=== PATIENT | female | born 1945 | race Caucasian/White ===

== ENCOUNTER → 2016-06-10 | Outpatient (CLI) | payer MEDICARE, BC ==
[2016-06-10 10:21] LABS: Blood Urea Nitrogen 13 mg/dL (7-17); Non-African American GFR(MDRD) >60 (>60 ml/min/1.73 sqM)
--- NOTE | 2016-06-10 12:02 | CT ---
EXAMINATION TYPE: CT abdomen pelvis w con DATE OF EXAM: 06/10/2016 11:55 AM COMPARISON: June 22, 2014 HISTORY: Patient complains of nausea, vomiting, and diarrhea x4 days. Patient has a history of coliti s and diverticulitis. CT DLP: 1216 mGycm CONTRAST: CT scan of the abdomen and pelvis is performed with Oral Contrast and with IV Contrast, patient injec yonathan with 100 mL of Omnipaque 300. FINDINGS: LUNG BASES-: No visible nodule. No infiltrate. LIVER/GB: No calcified gallstones. Cholecystectomy changes. Stable hepatic cysts measuring up to 1. 8 cm. Mild fatty liver. Biliary tree is of normal caliber. PANCREAS: No inflammation. No distinct mass. SPLEEN: No splenic enlargement. No lesion seen. ADRENALS: No nodule. No thickening. KIDNEYS/BLADDER: No hydronephrosis. No nephrolithiasis. Stable right renal cyst measuring 2.2 cm. Urinary bladder grossly unremarkable. BOWEL: Normal bowel caliber. Sigmoid diverticulosis without diverticulitis. No inflammation. Small s liding-type hiatal hernia. GENITAL ORGANS: No gross abnormality. LYMPH NODES: No greater than 1cm abdominal or pelvic lymph nodes are appreciated. AORTA: No significant abnormality. OSSEOUS STRUCTURES: Degenerative changes again noted lumbar spine. OTHER: No significant additional abnormality is seen. IMPRESSION: 1. Sigmoid diverticulosis without diverticulitis. 2. Mild fatty liver with 2 stable hepatic cysts.
== END | disposition home or self-care (01) ==
LOC: RADCTMAIN 09:36
PROVIDERS: ATTEND Surgery
DX: K57.30 Diverticulosis of large intestine without perforation or abscess without bleeding (principal); K76.0 Fatty (change of) liver, not elsewhere classified; K76.89 Other specified diseases of liver
CPT/HCPCS: 82565; 84520; 74177; 36415; Q9967

== ENCOUNTER → 2017-02-03 | Outpatient (CLI) | payer MEDICARE, BC ==
--- NOTE | 2017-02-05 09:29 | MM ---
Reason for exam: screening (asymptomatic). Last mammogram was performed 1 year and 7 months ago. History: Patient history of other cancer. Benign stereotactic core biopsy of the right breast, August 20, 1999. Benign excisional biopsy of the right breast, May 03, 1998. 2 cyst aspirations of the left breast. Cyst aspiration of the right breast. Core biopsy of the right breast. Took hormonal contraceptives for 10 years. Took estrogen for 5 years. Physical Findings: A clinical breast exam by your physician is recommended on an annual basis and results should be correlated with mammographic findings. MG 3D Screening Mammo W/Cad Bilateral CC and MLO view(s) were taken. Prior study comparison: July 03, 2015, bilateral MG 3d screening mammo w/cad. May 09, 2014, bilateral MG diagnostic mammo w CAD NIK. There are scattered fibroglandular densities. No suspicious abnormality. Post biopsy change on the right breast. No significant changes when compared with prior studies. ASSESSMENT: Benign, BI-RAD 2 RECOMMENDATION: Routine screening mammogram of both breasts in 1 year.
== END | disposition home or self-care (01) ==
LOC: RADMAMWWP 16:13
PROVIDERS: ATTEND Family Medicine
DX: Z12.31 Encounter for screening mammogram for malignant neoplasm of breast (principal)
CPT/HCPCS: 77063; G0202

== ENCOUNTER 2017-12-26 14:12 | Emergency (ER) | payer MEDICARE, BC ==
[2017-12-26 14:45] VITALS: PULSE 56; RESP 18; TEMP 97.8
--- NOTE | 2017-12-26 15:20 | ED ---
Fall HPI - General Chief Complaint: Fall Stated Complaint: fall/nose bleed Time Seen by Provider: 12/26/17 15:03 Source: patient, RN notes reviewed Mode of arrival: wheelchair Limitations: no limitations - History of Present Illness Initial Comments: 72-year-old female presents emergency Department chief complaint trip and fall. 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 Patient does not lose consciousness she has no headache denies any neck or upper extremity pain. Patient states she only has nasal discomfort and pressure. She did have some bleeding from her left nostril which has resolved. Denies any loose dentition. Patient offers no other complaints she states she is up-to-date on her tetanus. - Related Data Home Medications Medication Instructions Recorded Confirmed Atenolol [Tenormin] 25 mg PO HS 07/15/13 07/13/14 Fluticasone Propionate [Flonase] 1 spray EA NOSTRIL BID 07/15/13 07/13/14 Hydroxychloroquine Sulfate 200 mg PO DAILY 07/15/13 07/13/14 [Plaquenil] Multivitamin [Children's 1 tab PO DAILY 07/15/13 07/13/14 Multivitamins] Omeprazole [PriLOSEC] 20 mg PO DAILY 07/15/13 07/13/14 Simvastatin [Zocor] 20 mg PO HS 07/15/13 07/13/14 Hydroxychloroquine Sulfate 100 mg PO HS 06/22/14 07/13/14 [Plaquenil] L.acid/L.casei/B.bif/B.alice/Fos 1 tab PO QID 06/22/14 07/13/14 [Probiotic Blend Capsule] Cholecalciferol [Vitamin D3] 1,000 units PO DAILY 07/06/14 07/13/14 Nystatin 100,000 Unit/ml Susp 2.5 ml PO QID 07/06/14 07/13/14 [Mycostatin Oral Susp] Previous Rx's Medication Instructions Recorded Aspirin 81 mg PO HS #0 07/11/14 Melatonin 3 mg PO HS tab 07/11/14 Vancomycin Oral Solution 250 mg PO Q6HR 14 Days ml 07/11/14 Albuterol Inhaler [Ventolin Hfa 1 - 2 puff INHALATION Q4-6H PRN #1 07/13/14 Inhaler] inhaler predniSONE 50 mg PO DAILY #5 tab 07/13/14 Allergies Allergy/AdvReac Type Severity Reaction Status Date / Time cephalexin monohydrate Allergy Rash/Hives Verified 12/26/17 14:47 [From Keflex] latex AdvReac Itching Verified 12/26/17 14:47 nabumetone [From Relafen] AdvReac Swelling Verified 12/26/17 14:47 Review of Systems ROS Statement: Those systems with pertinent positive or pertinent negative responses have been documented in the HPI. ROS Other: All systems not noted in ROS Statement are negative. 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 OA generalized. R shoulder dislocation 15 yrs ago, chronic anemia, pt denies any previous hx of CHF History of Any Multi-Drug Resistant Organisms: C-DIFF Date of last positivie culture/infection: 07/06/2014 MDRO Source:: stool Past Surgical History: Cholecystectomy, Tonsillectomy Additional Past Surgical History / Comment(s): Recent basal cell skin cancer removed from R shoulder, colonoscopy, oopherectomy-one ovary removed and one ovary 3/4 removed Past Anesthesia/Blood Transfusion Reactions: No Reported Reaction Past Psychological History: No Psychological Hx Reported Smoking Status: Never smoker Past Alcohol Use History: None Reported Past Drug Use History: None Reported - Past Family History Father Family Medical History: CVA/TIA Additional Family Medical History / Comment(s): Father at age 84 from CVA/ TIA's Mother Family Medical History: Coronary Artery Disease (CAD), Diabetes Mellitus Additional Family Medical History / Comment(s): Mother at age 57yrs from complications of her DM. General Exam Limitations: no limitations General appearance: alert, in no apparent distress Head exam: Present: atraumatic, normocephalic, normal inspection Eye exam: Present: normal appearance, PERRL, EOMI. Absent: scleral icterus, conjunctival injection, periorbital swelling ENT exam: Present: normal oropharynx, mucous membranes moist, TM's normal bilaterally, normal external ear exam, other (Dry blood in left nostril, there is mild swelling and ecchymosis over the nasal bridge with mild tenderness no maxillary tenderness). Absent: normal exam Neck exam: Present: normal inspection, full ROM. Absent: tenderness, meningismus, lymphadenopathy Respiratory exam: Present: normal lung sounds bilaterally. Absent: respiratory distress, wheezes, rales, rhonchi, stridor Cardiovascular Exam: Present: regular rate, normal rhythm, normal heart sounds. Absent: systolic murmur, diastolic murmur, rubs, gallop, clicks Course Vital Signs 12/26/17 14:41 Temperature 97.8 F Pulse Rate 56 L Respiratory 18 Rate Blood Pressure 141/67 O2 Sat by Pulse 97 Oximetry Medical Decision Making - Medical Decision Making 72-year-old female presented from it for chief complaint of fall. Patient had epistaxis. CT of the facial bones brain and C-spine were obtained no acute fracture there is old fracture noted. Patient does admit to this. Patient will be discharged return parameters were discussed. Disposition Clinical Impression: Fall, Epistaxis Disposition: HOME SELF-CARE Condition: Stable Instructions: Nosebleed (ED) Additional Instructions: Please return to the Emergency Department if symptoms worsen or any other concerns. Is patient prescribed a controlled substance at d/c from ED?: No Referrals: Soledad Antunez MD [Primary Care Provider] - 1-2 days Time of Disposition: 16:10
--- NOTE | 2017-12-26 15:52 | CT ---
EXAMINATION TYPE: CT brain cspine wo con, CT facial bones wo con DATE OF EXAM: 12/26/2017 COMPARISON: CT brain June 04, 2010. CT facial bones April 29, 2011 HISTORY: fall today hitting nose with headache and neck pain. CT DLP: 1339.2 (accession [id number]), 564.4 (accession [id number]) mGycm. Automated Exposure Control for Dose Reduction was Utilized. TECHNIQUE: CT scan of the head and cervical spine are performed without contrast. FINDINGS: There is no acute intracranial hemorrhage, mass effect, or midline shift identified. The ventricles and sulci are within normal limits in size. The calvarium is intact. There is old fracture deformity of left-sided nasal bones redemonstrated. No acute displaced fracture s are felt evident as there is no significant new soft tissue swelling or change from prior CT 2011. Orbital floors and rodriguez are intact. The globes are intact bilaterally. Intraconal fat is preserved. The zygomatic arches are intact. Pterygoid plates are intact. The mandible is intact. There is modera te degenerative change in both temporomandibular joints with flattening of femoral heads, joint space loss, and subchondral cystic change. There is mild mucosal thickening in the smaller caliber left ma xillary sinus. Remainder paranasal sinuses are clear. Cervical spine is visualized in its entirety from C1 through upper thoracic levels and demonstrates s light grade 1 anterolisthesis C3 on C4 and grade 1 retrolisthesis C6 on C7 without evidence of acute fracture or dislocation. Prevertebral soft tissue appears within normal limits. The C1-C2 articulat ion is within normal limits on the coronal images. Vertebral body heights are maintained. Moderate to advanced spurring and disc space narrowing C4-C5 t hrough C6-C7 levels is present. Posterior spur disc complexes are effacing anterior thecal sac at the se levels on sagittal and axial images. Lung apices show mild biapical pleural/parenchymal scarring. Thyroid gland is within normal limits. IMPRESSION: 1. There is no acute fracture or dislocation evident in the cervical spine. 2. No acute intracranial hemorrhage or midline shift is seen. 3. Age indeterminate but favored old left-sided nasal bone fractures. No acute displaced facial bone fracture is clearly seen.
[2017-12-26 16:19] VITALS: BP 143/73
== END 2017-12-26 16:14 | disposition home or self-care (01) ==
LOC: EC 14:12
DX: R04.0 Epistaxis (principal); K21.9 Gastro-esophageal reflux disease without esophagitis; E78.5 Hyperlipidemia, unspecified; I10 Essential (primary) hypertension; Z85.828 Personal history of other malignant neoplasm of skin; Z79.51 Long term (current) use of inhaled steroids; Z79.899 Other long term (current) drug therapy; Z88.1 Allergy status to other antibiotic agents; Z91.040 Latex allergy status; Z88.8 Allergy status to other drugs, medicaments and biological substances; W01.10XA Fall on same level from slipping, tripping and stumbling with subsequent striking against unspecified object, initial encounter; Y93.G3 Activity, cooking and baking; Y92.22 Religious institution as the place of occurrence of the external cause
CPT/HCPCS: 70450; 70486; 72125; 99283

== ENCOUNTER → 2018-03-20 | Outpatient (CLI) | payer MEDICARE, BC ==
--- NOTE | 2018-03-23 07:51 | BD ---
EXAMINATION TYPE: Axial Bone Density DATE OF EXAM: 03/20/2018 COMPARISON: 09/27/2004 report. CLINICAL HISTORY: Other bone disorders per order. Postmenopausal female. Height: 58.5 IN Weight: 152 LBS FRAX RISK QUESTIONS: History of Fracture in Adulthood: YES LT FOOT AGE 65; RT WRIST AGE 63 RISK FACTORS HISTORY OF: History of Wrist Fracture: YES RT WRIST When: AGE 63 Active: YES Postmenopausal woman: AGE 43 Take estrogen and/or progesterone medications: NOT NOW How long: CONTROL FROM AGE [age] MEDICATIONS: Additional Medications: CALCIUM, VIT D, DESONIDE, ALDACTONE, PRILOSEC, VIT C, PROBIOTIC, FLONASE, ZOC OR, TENORMIN, PLAQUENIL, COZAAR, HCTZ, ASPIRIN 81 MG EXAM MEASUREMENTS: Bone mineral densitometry was performed using the [employer]. Bone mineral density as measured about the Lumbar spine is: ----- L1-L4(G/cm2): 1.162 T Score Values are as follows: ----- L2: -0.8 ----- L3: -0.3 ----- L4: 1.0 ----- L1-L4: -0.2 Bone mineral density has: Increased 17.2% since study of: 09/27/2004 Bone mineral density about the R hip (g/cm2): 0.832 Bone mineral density about the L hip (g/cm2): 0.852 T Score values are as follows: -----R Neck: -1.5 -----L Neck: -1.3 -----R Total: -0.9 -----L Total: -0.4 Bone mineral density BASELINE IMPRESSION: Osteopenia (T Score between -2.5 and -1) femoral neck level in both hips. There is slightly increased risk of fracture and the patient may be considered for treatment. Re-Screen 2-5 years. NOTE: T-SCORE=SD OF THE YOUNG ADULT MEAN.
--- NOTE | 2018-03-29 10:53 | MM ---
Reason for exam: screening (asymptomatic). Last mammogram was performed 1 year and 1 month ago. History: Patient history of other cancer. Benign stereotactic core biopsy of the right breast, August 20, 1999. Benign excisional biopsy of the right breast, May 03, 1998. 2 cyst aspirations of the left breast. Cyst aspiration of the right breast. Core biopsy of the right breast. Took hormonal contraceptives for 10 years. Took estrogen for 5 years. MG 3D Screening Mammo W/Cad Bilateral CC and MLO view(s) were taken. Prior study comparison: February 03, 2017, bilateral MG 3d screening mammo w/cad. July 03, 2015, bilateral MG 3d screening mammo w/cad. The breast tissue is heterogeneously dense. This may lower the sensitivity of mammography. There are benign-appearing round vascular calcification in bilateral breast. Previous mammotome in the right breast x 2. No discrete abnormality. ASSESSMENT: Benign, BI-RAD 2 RECOMMENDATION: Routine screening mammogram of both breasts in 1 year.
== END | disposition home or self-care (01) ==
LOC: RADMAMWWP 07:55
PROVIDERS: ATTEND Family Medicine
DX: Z12.31 Encounter for screening mammogram for malignant neoplasm of breast (principal); M85.851 Other specified disorders of bone density and structure, right thigh; M85.852 Other specified disorders of bone density and structure, left thigh
CPT/HCPCS: 77063; 77067; 77080

== ENCOUNTER → 2018-08-11 | Outpatient (CLI) | payer MEDICARE, BC ==
--- NOTE | 2018-08-11 15:09 | US ---
EXAMINATION TYPE: US axilla RT DATE OF EXAM: 08/11/2018 COMPARISON: NONE CLINICAL HISTORY: R22.9 Localized swelling, mass and lump, unspecifi. Patient states she has had a lump in her right axilla since March. No masses seen, normal appearing axilla ultrasound. Morphologically normal-appearing axillary lymp h node measures 0.8 x 0.9 cm with cortical thickness up to 2.6 mm. IMPRESSION: Morphologically normal and nonenlarged right axillary lymph node. No suspicious solid or cystic mass.
== END | disposition home or self-care (01) ==
LOC: RADUSWWP 14:39
PROVIDERS: ATTEND Family Medicine
DX: R22.9 Localized swelling, mass and lump, unspecified (principal)

== ENCOUNTER → 2019-05-11 | Outpatient (CLI) | payer MEDICARE, BC ==
--- NOTE | 2019-05-11 11:10 | US ---
EXAMINATION TYPE: US axilla RT DATE OF EXAM: 05/11/2019 COMPARISON: US 08/11/2018 CLINICAL HISTORY: R22.9 Lump,mass. Palpable lump right axilla TECHNIQUE/FINDINGS: Grayscale imaging was performed of the patient's right axilla for the palpable ab normality. No suspicious abnormality visualized, multiple normal appearing lymph nodes visualized, largest measu ring 0.6 cm. These are nonenlarged morphologically normal with no cortical thickening. Fatty hilum is maintained. IMPRESSION: Again morphologically normal-appearing right axillary lymph nodes are seen. No enlarged lymph nodes. No suspicious lymph nodes. No additional solid or cystic mass.
--- NOTE | 2019-05-12 07:47 | MM ---
Reason for exam: screening (asymptomatic). Last mammogram was performed 1 year and 2 months ago. History: Patient history of other cancer. Benign stereotactic core biopsy of the right breast, August 20, 1999. Benign excisional biopsy of the right breast, May 03, 1998. 2 cyst aspirations of the left breast. Cyst aspiration of the right breast. Core biopsy of the right breast. Took hormonal contraceptives for 10 years beginning at age 22. Taking estrogen for 5 years. Physical Findings: A clinical breast exam by your physician is recommended on an annual basis and results should be correlated with mammographic findings. MG 3D Screening Mammo W/Cad Bilateral CC and MLO view(s) were taken. Prior study comparison: March 20, 2018, bilateral MG 3d screening mammo w/cad. February 03, 2017, bilateral MG 3d screening mammo w/cad. The breast tissue is heterogeneously dense. This may lower the sensitivity of mammography. Nodularity central left breast middle third position. ASSESSMENT: Incomplete: need additional imaging evaluation, BI-RAD 0 RECOMMENDATION: Special view mammogram of the left breast. If lesion persists on supplemental views, image directed ultrasound is recommended. [facility] will attempt to contact patient to return for supplemental views and ultrasound if indicated.
== END ==
LOC: RADMAMWWP 09:50
PROVIDERS: ATTEND Family Medicine
DX: Z12.31 Encounter for screening mammogram for malignant neoplasm of breast (principal); R22.2 Localized swelling, mass and lump, trunk
CPT/HCPCS: 77063; 77067

== ENCOUNTER → 2019-05-17 | Outpatient (CLI) | payer MEDICARE, BC ==
--- NOTE | 2019-05-18 07:29 | MM ---
Reason for exam: additional evaluation requested from abnormal screening. Last mammogram was performed less than 1 month ago. History: Patient history of other cancer. Benign stereotactic core biopsy of the right breast, August 20, 1999. Benign excisional biopsy of the right breast, May 03, 1998. 2 cyst aspirations of the left breast. Cyst aspiration of the right breast. Core biopsy of the right breast. Took hormonal contraceptives for 10 years beginning at age 22. Took estrogen for 3 years beginning at age 55. Physical Findings: Nurse did not find any significant physical abnormalities on exam. MG 3D Work Up W/Cad LT Spot compression CC, spot compression MLO, and ML view(s) were taken of the left breast. Prior study comparison: May 11, 2019, bilateral MG 3d screening mammo w/cad. March 20, 2018, bilateral MG 3d screening mammo w/cad. February 03, 2017, bilateral MG 3d screening mammo w/cad. July 03, 2015, bilateral MG 3d screening mammo w/cad. The breast tissue is heterogeneously dense. This may lower the sensitivity of mammography. There is a stable left lower inner quadrant middle depth round circumscribed mass back to 2016, benign. Benign appearing calcifications in the left breast. No suspicious abnormality. No significant new findings when compared with previous films. These results were verbally communicated with the patient and result sheet given to the patient on 05/17/19. ASSESSMENT: Benign, BI-RAD 2 RECOMMENDATION: Return to routine screening mammogram schedule for both breasts.
== END | disposition home or self-care (01) ==
LOC: RADMAMWWP 14:24
PROVIDERS: ATTEND Family Medicine
DX: R92.8 Other abnormal and inconclusive findings on diagnostic imaging of breast (principal)
CPT/HCPCS: 77065; G0279; 77061

== ENCOUNTER 2019-08-08 13:40 | Inpatient (IN) | payer MEDICARE, BC ==
[2019-08-08] MEDS ORDERED: MORPHINE SULFATE 4 MG/ML SYRINGE IV STA (14:17)
[2019-08-08] MEDS ORDERED: SODIUM CHLORIDE 0.9% 500 ML 500 ML IV STA (14:17)
[2019-08-08] MEDS ORDERED: LORazepam 2 MG/ML INJ IV STA (14:22)
--- NOTE | 2019-08-08 14:27 | ED ---
General Adult HPI - General Chief complaint: Shortness of Breath Stated complaint: chest pain/SOB/arm numbness Time Seen by Provider: 08/08/19 14:09 Source: patient, RN notes reviewed, old records reviewed Mode of arrival: wheelchair Limitations: no limitations - History of Present Illness Initial comments: 74-year-old female patient presented to ED for chief complaint of left lower quadrant/left flank pain. This has been ongoing for the last 4 days. Patient also reports that today she has now become short of breath. Denies any cough. Denies any chest pain. Patient reports that she is very anxious. Has been having some mild paresthesias in the left lower extremity. Denies any anterior chest pain. Denies any other complaints. Systemic: Pt denies fatigue, fever/chills, rash. Pt denies weakness, night sweats, weight loss. Neuro: Pt denies headache, visual disturbances, syncope or pre-syncope. HEENT: Pt denies ocular discharge or irritation, otalgia, rhinorrhea, pharyngitis or notable lymphadenopathy. Cardiopulmonary: Pt denies chest pain, heart palpitations, dyspnea on exertion. Abdominal/GI: Pt denies n/v/d. : Pt denies dysuria, burning w/ urination, frequency/urgency. Denies new onset urinary or bowel incontinence. MSK: Pt denies myalgia, loss of strength or function in extremities. Neuro: Pt denies new onset weakness, paresthesias. - Related Data Home Medications Medication Instructions Recorded Confirmed Fluticasone Propionate [Flonase] 1 spray EA NOSTRIL BID 07/15/13 12/26/17 Hydroxychloroquine Sulfate 200 mg PO DAILY 07/15/13 12/26/17 [Plaquenil] Multivitamin [Children's 1 tab PO DAILY 07/15/13 12/26/17 Multivitamins] Simvastatin [Zocor] 20 mg PO HS 07/15/13 12/26/17 Hydroxychloroquine Sulfate 100 mg PO HS 06/22/14 12/26/17 [Plaquenil] L.acid/L.casei/B.bif/B.alice/Fos 1 tab PO QID 06/22/14 12/26/17 [Probiotic Blend Capsule] Cholecalciferol [Vitamin D3 (25 1,000 units PO DAILY 07/06/14 12/26/17 Mcg = 1000 Iu)] Atenolol [Tenormin] 50 mg PO DAILY 12/26/17 12/26/17 Losartan/Hydrochlorothiazide 1 tab PO DAILY 12/26/17 12/26/17 [Hyzaar 100-25 Tablet] Allergies Allergy/AdvReac Type Severity Reaction Status Date / Time cephalexin monohydrate Allergy Rash/Hives Verified 08/08/19 13:47 [From Keflex] crisaborole [From Eucrisa] Allergy Anaphylaxis Verified 08/08/19 13:47 Penicillins Allergy Unknown Verified 08/08/19 14:56 latex AdvReac Itching Verified 08/08/19 13:47 methocarbamol AdvReac Swelling Verified 08/08/19 13:47 nabumetone [From Relafen] AdvReac Swelling Verified 08/08/19 13:47 Review of Systems ROS Statement: Those systems with pertinent positive or pertinent negative responses have been documented in the HPI. ROS Other: All systems not noted in ROS Statement are negative. 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 OA generalized. R shoulder dislocation 15 yrs ago, chronic anemia, pt denies any previous hx of CHF History of Any Multi-Drug Resistant Organisms: C-DIFF Date of last positivie culture/infection: 07/06/2014 MDRO Source:: stool Past Surgical History: Cholecystectomy, Tonsillectomy Additional Past Surgical History / Comment(s): Recent basal cell skin cancer removed from R shoulder, colonoscopy, oopherectomy-one ovary removed and one ovary 3/4 removed Past Anesthesia/Blood Transfusion Reactions: No Reported Reaction Past Psychological History: No Psychological Hx Reported Smoking Status: Never smoker Past Alcohol Use History: None Reported Past Drug Use History: None Reported - Past Family History Father Family Medical History: CVA/TIA Additional Family Medical History / Comment(s): Father at age 84 from CVA/TIA's Mother Family Medical History: Coronary Artery Disease (CAD), Diabetes Mellitus Additional Family Medical History / Comment(s): Mother at age 57yrs from complications of her DM. General Exam - General Exam Comments Initial Comments: Constitutional: NAD, AOX3, Pt has pleasant affect. HEENT: NC/AT, trachea midline, neck supple, no lymphadenopathy. Posterior ph arynx non erythematous, without exudates. External ears appear normal, without discharge. Mucous membranes moist. Eyes PERRLA, EOM intact. There is no scleral icterus. No pallor noted. Cardiopulmonary: RRR, no murmurs, rubs or gallops, no JVD noted. Lungs CTAB in anterior and posterior cramer. No peripheral edema. Abdominal exam: Abdomen soft and non-distended. Abdomen mildly tender to palpation in left lower quadrant, left lower flank region.. Bowel sounds active in LLQ. No hepatosplenomegaly. No ecchymosis Neuro: CN II-XII intact. No nuchal rigidity. No raccon eyes, no ferreira sign, no hemotympanum. No cervical spinal tenderness. MSK: No posterior calf tenderness bilaterally, homans sign negative bilaterally. Sensation intact in upper and lower extremities. Full active ROM in upper and lower extremities, 5/5 stregnth. Limitations: no limitations Course Vital Signs 08/08/19 08/08/19 08/08/19 13:44 13:47 14:47 Temperature 98.2 F Pulse Rate 59 L 54 L Respiratory 24 20 20 Rate Blood Pressure 147/83 131/76 O2 Sat by Pulse 91 L 97 98 Oximetry 08/08/19 08/08/19 08/08/19 15:00 16:00 17:00 Temperature Pulse Rate 54 L 54 L 51 L Respiratory 20 20 20 Rate Blood Pressure 85/54 119/62 O2 Sat by Pulse 98 98 98 Oximetry Medical Decision Making - Medical Decision Making 74-year-old female patient presented to ED for chief complaint of left lower quadrant/left flank pain. This has been ongoing for the last 4 days. Patient also reports that today she has now become short of breath. Denies any cough. Denies any chest pain. Patient reports that she is very anxious. Has been having some mild paresthesias in the left lower extremity. Denies any anterior chest pain. Denies any other complaints. Physical exam showed left lower quadrant tenderness. Lungs are clear to auscultation bilaterally. Laboratory investigations are obtained and are overall unremarkable. D-dimer negative. Troponin negative. Repeat evaluation patient is stating that her abdominal pain has resolved however she is now complaining of left shoulder pain. Patient denies any shortness breath at this time. EKG is nonischemic. Patient's blood pressure also transiently dropped down in the 80s. Currently in the 100 systolic. Patient will be observed in hospital for serial troponins, ACS rule out. Case discussed with Dr. Bang. - Lab Data Result diagrams: 08/08/19 14:40 08/08/19 14:40 Lab Results 08/08/19 08/08/19 08/08/19 Range/Units 14:40 14:40 14:40 WBC 9.4 (3.8-10.6) k/uL RBC 4.71 (3.80-5.40) m/uL Hgb 14.9 (11.4-16.0) gm/dL Hct 44.6 (34.0-46.0) % MCV 94.7 (80.0-100.0) fL MCH 31.6 (25.0-35.0) pg MCHC 33.3 (31.0-37.0) g/dL RDW 11.7 (11.5-15.5) % Plt Count 244 (150-450) k/uL Neutrophils % 75 % Lymphocytes % 14 % Monocytes % 5 % Eosinophils % 2 % Basophils % 1 % Neutrophils # 7.1 (1.3-7.7) k/uL Lymphocytes # 1.3 (1.0-4.8) k/uL Monocytes # 0.5 (0-1.0) k/uL Eosinophils # 0.2 (0-0.7) k/uL Basophils # 0.1 (0-0.2) k/uL PT 10.6 (9.0-12.0) sec INR 1.0 (<1.2) APTT 22.2 (22.0-30.0) sec D-Dimer 0.31 (<0.60) mg/L FEU Sodium 133 L (137-145) mmol/L Potassium 4.5 (3.5-5.1) mmol/L Chloride 97 L (98-107) mmol/L Carbon Dioxide 21 L (22-30) mmol/L Anion Gap 15 mmol/L BUN 18 H (7-17) mg/dL Creatinine 0.66 (0.52-1.04) mg/dL Est GFR (CKD-EPI)AfAm >90 (>60 ml/min/1.73 sqM) Est GFR (CKD-EPI)NonAf 86 (>60 ml/min/1.73 sqM) Glucose 94 (74-99) mg/dL Calcium 10.3 H (8.4-10.2) mg/dL Magnesium 1.7 (1.6-2.3) mg/dL Total Bilirubin 1.0 (0.2-1.3) mg/dL AST 37 H (14-36) U/L ALT 22 (4-34) U/L Alkaline Phosphatase 61 (38-126) U/L Troponin I (0.000-0.034) ng/mL NT-Pro-B Natriuret Pep pg/mL Total Protein 7.9 (6.3-8.2) g/dL Albumin 5.0 (3.5-5.0) g/dL Lipase 113 (23-300) U/L Urine Color Urine Appearance (Clear) Urine pH (5.0-8.0) Ur Specific Williams (1.001-1.035) Urine Protein (Negative) Urine Glucose (UA) (Negative) Urine Ketones (Negative) Urine Blood (Negative) Urine Nitrite (Negative) Urine Bilirubin (Negative) Urine Urobilinogen (<2.0) mg/dL Ur Leukocyte Esterase (Negative) Urine RBC (0-5) /hpf Urine WBC (0-5) /hpf 08/08/19 08/08/19 08/08/19 Range/Units 14:40 14:40 15:30 WBC (3.8-10.6) k/uL RBC (3.80-5.40) m/uL Hgb (11.4-16.0) gm/dL Hct (34.0-46.0) % MCV (80.0-100.0) fL MCH (25.0-35.0) pg MCHC (31.0-37.0) g/dL RDW (11.5-15.5) % Plt Count (150-450) k/uL Neutrophils % % Lymphocytes % % Monocytes % % Eosinophils % % Basophils % % Neutrophils # (1.3-7.7) k/uL Lymphocytes # (1.0-4.8) k/uL Monocytes # (0-1.0) k/uL Eosinophils # (0-0.7) k/uL Basophils # (0-0.2) k/uL PT (9.0-12.0) sec INR (<1.2) APTT (22.0-30.0) sec D-Dimer (<0.60) mg/L FEU Sodium (137-145) mmol/L Potassium (3.5-5.1) mmol/L Chloride (98-107) mmol/L Carbon Dioxide (22-30) mmol/L Anion Gap mmol/L BUN (7-17) mg/dL Creatinine (0.52-1.04) mg/dL Est GFR (CKD-EPI)AfAm (>60 ml/min/1.73 sqM) Est GFR (CKD-EPI)NonAf (>60 ml/min/1.73 sqM) Glucose (74-99) mg/dL Calcium (8.4-10.2) mg/dL Magnesium (1.6-2.3) mg/dL Total Bilirubin (0.2-1.3) mg/dL AST (14-36) U/L ALT (4-34) U/L Alkaline Phosphatase (38-126) U/L Troponin I <0.012 (0.000-0.034) ng/mL NT-Pro-B Natriuret Pep 292 pg/mL Total Protein (6.3-8.2) g/dL Albumin (3.5-5.0) g/dL Lipase (23-300) U/L Urine Color Yellow Urine Appearance Clear (Clear) Urine pH 8.0 (5.0-8.0) Ur Specific Williams 1.019 (1.001-1.035) Urine Protein Negative (Negative) Urine Glucose (UA) Negative (Negative) Urine Ketones 1+ H (Negative) Urine Blood Negative (Negative) Urine Nitrite Negative (Negative) Urine Bilirubin Negative (Negative) Urine Urobilinogen <2.0 (<2.0) mg/dL Ur Leukocyte Esterase Moderate H (Negative) Urine RBC 1 (0-5) /hpf Urine WBC 2 (0-5) /hpf - EKG Data -: EKG Interpreted by Me (and Dr. Bang ) EKG Comments: 1) ventricular rate 58,. NH interval 124, QRS 72, QT/QTc 442/433. Sinus bradycardia, inferior infarct age undetermined. Normal EKG. No concern for acute ischemia at this time. 2) ventricular rate 55, NH interval 110, QRS 100, QT/QTC 48/476. Sinus bradycardia with short NH. Otherwise normal EKG. No concern for acute ischemia at this time. Disposition Clinical Impression: Shoulder pain, Bradycardia Disposition: ADMITTED IP TO THIS HOSP Condition: Fair Is patient prescribed a controlled substance at d/c from ED?: No Referrals: Soledad Antunez MD [Primary Care Provider] - 1-2 days
[2019-08-08 14:54] LABS: Basophils # (A) 0.1 k/uL (0-0.2); Basophils % (A) 1 %; Eosinophils # (A) 0.2 k/uL (0-0.7); Eosinophils % (A) 2 %; HCT 44.6 % (34.0-46.0); HGB 14.9 gm/dL (11.4-16.0); Lymphocytes # (A) 1.3 k/uL (1.0-4.8); Lymphocytes % (A) 14 %; MCH 31.6 pg (25.0-35.0); MCHC 33.3 g/dL (31.0-37.0); MCV 94.7 fL (80.0-100.0); Mean Platelet Volume 8.6; Monocytes # (A) 0.5 k/uL (0-1.0); Monocytes % (A) 5 %; Neutrophils # (A) 7.1 k/uL (1.3-7.7); Neutrophils % (A) 75 %; Platelet Count 244 k/uL (150-450); RBC 4.71 m/uL (3.80-5.40); RDW 11.7 % (11.5-15.5); WBC 9.4 k/uL (3.8-10.6)
--- NOTE | 2019-08-08 15:00 | XR ---
EXAMINATION TYPE: XR chest 2V DATE OF EXAM: 08/08/2019 COMPARISON: Prior chest x-ray 07/13/2014 HISTORY: Shortness of breath TECHNIQUE: Frontal and lateral views of the chest are obtained. FINDINGS: There is no focal air space opacity, pleural effusion, or pneumothorax seen. The cardiac silhouette size is stable. The osseous structures are intact. Surgical clips are present in the upp er abdomen. There are overlying cardiac leads. Prominent lung volumes may be indicative of underlying COPD. IMPRESSION: No acute cardiopulmonary process. Improved aeration and volume status as compared to vahe or exam.
[2019-08-08 15:05] LABS: ALT 22 U/L (4-34); AST 37 U/L (14-36); African American GFR (CKD) >90 (>60 ml/min/1.73 sqM); Alkaline Phosphatase 61 U/L (38-126); Anion Gap 15 mmol/L; Blood Urea Nitrogen 18 mg/dL (7-17); Calcium 10.3 mg/dL (8.4-10.2); Carbon Dioxide 21 mmol/L (22-30); Chloride 97 mmol/L (98-107); Glucose 94 mg/dL (74-99); Magnesium 1.7 mg/dL (1.6-2.3); Non-African American GFR(CKD) 86 (>60 ml/min/1.73 sqM); Sodium 133 mmol/L (137-145); Total Protein 7.9 g/dL (6.3-8.2)
[2019-08-08 15:07] LABS: Potassium 4.5 mmol/L (3.5-5.1)
[2019-08-08 15:08] LABS: D-Dimer 0.31 mg/L FEU (<0.60); Partial Thromboplastin Time 22.2 sec (22.0-30.0); Prothrombin Time 10.6 sec (9.0-12.0)
[2019-08-08 16:17] LABS: Appearance,Urine Clear (Clear); Bilirubin,Urine Negative (Negative); Blood,Urine Negative (Negative); Color,Urine Yellow; Glucose,Urine (UA) Negative (Negative); Ketones,Urine 1+ (Negative); Leukocyte Esterase,Urine Moderate (Negative); Nitrite,Urine Negative (Negative); Protein,Urine Negative (Negative); RBC,Urine 1 /hpf (0-5); Specific Gravity,Urine 1.019 (1.001-1.035); Urobilinogen,Urine <2.0 mg/dL (<2.0); WBC,Urine 2 /hpf (0-5)
--- NOTE | 2019-08-08 16:38 | CT ---
EXAMINATION TYPE: CT abdomen pelvis w con DATE OF EXAM: 08/08/2019 COMPARISON: HISTORY: LLQ pain CT DLP: 809.7 mGycm Automated exposure control for dose reduction was used. TECHNIQUE: Helical acquisition of images from the lung bases through the pelvis have been completed. CONTRAST: Performed without Oral Contrast and with IV Contrast, patient injected with 100 mL of Isovue 300. FINDINGS: LUNG BASES: No significant abnormality is appreciated. AORTA: No significant abnormality is appreciated. LIVER/GB: No significant change is appreciated. Patient is post cholecystectomy. PANCREAS: No significant abnormality is seen. SPLEEN: No significant abnormality is seen. ADRENALS: No significant abnormality is seen. KIDNEYS: No significant interval change is seen. REPRODUCTIVE ORGANS: No significant abnormality is seen BOWEL: No significant interval change is seen. Sigmoid diverticulosis is noted. Diverticular change also present in much of the colon. Colonic wall thickening also seen along the descending colon. FREE AIR: No Free Air visible. ASCITES: None visible. PELVIC ADENOPATHY: None visualized. RETROPERITONEAL ADENOPATHY: No Retroperitoneal Adenopathy visible. URINARY BLADDER: No significant abnormality is seen. OSSEOUS STRUCTURES: No significant change is seen. There is degenerative disc change present. Bradly listhesis grade 1 L4-5. IMPRESSION: DIVERTICULOSIS, CORRELATE FOR POSSIBLE COLITIS.
[2019-08-08] MEDS ORDERED: SODIUM CHLORIDE 0.9% 500 ML 500 ML IV ONE ×2 (16:47→16:48)
[2019-08-08] MEDS ORDERED: NALOXONE 0.4 MG/ML 1 ML VIAL IV PRN (17:15)
[2019-08-08] MEDS ORDERED: ASPIRIN 81 MG PO STA (17:15)
[2019-08-08] MEDS ORDERED: MORPHINE SULFATE 4 MG/ML SYRINGE IV PRN (17:15)
[2019-08-08] MEDS ORDERED: LORazepam 0.5 MG TAB PO PRN (17:22)
[2019-08-08] MEDS: ATORVASTATIN 10 MG TAB PO SCH (19:50)
[2019-08-08] MEDS ORDERED: HYDROXYCHLOROQUINE SULFATE 200 MG TAB PO SCH (21:00)
[2019-08-08] MEDS: FLUTICASONE 50MCG/SPRAY NASAL 16GM EA NOSTRIL SCH (21:00)
[2019-08-09 03:26] LABS: Basophils % (A) 0 %; Eosinophils # (A) 0.2 k/uL (0-0.7); Eosinophils % (A) 3 %; HCT 36.5 % (34.0-46.0); HGB 12.5 gm/dL (11.4-16.0); Lymphocytes # (A) 1.1 k/uL (1.0-4.8); Lymphocytes % (A) 19 %; MCHC 34.2 g/dL (31.0-37.0); MCV 96.4 fL (80.0-100.0); Monocytes # (A) 0.4 k/uL (0-1.0); Monocytes % (A) 7 %; Neutrophils # (A) 3.9 k/uL (1.3-7.7); Neutrophils % (A) 68 %; Platelet Count 210 k/uL (150-450); RBC 3.78 m/uL (3.80-5.40); RDW 11.8 % (11.5-15.5); WBC 5.7 k/uL (3.8-10.6)
[2019-08-09 03:34] LABS: African American GFR (CKD) >90 (>60 ml/min/1.73 sqM); Anion Gap 7 mmol/L; Blood Urea Nitrogen 16 mg/dL (7-17); Calcium 9.1 mg/dL (8.4-10.2); Carbon Dioxide 26 mmol/L (22-30); Chloride 98 mmol/L (98-107); Glucose 78 mg/dL (74-99); Non-African American GFR(CKD) 86 (>60 ml/min/1.73 sqM); Potassium 3.8 mmol/L (3.5-5.1); Sodium 131 mmol/L (137-145)
[2019-08-09] MEDS ORDERED: ASPIRIN 325 MG TAB PO SCH (09:00)
[2019-08-09] MEDS ORDERED: LOSARTAN-HCTZ 50-12.5 MG 1 EACH TAB PO SCH (09:00)
[2019-08-09] MEDS ORDERED: ATENOLOL 50 MG TAB PO SCH (09:00)
--- NOTE | 2019-08-09 11:25 | P.CRDCN ---
History of Present Illness History of present illness: Lashon tidwell This is Dr. Hernandez dictating a consult on this patient The patient was interviewed and examined by me IMPRESSION / ASSESSMENT: Left-sided flank pain, very severe Sinus bradycardia in the 50s on atenolol Absolute QT interval between 480-490 ms Low magnesium and low potassium PLAN: Stop hydrochlorothiazide Continue losartan 50 twice a day Oral magnesium Spironolactone [25 mg by mouth daily and maximize to 50 m by mouth daily to keep normal magnesium and potassium while on Plaquenil Monitor QT interval tomorrow HPI Patient admitted with abdominal pain. Was complaining of shoulder pain Heart rates in the 50s. Currently on atenolol 50 mg daily Magnesium 1.7 normal troponins Twelve-lead ECG shows sinus rhythm in the 50s absolute QT interval of about 490 ms Patient on plaquenil ROS: No fever chills or rigors, no cough, phlegm or expectoration, no nausea, vomiting or diarrhea, no hematuria, dysuria, no musculoskeletal complaints, no strokes or seizures, no skin lesions. EXAMINATION: Afebrile 98.1F blood pressure 144/69, 149/63 and 130/61 Normal heart sounds, normal S1 normal S2 Tenderness in the left upper quadrant and left flank Normal breath sounds No lower extremity edema REVIEW OF LABS, ECG & MEDICAL DATA Medications reviewed. Patient is on Zocor atenolol losartan Teresa L spironolactone hydrochlorothiazide and Flonase Hemoglobin 14.9 Sodium 133 BUN 18 creatinine 0.66 Magnesium 1.7, potassium 3.8 3 troponins are normal ProBNP to 92 D-dimer 0.3 Twelve-lead ECG shows sinus rhythm normal ND CT of the abdomen shows possible colitis and diverticulosis Chest x-ray normal Past Medical History Past Medical History: Cancer, GERD/Reflux, Hyperlipidemia, Hypertension, Osteoarthritis (OA), Pneumonia Additional Past Medical History / Comment(s): rectal bleed possible diverticular bleed, CDiff, R humerus fx, recent R upper arm basal cell ckin cancer removal, 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 OA generalized. R shoulder dislocation 15 yrs ago, chronic anemia, pt denies any previous hx of CHF History of Any Multi-Drug Resistant Organisms: C-DIFF Date of last positivie culture/infection: 07/06/2014 MDRO Source:: stool Past Surgical History: Cholecystectomy, Tonsillectomy Additional Past Surgical History / Comment(s): Recent basal cell skin cancer removed from R shoulder, colonoscopy, oopherectomy-one ovary removed and one ovary 3/4 removed Past Anesthesia/Blood Transfusion Reactions: No Reported Reaction Past Psychological History: No Psychological Hx Reported Additional Psychological History / Comment(s): Pt states she is alittle stressed from her shogrens disease and recent health problems. She lives alone since her 4 1/2 yrs ago. She is normally independent. She just recently fx her R humerous so things are alittle more difficult but her two sones live nearby and check on her. She is getting progressively weaker with CDiff antibiotic tx and problems associated with that. Smoking Status: Former smoker Past Alcohol Use History: None Reported Past Drug Use History: None Reported - Past Family History Father Family Medical History: CVA/TIA Additional Family Medical History / Comment(s): Father at age 84 from CVA/TIA's Mother Family Medical History: Coronary Artery Disease (CAD), Diabetes Mellitus Additional Family Medical History / Comment(s): Mother at age 57yrs from complications of her DM. Medications and Allergies Home Medications Medication Instructions Recorded Confirmed Type Fluticasone Propionate [Flonase] 1 spray EA NOSTRIL BID 07/15/13 08/08/19 History Hydroxychloroquine Sulfate 200 mg PO DAILY 07/15/13 08/08/19 History [Plaquenil] Simvastatin [Zocor] 20 mg PO HS 07/15/13 08/08/19 History Atenolol [Tenormin] 50 mg PO HS 12/26/17 08/08/19 History Hydrochlorothiazide 25 mg PO DAILY 08/08/19 08/08/19 History Losartan Potassium [Cozaar] 100 mg PO DAILY 08/08/19 08/08/19 History Omeprazole 20 mg PO BID 08/08/19 08/08/19 History Spironolactone [Aldactone] 12.5 mg PO DAILY 08/08/19 08/08/19 History Allergies Allergy/AdvReac Type Severity Reaction Status Date / Time cephalexin monohydrate Allergy Rash/Hives Verified 08/08/19 19:14 [From Keflex] crisaborole [From Eucrisa] Allergy Anaphylaxis Verified 08/08/19 19:14 Penicillins Allergy Unknown Verified 08/08/19 19:14 latex AdvReac Itching Verified 08/08/19 19:14 methocarbamol AdvReac Swelling Verified 08/08/19 19:14 nabumetone [From Relafen] AdvReac Swelling Verified 08/08/19 19:14 Physical Exam Vitals: Vital Signs Temp Pulse Pulse Resp BP BP Pulse Ox 08/09/19 08:00 98.1 F 55 L 18 100/53 97 08/09/19 04:58 97.5 F L 76 18 144/69 98 08/08/19 23:28 98 F 53 L 16 149/63 97 08/08/19 19:58 98.1 F 53 L 18 130/61 98 08/08/19 18:07 51 L 20 105/56 98 08/08/19 18:00 51 L 20 105/56 98 08/08/19 17:00 51 L 20 119/62 98 08/08/19 16:00 54 L 20 85/54 98 08/08/19 15:00 54 L 20 98 08/08/19 14:47 54 L 20 131/76 98 08/08/19 13:47 20 97 08/08/19 13:44 98.2 F 59 L 24 147/83 91 L Intake and Output 08/08/19 08/09/19 08/09/19 22:59 06:59 14:59 Output Total 600 Balance -600 Output: Urine 600 Other: Voiding Method Toilet Toilet Toilet Weight 68.039 kg 66.7 kg Results 08/09/19 02:46 08/09/19 02:46 Cardiac Enzymes 08/08/19 08/08/19 08/08/19 Range/Units 14:40 14:40 20:05 AST 37 H (14-36) U/L Troponin I <0.012 <0.012 (0.000-0.034) ng/mL 08/09/19 Range/Units 02:46 AST (14-36) U/L Troponin I <0.012 (0.000-0.034) ng/mL Coagulation 08/08/19 Range/Units 14:40 PT 10.6 (9.0-12.0) sec APTT 22.2 (22.0-30.0) sec CBC 08/08/19 08/09/19 Range/Units 14:40 02:46 WBC 9.4 5.7 (3.8-10.6) k/uL RBC 4.71 3.78 L (3.80-5.40) m/uL Hgb 14.9 12.5 (11.4-16.0) gm/dL Hct 44.6 36.5 (34.0-46.0) % Plt Count 244 210 (150-450) k/uL Comprehensive Metabolic Panel 08/08/19 08/09/19 Range/Units 14:40 02:46 Sodium 133 L 131 L (137-145) mmol/L Potassium 4.5 3.8 (3.5-5.1) mmol/L Chloride 97 L 98 (98-107) mmol/L Carbon Dioxide 21 L 26 (22-30) mmol/L BUN 18 H 16 (7-17) mg/dL Creatinine 0.66 0.66 (0.52-1.04) mg/dL Glucose 94 78 (74-99) mg/dL Calcium 10.3 H 9.1 (8.4-10.2) mg/dL AST 37 H (14-36) U/L ALT 22 (4-34) U/L Alkaline Phosphatase 61 (38-126) U/L Total Protein 7.9 (6.3-8.2) g/dL Albumin 5.0 (3.5-5.0) g/dL Current Medications Generic Name Dose Route Start Last Admin Trade Name Freq PRN Reason Stop Dose Admin Aspirin 81 mg 08/10/19 09:00 Aspirin PO DAILY [facility] Atenolol 25 mg 08/10/19 09:00 Tenormin PO DAILY [facility] Atorvastatin Calcium 10 mg 08/08/19 21:00 08/08/19 19:50 Lipitor PO 10 mg HS [facility] Administration Cholecalciferol 1,000 unit 08/09/19 09:00 Vitamin D3 (25 Mcg = 1000 Iu) PO DAILY [facility] Fluticasone Propionate 1 spray 08/08/19 21:00 08/08/19 21:00 Flonase Nasal [place] EA NOSTRIL Not Given BID [facility] Hydroxychloroquine Sulfate 200 mg 08/09/19 09:00 Plaquenil PO DAILY [facility] Lorazepam 0.5 mg 08/08/19 17:22 Ativan PO Q6HR PRN Anxiety Losartan Potassium 50 mg 08/09/19 21:00 Cozaar PO BID [facility] Magnesium Oxide 400 mg 08/10/19 09:00 Mag-Ox PO DAILY [facility] Morphine Sulfate 4 mg 08/08/19 17:15 08/08/19 17:33 Morphine Sulfate (Inj) IV 4 mg Q6HR PRN Administration Severe Pain Multivitamins 1 each 08/09/19 09:00 Poly-Vi-Gisele Chew PO DAILY [facility] Naloxone HCl 0.2 mg 08/08/19 17:15 Narcan IV Q2M PRN Opioid Reversal Spironolactone 25 mg 08/10/19 09:00 Aldactone PO DAILY [facility] Intake and Output 08/08/19 08/09/19 08/09/19 22:59 06:59 14:59 Output Total 600 Balance -600 Output: Urine 600 Other: Voiding Method Toilet Toilet Toilet Weight 68.039 kg 66.7 kg 08/09/19 02:46 08/09/19 02:46
[2019-08-09] MEDS: LOSARTAN 50 MG TAB PO SCH (13:35)
[2019-08-09] MEDS: FLUTICASONE 50MCG/SPRAY NASAL 16GM EA NOSTRIL SCH ×2 (13:36→21:00)
[2019-08-09] MEDS: MULTIVITAMINS, PEDIATRIC 1 EACH CHEWABLE PO SCH (13:36)
[2019-08-09] MEDS: HYDROXYCHLOROQUINE SULFATE 200 MG TAB PO SCH (13:36)
[2019-08-09] MEDS: CHOLECALCIFEROL 1,000 UNIT TAB PO SCH (13:38)
--- NOTE | 2019-08-09 14:17 | P.HPIM ---
History of Present Illness H&P Date: 08/09/19 Chief Complaint: Left flank pain, shortness of breath Lashon Sharma is a 74-year-old female patient of Dr. Antunez, who presented to [facility] emergency room with a chief complaint of left flank pain patient was evaluated in the emergency room, patient was afebrile with normal blood pressure , blood test results were normal, computed tomography scan of abdomen and pelvis revealed evidence of descending colon inflammation and wall thickening suggestive of colitis, while in the emergency room patient had some chest discomfort radiating to her shoulder and some shortness of breath, EKG did not reveal any evidence of ischemic changes, troponin level was normal and she was admitted to telemetry floor for further evaluation, cardiology consultation was requested. Patient stated that she had a history of Clostridium difficile colitis about 5 years ago, she denies any diarrhea or any blood in the stools at this time, she also has known history of Sjogren syndrome maintained on Plaquenil. 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 OA generalized. R shoulder dislocation 15 yrs ago, chronic anemia, pt denies any previous hx of CHF History of Any Multi-Drug Resistant Organisms: C-DIFF Date of last positivie culture/infection: 07/06/2014 MDRO Source:: stool Past Surgical History: Cholecystectomy, Tonsillectomy Additional Past Surgical History / Comment(s): Recent basal cell skin cancer removed from R shoulder, colonoscopy, oopherectomy-one ovary removed and one ovary 3/4 removed Past Anesthesia/Blood Transfusion Reactions: No Reported Reaction Past Psychological History: No Psychological Hx Reported Additional Psychological History / Comment(s): Pt states she is alittle stressed from her shogrens disease and recent health problems. She lives alone since her 4 1/2 yrs ago. She is normally independent. She just recently fx her R humerous so things are alittle more difficult but her two sones live nearby and check on her. She is getting progressively weaker with CDiff antibiotic tx and problems associated with that. Smoking Status: Former smoker Past Alcohol Use History: None Reported Past Drug Use History: None Reported - Past Family History Father Family Medical History: CVA/TIA Additional Family Medical History / Comment(s): Father at age 84 from CVA/TIA's Mother Family Medical History: Coronary Artery Disease (CAD), Diabetes Mellitus Additional Family Medical History / Comment(s): Mother at age 57yrs from complications of her DM. Medications and Allergies Home Medications Medication Instructions Recorded Confirmed Type Fluticasone Propionate [Flonase] 1 spray EA NOSTRIL BID 07/15/13 08/08/19 History Hydroxychloroquine Sulfate 200 mg PO DAILY 07/15/13 08/08/19 History [Plaquenil] Simvastatin [Zocor] 20 mg PO HS 07/15/13 08/08/19 History Atenolol [Tenormin] 50 mg PO HS 12/26/17 08/08/19 History Hydrochlorothiazide 25 mg PO DAILY 08/08/19 08/08/19 History Losartan Potassium [Cozaar] 100 mg PO DAILY 08/08/19 08/08/19 History Omeprazole 20 mg PO BID 08/08/19 08/08/19 History Spironolactone [Aldactone] 12.5 mg PO DAILY 08/08/19 08/08/19 History Allergies Allergy/AdvReac Type Severity Reaction Status Date / Time cephalexin monohydrate Allergy Rash/Hives Verified 08/08/19 19:14 [From Keflex] crisaborole [From Eucrisa] Allergy Anaphylaxis Verified 08/08/19 19:14 Penicillins Allergy Unknown Verified 08/08/19 19:14 latex AdvReac Itching Verified 08/08/19 19:14 methocarbamol AdvReac Swelling Verified 08/08/19 19:14 nabumetone [From Relafen] AdvReac Swelling Verified 08/08/19 19:14 Physical Exam Vitals: Vital Signs Temp Pulse Pulse Resp BP BP Pulse Ox 08/09/19 11:56 98.2 F 53 L 16 131/62 99 08/09/19 08:00 98.1 F 55 L 18 100/53 97 08/09/19 04:58 97.5 F L 76 18 144/69 98 08/08/19 23:28 98 F 53 L 16 149/63 97 08/08/19 19:58 98.1 F 53 L 18 130/61 98 08/08/19 18:07 51 L 20 105/56 98 08/08/19 18:00 51 L 20 105/56 98 08/08/19 17:00 51 L 20 119/62 98 08/08/19 16:00 54 L 20 85/54 98 08/08/19 15:00 54 L 20 98 08/08/19 14:47 54 L 20 131/76 98 08/08/19 13:47 20 97 Intake and Output 08/08/19 08/09/19 08/09/19 22:59 06:59 14:59 Intake Total 280 Output Total 600 Balance -600 280 Intake: Oral 280 Output: Urine 600 Other: Voiding Method Toilet Toilet Toilet # Voids 2 Weight 68.039 kg 66.7 kg In general patient is alert and oriented 3 in no apparent distress HEENT head normocephalic and atraumatic Neck is supple no JVD no goiter no lymphadenopathy Chest exam reveals a few scattered rhonchi no wheezing Cardiac exam reveals regular heart sounds S1 and S2 no gallops no murmurs Abdomen is soft, with mild tenderness in the left lower quadrant no organomegaly no rigidity or rebound no palpable masses with normal bowel sounds Extremity exam reveals no edema no cyanosis or clubbing Neurological examination reveals no gross focal deficit Results CBC & Chem 7: 08/09/19 02:46 08/09/19 02:46 Labs: Abnormal Lab Results - Last 24 Hours (Table) 08/08/19 08/08/19 08/09/19 Range/Units 14:40 15:30 02:46 RBC 3.78 L (3.80-5.40) m/uL Sodium 133 L (137-145) mmol/L Chloride 97 L (98-107) mmol/L Carbon Dioxide 21 L (22-30) mmol/L BUN 18 H (7-17) mg/dL Calcium 10.3 H (8.4-10.2) mg/dL AST 37 H (14-36) U/L Urine Ketones 1+ H (Negative) Ur Leukocyte Esterase Moderate H (Negative) 08/09/19 Range/Units 02:46 RBC (3.80-5.40) m/uL Sodium 131 L (137-145) mmol/L Chloride (98-107) mmol/L Carbon Dioxide (22-30) mmol/L BUN (7-17) mg/dL Calcium (8.4-10.2) mg/dL AST (14-36) U/L Urine Ketones (Negative) Ur Leukocyte Esterase (Negative) Assessment and Plan Plan: 1. Left flank pain and left lower quadrant abdominal pain, with evidence of colitis on computed tomography scan, case discussed with Dr. Miguelina Reddy over before, will start IV Flagyl, no colonoscopy at this point patient may have colonoscopy in the next few weeks. 2. Episode of chest discomfort radiating to the right shoulder with shortness of breath resolved, EKG and troponin levels are negative patient was evaluated by cardiology, cardiac medications been adjusted will monitor to tomorrow 3. History of Sjogren syndrome maintained on plaquenil 4. History of 1 episode of Clostridium difficile colitis 5 years ago, no diarrhea or blood in the stools at this time. 5. Underlying history of hypertension At this time will start IV Flagyl, will monitor till tomorrow If stable patient can be discharged home and follow-up with Dr. Miguelina Reddy as outpatient for possible colonoscopy
[2019-08-09] MEDS ORDERED: SPIRONOLACTONE 25 MG TAB PO SCH (14:45)
[2019-08-09] MEDS ORDERED: NON FORMULARY DRUG (Losartan Potassium [Cozaar] 100 MG) PO SCH (14:45)
[2019-08-09] MEDS: metroNIDAZOLE 500 MG TAB PO SCH ×2 (16:18→21:02)
[2019-08-09] MEDS: ATORVASTATIN 10 MG TAB PO SCH (21:02)
[2019-08-10] MEDS: PANTOPRAZOLE 40 MG TABLET PO SCH (06:30)
[2019-08-10] MEDS: ASPIRIN 81 MG PO SCH (08:28)
[2019-08-10] MEDS: LOSARTAN 50 MG TAB PO SCH ×2 (08:28→20:18)
[2019-08-10] MEDS: ATENOLOL 25 MG TAB PO SCH (08:28)
[2019-08-10] MEDS: HYDROXYCHLOROQUINE SULFATE 200 MG TAB PO SCH (08:28)
[2019-08-10] MEDS: MULTIVITAMINS, PEDIATRIC 1 EACH CHEWABLE PO SCH (08:28)
[2019-08-10] MEDS: CHOLECALCIFEROL 1,000 UNIT TAB PO SCH (08:28)
[2019-08-10] MEDS: MAGNESIUM OXIDE 400 MG TAB PO SCH (08:28)
[2019-08-10] MEDS: FLUTICASONE 50MCG/SPRAY NASAL 16GM EA NOSTRIL SCH ×2 (08:29→20:18)
[2019-08-10] MEDS: metroNIDAZOLE 500 MG TAB PO SCH ×3 (12:20→22:41)
[2019-08-10] MEDS: SPIRONOLACTONE 25 MG TAB PO SCH (12:21)
--- NOTE | 2019-08-10 16:57 | P.PN ---
Subjective Progress Note Date: 08/10/19 Lashon Sharma is a 74-year-old female patient of Dr. Antunez, who presented to [facility] emergency room with a chief complaint of left flank pain patient was evaluated in the emergency room, patient was afebrile with normal blood pressure , blood test results were normal, computed tomography scan of abdomen and pelvis revealed evidence of descending colon inflammation and wall thickening suggestive of colitis, while in the emergency room patient had some chest discomfort radiating to her shoulder and some shortness of breath, EKG did not reveal any evidence of ischemic changes, troponin level was normal and she was admitted to telemetry floor for further evaluation, cardiology cons ultation was requested. Patient stated that she had a history of Clostridium difficile colitis about 5 years ago, she denies any diarrhea or any blood in the stools at this time, she also has known history of Sjogren syndrome maintained on Plaquenil. On 08/10/2019 patient was seen and examined on the medical floor she is alert and oriented 3 she is still complaining of abdominal discomfort and started having diarrhea, otherwise she denies any complaints there is no fever or chills no headache or dizziness no chest pain no shortness of breath no cough no nausea or vomiting no burning was urination no frequency or urgency and no hematuria Objective - Vital Signs Vital signs: Vital Signs Temp 97.2 F L 08/10/19 15:59 Pulse 55 L 08/10/19 15:59 Resp 18 08/10/19 15:59 BP 104/54 08/10/19 15:59 Pulse Ox 96 08/10/19 15:59 Intake & Output 08/09/19 08/10/19 08/10/19 18:59 06:59 18:59 Intake Total 280 360 Balance 280 360 Weight 66.3 kg Intake: Oral 280 360 Other: Voiding Method Toilet Toilet Toilet # Voids 3 2 # Bowel Movements 1 - Exam In general patient is alert and oriented 3 in no apparent distress HEENT head normocephalic and atraumatic Neck is supple no JVD no goiter no lymphadenopathy Chest exam reveals a few scattered rhonchi no wheezing Cardiac exam reveals regular heart sounds S1 and S2 no gallops no murmurs Abdomen is soft, with mild tenderness in the left lower quadrant no organomegaly no rigidity or rebound no palpable masses with normal bowel sounds Extremity exam reveals no edema no cyanosis or clubbing Neurological examination reveals no gross focal deficit - Labs CBC & Chem 7: 08/09/19 02:46 08/09/19 02:46 Assessment and Plan Plan: 1. Left flank pain and left lower quadrant abdominal pain, with evidence of colitis on computed tomography scan, case discussed with Dr. Miguelina Reddy over before, will start IV Flagyl, no colonoscopy at this point patient may have colonoscopy in the next few weeks. At this time we are awaiting stool sample for analysis 2. Episode of chest discomfort radiating to the right shoulder with shortness of breath resolved, EKG and troponin levels are negative patient was evaluated by cardiology, cardiac medications been adjusted will monitor to tomorrow 3. History of Sjogren syndrome maintained on plaquenil 4. History of 1 episode of Clostridium difficile colitis 5 years ago, no diarrhea or blood in the stools at this time. 5. Underlying history of hypertension At this time will start IV Flagyl, will monitor till tomorrow If stable patient can be discharged home and follow-up with Dr. Miguelina Reddy as outpatient for possible colonoscopy
--- NOTE | 2019-08-10 17:25 | P.PN ---
Subjective Progress Note Date: 08/10/19 Principal diagnosis: Sinus bradycardia This is a 74-year-old female patient with a past medical history significant for hypertension and dyslipidemia who was admitted to the hospital with abdominal discomfort and we consulted to see the patient for bradycardia. She was found to be hypomagnesemic and hypokalemic. She was on hydrochlorothiazide which was stopped and magnesium orally was ordered. Also Aldactone was added to her medication. The patient was seen today, 08/10/2019. She continues to be in sinus bradycardia with heart rate in the 50s. She seems to be asymptomatic from the cardiovascular standpoint of view at this point. The potassium today is 3.8. The corrected QT is 455 ms. Objective - Vital Signs Vital signs: Vital Signs Temp 97.2 F L 08/10/19 15:59 Pulse 55 L 08/10/19 15:59 Resp 18 08/10/19 15:59 BP 104/54 08/10/19 15:59 Pulse Ox 96 08/10/19 15:59 Intake & Output 08/09/19 08/10/19 08/10/19 18:59 06:59 18:59 Intake Total 280 360 Balance 280 360 Weight 66.3 kg Intake: Oral 280 360 Other: Voiding Method Toilet Toilet Toilet # Voids 3 2 # Bowel Movements 1 - Constitutional General appearance: Present: no acute distress - Respiratory Respiratory: bilateral: CTA - Cardiovascular Rhythm: regular Heart sounds: normal: S1, S2 - Labs CBC & Chem 7: 08/09/19 02:46 08/09/19 02:46 Assessment and Plan Assessment: Assessment #1 abdominal discomfort #2 sinus bradycardia #3 prolonged QT #4 electrolytes imbalance Plan #1 continue the current medical regimen #2 continue monitor the electrolytes #3 continue monitoring the QT interval #4 possible discharge in the next 24 hours
--- NOTE | 2019-08-10 18:57 | CONS ---
CONSULTATION DATE OF DICTATION: 08/10/2019 REASON FOR CONSULTATION: Severe left flank pain. HISTORY OF PRESENT ILLNESS: The patient is a 74-year-old pleasant white female who came to the emergency room yesterday complaining of severe left flank pain that started yesterday morning. The pain was so intense that she doubled over. She became somewhat nauseated, but no emesis. No rectal bleeding or melena. The pain continued to progressively get worse for 3 hours; she hence came into the emergency room and subsequently had a CT of the abdomen and pelvis done that showed thickening of the colon involving the descending colon consistent with acute colitis. The patient was subsequently admitted to the hospital and was started on IV antibiotics for possible infectious versus ischemic colitis. This morning she is feeling better. Her abdominal pain has resolved. She had normal bowel movements today. No bleeding noted. No fever, chills, night sweats. She states that she had a similar episode approximately 5 years ago and had a colonoscopy done at that time but does not recall the details. She complains of some nausea this morning. PAST MEDICAL HISTORY: Her past medical history is significant for gastroesophageal reflux disease, hypertension, hyperlipidemia, degenerative joint disease, Sjogren's syndrome, history of diverticulosis. PAST SURGICAL HISTORY: Cholecystectomy, tonsillectomy, colonoscopy approximately 5 years ago. MEDICATIONS: Medications at home include Fioricet, Plaquenil, Zocor, Tenormin, Cozaar, Aldactone, omeprazole and hydrochlorothiazide. ALLERGIES: EUCRISA, PENICILLIN, METHOCARBAMOL, RELAFEN AND KEFLEX. SOCIAL HISTORY: No smoking. No alcohol use. FAMILY HISTORY: Father had CVA. Mother had coronary artery disease. REVIEW OF SYSTEMS: CARDIOPULMONARY: No chest pain or shortness of breath. GENITOURINARY: No dysuria or hematuria. MUSCULOSKELETAL: Unremarkable. SKIN: Unremarkable. ENDOCRINE: Unremarkable. PSYCHIATRIC: Unremarkable. NEUROLOGY: Some headache. ENT/VISION: Unremarkable. CONSTITUTIONAL: No recent weight loss. No fever, chills, night sweats. PHYSICAL EXAMINATION: She appears comfortable; no apparent distress. Vital signs are stable. Blood pressure is 132/63, pulse rate 55, temperature 97.4. HEENT examination unremarkable. Conjunctivae pink. Sclerae anicteric. Oral cavity no lesions. NECK: No JVD or lymph node enlargement. CHEST: Clear to auscultation. HEART: Regular rate and rhythm. ABDOMEN: Soft. Mild tenderness in the left lower quadrant area. Rest of the abdomen was benign. Bowel sounds are positive. No organomegaly. EXTREMITIES: No pedal edema. SKIN: No rashes. NEUROLOGIC: Alert and oriented x3. No focal deficits. LABS/IMAGING: Labs done today show WBC 9.4, hemoglobin 14.9, platelets normal. Repeat labs from today: WBC 5.7, hemoglobin 12.5, platelets normal. Basic metabolic panel is within normal limits. Coronavirus PCR is negative. CT of the abdomen and pelvis done yesterday in the emergency room showed thickening of the descending colon and diverticulosis. IMPRESSION: This is a patient who presented to the hospital with acute onset of severe left flank pain radiating to the left lower quadrant area that started yesterday morning. CT scan showed thickening of the descending colon consistent with acute colitis. Her clinical picture is more consistent with an ischemic colitis rather than an infectious etiology. However, she does not have any diarrhea or rectal bleeding. She was started on empiric antibiotics and patient is doing much better today. The abdominal pain has completely resolved. She had normal bowel movement today. No leukocytosis noted. Hemoglobin stable at 12.3 g/dL. Past colonoscopy was approximately 5 years ago. RECOMMENDATIONS: 1. Advance to a low-fiber soft diet. 2. Continue antibiotics for today. 3. She can be discharged home later today on antibiotics for 5 days, and we will see her in the office in 2 weeks and consider an outpatient colonoscopy in 2-3 weeks. The plan was discussed with the patient. She is agreeable to it. Thank you for this consultation. MMODL / IJN: [id number] /
[2019-08-10 20:27] VITALS: RESP 16
[2019-08-11] MEDS: PANTOPRAZOLE 40 MG TABLET PO SCH (06:49)
[2019-08-11 08:50] VITALS: TEMP 97.8
[2019-08-11] MEDS: LOSARTAN 50 MG TAB PO SCH (10:20)
[2019-08-11] MEDS: metroNIDAZOLE 500 MG TAB PO SCH (10:21)
[2019-08-11] MEDS: SPIRONOLACTONE 25 MG TAB PO SCH (10:21)
[2019-08-11] MEDS: MULTIVITAMINS, PEDIATRIC 1 EACH CHEWABLE PO SCH (10:21)
[2019-08-11] MEDS: CHOLECALCIFEROL 1,000 UNIT TAB PO SCH (10:21)
[2019-08-11] MEDS: ATENOLOL 25 MG TAB PO SCH (10:21)
[2019-08-11] MEDS: MAGNESIUM OXIDE 400 MG TAB PO SCH (10:21)
[2019-08-11] MEDS: ASPIRIN 81 MG PO SCH (10:21)
[2019-08-11] MEDS: HYDROXYCHLOROQUINE SULFATE 200 MG TAB PO SCH (10:21)
[2019-08-11] MEDS: FLUTICASONE 50MCG/SPRAY NASAL 16GM EA NOSTRIL SCH (11:21)
[2019-08-11 12:51] VITALS: BP 120/73; PULSE 57
--- NOTE | 2019-08-11 16:36 | P.PN ---
Subjective Progress Note Date: 08/11/19 This is a 74-year-old female admitted to the hospital with abdominal pain and shoulder discomfort. Cardiology consultation was initially requested because of bradycardia. The heart rate today has remained in the high 50s to low 60s. QT interval remains stable. Objective - Vital Signs Vital signs: Vital Signs Temp 97.8 F 08/11/19 08:15 Pulse 57 L 08/11/19 12:00 Resp 16 08/11/19 12:00 BP 120/73 08/11/19 12:00 Pulse Ox 96 08/11/19 12:00 Intake & Output 08/10/19 08/11/19 08/11/19 18:59 06:59 18:59 Intake Total 990 236 Balance 990 236 Weight 66.2 kg Intake: Oral 990 236 Other: Voiding Method Toilet Toilet # Voids 1 # Bowel Movements 1 1 - Exam Normal heart sounds, normal S1 normal S2 Tenderness in the left upper quadrant and left flank Normal breath sounds No lower extremity edema - Labs CBC & Chem 7: 08/09/19 02:46 08/09/19 02:46 Assessment and Plan Plan: Assessment and plan #1 Left-sided flank pain #2 Sinus bradycardia #3 Absolute QT interval between 480-490 ms, stable #4 Low magnesium and low potassium Plan From cardiology's perspective, patient may be discharged home today, we'll make a follow-up appointment in the office post discharge. DNP note has been reviewed, I agree with a documented findings and plan of care. Patient was seen and examined.
--- NOTE | 2019-08-12 02:54 | PN ---
PROGRESS NOTE DATE OF DICTATION: 08/11/2019 Patient is a 74-year-old pleasant white female admitted to hospital with acute colitis. She presents with severe left flank pain and had a little diarrhea. CT scan showed thickening of the left colon. She is doing better today. Abdominal pain has resolved. PHYSICAL EXAMINATION: On physical examination, appears comfortable, no apparent distress. Vital signs are stable. Blood pressure 120/73, pulse rate 57, temperature 97.8. HEENT EXAMINATION: Unremarkable. Conjunctivae pink. Sclerae anicteric. Oral cavity, no lesions. NECK: No JVD or lymph node enlargement. CHEST: Clear to auscultation. HEART: Regular rate and rhythm. ABDOMEN: Soft. Bowel sounds are positive. No organomegaly. EXTREMITIES: No pedal edema. SKIN: No rashes. NEURO: She is alert and oriented x3. No focal deficits. LABS: Labs done today: WBC 5.7, hemoglobin 12.5, platelets normal. Basic metabolic panel is within normal limits. IMPRESSION: Acute onset of severe left flank pain and left lower quadrant abdominal pain. CAT scan showing thickening of the left colon, possibly ischemic colitis versus infectious colitis. On broad-spectrum antibiotics, doing much better. Abdominal pain has resolved. No bleeding. RECOMMENDATIONS: 1. Advance to low-fiber diet. 2. Continue antibiotics for 5 more days. 3. The patient can be discharged home today. 4. Will plan on colonoscopy in 2 weeks. 5. She was advised to follow up in the office in 2 weeks. Thank you for this consultation. MMGLEN / ANABELN: [id number] /
== END 2019-08-11 19:16 | disposition home or self-care (01) | DRG 392 ==
LOC: EC 13:40 → 3SCARD 17:10 → OBSVTOIN 08-10 11:38
PROVIDERS: ADMIT Internal Medicine; ATTEND Internal Medicine
DX: K52.9 Noninfective gastroenteritis and colitis, unspecified (principal); E78.5 Hyperlipidemia, unspecified; E83.42 Hypomagnesemia; E87.6 Hypokalemia; I10 Essential (primary) hypertension; M35.00 Sjogren syndrome, unspecified; Z11.59 Encounter for screening for other viral diseases; M19.90 Unspecified osteoarthritis, unspecified site; K57.90 Diverticulosis of intestine, part unspecified, without perforation or abscess without bleeding; R00.1 Bradycardia, unspecified; M25.519 Pain in unspecified shoulder; Z88.0 Allergy status to penicillin; Z88.8 Allergy status to other drugs, medicaments and biological substances; Z87.01 Personal history of pneumonia (recurrent); Z88.1 Allergy status to other antibiotic agents; Z91.040 Latex allergy status; Z79.899 Other long term (current) drug therapy; Z82.3 Family history of stroke; Z82.49 Family history of ischemic heart disease and other diseases of the circulatory system; Z83.3 Family history of diabetes mellitus; Z85.828 Personal history of other malignant neoplasm of skin; Z86.19 Personal history of other infectious and parasitic diseases; Z87.891 Personal history of nicotine dependence; Z90.49 Acquired absence of other specified parts of digestive tract
CPT/HCPCS: 36415; 71046; 74177; 80048; 80053; 81001; 83690; 83735; 83880; 84484; 85025; 85379; 85610; 85730; 87635; 93005; 96361; 96374; 96375; 96376; 99285

== ENCOUNTER → 2019-10-06 | Day surgery (SDC) | payer MEDICARE, BC ==
[2019-10-04 15:44] VITALS: BMI 28.3
[~2019-10-06] MED LIST: LACTATED RINGERS 1,000 ML IV SCH; LIDOCAINE 1% (10MG/ML) FOR IV START INTRADERMA ONE; LIDOCAINE 1% INJ 10MG/ML (20 ML MDV) ONE; PROPOFOL 10 MG/ML 20 ML VIAL IV ONE
[2019-10-06 11:36] VITALS: TEMP 98.4
--- NOTE | 2019-10-06 12:53 | P.PCN ---
Date of Procedure: 10/06/19 Procedure(s) Performed: BRIEF HISTORY: Patient is a 74-year-old pleasant white female scheduled for an elective colonoscopy as a part of evaluation of left-sided abdominal pain for the last 1 month duration. She was recently admitted to the hospital and CAT scan showed left-sided colitis and watreated with. She still has persistent left-sided abdominal pain. PROCEDURE PERFORMED: Colonoscopy. PREOPERATIVE DIAGNOSIS: left-sided abdominal pain. IV sedation per Anesthesia. PROCEDURE: After informed consent was obtained, the patient, was brought into the endoscopy unit. IV sedation was administered by Anesthesia under continuous monitoring. Digital rectal examination was normal. Initially the Olympus CF-160 flexible video colonoscope was then inserted in the rectum, gradually advanced into the cecum without any difficulty. Careful examination was performed as the scope was gradually being withdrawn. Ileocecal valve and the appendiceal orifice were visualized and appeared normal. Prep was excellent. Mucosa of the cecum, ascending colon, transverse colon, descending colon, sigmoid colon, and rectum appeared normal. Retroflexion was performed in the rectum and no lesions were seen. The patient tolerated the procedure well. IMPRESSION: Normal-appearing colon from rectum to cecum with no evidence of colorectal neoplasia . scattered diffuse diverticulosis. RECOMMENDATIONS: Findings of this examination were discussed with the patient as well as a family. She was advised to be a high-fiber fiber diet and take fiber supplements on a regular basis.
[2019-10-06 13:20] VITALS: BP 111/72; PULSE 60; RESP 20
== END ==
LOC: ORWHC2ENDO 11:14
PROVIDERS: ATTEND Internal Medicine Gastroenterology
DX: R10.32 Left lower quadrant pain (principal); K57.30 Diverticulosis of large intestine without perforation or abscess without bleeding; I10 Essential (primary) hypertension; E78.5 Hyperlipidemia, unspecified; K21.9 Gastro-esophageal reflux disease without esophagitis; M35.00 Sjogren syndrome, unspecified; Z87.19 Personal history of other diseases of the digestive system; Z88.0 Allergy status to penicillin; Z88.1 Allergy status to other antibiotic agents; Z91.040 Latex allergy status; Z88.6 Allergy status to analgesic agent; Z88.8 Allergy status to other drugs, medicaments and biological substances; Z79.899 Other long term (current) drug therapy; Z79.82 Long term (current) use of aspirin; Z90.49 Acquired absence of other specified parts of digestive tract; Z90.89 Acquired absence of other organs
CPT/HCPCS: 45378; J2001; J2704

== ENCOUNTER → 2020-09-06 | Outpatient (CLI) | payer MEDICARE, BC ==
--- NOTE | 2020-09-07 09:18 | BD ---
EXAMINATION TYPE: Axial Bone Density DATE OF EXAM: 09/06/2020 COMPARISON: NONE CLINICAL HISTORY: Height: 59 Weight: 147.8 FRAX RISK QUESTIONS: Alcohol (3 or more units per day): no Family History (Parent hip fracture): no Glucocorticoids (More than 3mos): no (Ex: prednisone, prednisolone, methylprednisolone, dexamethasone, and hydrocortisone). History of Fracture in Adulthood: yes Secondary Osteoporosis: 1. Type 1 Diabetes: no 2. Hyperthyroidism: no 3. Menopause before 45: no 4. Malnutrition: no 5. Chronic liver disease: no Rheumatoid Arthritis: no Current Tobacco Use: no RISK FACTORS HISTORY OF: History of Wrist Fracture: right wrist When: 10 years Surgery to Spine/Hip(right/left)/Wrist (right/left): no Family History of Osteoporosis: yes Active: yes Diet low in dairy products/other sources of calcium: no Postmenopausal woman: age 48 Lost more than 2 inches in height since high school: yes MEDICATIONS: atenolol, flonase, hydrochlorothiazide, losartan, omeprazole, simvastatin Additional History: EXAM MEASUREMENTS: Bone mineral densitometry was performed using the [employer] System. Bone mineral density as measured about the Lumbar spine is: ----- L1-L4(G/cm2): 1.141 T Score Values are as follows: ----- L2: -0.9 ----- L3: -0.3 ----- L4: 0.1 ----- L1-L4: -0.3 Bone mineral density has: decreased -3.3 % since study of: 03.20.2018 Bone mineral density about the R hip (g/cm2): 0.760 Bone mineral density about the L hip (g/cm2): 0.788 T Score values are as follows: -----R Neck: -2.0 -----L Neck: -1.8 -----R Total: -1.8 -----L Total: -1.3 Bone mineral density has: decreased -12.1 % since study of: 03.20.2018 IMPRESSION: Osteopenia. NOTE: T-SCORE=SD OF THE YOUNG ADULT MEAN.
--- NOTE | 2020-09-07 10:24 | MM ---
Reason for exam: screening (asymptomatic). Last mammogram was performed 1 year and 4 months ago. History: Patient history of other cancer. Benign stereotactic core biopsy of the right breast, August 20, 1999. Benign excisional biopsy of the right breast, May 03, 1998. 2 cyst aspirations of the left breast. Cyst aspiration of the right breast. Core biopsy of the right breast. Took hormonal contraceptives for 10 years beginning at age 22. Took estrogen for 3 years beginning at age 55. Physical Findings: A clinical breast exam by your physician is recommended on an annual basis and results should be correlated with mammographic findings. MG 3D Screening Mammo W/Cad Bilateral CC and MLO view(s) were taken. Prior study comparison: May 17, 2019, left breast MG 3d work up w/cad LT. May 11, 2019, bilateral MG 3d screening mammo w/cad. There are scattered fibroglandular densities. Right biopsy clips. ASSESSMENT: Benign, BI-RAD 2 RECOMMENDATION: Routine screening mammogram of both breasts in 1 year.
== END | disposition home or self-care (01) ==
LOC: RADBDWWP 11:05
PROVIDERS: ATTEND Family Medicine
DX: Z12.31 Encounter for screening mammogram for malignant neoplasm of breast (principal); Z13.820 Encounter for screening for osteoporosis; M85.89 Other specified disorders of bone density and structure, multiple sites; Z78.0 Asymptomatic menopausal state
CPT/HCPCS: 77063; 77067; 77080

== ENCOUNTER 2021-03-30 12:52 | Emergency (ER) | payer MEDICARE, BC ==
[2021-03-30 13:02] VITALS: RESP 18; TEMP 97.9
[2021-03-30] MEDS ORDERED: DEXAMETHASONE SOD PHOSPHATE 10 MG/ML 1 ML VIAL IVP STA (13:11)
[2021-03-30] MEDS ORDERED: ONDANSETRON 4 MG/2 ML VIAL IVP STA (13:32)
--- NOTE | 2021-03-30 13:34 | ED ---
URI HPI - General Chief Complaint: Upper Respiratory Infection Stated Complaint: Covid+/BAM Time Seen by Provider: 03/30/21 13:03 Source: patient, RN notes reviewed Mode of arrival: ambulatory Limitations: no limitations - History of Present Illness Initial Comments: Patient is a 75-year-old female that presents to the emergency department complaining of Covid-positive and several symptoms that have been persistent for the last all days. She notes she been having symptoms past 4 days. She notes he tested positive on Friday. Patient was otherwise a well-appearing [age] female in no apparent distress. She denied any chest pain shortness breath headache nausea vomiting diarrhea constipation fever fatigue chills. - Related Data Home Medications Medication Instructions Recorded Confirmed Fluticasone Propionate [Flonase] 1 spray EA NOSTRIL BID 07/15/13 10/04/19 Hydroxychloroquine Sulfate 200 mg PO DAILY 07/15/13 10/04/19 [Plaquenil] Simvastatin [Zocor] 20 mg PO HS 07/15/13 10/04/19 atenoloL [Tenormin] 25 mg PO HS 12/26/17 10/04/19 Losartan Potassium [Cozaar] 100 mg PO DAILY 08/08/19 10/04/19 Omeprazole 20 mg PO DAILY 08/08/19 10/04/19 Spironolactone [Aldactone] 12.5 mg PO DAILY 08/08/19 10/04/19 Magnesium Oxide [Mag-Ox] 800 mg PO HS 10/04/19 10/04/19 Multivitamins, Thera [Multivitamin 1 tab PO DAILY 10/04/19 10/04/19 (formulary)] Previous Rx's Medication Instructions Recorded Aspirin 81 mg PO DAILY chew 08/11/19 Allergies Allergy/AdvReac Type Severity Reaction Status Date / Time cephalexin monohydrate Allergy Rash/Hives Verified 03/30/21 13:02 [From Keflex] crisaborole [From Eucrisa] Allergy Anaphylaxis Verified 03/30/21 13:02 Penicillins Allergy Unknown Verified 03/30/21 13:02 Childhood latex AdvReac Itching Verified 03/30/21 13:02 methocarbamol AdvReac Swelling Verified 03/30/21 13:02 nabumetone [From Relafen] AdvReac Swelling Verified 03/30/21 13:02 Review of Systems ROS Statement: Those systems with pertinent positive or pertinent negative responses have been documented in the HPI. ROS Other: All systems not noted in ROS Statement are negative. 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 OA generalized. R shoulder dislocation 15 yrs ago, chronic anemia, pt denies any previous hx of CHF History of Any Multi-Drug Resistant Organisms: C-DIFF Date of last positivie culture/infection: 07/06/2014 MDRO Source:: stool Past Surgical History: Cholecystectomy, Tonsillectomy Additional Past Surgical History / Comment(s): Recent basal cell skin cancer removed from R shoulder, colonoscopy, oopherectomy-one ovary removed and one ovary 3/4 removed Past Anesthesia/Blood Transfusion Reactions: No Reported Reaction Past Psychological History: No Psychological Hx Reported Smoking Status: Never smoker Past Alcohol Use History: None Reported Past Drug Use History: None Reported - Past Family History Father Family Medical History: CVA/TIA Additional Family Medical History / Comment(s): Father at age 84 from CVA/TIA's Mother Family Medical History: Coronary Artery Disease (CAD), Diabetes Mellitus Additional Family Medical History / Comment(s): Mother at age 57yrs from complications of her DM. General Exam Limitations: no limitations General appearance: alert, in no apparent distress Head exam: Present: atraumatic, normocephalic, normal inspection Eye exam: Present: normal appearance, PERRL, EOMI. Absent: scleral icterus, conjunctival injection, periorbital swelling ENT exam: Present: normal exam, mucous membranes moist Neck exam: Present: normal inspection Respiratory exam: Present: normal lung sounds bilaterally. Absent: respiratory distress, wheezes, rales, rhonchi, stridor Cardiovascular Exam: Present: regular rate, normal rhythm, normal heart sounds. Absent: systolic murmur, diastolic murmur, rubs, gallop, clicks Extremities exam: Present: normal inspection, full ROM, normal capillary refill. Absent: tenderness, pedal edema, joint swelling, calf tenderness Neurological exam: Present: alert, oriented X3 Psychiatric exam: Present: normal affect, normal mood Skin exam: Present: warm, dry, intact, normal color. Absent: rash Course Vital Signs 03/30/21 12:58 Temperature 97.9 F Pulse Rate 101 H Respiratory 18 Rate Blood Pressure 143/77 O2 Sat by Pulse 97 Oximetry Medical Decision Making - Medical Decision Making 75-year-old female Covid-positive with several symptoms for last 4 days. Patient does meet criteria for monoclonal antibodies and wishes to undergo infusion. 10 mg of Decadron, 4 mg of Zofran ordered. Patient is discharge home after infusion. Case discussed with Dr. Ho Disposition Clinical Impression: COVID Disposition: HOME SELF-CARE Condition: Stable Instructions (If sedation given, give patient instructions): Coronavirus Disease 2019 (COVID-19) Additional Instructions: Please return to the Emergency Department if symptoms worsen or any other concerns. Is patient prescribed a controlled substance at d/c from ED?: No Referrals: Soledad Antunez MD [Primary Care Provider] - 1-2 days Time of Disposition: 13:34
[2021-03-30] MEDS ORDERED: SODIUM CHLORIDE 0.9% 1,000 ML IV STA (13:54)
[2021-03-30] MEDS ORDERED: SOTROVIMAB (EUA) 500 MG in SODIUM CHLORIDE 0.9% 100 ML IVPB ONE (14:00)
[2021-03-30] MEDS ORDERED: SODIUM CHLORIDE 0.9% 50 ML IVPB ONE (14:30)
[2021-03-30 15:10] VITALS: BP 122/71; PULSE 82
== END 2021-03-30 16:30 | disposition home or self-care (01) ==
LOC: EC 12:52
DX: U07.1 COVID-19 (principal); I10 Essential (primary) hypertension; E78.5 Hyperlipidemia, unspecified; K21.9 Gastro-esophageal reflux disease without esophagitis; Z79.899 Other long term (current) drug therapy; Z88.1 Allergy status to other antibiotic agents; Z88.8 Allergy status to other drugs, medicaments and biological substances; Z88.0 Allergy status to penicillin; Z91.040 Latex allergy status
CPT/HCPCS: 99283; 96374; 96375; 96361; J1100; J2405; Q0247

== ENCOUNTER 2021-04-02 20:39 | Inpatient (IN) | payer MEDICARE, BC ==
[2021-04-02] MEDS ORDERED: PROCHLORPERAZINE INJ 10 MG/2 ML VIAL IVP STA (21:44)
[2021-04-02] MEDS ORDERED: PANTOPRAZOLE 40 MG/10 ML VIAL IVP STA (21:44)
[2021-04-02] MEDS ORDERED: KETOROLAC 15 MG/ML 1 ML VIAL IVP STA (21:44)
[2021-04-02] MEDS ORDERED: ACETAMINOPHEN TAB 500 MG TAB PO STA (21:44)
[2021-04-02] MEDS ORDERED: DEXAMETHASONE SOD PHOSPHATE 10 MG/ML 1 ML VIAL IVP STA (21:44)
--- NOTE | 2021-04-02 22:09 | ED ---
Recheck HPI - General Chief Complaint: Nausea/Vomiting/Diarrhea Stated Complaint: covid Time Seen by Provider: 04/02/21 21:32 Source: patient, RN notes reviewed, old records reviewed Mode of arrival: wheelchair Limitations: no limitations - History of Present Illness Initial Comments: This is a 75-year-old female with a recent diagnosis of coronavirus. Is persistent nausea vomiting diarrhea since diagnosis of coronavirus. Patient has weakness she has had occasional fevers. She did receive the anti- a treatment during initial diagnosis has no shortness of breath just generalized body aches and pains MD Complaint: wound re-check (positive COVID), abnormal lab (Persistent nausea and vomiting) -: days(s) Returns Today for: persistent/worsening pain related to initial visit Symptoms Since Prior Visit: worsening pain, fever Associated Symptoms: fever, chills, malaise, nausea, abdominal pain Treatments Prior to Arrival: other medications - Related Data Home Medications Medication Instructions Recorded Confirmed Fluticasone Propionate [Flonase] 1 spray EA NOSTRIL BID 07/15/13 10/04/19 Hydroxychloroquine Sulfate 200 mg PO DAILY 07/15/13 10/04/19 [Plaquenil] Simvastatin [Zocor] 20 mg PO HS 07/15/13 10/04/19 atenoloL [Tenormin] 25 mg PO HS 12/26/17 10/04/19 Losartan Potassium [Cozaar] 100 mg PO DAILY 08/08/19 10/04/19 Omeprazole 20 mg PO DAILY 08/08/19 10/04/19 Spironolactone [Aldactone] 12.5 mg PO DAILY 08/08/19 10/04/19 Magnesium Oxide [Mag-Ox] 800 mg PO HS 10/04/19 10/04/19 Multivitamins, Thera [Multivitamin 1 tab PO DAILY 10/04/19 10/04/19 (formulary)] Previous Rx's Medication Instructions Recorded Aspirin 81 mg PO DAILY chew 08/11/19 Allergies Allergy/AdvReac Type Severity Reaction Status Date / Time cephalexin monohydrate Allergy Rash/Hives Verified 04/02/21 20:56 [From Keflex] crisaborole [From Eucrisa] Allergy Anaphylaxis Verified 04/02/21 20:56 Penicillins Allergy Unknown Verified 04/02/21 20:56 Childhood latex AdvReac Itching Verified 04/02/21 20:56 methocarbamol AdvReac Swelling Verified 04/02/21 20:56 nabumetone [From Relafen] AdvReac Swelling Verified 04/02/21 20:56 Review of Systems ROS Statement: Those systems with pertinent positive or pertinent negative responses have been documented in the HPI. ROS Other: All systems not noted in ROS Statement are negative. 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 OA generalized. R shoulder dislocation 15 yrs ago, chronic anemia, pt denies any previous hx of CHF History of Any Multi-Drug Resistant Organisms: C-DIFF Date of last positivie culture/infection: 07/06/2014 MDRO Source:: stool Past Surgical History: Cholecystectomy, Tonsillectomy Additional Past Surgical History / Comment(s): Recent basal cell skin cancer removed from R shoulder, colonoscopy, oopherectomy-one ovary removed and one ovary 3/4 removed Past Anesthesia/Blood Transfusion Reactions: No Reported Reaction Past Psychological History: No Psychological Hx Reported Smoking Status: Never smoker Past Alcohol Use History: None Reported Past Drug Use History: None Reported - Past Family History Father Family Medical History: CVA/TIA Additional Family Medical History / Comment(s): Father at age 84 from CVA/TIA's Mother Family Medical History: Coronary Artery Disease (CAD), Diabetes Mellitus Additional Family Medical History / Comment(s): Mother at age 57yrs from complications of her DM. General Exam Limitations: no limitations General appearance: alert, in no apparent distress, anxious, lethargic, cachectic Head exam: Present: atraumatic, normocephalic, normal inspection Eye exam: Present: normal appearance, PERRL, EOMI. Absent: scleral icterus, conjunctival injection, periorbital swelling ENT exam: Present: normal exam, mucous membranes dry Neck exam: Present: normal inspection. Absent: tenderness, meningismus, lymphadenopathy Respiratory exam: Present: normal lung sounds bilaterally. Absent: respiratory distress, wheezes, rales, rhonchi, stridor Cardiovascular Exam: Present: regular rate, normal rhythm, normal heart sounds. Absent: systolic murmur, diastolic murmur, rubs, gallop, clicks GI/Abdominal exam: Present: soft, normal bowel sounds. Absent: distended, tenderness, guarding, rebound, rigid Extremities exam: Present: normal inspection, full ROM, normal capillary refill. Absent: tenderness, pedal edema, joint swelling, calf tenderness Back exam: Present: normal inspection Neurological exam: Present: alert, oriented X3, CN II-XII intact Psychiatric exam: Present: normal affect, normal mood Skin exam: Present: warm, dry, intact, normal color. Absent: rash Course Vital Signs 04/02/21 04/02/21 20:56 22:00 Temperature 98.5 F Pulse Rate 99 78 Respiratory 20 18 Rate Blood Pressure 136/82 105/80 O2 Sat by Pulse 99 97 Oximetry - Reevaluation(s) Reevaluation #1: 04/02/21 22:58 Medical record is reviewed Reevaluation #2: 04/02/21 22:58 Patient has no significant active vomiting here in the ER no significant seizures, Reevaluation #3: 04/02/21 22:58 Patient informed results and questions answered - Consultations Consultation #1: spoke w Both ICU as well as Dr. Aggarwal who will admit this patient Medical Decision Making - Medical Decision Making 75 female to the emergency department today day. Patient presents today for evaluation regards to covert with hyponatremia. Patient will be admitted for close monitoring and rehydration - Lab Data Result diagrams: 04/02/21 20:29 04/02/21 20:29 Lab Results 04/02/21 04/02/21 04/02/21 Range/Units 20:29 20:29 20:29 WBC 6.6 (3.8-10.6) k/uL RBC 4.22 (3.80-5.40) m/uL Hgb 13.7 (11.4-16.0) gm/dL Hct 39.0 (34.0-46.0) % MCV 92.3 (80.0-100.0) fL MCH 32.5 (25.0-35.0) pg MCHC 35.2 (31.0-37.0) g/dL RDW 12.8 (11.5-15.5) % Plt Count 235 (150-450) k/uL MPV 7.5 Neutrophils % 89 % Lymphocytes % 7 % Monocytes % 3 % Eosinophils % 0 % Basophils % 0 % Neutrophils # 5.8 (1.3-7.7) k/uL Lymphocytes # 0.5 L (1.0-4.8) k/uL Monocytes # 0.2 (0-1.0) k/uL Eosinophils # 0.0 (0-0.7) k/uL Basophils # 0.0 (0-0.2) k/uL PT 10.6 (9.0-12.0) sec INR 1.0 (<1.2) APTT 24.7 (22.0-30.0) sec Sodium (137-145) mmol/L Potassium (3.5-5.1) mmol/L Chloride (98-107) mmol/L Carbon Dioxide (22-30) mmol/L Anion Gap mmol/L BUN (7-17) mg/dL Creatinine (0.52-1.04) mg/dL Est GFR (CKD-EPI)AfAm (>60 ml/min/1.73 sqM) Est GFR (CKD-EPI)NonAf (>60 ml/min/1.73 sqM) Glucose (74-99) mg/dL Plasma Lactic Acid Aurelio (0.7-2.0) mmol/L Calcium (8.4-10.2) mg/dL Magnesium (1.6-2.3) mg/dL Total Bilirubin (0.2-1.3) mg/dL AST (14-36) U/L ALT (4-34) U/L Alkaline Phosphatase (38-126) U/L Lactate Dehydrogenase (313-618) U/L C-Reactive Protein (<1.0) mg/dL NT-Pro-B Natriuret Pep 669 pg/mL Total Protein (6.3-8.2) g/dL Albumin (3.5-5.0) g/dL 04/02/21 04/02/21 Range/Units 20:29 20:29 WBC (3.8-10.6) k/uL RBC (3.80-5.40) m/uL Hgb (11.4-16.0) gm/dL Hct (34.0-46.0) % MCV (80.0-100.0) fL MCH (25.0-35.0) pg MCHC (31.0-37.0) g/dL RDW (11.5-15.5) % Plt Count (150-450) k/uL MPV Neutrophils % % Lymphocytes % % Monocytes % % Eosinophils % % Basophils % % Neutrophils # (1.3-7.7) k/uL Lymphocytes # (1.0-4.8) k/uL Monocytes # (0-1.0) k/uL Eosinophils # (0-0.7) k/uL Basophils # (0-0.2) k/uL PT (9.0-12.0) sec INR (<1.2) APTT (22.0-30.0) sec Sodium 112 L* (137-145) mmol/L Potassium 3.7 (3.5-5.1) mmol/L Chloride 83 L (98-107) mmol/L Carbon Dioxide 19 L (22-30) mmol/L Anion Gap 10 mmol/L BUN 12 (7-17) mg/dL Creatinine 0.57 (0.52-1.04) mg/dL Est GFR (CKD-EPI)AfAm >90 (>60 ml/min/1.73 sqM) Est GFR (CKD-EPI)NonAf 90 (>60 ml/min/1.73 sqM) Glucose 121 H (74-99) mg/dL Plasma Lactic Acid Aurelio 0.9 (0.7-2.0) mmol/L Calcium 9.0 (8.4-10.2) mg/dL Magnesium 1.3 L (1.6-2.3) mg/dL Total Bilirubin 1.2 (0.2-1.3) mg/dL AST 37 H (14-36) U/L ALT 25 (4-34) U/L Alkaline Phosphatase 56 (38-126) U/L Lactate Dehydrogenase 508 (313-618) U/L C-Reactive Protein <0.5 (<1.0) mg/dL NT-Pro-B Natriuret Pep pg/mL Total Protein 6.5 (6.3-8.2) g/dL Albumin 3.9 (3.5-5.0) g/dL - EKG Data -: EKG Interpreted by Me (EKG shows A. fib 86, QRS 92 QTC 476) - Radiology Data Radiology results: report reviewed (Chest x-rays negative for acute disease), image reviewed Critical Care Time Critical Care Time: Yes Total Critical Care Time: 31 Disposition Clinical Impression: COVID, Dehydration, Gastroenteritis, Coronavirus infection, Hyponatremia Disposition: ADMITTED IP TO THIS [facility] Condition: Serious Is patient prescribed a controlled substance at d/c from ED?: No Referrals: Soledad Antunez MD [Primary Care Provider] - 1-2 days
[2021-04-02 22:13] LABS: Basophils % (A) 0 %; Eosinophils % (A) 0 %; HGB 13.7 gm/dL (11.4-16.0); Lymphocytes # (A) 0.5 k/uL (1.0-4.8); Lymphocytes % (A) 7 %; MCH 32.5 pg (25.0-35.0); MCHC 35.2 g/dL (31.0-37.0); MCV 92.3 fL (80.0-100.0); Mean Platelet Volume 7.5; Monocytes # (A) 0.2 k/uL (0-1.0); Monocytes % (A) 3 %; Neutrophils # (A) 5.8 k/uL (1.3-7.7); Neutrophils % (A) 89 %; Platelet Count 235 k/uL (150-450); RBC 4.22 m/uL (3.80-5.40); RDW 12.8 % (11.5-15.5); WBC 6.6 k/uL (3.8-10.6)
[2021-04-02 22:24] LABS: ALT 25 U/L (4-34); AST 37 U/L (14-36); African American GFR (CKD) >90 (>60 ml/min/1.73 sqM); Albumin 3.9 g/dL (3.5-5.0); Alkaline Phosphatase 56 U/L (38-126); Anion Gap 10 mmol/L; Blood Urea Nitrogen 12 mg/dL (7-17); C Reactive Protein <0.5 mg/dL (<1.0); Carbon Dioxide 19 mmol/L (22-30); Chloride 83 mmol/L (98-107); Glucose 121 mg/dL (74-99); LDH 508 U/L (313-618); Magnesium 1.3 mg/dL (1.6-2.3); Non-African American GFR(CKD) 90 (>60 ml/min/1.73 sqM); Potassium 3.7 mmol/L (3.5-5.1); Total Bilirubin 1.2 mg/dL (0.2-1.3); Total Protein 6.5 g/dL (6.3-8.2)
[2021-04-02 22:30] LABS: Partial Thromboplastin Time 24.7 sec (22.0-30.0); Prothrombin Time 10.6 sec (9.0-12.0)
--- NOTE | 2021-04-02 22:38 | XR ---
EXAMINATION TYPE: XR chest 1V portable DATE OF EXAM: 04/02/2021 COMPARISON: 08/08/2019 HISTORY: Chest pain TECHNIQUE: FINDINGS: There is no heart failure nor confluent pneumonic infiltrate. Costophrenic angles are clear . There are no hilar masses. Bony thorax is intact. IMPRESSION: No active cardiopulmonary disease. Normal heart. No change.
[2021-04-02 22:39] LABS: Sodium 112 mmol/L (137-145)
[2021-04-02] MEDS ORDERED: NALOXONE 0.4 MG/ML 1 ML VIAL IV PRN (22:54)
[2021-04-02] MEDS ORDERED: MORPHINE SULFATE 4 MG/ML SYRINGE IV PRN (22:54)
[2021-04-02] MEDS ORDERED: IBUPROFEN 400 MG TAB PO PRN (22:54)
[2021-04-02] MEDS ORDERED: SODIUM CHLORIDE 0.9% 500 ML 500 ML IV STA (22:54)
[2021-04-02] MEDS ORDERED: LORazepam 2 MG/ML INJ IV PRN (22:54)
[2021-04-02] MEDS ORDERED: SODIUM CHLORIDE 0.9% 1,000 ML IV STA (22:54)
[2021-04-02] MEDS ORDERED: ACETAMINOPHEN TAB 325 MG TAB PO PRN (22:54)
[2021-04-02] MEDS ORDERED: ONDANSETRON 4 MG/2 ML VIAL IVP PRN (22:54)
[2021-04-02] MEDS: MAGNESIUM SULFATE-D5W PMX 1 GM in DEXTROSE/WATER 1 100ML.BAG IVPB SCH (22:59)
[2021-04-02] MEDS ORDERED: SODIUM CHLORIDE 0.9% 1,000 ML IV SCH (23:00)
[2021-04-02] MEDS ORDERED: SODIUM CHLORIDE 3%(HYPERTONIC) 500 ML IV SCH (23:30)
[2021-04-03] MEDS: MAGNESIUM SULFATE-D5W PMX 1 GM in DEXTROSE/WATER 1 100ML.BAG IVPB SCH (00:51)
[2021-04-03 07:13] LABS: Basophils % (A) 0 %; Eosinophils % (A) 0 %; HCT 37.4 % (34.0-46.0); HGB 12.9 gm/dL (11.4-16.0); Lymphocytes # (A) 0.3 k/uL (1.0-4.8); Lymphocytes % (A) 16 %; MCH 32.3 pg (25.0-35.0); MCHC 34.4 g/dL (31.0-37.0); MCV 93.9 fL (80.0-100.0); Mean Platelet Volume 7.9; Monocytes # (A) 0.1 k/uL (0-1.0); Monocytes % (A) 3 %; Neutrophils # (A) 1.6 k/uL (1.3-7.7); Neutrophils % (A) 80 %; Platelet Count 203 k/uL (150-450); RBC 3.99 m/uL (3.80-5.40); RDW 12.2 % (11.5-15.5)
[2021-04-03 07:29] LABS: ALT 21 U/L (4-34); AST 29 U/L (14-36); African American GFR (CKD) >90 (>60 ml/min/1.73 sqM); Albumin 3.3 g/dL (3.5-5.0); Alkaline Phosphatase 47 U/L (38-126); Anion Gap 7 mmol/L; Blood Urea Nitrogen 8 mg/dL (7-17); Calcium 8.6 mg/dL (8.4-10.2); Carbon Dioxide 18 mmol/L (22-30); Chloride 94 mmol/L (98-107); Glucose 123 mg/dL (74-99); Non-African American GFR(CKD) 90 (>60 ml/min/1.73 sqM); Phosphorus 2.9 mg/dL (2.5-4.5); Potassium 3.5 mmol/L (3.5-5.1); Total Bilirubin 0.9 mg/dL (0.2-1.3); Total Protein 5.8 g/dL (6.3-8.2)
[2021-04-03 07:36] LABS: Sodium 119 mmol/L (137-145)
[2021-04-03] MEDS ORDERED: PANTOPRAZOLE 40 MG/10 ML VIAL IV SCH (09:00)
[2021-04-03] MEDS: ENOXAPARIN 40 MG/0.4 ML SYRINGE SQ SCH (09:18)
[2021-04-03] MEDS: DEXTROSE 5%-0.45% NACL 1,000 ML IV SCH (09:23)
--- NOTE | 2021-04-03 11:06 | P.CNPUL ---
History of Present Illness Consult date: 04/03/21 Requesting physician: Aurea Aggarwal Reason for consult: other (Critical care management) Chief complaint: Generalized weakness, body aches History of present illness: This is a very pleasant 75-year-old female patient who follows with Dr. kumar as her primary care provider. She has a history of hypertension, hyperlipidemia, atrial fibrillation not on anticoagulants, Sjogren's, arthritis, colitis with previous GI bleed maintained on Plaquenil. 10 days ago she presented to the urgent care with nausea vomiting weakness and was found to have COVID-19 infection. On 03/30/2021 she presented here to the emergency room and received monoclonal antibodies. She came back to the emergency room yesterday 04/02/2021 with ongoing issues with nausea, body aches and generalized weakness. EKG reveals atrial fibrillation, chest x-ray revealed no acute cardiopulmonary process. Normal heart. White count 2.0. Hemoglobin 12.9. Lymphocytes 0.3. Initial sodium 112. Currently 119. Bicarb 18. Creatinine 0.57. Glucose 123. AST 29. ALT 21. C-reactive protein less than 5. LDH 508. ProBNP 669. She is seen today in consultation in the emergency department. She is currently sitting up in a chair at the bedside. Awake and alert in no acute distress. Feeling a bit better today compared to yesterday. She has 3% hypertonic saline running at 30 ML's per hour. Review of Systems REVIEW OF SYSTEMS: CONSTITUTIONAL: Generalized weakness. Denies any recent significant weight loss or weight gain. EYES: Denies change in vision. EARS, NOSE, MOUTH, THROAT: Denies headaches, denies sore throat. CARDIOVASCULAR: Denies chest pain, palpitations or syncopal episodes. RESPIRATORY: Denies shortness of breath, cough, congestion or hemoptysis. GASTROINTESTINAL: Positive for nausea GENITOURINARY: Denies hematuria, denies infections. MUSKULOSKELETAL: Positive for generalized aches and pains INTEGUMENTARY: Denies rash, denies eczema. NEUROLOGICAL: Denies recent memory loss, no recent seizure activity. PSYCHIATRIC: Denies anxiety, denies depression. HEMATOLOGIC/LYMPHATIC: Denies anemia, denies enlarged lymph nodes. Past Medical History Past Medical History: Cancer, GERD/Reflux, Hyperlipidemia, Hypertension, Osteoarthritis (OA), Pneumonia Additional Past Medical History / Comment(s): Shogren's s yndrome/immunocompromised d/t medications/numerous pneumonias/occasional edema bilateral lower legs and R side of face, rectal bleed possibly r/t diverticulitis/colitis, chronic anemia, arthritis in multiple joints, past R wrist fracture/R shoulder dislocation, basal cell skin cancer with removal History of Any Multi-Drug Resistant Organisms: C-DIFF Date of last positivie culture/infection: 07/06/2014 MDRO Source:: stool Past Surgical History: Breast Surgery, Cholecystectomy, Tonsillectomy Additional Past Surgical History / Comment(s): Basal cell skin cancer removed fr om R shoulder, colonoscopy, oopherectomy-one ovary removed and one ovary 3/4 removed, R breast cysts aspirations. Past Anesthesia/Blood Transfusion Reactions: No Reported Reaction Smoking Status: Never smoker - Past Family History Father Family Medical History: CVA/TIA Additional Family Medical History / Comment(s): Father at age 84 from CVA/TIA's Mother Family Medical History: Coronary Artery Disease (CAD), Diabetes Mellitus Additional Family Medical History / Comment(s): Mother at age 57yrs from complications of her DM. Medications and Allergies Home Medications Medication Instructions Recorded Confirmed Type Fluticasone Propionate [Flonase] 2 spray EA NOSTRIL DAILY 07/15/13 04/02/21 History Hydroxychloroquine Sulfate 300 mg PO DAILY 07/15/13 04/02/21 History [Plaquenil] Simvastatin [Zocor] 20 mg PO HS 07/15/13 04/02/21 History Omeprazole 40 mg PO BID 08/08/19 04/02/21 History Spironolactone [Aldactone] 12.5 mg PO DAILY 08/08/19 04/02/21 History Aspirin 81 mg PO DAILY chew 08/11/19 04/02/21 Rx Magnesium Oxide [Mag-Ox] 800 mg PO HS 10/04/19 04/02/21 History Albuterol Nebulized [Ventolin 2.5 mg INHALATION RT-Q4H PRN 04/02/21 04/02/21 History Nebulized] Ascorbic Acid [Vitamin C] 1,000 mg PO DAILY 04/02/21 04/02/21 History Celecoxib [CeleBREX] 400 mg PO DAILY 04/02/21 04/02/21 History Cholecalciferol [Vitamin D3 (125 125 mcg PO DAILY 04/02/21 04/02/21 History Mcg = 5000 Iu)] L.acidoph,Paracasei, B.lactis 1 cap PO DAILY 04/02/21 04/02/21 History [Probiotic] Losartan/Hydrochlorothiazide 1 tab PO DAILY 04/02/21 04/02/21 History [Hyzaar 100-25 Tablet] atenoloL [Tenormin] 25 mg PO DAILY 04/02/21 04/02/21 History Allergies Allergy/AdvReac Type Severity Reaction Status Date / Time cephalexin monohydrate Allergy Rash/Hives Verified 04/02/21 23:13 [From Keflex] crisaborole [From Eucrisa] Allergy Anaphylaxis Verified 04/02/21 23:13 Penicillins Allergy Unknown Verified 04/02/21 23:13 Childhood latex AdvReac Itching Verified 04/02/21 23:13 methocarbamol AdvReac Swelling Verified 04/02/21 23:13 nabumetone [From Relafen] AdvReac Swelling Verified 04/02/21 23:13 Physical Exam Vitals: Vital Signs Temp Pulse Pulse Resp BP BP Pulse Ox 04/03/21 08:20 86 16 117/70 97 04/03/21 06:39 98.1 F 83 15 113/75 98 04/03/21 05:29 97.4 F L 74 15 120/74 95 04/03/21 00:39 97.7 F 85 19 97 04/02/21 22:00 78 18 105/80 97 04/02/21 20:56 98.5 F 99 20 136/82 99 Intake and Output 04/02/21 04/03/21 04/03/21 22:59 06:59 14:59 Intake Total 700 Output Total 600 Balance 100 Intake: Intake, IV Titration 220 Amount Magnesium Sulfate-D5w Pmx 100 1 gm In Dextrose/Water 1 100ml.bag @ 100 mls/hr IVPB Q1H [facility] Rx#: [id number] Sodium Chloride 3%( 120 Hypertonic) 500 ml @ 30 mls/hr IV .[id number] [facility] Rx #:[id number] Oral 480 Output: Urine 600 Other: # Voids 3 Weight 68.946 kg 68.946 kg GENERAL EXAM: Alert, pleasant 75-year-old female patient, up in a chair at the bedside, on room air, comfortable in no apparent distress. HEAD: Normocephalic. EYES: Normal reaction of pupils, equal size. NOSE: Clear with pink turbinates. THROAT: No erythema or exudates. NECK: No masses, no JVD. CHEST: No chest wall deformity. LUNGS: Equal air entry with no crackles, wheeze, rhonchi or dullness. CVS: S1 and S2 normal with no audible murmur, regular rhythm. ABDOMEN: No hepatosplenomegaly, normal bowel sounds, no guarding or rigidity. SPINE: No scoliosis or deformity SKIN: No rashes CENTRAL NERVOUS SYSTEM: No focal deficits, tone is normal in all 4 extremities. EXTREMITIES: There is no peripheral edema. No clubbing, no cyanosis. Peripheral pulses are intact. Results - Laboratory Findings CBC and BMP: 04/03/21 06:57 04/03/21 06:57 PT/INR, D-dimer PT 10.6 sec (9.0-12.0) 04/02/21 20:29 INR 1.0 (<1.2) 04/02/21 20:29 Abnormal lab findings: Abnormal Labs 04/02/21 04/02/21 04/02/21 20:29 20:29 23:19 WBC Lymphocytes # 0.5 L Sodium 112 L* 113 L* Chloride 83 L Carbon Dioxide 19 L Glucose 121 H Magnesium 1.3 L AST 37 H Total Protein Albumin 04/03/21 04/03/21 04/03/21 02:31 06:57 06:57 WBC 2.0 L Lymphocytes # 0.3 L Sodium 115 L* 119 L* Chloride 94 L Carbon Dioxide 18 L Glucose 123 H Magnesium AST Total Protein 5.8 L Albumin 3.3 L - Diagnostic Findings Chest x-ray: image reviewed Assessment and Plan Assessment: 1 Hyponatremia in a patient with recent nausea vomiting, generalized weakness secondary to COVID-19 infection and received 3% hypertonic solution. Current sodium 119 up from 112. 2 COVID-19 infection with initial symptoms 10 days ago, received monoclonal antibodies on 03/30/2021 here in the ER. No pulmonary issues, on room air. 3 History of hypertension 4 Hyperlipidemia 5 Sjogren's disease 6 Arthritis, maintained on Plaquenil in the outpatient setting 7 History of colitis with previous GI bleed 8 History of atrial fibrillation not on anticoagulants Plan: The patient was seen and evaluated Stable from the critical care standpoint Chest x-ray and labs reviewed Discontinue hypertonic saline Initiate D5.45 normal saline at 75 ML's per hour Admit to the 3S stepdown, not ICU Consult cardiology regarding anticoagulation We will continue to follow and make further recommendations based on her clini wilmer status I, the cosigning physician, performed a history & physical examination of the patient. Lungs sounds are clear. Maintaining good O2 saturations in the 90s on room air. I discussed the assessment and plan of care with my nurse practitioner, Kiya Del Rosario. I attest to the above consultation as dictated by her. Time with Patient: Greater than 30
[2021-04-03] MEDS ORDERED: ALBUTEROL NEBULIZED 2.5 MG/3 ML INHALATION PRN (14:14)
[2021-04-03] MEDS: HYDROXYCHLOROQUINE SULFATE 200 MG TAB PO SCH (14:55)
[2021-04-03] MEDS: atenoloL 25 MG TAB PO SCH (14:55)
[2021-04-03] MEDS: ASPIRIN 81 MG PO SCH (14:55)
[2021-04-03] MEDS: CHOLECALCIFEROL 125 MCG (5000 IU) TABLET PO SCH (14:56)
[2021-04-03] MEDS: ASCORBIC ACID 500 MG TAB PO SCH (14:56)
[2021-04-03] MEDS: NON FORMULARY DRUG (Celecoxib [Celebrex] 400 MG Capsule) PO SCH (15:02)
--- NOTE | 2021-04-03 17:29 | P.HPIM ---
History of Present Illness H&P Date: 04/03/21 Lashon carmichael is a 75-year-old female who presented to [facility] emergency room with a chief complaint of generalized weakness, nausea and vomiting. Patient was diagnosed with COVID-19 infection at an urgent care clinic 10 days ago she came to emergency room and received monoclonal antibody infusion on 03/30/2021 and was discharged home. She returned to emergency room on 04/02/2021 with nausea vomiting and weakness, she was evaluated in the emergency room and was found to have severe hyponatremia, she was admitted to ICU, critical care consultation was requested. Vital examination on presentation to emergency room revealed a temperature of 98.5 pulse 99 respiration 20 blood pressure 136/82 pulse ox 99% on room air. Laboratory data revealed a white blood count of 6.6 hemoglobin 13.7 platelet count 235 sodium 113 potassium 3.7 chloride 83 CO2 19 BUN 12 creatinine 0.57 Chest x-ray done in the emergency room revealed no active cardiopulmonary disease EKG done in the emergency room revealed atrial fibrillation and poor R-wave progression in anterior leads no ST or T-wave abnormalities Her past medical history significant for hypertension, hyperlipidemia, atrial fibrillation, osteoarthritis, Sjogren syndrome, and recent diagnosis of COVID-19 infection Past Medical History Past Medical History: Cancer, GERD/Reflux, Hyperlipidemia, Hypertension, Osteoarthritis (OA), Pneumonia Additional Past Medical History / Comment(s): Shogren's syndrome/immunocompromised d/t medications/numerous pneumonias/occasional edema bilateral lower legs and R side of face, rectal bleed possibly r/t diverticulitis/colitis, chronic anemia, arthritis in multiple joints, past R wrist fracture/R shoulder dislocation, basal cell skin cancer with removal History of Any Multi-Drug Resistant Organisms: C-DIFF Date of last positivie culture/infection: 07/06/2014 MDRO Source:: stool Past Surgical History: Breast Surgery, Cholecystectomy, Tonsillectomy Additional Past Surgical History / Comment(s): Basal cell skin cancer removed from R shoulder, colonoscopy, oopherectomy-one ovary removed and one ovary 3/4 removed, R breast cysts aspirations. Past Anesthesia/Blood Transfusion Reactions: No Reported Reaction Smoking Status: Never smoker - Past Family History Father Family Medical History: CVA/TIA Additional Family Medical History / Comment(s): Father at age 84 from CVA/TIA's Mother Family Medical History: Coronary Artery Disease (CAD), Diabetes Mellitus Additional Family Medical History / Comment(s): Mother at age 57yrs from complications of her DM. Medications and Allergies Home Medications Medication Instructions Recorded Confirmed Type Fluticasone Propionate [Flonase] 2 spray EA NOSTRIL DAILY 07/15/13 04/02/21 History Hydroxychloroquine Sulfate 300 mg PO DAILY 07/15/13 04/02/21 History [Plaquenil] Simvastatin [Zocor] 20 mg PO HS 07/15/13 04/02/21 History Omeprazole 40 mg PO BID 08/08/19 04/02/21 History Spironolactone [Aldactone] 12.5 mg PO DAILY 08/08/19 04/02/21 History Aspirin 81 mg PO DAILY chew 08/11/19 04/02/21 Rx Magnesium Oxide [Mag-Ox] 800 mg PO HS 10/04/19 04/02/21 History Albuterol Nebulized [Ventolin 2.5 mg INHALATION RT-Q4H PRN 04/02/21 04/02/21 History Nebulized] Ascorbic Acid [Vitamin C] 1,000 mg PO DAILY 04/02/21 04/02/21 History Celecoxib [CeleBREX] 400 mg PO DAILY 04/02/21 04/02/21 History Cholecalciferol [Vitamin D3 (125 125 mcg PO DAILY 04/02/21 04/02/21 History Mcg = 5000 Iu)] L.acidoph,Paracasei, B.lactis 1 cap PO DAILY 04/02/21 04/02/21 History [Probiotic] Losartan/Hydrochlorothiazide 1 tab PO DAILY 04/02/21 04/02/21 History [Hyzaar 100-25 Tablet] atenoloL [Tenormin] 25 mg PO DAILY 04/02/21 04/02/21 History Allergies Allergy/AdvReac Type Severity Reaction Status Date / Time cephalexin monohydrate Allergy Rash/Hives Verified 04/02/21 23:13 [From Keflex] crisaborole [From Eucrisa] Allergy Anaphylaxis Verified 04/02/21 23:13 Penicillins Allergy Unknown Verified 04/02/21 23:13 Childhood latex AdvReac Itching Verified 04/02/21 23:13 methocarbamol AdvReac Swelling Verified 04/02/21 23:13 nabumetone [From Relafen] AdvReac Swelling Verified 04/02/21 23:13 Physical Exam Vitals: Vital Signs Temp Pulse Pulse Resp BP BP Pulse Ox 04/03/21 08:20 86 16 117/70 97 04/03/21 06:39 98.1 F 83 15 113/75 98 04/03/21 05:29 97.4 F L 74 15 120/74 95 04/03/21 00:39 97.7 F 85 19 97 04/02/21 22:00 78 18 105/80 97 04/02/21 20:56 98.5 F 99 20 136/82 99 Intake and Output 04/02/21 04/03/21 04/03/21 22:59 06:59 14:59 Intake Total 700 Output Total 600 Balance 100 Intake: Intake, IV Titration 220 Amount Magnesium Sulfate-D5w Pmx 100 1 gm In Dextrose/Water 1 100ml.bag @ 100 mls/hr IVPB Q1H [facility] Rx#: [id number] Sodium Chloride 3%( 120 Hypertonic) 500 ml @ 30 mls/hr IV .[id number] [facility] Rx #:[id number] Oral 480 Output: Urine 600 Other: # Voids 3 Weight 68.946 kg 68.946 kg In general patient is alert and oriented x 3 in no distress HEENT head normocephalic and atraumatic Neck is supple no JVD no goiter no lymphadenopathy no carotid bruit Chest examination is clear to auscultation no crackles no wheezing Cardiac exam reveals regular heart sounds S1 and S2 no gallops no murmurs Abdomen is soft nontender no organomegaly with normal bowel sounds Extremity exam reveals no edema no cyanosis or clubbing Neurological examination reveals no gross focal deficits Results CBC & Chem 7: 04/03/21 06:57 04/03/21 15:34 Labs: Abnormal Lab Results - Last 24 Hours (Table) 04/02/21 04/02/21 04/02/21 Range/Units 20:29 20:29 23:19 WBC (3.8-10.6) k/uL Lymphocytes # 0.5 L (1.0-4.8) k/uL Sodium 112 L* 113 L* (137-145) mmol/L Chloride 83 L (98-107) mmol/L Carbon Dioxide 19 L (22-30) mmol/L Glucose 121 H (74-99) mg/dL Magnesium 1.3 L (1.6-2.3) mg/dL AST 37 H (14-36) U/L Total Protein (6.3-8.2) g/dL Albumin (3.5-5.0) g/dL 04/03/21 04/03/21 04/03/21 Range/Units 02:31 06:57 06:57 WBC 2.0 L (3.8-10.6) k/uL Lymphocytes # 0.3 L (1.0-4.8) k/uL Sodium 115 L* 119 L* (137-145) mmol/L Chloride 94 L (98-107) mmol/L Carbon Dioxide 18 L (22-30) mmol/L Glucose 123 H (74-99) mg/dL Magnesium (1.6-2.3) mg/dL AST (14-36) U/L Total Protein 5.8 L (6.3-8.2) g/dL Albumin 3.3 L (3.5-5.0) g/dL 04/03/21 Range/Units 11:15 WBC (3.8-10.6) k/uL Lymphocytes # (1.0-4.8) k/uL Sodium 121 L (137-145) mmol/L Chloride (98-107) mmol/L Carbon Dioxide (22-30) mmol/L Glucose (74-99) mg/dL Magnesium (1.6-2.3) mg/dL AST (14-36) U/L Total Protein (6.3-8.2) g/dL Albumin (3.5-5.0) g/dL Thrombosis Risk Factor Assmnt - Choose All That Apply Any of the Below Risk Factors Present?: Yes Each Factor Represents 1 point: Obesity (BMI >25), Swollen legs (current) Other Risk Factors: Yes Each Risk Factor Represents 2 Points: Malignancy Each Risk Factor Represents 3 Points: Age 75 years or older Other congenital or acquired thrombophilia - If yes, enter type in comment: No Thrombosis Risk Factor Assessment Total Risk Factor Score: 7 Thrombosis Risk Factor Assessment Level: High Risk Assessment and Plan Plan: Severe hyponatremia related to nausea and vomiting, also patient was receiving hydrochlorothiazide and spironolactone, patient was started on 3% hypertonic solution, diuretics are on hold at this time COVID-19 infection, diagnosed 10 days ago, and received IV infusion of mon oclonal antibodies 3 days ago, no evidence of pneumonia patient is not requiring oxygen at this time Underlying history of atrial fibrillation not maintained on anticoagulation due to history of gastrointestinal bleeding Underlying history of hypertension Underlying history of Sjogren syndrome Underlying history of hyperlipidemia Underlying history of colitis with history of gastrointestinal bleeding At this time patient is admitted to intensive care unit, she remains in the ER as overflow She received hypertonic saline 3% Critical care consultation is requested Symptomatic treatment for nausea and vomiting Will add Lovenox 40 mg subcu once daily Will follow closely
[2021-04-03] MEDS ORDERED: ALBUTEROL HFA INHALER INHALATION PRN (23:01)
[2021-04-04] MEDS: MAGNESIUM OXIDE 400 MG TAB PO SCH ×2 (00:06→20:43)
[2021-04-04] MEDS: PANTOPRAZOLE 40 MG TABLET PO SCH ×3 (00:07→20:43)
[2021-04-04] MEDS: ATORVASTATIN 10 MG TAB PO SCH ×2 (00:07→20:43)
[2021-04-04] MEDS: LACTOBACILLUS ACIDOPH & BULGAR 1 EACH PACKET PO SCH ×2 (00:10→08:59)
[2021-04-04] MEDS: FLUTICASONE 50MCG/SPRAY NASAL 16GM EA NOSTRIL SCH ×2 (00:11→08:59)
[2021-04-04] MEDS: DEXTROSE 5%-0.45% NACL 1,000 ML IV SCH (02:09)
[2021-04-04] MEDS: CHOLECALCIFEROL 125 MCG (5000 IU) TABLET PO SCH (08:57)
[2021-04-04] MEDS: ASCORBIC ACID 500 MG TAB PO SCH (08:57)
[2021-04-04] MEDS: ENOXAPARIN 40 MG/0.4 ML SYRINGE SQ SCH (08:58)
[2021-04-04] MEDS: atenoloL 25 MG TAB PO SCH (08:58)
[2021-04-04] MEDS: NON FORMULARY DRUG (Celecoxib [Celebrex] 400 MG Capsule) PO SCH (08:58)
[2021-04-04] MEDS: HYDROXYCHLOROQUINE SULFATE 200 MG TAB PO SCH (08:58)
[2021-04-04] MEDS: ASPIRIN 81 MG PO SCH (08:59)
[2021-04-04] MEDS ORDERED: DESMOPRESSIN ACETATE 4 MCG/ML VIAL (MDV) IV ONE (10:30)
[2021-04-04] MEDS ORDERED: DEXTROSE 5% IN WATER 1,000 ML IV SCH (10:30)
--- NOTE | 2021-04-04 10:33 | P.NPCON ---
History of Present Illness - Reason for Consult hyponatremia - History of Present Illness Reason for consultation: Hyponatremia History of present illness: Patient is a 75-year-old female seen in consultation for hyponatremia. Patient presented to the hospital on 04/02/2021 due to nausea and vomiting. Patient states she was diagnosed with COVID-19 infection last week. She developed intractable nausea and vomiting Friday afternoon and subsequently came to the hospital in the evening. She currently admits to a productive cough with clear phlegm. She denies chest pain or shortness of breath. Vomiting has resolved. She was taking hydrochlorothiazide as well as spironolactone at home. She also takes Celebrex regularly for pain. Patient's sodium level was 112 on admission on 04/02/2021 at 8:29 PM. Patient received a liter bolus of normal saline and was then started on 3% saline which she received throughout Friday night. 04/03/2021, her sodium was up to 119 and she was subsequently changed from 3% to half-normal saline which is currently running at 75 mL an hour. Sodium level gradually increased and was up to 155 at midnight today and 146 this morning at 3:37 AM. I was notified of the consult this morning around 10 AM. She denies history of malignancy. Oral intake has improved. Vital signs are stable. General: The patient appeared well nourished and normally developed. HEENT: Head exam is unremarkable. LUNGS: Breath sounds decreased. HEART: Rate and Rhythm are regular. ABDOMEN: Soft, no distention. EXTREMITITES: No edema. Past Medical History Past Medical History: Cancer, GERD/Reflux, Hyperlipidemia, Hypertension, Osteoarthritis (OA), Pneumonia Additional Past Medical History / Comment(s): Shogren's syndrome/immunocompromised d/t medications/numerous pneumonias/occasional edema bilateral lower legs and R side of face, rectal bleed possibly r/t diverticulitis/colitis, chronic anemia, arthritis in multiple joints, past R wrist fracture/R shoulder dislocation, basal cell skin cancer with removal History of Any Multi-Drug Resistant Organisms: C-DIFF Date of last positivie culture/infection: 07/06/2014 MDRO Source:: stool Past Surgical History: Breast Surgery, Cholecystectomy, Tonsillectomy Additional Past Surgical History / Comment(s): Basal cell skin cancer removed from R shoulder, colonoscopy, oopherectomy-one ovary removed and one ovary 3/4 removed, R breast cysts aspirations. Past Anesthesia/Blood Transfusion Reactions: No Reported Reaction Smoking Status: Never smoker - Past Family History Father Family Medical History: CVA/TIA Additional Family Medical History / Comment(s): Father at age 84 from CVA/T IA's Mother Family Medical History: Coronary Artery Disease (CAD), Diabetes Mellitus Additional Family Medical History / Comment(s): Mother at age 57yrs from complications of her DM. Medications and Allergies Home Medications Medication Instructions Recorded Confirmed Type Fluticasone Propionate [Flonase] 2 spray EA NOSTRIL DAILY 07/15/13 04/02/21 History Hydroxychloroquine Sulfate 300 mg PO DAILY 07/15/13 04/02/21 History [Plaquenil] Simvastatin [Zocor] 20 mg PO HS 07/15/13 04/02/21 History Omeprazole 40 mg PO BID 08/08/19 04/02/21 History Spironolactone [Aldactone] 12.5 mg PO DAILY 08/08/19 04/02/21 History Aspirin 81 mg PO DAILY chew 08/11/19 04/02/21 Rx Magnesium Oxide [Mag-Ox] 800 mg PO HS 10/04/19 04/02/21 History Albuterol Nebulized [Ventolin 2.5 mg INHALATION RT-Q4H PRN 04/02/21 04/02/21 History Nebulized] Ascorbic Acid [Vitamin C] 1,000 mg PO DAILY 04/02/21 04/02/21 History Celecoxib [CeleBREX] 400 mg PO DAILY 04/02/21 04/02/21 History Cholecalciferol [Vitamin D3 (125 125 mcg PO DAILY 04/02/21 04/02/21 History Mcg = 5000 Iu)] L.acidoph,Paracasei, B.lactis 1 cap PO DAILY 04/02/21 04/02/21 History [Probiotic] Losartan/Hydrochlorothiazide 1 tab PO DAILY 04/02/21 04/02/21 History [Hyzaar 100-25 Tablet] atenoloL [Tenormin] 25 mg PO DAILY 04/02/21 04/02/21 History Allergies Allergy/AdvReac Type Severity Reaction Status Date / Time cephalexin monohydrate Allergy Rash/Hives Verified 04/02/21 23:13 [From Keflex] crisaborole [From Eucrisa] Allergy Anaphylaxis Verified 04/02/21 23:13 Penicillins Allergy Unknown Verified 04/02/21 23:13 Childhood latex AdvReac Itching Verified 04/02/21 23:13 methocarbamol AdvReac Swelling Verified 04/02/21 23:13 nabumetone [From Relafen] AdvReac Swelling Verified 04/02/21 23:13 Physical Exam Vitals: Vital Signs Temp Pulse Pulse Pulse Resp BP BP 04/04/21 05:28 97.7 F 60 14 97/63 04/04/21 01:35 97.9 F 87 17 112/73 04/03/21 22:00 17 04/03/21 21:54 97.5 F L 92 14 148/83 04/03/21 21:41 97.8 F 82 20 130/77 04/03/21 19:43 89 18 127/78 04/03/21 15:08 97.8 F 84 18 129/72 04/03/21 12:30 97.8 F 80 18 128/80 Pulse Ox 04/04/21 05:28 97 04/04/21 01:35 98 04/03/21 22:00 04/03/21 21:54 97 04/03/21 21:41 98 04/03/21 19:43 96 04/03/21 15:08 96 04/03/21 12:30 98 Intake and Output 04/03/21 04/04/21 04/04/21 22:59 06:59 14:59 Other: # Voids 1 1 Results - Lab Results Most recent lab results Calcium 8.6 mg/dL (8.4-10.2) 04/03/21 06:57 Phosphorus 2.9 mg/dL (2.5-4.5) 04/03/21 06:57 Magnesium 2.0 mg/dL (1.6-2.3) 04/03/21 06:57 04/03/21 06:57 04/04/21 03:37 Assessment and Plan Plan: Assessment: 1. Hypovolemic hyponatremia rapidly corrected with IV hydration. Sodium level was 112 on admission on 04/02/2021. Patient received 3% saline overnight and sodium level was 119 on 04/03/2021 at 7 AM. She was then switched to half- normal saline and sodium level went up to 155 as of 12:24 AM on 04/04/2021 and is 146 as of 3:37 AM. No further labs since. 2. COVID-19 infection. 3. Benign hypertension. Blood pressure on the lower side this morning. 4. Hypomagnesemia from poor intake and diuretics. Replaced. Better. Plan: Due to rapid correction of hyponatremia, I will give her dose of IV DDAVP now. I will also change the fluids to D5W at 75 mL an hour. Check sodium level now and then every 2-3 hours. Check serum and urine osmolality and urine sodium level. Check TSH. Case discussed with the nurse and primary team. Thank you for the consultation. I will continue to follow the patient with you during her hospital stay.
[2021-04-04 11:13] LABS: African American GFR (CKD) >90 (>60 ml/min/1.73 sqM); Anion Gap 7 mmol/L; Blood Urea Nitrogen 13 mg/dL (7-17); Carbon Dioxide 21 mmol/L (22-30); Chloride 101 mmol/L (98-107); Glucose 78 mg/dL (74-99); Magnesium 1.8 mg/dL (1.6-2.3); Non-African American GFR(CKD) 84 (>60 ml/min/1.73 sqM); Potassium 4.1 mmol/L (3.5-5.1); Sodium 129 mmol/L (137-145)
[2021-04-04 13:42] VITALS: BMI 30.7
--- NOTE | 2021-04-04 18:12 | P.PN ---
Subjective Progress Note Date: 04/04/21 Lashon carmichael is a 75-year-old female who presented to [facility] emergency room with a chief complaint of generalized weakness, nausea and vomiting. Patient was diagnosed with COVID-19 infection at an urgent care clinic 10 days ago she came to emergency room and received monoclonal antibody infusion on 03/30/2021 and was discharged home. She returned to emergency room on 04/02/2021 with nausea vomiting and weakness, she was evaluated in the emergency room and was found to have severe hyponatremia, she was admitted to ICU, critical care consultation was requested. Vital examination on presentation to emergency room revealed a temperature of 98.5 pulse 99 respiration 20 blood pressure 136/82 pulse ox 99% on room air. Laboratory data revealed a white blood count of 6.6 hemoglobin 13.7 platelet count 235 sodium 113 potassium 3.7 chloride 83 CO2 19 BUN 12 creatinine 0.57 Chest x-ray done in the emergency room revealed no active cardiopulmonary disease EKG done in the emergency room revealed atrial fibrillation and poor R-wave progression in anterior leads no ST or T-wave abnormalities Her past medical history significant for hypertension, hyperlipidemia, atrial fibrillation, osteoarthritis, Sjogren syndrome, and recent diagnosis of COVID-19 infection On 04/04/2021 patient was seen and examined on the medical floor she is alert and oriented 3 in no apparent distress, there is no fever or chills no headache or dizziness no chest pain no shortness of breath no cough no nausea or vomiting no abdominal pain no diarrhea no blood in the stools no burning with urination no frequency or urgency and no hematuria Objective - Vital Signs Vital signs: Vital Signs Temp 97.7 F 04/04/21 05:28 Pulse 60 04/04/21 05:28 Resp 14 04/04/21 05:28 BP 97/63 04/04/21 05:28 Pulse Ox 97 04/04/21 05:28 Intake & Output 04/03/21 04/04/21 04/04/21 18:59 06:59 18:59 Weight 68.946 kg Other: # Voids 1 - Exam In general patient is alert and oriented x 3 in no distress HEENT head normocephalic and atraumatic Neck is supple no JVD no goiter no lymphadenopathy no carotid bruit Chest examination is clear to auscultation no crackles no wheezing Cardiac exam reveals regular heart sounds S1 and S2 no gallops no murmurs Abdomen is soft nontender no organomegaly with normal bowel sounds Extremity exam reveals no edema no cyanosis or clubbing Neurological examination reveals no gross focal deficits - Labs CBC & Chem 7: 04/03/21 06:57 04/04/21 16:29 Labs: Abnormal Lab Results - Last 24 Hours (Table) 04/03/21 04/03/21 04/04/21 Range/Units 15:34 19:22 00:24 Sodium 123 L 124 L 155 H (137-145) mmol/L Carbon Dioxide (22-30) mmol/L Osmolality (280-301) mosm/kg 04/04/21 04/04/21 04/04/21 Range/Units 03:37 07:40 10:37 Sodium 146 H 132 L 129 L (137-145) mmol/L Carbon Dioxide 21 L (22-30) mmol/L Osmolality 267 L (280-301) mosm/kg 04/04/21 Range/Units 12:56 Sodium 130 L (137-145) mmol/L Carbon Dioxide (22-30) mmol/L Osmolality (280-301) mosm/kg Assessment and Plan Plan: Severe hyponatremia related to nausea and vomiting, also patient was receiving hydrochlorothiazide and spironolactone, patient was started on 3% hypertonic solution, diuretics are on hold at this time COVID-19 infection, diagnosed 10 days ago, and received IV infusion of monoclonal antibodies 3 days ago, no evidence of pneumonia patient is not requiring oxygen at this time Underlying history of atrial fibrillation not maintained on anticoagulation due to history of gastrointestinal bleeding Underlying history of hypertension Underlying history of Sjogren syndrome Underlying history of hyperlipidemia Underlying history of colitis with history of gastrointestinal bleeding At this time patient is admitted to intensive care unit, she remains in the ER as overflow She received hypertonic saline 3% Critical care consultation is requested Symptomatic treatment for nausea and vomiting Will add Lovenox 40 mg subcu once daily Will follow closely
[2021-04-05 07:29] LABS: ALT 22 U/L (4-34); AST 30 U/L (14-36); African American GFR (CKD) 82 (>60 ml/min/1.73 sqM); Albumin 3.2 g/dL (3.5-5.0); Albumin/Globulin Ratio 1.3; Alkaline Phosphatase 42 U/L (38-126); Anion Gap 3 mmol/L; Blood Urea Nitrogen 11 mg/dL (7-17); Calcium 9.1 mg/dL (8.4-10.2); Carbon Dioxide 24 mmol/L (22-30); Chloride 103 mmol/L (98-107); Globulin 2.4 g/dL; Glucose 76 mg/dL (74-99); Non-African American GFR(CKD) 71 (>60 ml/min/1.73 sqM); Sodium 130 mmol/L (137-145); Total Bilirubin 0.8 mg/dL (0.2-1.3); Total Protein 5.6 g/dL (6.3-8.2)
[2021-04-05] MEDS: HYDROXYCHLOROQUINE SULFATE 200 MG TAB PO SCH (07:30)
[2021-04-05] MEDS: ENOXAPARIN 40 MG/0.4 ML SYRINGE SQ SCH (07:30)
[2021-04-05] MEDS: ASPIRIN 81 MG PO SCH (07:30)
[2021-04-05] MEDS: atenoloL 25 MG TAB PO SCH (07:31)
[2021-04-05] MEDS: CHOLECALCIFEROL 125 MCG (5000 IU) TABLET PO SCH (07:31)
[2021-04-05] MEDS: PANTOPRAZOLE 40 MG TABLET PO SCH ×2 (07:31→20:04)
[2021-04-05] MEDS: ASCORBIC ACID 500 MG TAB PO SCH (07:31)
[2021-04-05] MEDS: FLUTICASONE 50MCG/SPRAY NASAL 16GM EA NOSTRIL SCH (07:33)
[2021-04-05] MEDS: LACTOBACILLUS ACIDOPH & BULGAR 1 EACH PACKET PO SCH (09:02)
[2021-04-05] MEDS: APIXABAN 5 MG TAB PO SCH ×2 (09:48→20:04)
[2021-04-05] MEDS: METOPROLOL TARTRATE 25 MG TAB PO SCH ×2 (09:48→20:04)
[2021-04-05 10:34] LABS: Basophils # (A) 0.04 X 10*3/uL (0.00-0.10); Basophils % (A) 0.7 %; Eosinophils # (A) 0.23 X 10*3/uL (0.04-0.35); Eosinophils % (A) 4.2 %; HCT 35.7 % (37.2-46.3); Immature Grans, Automated 1.1 %; Lymphocytes # (A) 1.31 X 10*3/uL (0.90-5.00); Lymphocytes % (A) 23.9 %; MCH 31.7 pg (27.0-32.0); MCHC 33.6 g/dL (32.0-37.0); MCV 94.4 fL (80.0-97.0); Mean Platelet Volume 10.6 fL (9.5-12.2); Monocytes # (A) 0.46 X 10*3/uL (0.20-1.00); Monocytes % (A) 8.4 %; NRBC Per 100 WBC 0 /100 WBCS (0.0-0.0); Neutrophils # (A) 3.37 X 10*3/uL (1.80-7.70); Neutrophils % (A) 61.7 %; Platelet Count 212 X 10*3/uL (140-440); RBC 3.78 X 10*6/uL (4.10-5.20); RDW 13.2 % (11.5-14.5); WBC 5.47 X 10*3/uL (4.50-10.00)
--- NOTE | 2021-04-05 10:40 | P.PN ---
Subjective Patient is seen in follow-up for hyponatremia. Sodium level 130 today. Oral intake is good. No chest pain or shortness of breath. No vomiting or diarrhea. No active complaints. Vital signs are stable. General: The patient appeared well nourished and normally developed. HEENT: Head exam is unremarkable. Nec LUNGS: Breath sounds decreased. HEART: Rate and Rhythm are regular. ABDOMEN: Soft, no distention. EXTREMITITES: No edema. Objective - Vital Signs Vital signs: Vital Signs Temp 98.1 F 04/05/21 10:18 Pulse 69 04/05/21 10:18 Resp 18 04/05/21 10:18 BP 110/76 04/05/21 10:18 Pulse Ox 90 L 04/05/21 10:18 Intake & Output 04/04/21 04/05/21 04/05/21 18:59 06:59 18:59 Intake Total 240 Balance 240 Weight 68.946 kg Intake: Oral 240 Other: # Voids 2 3 1 # Bowel Movements 2 - Labs CBC & Chem 7: 04/05/21 07:01 04/05/21 07:01 Labs: Abnormal Lab Results - Last 24 Hours (Table) 04/04/21 04/04/21 04/04/21 Range/Units 07:40 10:37 12:56 RBC (4.10-5.20) X 10*6/uL Hct (37.2-46.3) % Immature Gran # (0.00-0.04) X 10*3/uL Sodium 132 L 129 L 130 L (135-145) mmol/L Carbon Dioxide 21 L (22-30) mmol/L Osmolality 267 L (280-301) mosm/kg Total Protein (6.3-8.2) g/dL Albumin (3.5-5.0) g/dL 04/04/21 04/05/21 04/05/21 Range/Units 16:29 07:01 07:01 RBC 3.78 L (4.10-5.20) X 10*6/uL Hct 35.7 L (37.2-46.3) % Immature Gran # 0.06 H (0.00-0.04) X 10*3/uL Sodium 127 L 130 L (135-145) mmol/L Carbon Dioxide (22-30) mmol/L Osmolality (280-301) mosm/kg Total Protein 5.6 L (6.3-8.2) g/dL Albumin 3.2 L (3.5-5.0) g/dL Assessment and Plan Plan: Assessment: 1. Hypovolemic hyponatremia from vomiting and hydrochlorothiazide. Improved with IV hydration. Sodium level 130 today. Urine osmolality 183. 2. COVID-19 infection. 3. Benign hypertension. Controlled. 4. Hypomagnesemia from poor intake and diuretics. Replaced. Better. Plan: Currently off IV fluids. Encourage oral intake. Hold off on diuretics at this time. Repeat labs in the morning.
[2021-04-05 11:05] LABS: Magnesium 1.7 mg/dL (1.5-2.4)
--- NOTE | 2021-04-05 11:05 | CONS ---
CONSULTATION HISTORY OF PRESENT ILLNESS: This is a 75-year-old lady with a known history of hypertension, hyperlipidemia, Sjogren's syndrome who I see in the office on a regular basis. Her blood pressure is under good control. Her recent echo within the year and stress test revealed good myocardial perfusion and function. She came into the emergency room mainly with complaints of having persistent nausea, vomiting, and also feeling a rapid heartbeat sensation. She was found to be COVID positive but no clear-cut pneumonia. Her symptoms of nausea, vomiting seems to have improved. Her fever is also down. She was found to be in atrial fibrillation with moderately rapid ventricular rate with activity but at rest the rate is in the 70s. She is resting comfortably without symptoms. I did not perform a physical exam for this patient, but I reviewed the chart and made recommendations. The patient has been seen by the primary care physician and also by the emergency room physician. She is asymptomatic, resting comfortably, is in atrial fibrillation. At the time of my evaluation, the rate is in the 80s. This is a new onset atrial fibrillation. PAST MEDICAL HISTORY: 1. Sjogren's syndrome. 2. Hypertension. 3. Hyperlipidemia. 4. Osteoarthritis. 5. Gastroesophageal reflux disease. MEDICATIONS: Medications at home include losartan 100 mg daily, atenolol 25 mg daily, omeprazole 20 mg daily, Aldactone 12.5 mg daily, and she also takes Flonase inhaler and Plaquenil 200 mg daily, simvastatin 20 mg daily. Please refer to the physical exam in the chart. EKG revealed atrial fibrillation with a controlled ventricular rate, nonspecific ST changes. IMPRESSION: 1. New-onset atrial fibrillation. 2. Rodney virus infection without clear-cut pneumonia. 3. Hypertension. 4. Hyperlipidemia. 5. History of Sjogren syndrome. 6. Osteoarthritis. RECOMMENDATIONS: I am recommending that we will discontinue the atenolol and give her metoprolol tartrate 25 mg b.i.d. We will also initiate her on apixaban 5 mg b.i.d., discontinue aspirin and also the subcu heparin/Lovenox. I will see the patient following discharge. If there are any issues, we will come back and re-evaluate her. Discussed my thoughts in detail with the patient, but I did not perform a physical exam. She has been seen by pulmonology and also by the emergency room physician and her admitting doctor. Thank you very much for the consult. BABAR / DONALD: [id number] /
--- NOTE | 2021-04-05 17:13 | P.PN ---
Subjective Progress Note Date: 04/05/21 Lashon carmichael is a 75-year-old female who presented to [facility] emergency room with a chief complaint of generalized weakness, nausea and vomiting. Patient was diagnosed with COVID-19 infection at an urgent care clinic 10 days ago she came to emergency room and received monoclonal antibody infusion on 03/30/2021 and was discharged home. She returned to emergency room on 04/02/2021 with nausea vomiting and weakness, she was evaluated in the emergency room and was found to have severe hyponatremia, she was admitted to ICU, critical care consultation was requested. Vital examination on presentation to emergency room revealed a temperature of 98.5 pulse 99 respiration 20 blood pressure 136/82 pulse ox 99% on room air. Laboratory data revealed a white blood count of 6.6 hemoglobin 13.7 platelet count 235 sodium 113 potassium 3.7 chloride 83 CO2 19 BUN 12 creatinine 0.57 Chest x-ray done in the emergency room revealed no active cardiopulmonary disease EKG done in the emergency room revealed atrial fibrillation and poor R-wave progression in anterior leads no ST or T-wave abnormalities Her past medical history significant for hypertension, hyperlipidemia, atrial fibrillation, osteoarthritis, Sjogren syndrome, and recent diagnosis of COVID-19 infection On 04/04/2021 patient was seen and examined on the medical floor she is alert and oriented 3 in no apparent distress, there is no fever or chills no headache or dizziness no chest pain no shortness of breath no cough no nausea or vomiting no abdominal pain no diarrhea no blood in the stools no burning with urination no frequency or urgency and no hematuria On 04/05/2021 patient was seen and examined on the medical floor she is feeling better there is no nausea or vomiting no diarrhea, sodium level is up to 130 patient oral intake has improved, will continue to monitor will recheck labs in a.m. possible discharge to home tomorrow Objective - Vital Signs Vital signs: Vital Signs Temp 98.3 F 04/05/21 14:00 Pulse 77 04/05/21 14:00 Resp 18 04/05/21 14:00 BP 137/86 04/05/21 14:00 Pulse Ox 99 04/05/21 14:00 Intake & Output 04/04/21 04/05/21 04/05/21 18:59 06:59 18:59 Intake Total 240 Balance 240 Weight 68.946 kg Intake: Oral 240 Other: # Voids 2 3 1 # Bowel Movements 2 - Exam In general patient is alert and oriented x 3 in no distress HEENT head normocephalic and atraumatic Neck is supple no JVD no goiter no lymphadenopathy no carotid bruit Chest examination is clear to auscultation no crackles no wheezing Cardiac exam reveals regular heart sounds S1 and S2 no gallops no murmurs Abdomen is soft nontender no organomegaly with normal bowel sounds Extremity exam reveals no edema no cyanosis or clubbing Neurological examination reveals no gross focal deficits - Labs CBC & Chem 7: 04/05/21 07:01 04/05/21 07:01 Labs: Abnormal Lab Results - Last 24 Hours (Table) 04/04/21 04/05/21 04/05/21 Range/Units 16:29 07:01 07:01 RBC 3.78 L (4.10-5.20) X 10*6/uL Hct 35.7 L (37.2-46.3) % Immature Gran # 0.06 H (0.00-0.04) X 10*3/uL Sodium 127 L 130 L (137-145) mmol/L Total Protein 5.6 L (6.3-8.2) g/dL Albumin 3.2 L (3.5-5.0) g/dL Assessment and Plan Plan: Severe hyponatremia related to nausea and vomiting, also patient was receiving hydrochlorothiazide and spironolactone, patient was started on 3% hypertonic solution, diuretics are on hold at this time COVID-19 infection, diagnosed 10 days ago, and received IV infusion of monoclonal antibodies 3 days ago, no evidence of pneumonia patient is not requiring oxygen at this time Underlying history of atrial fibrillation not maintained on anticoagulation due to history of gastrointestinal bleeding Underlying history of hypertension Underlying history of Sjogren syndrome Underlying history of hyperlipidemia Underlying history of colitis with history of gastrointestinal bleeding At this time patient is admitted to intensive care unit, she remains in the ER as overflow She received hypertonic saline 3% Critical care consultation is requested Symptomatic treatment for nausea and vomiting Will add Lovenox 40 mg subcu once daily Will follow closely
[2021-04-05] MEDS: ATORVASTATIN 10 MG TAB PO SCH (20:04)
[2021-04-05] MEDS: MAGNESIUM OXIDE 400 MG TAB PO SCH (20:04)
[2021-04-05] MEDS ORDERED: SODIUM CHLORIDE 0.9% 1,000 ML IV SCH (20:15)
[2021-04-06] MEDS: PANTOPRAZOLE 40 MG TABLET PO SCH ×2 (07:27→22:34)
[2021-04-06] MEDS: CHOLECALCIFEROL 125 MCG (5000 IU) TABLET PO SCH (07:27)
[2021-04-06] MEDS: ASCORBIC ACID 500 MG TAB PO SCH (07:28)
[2021-04-06] MEDS: FLUTICASONE 50MCG/SPRAY NASAL 16GM EA NOSTRIL SCH (07:28)
[2021-04-06] MEDS: APIXABAN 5 MG TAB PO SCH ×2 (07:28→22:33)
[2021-04-06] MEDS: METOPROLOL TARTRATE 25 MG TAB PO SCH ×2 (07:28→22:33)
[2021-04-06] MEDS: HYDROXYCHLOROQUINE SULFATE 200 MG TAB PO SCH ×2 (07:29→12:04)
[2021-04-06] MEDS: LACTOBACILLUS ACIDOPH & BULGAR 1 EACH PACKET PO SCH (07:29)
[2021-04-06 09:20] LABS: Basophils % (A) 1 %; Eosinophils # (A) 0.3 k/uL (0-0.7); Eosinophils % (A) 4 %; HCT 39.1 % (34.0-46.0); HGB 12.7 gm/dL (11.4-16.0); Lymphocytes # (A) 1.2 k/uL (1.0-4.8); Lymphocytes % (A) 19 %; MCH 32.1 pg (25.0-35.0); MCHC 32.5 g/dL (31.0-37.0); MCV 98.8 fL (80.0-100.0); Mean Platelet Volume 7.9; Monocytes # (A) 0.3 k/uL (0-1.0); Monocytes % (A) 5 %; Neutrophils # (A) 4.4 k/uL (1.3-7.7); Neutrophils % (A) 68 %; Platelet Count 209 k/uL (150-450); RBC 3.96 m/uL (3.80-5.40); RDW 13.2 % (11.5-15.5); WBC 6.4 k/uL (3.8-10.6)
[2021-04-06 09:54] LABS: ALT 23 U/L (4-34); AST 28 U/L (14-36); African American GFR (CKD) 86 (>60 ml/min/1.73 sqM); Albumin 3.2 g/dL (3.5-5.0); Albumin/Globulin Ratio 1.3; Alkaline Phosphatase 39 U/L (38-126); Anion Gap 8 mmol/L; Blood Urea Nitrogen 13 mg/dL (7-17); Carbon Dioxide 21 mmol/L (22-30); Chloride 103 mmol/L (98-107); Globulin 2.5 g/dL; Glucose 117 mg/dL (74-99); Magnesium 1.5 mg/dL (1.6-2.3); Non-African American GFR(CKD) 75 (>60 ml/min/1.73 sqM); Potassium 4.1 mmol/L (3.5-5.1); Sodium 132 mmol/L (137-145); Total Bilirubin 0.8 mg/dL (0.2-1.3); Total Protein 5.7 g/dL (6.3-8.2)
--- NOTE | 2021-04-06 09:56 | P.PN ---
Subjective Patient is seen in follow-up for hyponatremia. Sodium level 132 today. Oral intake is good. No chest pain or shortness of breath. No vomiting or diarrhea. On room air. Blood pressure stable. No active complaints. Vital signs are stable. General: The patient appeared well nourished and normally developed. HEENT: Head exam is unremarkable. Nec LUNGS: Breath sounds decreased. HEART: Rate and Rhythm are regular. ABDOMEN: Soft, no distention. EXTREMITITES: No edema. Objective - Vital Signs Vital signs: Vital Signs Temp 98.4 F 04/06/21 05:39 Pulse 83 04/06/21 05:39 Resp 14 04/06/21 05:39 BP 109/72 04/06/21 05:39 Pulse Ox 99 04/06/21 05:39 Intake & Output 04/05/21 04/06/21 04/06/21 18:59 06:59 18:59 Intake Total 550 360 Balance 550 360 Intake: IV 550 Sodium Chloride 0.9% 1, 550 000 ml @ 50 mls/hr IV . Q20H [facility] Rx#:[id number] Oral 360 Other: # Voids 1 3 # Bowel Movements 2 - Labs CBC & Chem 7: 04/06/21 08:46 04/06/21 08:46 Labs: Abnormal Lab Results - Last 24 Hours (Table) 04/04/21 04/05/21 04/06/21 Range/Units Unknown 07:01 08:46 RBC 3.78 L (4.10-5.20) X 10*6/uL Hct 35.7 L (37.2-46.3) % Immature Gran # 0.06 H (0.00-0.04) X 10*3/uL Sodium 132 L (137-145) mmol/L Carbon Dioxide 21 L (22-30) mmol/L Glucose 117 H (74-99) mg/dL Magnesium 1.5 L (1.6-2.3) mg/dL Total Protein 5.7 L (6.3-8.2) g/dL Albumin 3.2 L (3.5-5.0) g/dL Ur Random Sodium <20 L (40-220) mmol/L Assessment and Plan Plan: Assessment: 1. Hypovolemic hyponatremia from vomiting and hydrochlorothiazide. Improved with IV hydration. Sodium level 132 today. Urine osmolality 183. 2. COVID-19 infection. 3. Benign hypertension. Controlled. 4. Hypomagnesemia from poor intake. Plan: Encourage oral intake. Hold off on diuretics at this time. Replace magnesium. Repeat labs in the morning.
[2021-04-06] MEDS: MAGNESIUM SULFATE-D5W PMX 1 GM in DEXTROSE/WATER 1 100ML.BAG IVPB SCH ×2 (10:20→12:05)
--- NOTE | 2021-04-06 15:33 | P.PN ---
Subjective Progress Note Date: 04/06/21 Lashon carmichael is a 75-year-old female who presented to [facility] emergency room with a chief complaint of generalized weakness, nausea and vomiting. Patient was diagnosed with COVID-19 infection at an urgent care clinic 10 days ago she came to emergency room and received monoclonal antibody infusion on 03/30/2021 and was discharged home. She returned to emergency room on 04/02/2021 with nausea vomiting and weakness, she was evaluated in the emergency room and was found to have severe hyponatremia, she was admitted to ICU, critical care consultation was requested. Vital examination on presentation to emergency room revealed a temperature of 98.5 pulse 99 respiration 20 blood pressure 136/82 pulse ox 99% on room air. Laboratory data revealed a white blood count of 6.6 hemoglobin 13.7 platelet count 235 sodium 113 potassium 3.7 chloride 83 CO2 19 BUN 12 creatinine 0.57 Chest x-ray done in the emergency room revealed no active cardiopulmonary disease EKG done in the emergency room revealed atrial fibrillation and poor R-wave progression in anterior leads no ST or T-wave abnormalities Her past medical history significant for hypertension, hyperlipidemia, atrial fibrillation, osteoarthritis, Sjogren syndrome, and recent diagnosis of COVID-19 infection On 04/04/2021 patient was seen and examined on the medical floor she is alert and oriented 3 in no apparent distress, there is no fever or chills no headache or dizziness no chest pain no shortness of breath no cough no nausea or vomiting no abdominal pain no diarrhea no blood in the stools no burning with urination no frequency or urgency and no hematuria On 04/05/2021 patient was seen and examined on the medical floor she is feeling better there is no nausea or vomiting no diarrhea, sodium level is up to 130 patient oral intake has improved, will continue to monitor will recheck labs in a.m. possible discharge to home tomorrow On 04/06/2021 patient is feeling better there is no nausea or vomiting no d iarrhea, patient had multiple episodes of diarrhea yesterday , sodium level is up to 132 patient oral intake has improved, will continue to monitor will recheck labs in a.m. magnesium level low today and will be replaced. possible discharge to home tomorrow Objective - Vital Signs Vital signs: Vital Signs Temp 97.9 F 04/06/21 13:44 Pulse 78 04/06/21 13:44 Resp 18 04/06/21 13:44 BP 125/85 04/06/21 13:44 Pulse Ox 96 04/06/21 13:44 Intake & Output 04/05/21 04/06/21 04/06/21 18:59 06:59 18:59 Intake Total 550 360 Balance 550 360 Weight 68.946 kg Intake: IV 550 Sodium Chloride 0.9% 1, 550 000 ml @ 50 mls/hr IV . Q20H [facility] Rx#:[id number] Oral 360 Other: # Voids 1 3 # Bowel Movements 2 - Exam In general patient is alert and oriented x 3 in no distress HEENT head normocephalic and atraumatic Neck is supple no JVD no goiter no lymphadenopathy no carotid bruit Chest examination is clear to auscultation no crackles no wheezing Cardiac exam reveals regular heart sounds S1 and S2 no gallops no murmurs Abdomen is soft nontender no organomegaly with normal bowel sounds Extremity exam reveals no edema no cyanosis or clubbing Neurological examination reveals no gross focal deficits - Labs CBC & Chem 7: 04/06/21 08:46 04/06/21 08:46 Labs: Abnormal Lab Results - Last 24 Hours (Table) 04/04/21 04/06/21 Range/Units Unknown 08:46 Sodium 132 L (137-145) mmol/L Carbon Dioxide 21 L (22-30) mmol/L Glucose 117 H (74-99) mg/dL Magnesium 1.5 L (1.6-2.3) mg/dL Total Protein 5.7 L (6.3-8.2) g/dL Albumin 3.2 L (3.5-5.0) g/dL Ur Random Sodium <20 L (40-220) mmol/L Assessment and Plan Plan: Severe hyponatremia related to nausea and vomiting, also patient was receiving hydrochlorothiazide and spironolactone, patient was started on 3% hypertonic solution, diuretics are on hold at this time COVID-19 infection, diagnosed 10 days ago, and received IV infusion of monoclonal antibodies 3 days ago, no evidence of pneumonia patient is not re quiring oxygen at this time Underlying history of atrial fibrillation not maintained on anticoagulation due to history of gastrointestinal bleeding Underlying history of hypertension Underlying history of Sjogren syndrome Underlying history of hyperlipidemia Underlying history of colitis with history of gastrointestinal bleeding At this time patient is admitted to intensive care unit, she remains in the ER as overflow She received hypertonic saline 3% Critical care consultation is requested Symptomatic treatment for nausea and vomiting Will add Lovenox 40 mg subcu once daily Will follow closely
[2021-04-06] MEDS: MAGNESIUM OXIDE 400 MG TAB PO SCH (22:34)
[2021-04-06] MEDS: ATORVASTATIN 10 MG TAB PO SCH (22:34)
[2021-04-06] MEDS ORDERED: diphenhydrAMINE 25 MG CAP PO PRN (23:08)
[2021-04-07 06:45] VITALS: TEMP 98.1
[2021-04-07] MEDS: CHOLECALCIFEROL 125 MCG (5000 IU) TABLET PO SCH (09:45)
[2021-04-07] MEDS: ASCORBIC ACID 500 MG TAB PO SCH (09:45)
[2021-04-07] MEDS: HYDROXYCHLOROQUINE SULFATE 200 MG TAB PO SCH (09:45)
[2021-04-07] MEDS: PANTOPRAZOLE 40 MG TABLET PO SCH (09:45)
[2021-04-07] MEDS: METOPROLOL TARTRATE 25 MG TAB PO SCH (09:46)
[2021-04-07] MEDS: FLUTICASONE 50MCG/SPRAY NASAL 16GM EA NOSTRIL SCH (09:46)
[2021-04-07] MEDS: APIXABAN 5 MG TAB PO SCH (09:46)
[2021-04-07 10:19] VITALS: BP 109/72; PULSE 91; RESP 18
--- NOTE | 2021-04-07 10:34 | P.DS ---
Providers Date of admission: 04/02/21 22:54 Expected date of discharge: 04/07/21 Attending physician: Aurea Aggarwal Consults: 04/02/21 22:56 Consult Physician Routine Consulting Provider: Geraldo Wright Consult Reason/Comments: icu Do you want consulting provider notified?: Yes 04/04/21 08:07 Consult Physician Routine Consulting Provider: Anupam James Consult Reason/Comments: hyponatremia Do you want consulting provider notified?: Yes Primary care physician: Soledad Antunez Hospital Course: Discharge diagnosis Severe hyponatremia related to nausea and vomiting, also patient was receiving hydrochlorothiazide and spironolactone, patient was started on 3% hypertonic solution, diuretics are on hold at this time COVID-19 infection, diagnosed 10 days ago, and received IV infusion of monoclonal antibodies 3 days ago, no evidence of pneumonia patient is not requiring oxygen at this time Underlying history of atrial fibrillation not maintained on anticoagulation due to history of gastrointestinal bleeding Underlying history of hypertension Underlying history of Sjogren syndrome Underlying history of hyperlipidemia Underlying history of colitis with history of gastrointestinal bleeding Hospital Course Lashon carmichael is a 75-year-old female who presented to [facility] emergency room with a chief complaint of generalized weakness, nausea and vomiting. Patient was diagnosed with COVID-19 infection at an urgent care clinic 10 days ago she came to emergency room and received monoclonal antibody infusion on 03/30/2021 and was discharged home. She returned to emergency room on 04/02/2021 with nausea vomiting and weakness, she was evaluated in the emergency room and was found to have severe hyponatremia, she was admitted to ICU, critical care consultation was requested. Vital examination on presentation to emergency room revealed a temperature of 98.5 pulse 99 respiration 20 blood pressure 136/82 pulse ox 99% on room air. Laboratory data revealed a white blood count of 6.6 hemoglobin 13.7 platelet count 235 sodium 113 potassium 3.7 chloride 83 CO2 19 BUN 12 creatinine 0.57 Chest x-ray done in the emergency room revealed no active cardiopulmonary disease EKG done in the emergency room revealed atrial fibrillation and poor R-wave progression in anterior leads no ST or T-wave abnormalities Her past medical history significant for hypertension, hyperlipidemia, atrial fibrillation, osteoarthritis, Sjogren syndrome, and recent diagnosis of COVID-19 infection On 04/04/2021 patient was seen and examined on the medical floor she is alert and oriented 3 in no apparent distress, there is no fever or chills no headache or dizziness no chest pain no shortness of breath no cough no nausea or vomiting no abdominal pain no diarrhea no blood in the stools no burning with urination no frequency or urgency and no hematuria On 04/05/2021 patient was seen and examined on the medical floor she is feeling better there is no nausea or vomiting no diarrhea, sodium level is up to 130 patient oral intake has improved, will continue to monitor will recheck labs in a.m. possible discharge to home tomorrow On 04/06/2021 patient is feeling better there is no nausea or vomiting no diarrhea, patient had multiple episodes of diarrhea yesterday , sodium level is up to 132 patient oral intake has improved, will continue to monitor will recheck labs in a.m. magnesium level low today and will be replaced. possible discharge to home tomorrow On 04/08/2021 patient is alert and oriented 3. Patient denies chest pain or shortness breath. Patient denies nausea vomiting or diarrhea. Patient denies any urinary burning or frequency. She'll be discharged home today. Medications have been adjusted and discussed with patient. Patient follow-up with PCP and cardiology services for further management Patient Condition at Discharge: Stable Plan - Discharge Summary Discharge Rx Participant: No New Discharge Prescriptions: New Apixaban [Eliquis] 5 mg PO BID #60 tab Losartan [Cozaar] 50 mg PO BID 30 Days #60 tab Metoprolol Tartrate [Lopressor] 25 mg PO BID #60 tab Continue Simvastatin [Zocor] 20 mg PO HS Fluticasone Propionate [Flonase] 2 spray EA NOSTRIL DAILY Hydroxychloroquine Sulfate [Plaquenil] 300 mg PO DAILY Omeprazole 40 mg PO BID Magnesium Oxide [Mag-Ox] 800 mg PO HS Cholecalciferol [Vitamin D3 (125 Mcg = 5000 Iu)] 125 mcg PO DAILY Ascorbic Acid [Vitamin C] 1,000 mg PO DAILY Celecoxib [CeleBREX] 400 mg PO DAILY Albuterol Nebulized [Ventolin Nebulized] 2.5 mg INHALATION RT-Q4H PRN PRN Reason: Shortness Of Breath L.acidoph,Paracasei, B.lactis [Probiotic] 1 cap PO DAILY Discontinued Spironolactone [Aldactone] 12.5 mg PO DAILY Aspirin 81 mg PO DAILY chew atenoloL [Tenormin] 25 mg PO DAILY Losartan/Hydrochlorothiazide [Hyzaar 100-25 Tablet] 1 tab PO DAILY Discharge Medication List Fluticasone Propionate [Flonase] 2 spray EA NOSTRIL DAILY 07/15/13 [History] Hydroxychloroquine Sulfate [Plaquenil] 300 mg PO DAILY 07/15/13 [History] Simvastatin [Zocor] 20 mg PO HS 07/15/13 [History] Omeprazole 40 mg PO BID 08/08/19 [History] Magnesium Oxide [Mag-Ox] 800 mg PO HS 10/04/19 [History] Albuterol Nebulized [Ventolin Nebulized] 2.5 mg INHALATION RT-Q4H PRN 04/02/21 [History] Ascorbic Acid [Vitamin C] 1,000 mg PO DAILY 04/02/21 [History] Celecoxib [CeleBREX] 400 mg PO DAILY 04/02/21 [History] Cholecalciferol [Vitamin D3 (125 Mcg = 5000 Iu)] 125 mcg PO DAILY 04/02/21 [History] L.acidoph,Paracasei, B.lactis [Probiotic] 1 cap PO DAILY 04/02/21 [History] Apixaban [Eliquis] 5 mg PO BID #60 tab 04/05/21 [Rx] Metoprolol Tartrate [Lopressor] 25 mg PO BID #60 tab 04/05/21 [Rx] Losartan [Cozaar] 50 mg PO BID 30 Days #60 tab 04/07/21 [Rx] Follow up Appointment(s)/Referral(s): Lisa Wood MD [STAFF PHYSICIAN] - 1 Week Soledad Antunez MD [Primary Care Provider] - 1-2 days Patient Instructions/Handouts: A-fib (Atrial Fibrillation) (DC) Activity/Diet/Wound Care/Special Instructions: [facility]. Otherwise, current copay is $508 until deductible has been met. Please discuss with cardiology at follow up appt. Discharge Disposition: HOME SELF-CARE
[2021-04-07 11:39] LABS: Basophils # (A) 0.05 X 10*3/uL (0.00-0.10); Basophils % (A) 0.9 %; Eosinophils # (A) 0.31 X 10*3/uL (0.04-0.35); Eosinophils % (A) 5.3 %; HCT 38.9 % (37.2-46.3); HGB 12.7 g/dL (12.0-15.0); Immature Grans, Automated 1.7 %; Lymphocytes # (A) 1.34 X 10*3/uL (0.90-5.00); Lymphocytes % (A) 22.9 %; MCH 30.9 pg (27.0-32.0); MCHC 32.6 g/dL (32.0-37.0); MCV 94.6 fL (80.0-97.0); Mean Platelet Volume 10.7 fL (9.5-12.2); Monocytes # (A) 0.38 X 10*3/uL (0.20-1.00); Monocytes % (A) 6.5 %; NRBC Per 100 WBC 0 /100 WBCS (0.0-0.0); Neutrophils # (A) 3.66 X 10*3/uL (1.80-7.70); Neutrophils % (A) 62.7 %; Platelet Count 274 X 10*3/uL (140-440); RBC 4.11 X 10*6/uL (4.10-5.20); WBC 5.84 X 10*3/uL (4.50-10.00)
[2021-04-07 11:49] LABS: African American GFR (CKD) 82.4 (60.0-200.0); Albumin/Globulin Ratio 2.11 (1.60-3.17); Anion Gap 10.7 mmol/L (10.00-18.00); BUN/Creat Ratio 13.13 Ratio (12.00-20.00); Blood Urea Nitrogen 10.5 mg/dL (9.0-27.0); Calcium 9.3 mg/dL (8.7-10.3); Carbon Dioxide 21.3 mmol/L (20.0-27.5); Globulin 1.9 g/dL (1.6-3.3); Non-African American GFR(CKD) 71.1 (60.0-200.0); Potassium 4.1 mmol/L (3.5-5.5); Total Bilirubin 0.5 mg/dL (0.30-1.20); Total Protein 5.9 g/dL (6.2-8.2)
== END 2021-04-07 13:31 | disposition home or self-care (01) | DRG 640 ==
LOC: EC 20:39 → 2SICU 22:54 → 3SCARD 04-03 09:24 → 4SSUR 04-03 20:21
PROVIDERS: ADMIT Internal Medicine; ATTEND Internal Medicine
PROC: 3E0333Z Introduction of Anti-inflammatory into Peripheral Vein, Percutaneous Approach (ICD-10-PCS; principal; 2021-04-02)
DX: E87.1 Hypo-osmolality and hyponatremia (principal); U07.1 COVID-19; D84.9 Immunodeficiency, unspecified; E78.5 Hyperlipidemia, unspecified; E83.42 Hypomagnesemia; E86.0 Dehydration; E86.1 Hypovolemia; I10 Essential (primary) hypertension; I48.91 Unspecified atrial fibrillation; K52.9 Noninfective gastroenteritis and colitis, unspecified; M19.90 Unspecified osteoarthritis, unspecified site; M35.00 Sjogren syndrome, unspecified; Z79.82 Long term (current) use of aspirin; Z79.899 Other long term (current) drug therapy; Z82.3 Family history of stroke; Z82.49 Family history of ischemic heart disease and other diseases of the circulatory system; Z83.3 Family history of diabetes mellitus; Z85.828 Personal history of other malignant neoplasm of skin; Z88.0 Allergy status to penicillin; Z88.8 Allergy status to other drugs, medicaments and biological substances; Z91.040 Latex allergy status
CPT/HCPCS: 36415; 71045; 80048; 80053; 83605; 83615; 83735; 83880; 83930; 83935; 84100; 84295; 84300; 84443; 85025; 85610; 85730; 86140; 93005; 96374; 96375; 99291

== ENCOUNTER 2021-05-10 10:41 | Day surgery (SDC) | payer MEDICARE, BC ==
[2021-05-09 09:10] VITALS: BMI 30.9
[~2021-05-10 10:41] MED LIST changes: -LIDOCAINE 1% (10MG/ML) FOR IV START INTRADERMA ONE; -LIDOCAINE 1% INJ 10MG/ML (20 ML MDV) ONE; -PROPOFOL 10 MG/ML 20 ML VIAL IV ONE; +SODIUM CHLORIDE 0.9% 1,000 ML IV SCH
[2021-05-10] MEDS ORDERED: SODIUM CHLORIDE 0.9% 500 ML 500 ML IV ONE (11:02)
[2021-05-10 11:33] VITALS: TEMP 98.2
[2021-05-10] MEDS ORDERED: PROPOFOL 10 MG/ML 20 ML VIAL IV ONE (11:54)
[2021-05-10 12:10] VITALS: RESP 16
--- NOTE | 2021-05-10 13:24 | PCN ---
PROCEDURE NOTE DATE OF SERVICE: 05/10/2021. PROCEDURE: Electrical cardioversion. INDICATION: Persistent symptomatic atrial fibrillation unresponsive to pharmacological efforts. CLINICAL INFORMATION: This patient has hypertension, hyperlipidemia, and Sjogren syndrome. She developed COVID pneumonia and recovered from this and developed atrial fibrillation at that time. She was adequately anticoagulated and brought in for electrical cardioversion after due discussion regarding risks, benefits, and options. PROCEDURE NOTE: Under the influence of [id number] intravenous anesthetic agent with the attendance of the anesthesiologist, a single 200-joule shock was delivered with anterior and posterior patches. Patient converted to sinus rhythm, had sinus bradycardia at 49 beats per minute. Blood pressure of about 110/60. She was neurologically intact and waking up. This was a successful electrical cardioversion. The patient will be discharged later on today if she remains stable. MMODL / IJN: [id number] /
[2021-05-10 14:26] VITALS: PULSE 54
[2021-05-10 14:29] VITALS: BP 133/62
== END 2021-05-10 14:19 | disposition home or self-care (01) ==
LOC: CATHCVL 10:41
PROVIDERS: ATTEND Internal Medicine Interventional Cardiology
DX: I48.0 Paroxysmal atrial fibrillation (principal); I10 Essential (primary) hypertension; E78.5 Hyperlipidemia, unspecified; M35.00 Sjogren syndrome, unspecified; Q21.1 Atrial septal defect; Z20.822 Contact with and (suspected) exposure to COVID-19; Z86.16 Personal history of COVID-19; Z79.899 Other long term (current) drug therapy; Z79.01 Long term (current) use of anticoagulants; Z88.8 Allergy status to other drugs, medicaments and biological substances; Z91.040 Latex allergy status; Z88.1 Allergy status to other antibiotic agents
CPT/HCPCS: 92960; 87635; J2704

== ENCOUNTER 2021-05-11 15:40 | Emergency (ER) | payer MEDICARE, BC ==
[2021-05-11 15:49] VITALS: RESP 18; TEMP 97.7
--- NOTE | 2021-05-11 16:36 | ED ---
General Adult HPI - General Chief complaint: Shortness of Breath Stated complaint: post cardioversion SOB Time Seen by Provider: 05/11/21 16:16 Source: patient, family, RN notes reviewed, old records reviewed Mode of arrival: wheelchair Limitations: no limitations - History of Present Illness Initial comments: 75-year-old female presenting with chief complaint of dyspnea. Symptoms began yesterday evening. Patient states she had cardioversion performed yesterday. She denies chest pain. Denies palpitations. Denies lower extremity pain or swelling. She states she has coronavirus approximately one month ago. She is currently anticoagulated. No cough. - Related Data Home Medications Medication Instructions Recorded Confirmed Fluticasone Propionate [Flonase] 2 spray EA NOSTRIL DAILY 07/15/13 05/10/21 Hydroxychloroquine Sulfate 300 mg PO DAILY 07/15/13 05/10/21 [Plaquenil] Simvastatin [Zocor] 20 mg PO HS 07/15/13 05/10/21 Omeprazole 20 mg PO DAILY 08/08/19 05/10/21 Magnesium Oxide [Mag-Ox] 400 mg PO HS 10/04/19 05/10/21 Albuterol Nebulized [Ventolin 2.5 mg INHALATION RT-Q4H PRN 04/02/21 05/10/21 Nebulized] Ascorbic Acid [Vitamin C] 1,000 mg PO DAILY 04/02/21 05/10/21 Celecoxib [CeleBREX] 200 mg PO DAILY 04/02/21 05/10/21 Cholecalciferol [Vitamin D3 (125 125 mcg PO DAILY 04/02/21 05/10/21 Mcg = 5000 Iu)] L.acidoph,Paracasei, B.lactis 1 cap PO DAILY 04/02/21 05/10/21 [Probiotic] Amiodarone HCl [Pacerone] 200 mg PO BID 05/09/21 05/10/21 Metoprolol Tartrate [Lopressor] 50 mg PO BID 05/09/21 05/10/21 Multivitamins, Thera [Multivitamin 1 tab PO DAILY 05/09/21 05/09/21 (formulary)] Previous Rx's Medication Instructions Recorded Apixaban [Eliquis] 5 mg PO BID #60 tab 04/05/21 Losartan [Cozaar] 50 mg PO BID 30 Days #60 tab 04/07/21 Allergies Allergy/AdvReac Type Severity Reaction Status Date / Time cephalexin monohydrate Allergy Rash/Hives Verified 05/11/21 18:28 [From Keflex] crisaborole [From Eucrisa] Allergy Anaphylaxis Verified 05/11/21 18:28 Penicillins Allergy Unknown Verified 05/11/21 18:28 Childhood latex AdvReac Itching Verified 05/11/21 18:28 methocarbamol AdvReac Swelling Verified 05/11/21 18:28 nabumetone [From Relafen] AdvReac Swelling Verified 05/11/21 18:28 Review of Systems ROS Statement: Those systems with pertinent positive or pertinent negative responses have been documented in the HPI. ROS Other: All systems not noted in ROS Statement are negative. Past Medical History Past Medical History: Atrial Fibrillation, Cancer, GERD/Reflux, Hyperlipidemia, Hypertension, Osteoarthritis (OA), Pneumonia Additional Past Medical History / Comment(s): Shogren's syndrome/immunocompromised d/t medications/numerous pneumonias/occasional edema bilateral lower legs, rectal bleed possibly r/t diverticulitis/colitis, hx. chronic anemia, arthritis in multiple joints, past R wrist fracture/R shoulder dislocation, basal cell skin cancer with removal, had covid beginning of March, still slight residual cough & was in hospital for low sodium in March History of Any Multi-Drug Resistant Organisms: C-DIFF Date of last positivie culture/infection: 07/06/2014 MDRO Source:: stool Past Surgical History: Appendectomy, Breast Surgery, Cholecystectomy, Tonsillectomy Additional Past Surgical History / Comment(s): Basal cell skin cancer removed from R shoulder, colonoscopy, oopherectomy-one ovary removed and one ovary 3/4 removed, R breast cysts aspirations. Past Anesthesia/Blood Transfusion Reactions: No Reported Reaction Past Psychological History: No Psychological Hx Reported Smoking Status: Never smoker Past Alcohol Use History: None Reported Past Drug Use History: None Reported - Past Family History Father Family Medical History: CVA/TIA Additional Family Medical History / Comment(s): Father at age 84 from CVA/TIA's Mother Family Medical History: Coronary Artery Disease (CAD), Diabetes Mellitus Additional Family Medical History / Comment(s): Mother at age 57yrs from complications of her DM. General Exam Limitations: no limitations General appearance: alert, in no apparent distress Head exam: Present: atraumatic, normocephalic Eye exam: Present: normal appearance, PERRL ENT exam: Present: normal exam Neck exam: Present: normal inspection. Absent: tenderness, meningismus Respiratory exam: Present: normal lung sounds bilaterally. Absent: respiratory distress, wheezes, rales Cardiovascular Exam: Present: normal rhythm, bradycardia GI/Abdominal exam: Present: soft. Absent: distended, tenderness, guarding, rebound Extremities exam: Present: normal inspection, normal capillary refill. Absent: pedal edema, calf tenderness Neurological exam: Present: alert, oriented X3, CN II-XII intact. Absent: motor sensory deficit Psychiatric exam: Present: normal affect, normal mood Skin exam: Present: warm, dry, intact. Absent: cyanosis, diaphoretic Course Vital Signs 05/11/21 15:46 Temperature 97.7 F Pulse Rate 52 L Respiratory 18 Rate Blood Pressure 145/65 O2 Sat by Pulse 98 Oximetry EKG Findings - EKG Comments: EKG Findings:: EKG: Sinus bradycardia, low voltage, rate of 49, MA interval 153, QRS duration 96, QTC [address] segment elevation. Medical Decision Making - Medical Decision Making 75-year-old female with mild dyspnea, no respiratory distress. Vital signs are stable with the exception of bradycardia which is sinus bradycardia around 50. Her chest x-rays negative for pneumothorax, negative for focal pneumonia, some mild cephalization. She has a normal CBC, normal CMP, negative troponin, negative BNP. I did reevaluate the patient she states she does feel better. She states that she had some kidney issues and was taken off of her Lasix. This is likely cause of very mild CHF. 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 In the meantime she is eager for discharge. She states she will return with worsening or changing symptoms. I did discuss case with Dr. Teague given the recent cardiac procedure, cardioversion. He is agreeable with discharge at this time. - Lab Data Result diagrams: 05/11/21 16:43 05/11/21 16:43 Lab Results 05/11/21 05/11/21 05/11/21 Range/Units 16:43 16:43 16:43 WBC 7.3 (3.8-10.6) k/uL RBC 3.80 (3.80-5.40) m/uL Hgb 13.0 (11.4-16.0) gm/dL Hct 38.9 (34.0-46.0) % MCV 102.4 H (80.0-100.0) fL MCH 34.1 (25.0-35.0) pg MCHC 33.3 (31.0-37.0) g/dL RDW 13.5 (11.5-15.5) % Plt Count 202 (150-450) k/uL MPV 8.3 Neutrophils % 77 % Lymphocytes % 11 % Monocytes % 5 % Eosinophils % 3 % Basophils % 0 % Neutrophils # 5.6 (1.3-7.7) k/uL Lymphocytes # 0.8 L (1.0-4.8) k/uL Monocytes # 0.4 (0-1.0) k/uL Eosinophils # 0.2 (0-0.7) k/uL Basophils # 0.0 (0-0.2) k/uL Macrocytosis Slight PT 12.2 H (9.0-12.0) sec INR 1.2 H (<1.2) APTT 24.1 (22.0-30.0) sec Sodium 135 L (137-145) mmol/L Potassium 4.7 (3.5-5.1) mmol/L Chloride 103 (98-107) mmol/L Carbon Dioxide 23 (22-30) mmol/L Anion Gap 9 mmol/L BUN 28 H (7-17) mg/dL Creatinine 0.96 (0.52-1.04) mg/dL Est GFR (CKD-EPI)AfAm 66 (>60 ml/min/1.73 sqM) Est GFR (CKD-EPI)NonAf 57 (>60 ml/min/1.73 sqM) Glucose 86 (74-99) mg/dL Plasma Lactic Acid Aurelio (0.7-2.0) mmol/L Calcium 9.5 (8.4-10.2) mg/dL Magnesium 1.9 (1.6-2.3) mg/dL Total Bilirubin 0.8 (0.2-1.3) mg/dL AST 77 H (14-36) U/L ALT 90 H (4-34) U/L Alkaline Phosphatase 56 (38-126) U/L Troponin I (0.000-0.034) ng/mL NT-Pro-B Natriuret Pep pg/mL Total Protein 6.5 (6.3-8.2) g/dL Albumin 4.0 (3.5-5.0) g/dL 05/11/21 05/11/21 05/11/21 Range/Units 16:43 16:43 16:43 WBC (3.8-10.6) k/uL RBC (3.80-5.40) m/uL Hgb (11.4-16.0) gm/dL Hct (34.0-46.0) % MCV (80.0-100.0) fL MCH (25.0-35.0) pg MCHC (31.0-37.0) g/dL RDW (11.5-15.5) % Plt Count (150-450) k/uL MPV Neutrophils % % Lymphocytes % % Monocytes % % Eosinophils % % Basophils % % Neutrophils # (1.3-7.7) k/uL Lymphocytes # (1.0-4.8) k/uL Monocytes # (0-1.0) k/uL Eosinophils # (0-0.7) k/uL Basophils # (0-0.2) k/uL Macrocytosis PT (9.0-12.0) sec INR (<1.2) APTT (22.0-30.0) sec Sodium (137-145) mmol/L Potassium (3.5-5.1) mmol/L Chloride (98-107) mmol/L Carbon Dioxide (22-30) mmol/L Anion Gap mmol/L BUN (7-17) mg/dL Creatinine (0.52-1.04) mg/dL Est GFR (CKD-EPI)AfAm (>60 ml/min/1.73 sqM) Est GFR (CKD-EPI)NonAf (>60 ml/min/1.73 sqM) Glucose (74-99) mg/dL Plasma Lactic Acid Aurelio 1.1 (0.7-2.0) mmol/L Calcium (8.4-10.2) mg/dL Magnesium (1.6-2.3) mg/dL Total Bilirubin (0.2-1.3) mg/dL AST (14-36) U/L ALT (4-34) U/L Alkaline Phosphatase (38-126) U/L Troponin I <0.012 (0.000-0.034) ng/mL NT-Pro-B Natriuret Pep 431 pg/mL Total Protein (6.3-8.2) g/dL Albumin (3.5-5.0) g/dL Disposition Clinical Impression: Dyspnea, Bradycardia Disposition: HOME SELF-CARE Condition: Fair Instructions (If sedation given, give patient instructions): Dyspnea (ED) Is patient prescribed a controlled substance at d/c from ED?: No Referrals: Soledad Antunez MD [Primary Care Provider] - 1-2 days Lisa Wood MD [STAFF PHYSICIAN] - 1-2 days Time of Disposition: 18:35
[2021-05-11 16:58] LABS: Basophils % (A) 0 %; Eosinophils # (A) 0.2 k/uL (0-0.7); Eosinophils % (A) 3 %; HCT 38.9 % (34.0-46.0); Lymphocytes # (A) 0.8 k/uL (1.0-4.8); Lymphocytes % (A) 11 %; MCH 34.1 pg (25.0-35.0); MCHC 33.3 g/dL (31.0-37.0); MCV 102.4 fL (80.0-100.0); Macrocytosis Slight; Mean Platelet Volume 8.3; Monocytes # (A) 0.4 k/uL (0-1.0); Monocytes % (A) 5 %; Neutrophils # (A) 5.6 k/uL (1.3-7.7); Neutrophils % (A) 77 %; Platelet Count 202 k/uL (150-450); RDW 13.5 % (11.5-15.5); WBC 7.3 k/uL (3.8-10.6)
[2021-05-11 17:08] LABS: INR 1.2 (<1.2); Partial Thromboplastin Time 24.1 sec (22.0-30.0); Prothrombin Time 12.2 sec (9.0-12.0)
[2021-05-11 17:17] LABS: Calcium 9.5 mg/dL (8.4-10.2); Magnesium 1.9 mg/dL (1.6-2.3); Potassium 4.7 mmol/L (3.5-5.1); Total Bilirubin 0.8 mg/dL (0.2-1.3); Total Protein 6.5 g/dL (6.3-8.2)
--- NOTE | 2021-05-11 18:04 | XR ---
EXAMINATION TYPE: XR chest 2V DATE OF EXAM: 05/11/2021 COMPARISON: 04/02/2021 HISTORY: 75 years Female. STUDY INDICATION GIVEN: difficulty breathing . TECHNIQUE: Frontal and lateral chest radiographs. IMPRESSION: No focal airspace disease, pneumothorax or pleural effusion. Mild cardiomegaly. Mild cephalization of upper lobe vessels, clinical correlation for CHF. No acute osseous abnormalities seen.
[2021-05-11] MEDS ORDERED: FUROSEMIDE 10 MG/ML 4 ML VIAL IV STA (18:25)
[2021-05-11 19:09] VITALS: BP 153/90; PULSE 48
== END 2021-05-11 19:09 | disposition home or self-care (01) ==
LOC: EC 15:40
DX: R00.1 Bradycardia, unspecified (principal); R06.00 Dyspnea, unspecified; I48.91 Unspecified atrial fibrillation; E78.5 Hyperlipidemia, unspecified; I10 Essential (primary) hypertension; M19.90 Unspecified osteoarthritis, unspecified site
CPT/HCPCS: 36415; 71046; 80053; 83605; 83735; 83880; 84484; 85025; 85610; 85730; 93005; 99285

== ENCOUNTER 2021-05-12 22:46 | Observation (INO) | payer MEDICARE, BC ==
[2021-05-13] MEDS ORDERED: SODIUM CHLORIDE 0.9% 1,000 ML IV STA (00:46)
--- NOTE | 2021-05-13 00:47 | ED ---
SOB HPI - General Chief Complaint: Shortness of Breath Stated Complaint: DINORA Time Seen by Provider: 05/12/21 23:42 Source: patient, RN notes reviewed, old records reviewed Mode of arrival: ambulatory Limitations: no limitations - History of Present Illness Initial Comments: This is a 75-year-old female in mild distress secondary to concern over shortnes s of breath states that she cannot catch her breath especially with activity. Patient was here yesterday for similar complaints symptoms are significantly worse today. She feels like she swelling having significant amount of swelling in her belly legs arms all over. Patient has no current chest pain patient has no fever no current cough or congestion. MD Complaint: shortness of breath, cough -: hour(s) Severity: mild Severity scale (1-10): 7 Consistency: constant Improves With: nothing Worsens With: nothing Known History Of: congestive heart failure Associated Symptoms: chest pain Treatments Prior to Arrival: none - Related Data Home Medications Medication Instructions Recorded Confirmed Fluticasone Propionate [Flonase] 2 spray EA NOSTRIL DAILY 07/15/13 05/11/21 Hydroxychloroquine Sulfate 300 mg PO DAILY 07/15/13 05/11/21 [Plaquenil] Simvastatin [Zocor] 20 mg PO HS 07/15/13 05/11/21 Omeprazole 20 mg PO DAILY 08/08/19 05/11/21 Magnesium Oxide [Mag-Ox] 400 mg PO HS 10/04/19 05/11/21 Albuterol Nebulized [Ventolin 2.5 mg INHALATION RT-Q4H PRN 04/02/21 05/11/21 Nebulized] Ascorbic Acid [Vitamin C] 1,000 mg PO DAILY 04/02/21 05/11/21 Cholecalciferol [Vitamin D3 (125 125 mcg PO DAILY 04/02/21 05/11/21 Mcg = 5000 Iu)] L.acidoph,Paracasei, B.lactis 1 cap PO DAILY 04/02/21 05/11/21 [Probiotic] Amiodarone HCl [Pacerone] 200 mg PO BID 05/09/21 05/11/21 Multivitamins, Thera [Multivitamin 1 tab PO DAILY 05/09/21 05/11/21 (formulary)] Celecoxib [CeleBREX] 200 mg PO DAILY 05/11/21 05/11/21 Metoprolol Tartrate [Lopressor] 50 mg PO BID 05/11/21 05/11/21 Previous Rx's Medication Instructions Recorded Apixaban [Eliquis] 5 mg PO BID #60 tab 04/05/21 Losartan [Cozaar] 50 mg PO BID 30 Days #60 tab 04/07/21 Allergies Allergy/AdvReac Type Severity Reaction Status Date / Time cephalexin monohydrate Allergy Rash/Hives Verified 05/12/21 23:33 [From Keflex] crisaborole [From Eucrisa] Allergy Anaphylaxis Verified 05/12/21 23:33 Penicillins Allergy Unknown Verified 05/12/21 23:33 Childhood latex AdvReac Itching Verified 05/12/21 23:33 methocarbamol AdvReac Swelling Verified 05/12/21 23:33 nabumetone [From Relafen] AdvReac Swelling Verified 05/12/21 23:33 Review of Systems ROS Statement: Those systems with pertinent positive or pertinent negative responses have been documented in the HPI. ROS Other: All systems not noted in ROS Statement are negative. Past Medical History Past Medical History: Atrial Fibrillation, Cancer, GERD/Reflux, Hyperlipidemia, Hypertension, Osteoarthritis (OA), Pneumonia Additional Past Medical History / Comment(s): Shogren's syndrome/immunocompromised d/t medications/numerous pneumonias/occasional edema bilateral lower legs, rectal bleed possibly r/t diverticulitis/colitis, hx. chronic anemia, arthritis in multiple joints, past R wrist fracture/R shoulder dislocation, basal cell skin cancer with removal, had covid beginning of March, still slight residual cough & was in hospital for low sodium in March History of Any Multi-Drug Resistant Organisms: C-DIFF Date of last positivie culture/infection: 07/06/2014 MDRO Source:: stool Past Surgical History: Appendectomy, Breast Surgery, Cholecystectomy, Tonsillectomy Additional Past Surgical History / Comment(s): Basal cell skin cancer removed from R shoulder, colonoscopy, oopherectomy-one ovary removed and one ovary 3/4 removed, R breast cysts aspirations. Past Anesthesia/Blood Transfusion Reactions: No Reported Reaction Past Psychological History: No Psychological Hx Reported Smoking Status: Never smoker Past Alcohol Use History: None Reported Past Drug Use History: None Reported - Past Family History Father Family Medical History: CVA/TIA Additional Family Medical History / Comment(s): Father at age 84 from CVA/TIA's Mother Family Medical History: Coronary Artery Disease (CAD), Diabetes Mellitus Additional Family Medical History / Comment(s): Mother at age 57yrs from complications of her DM. General Exam Limitations: no limitations General appearance: alert, in no apparent distress, anxious, obese Head exam: Present: atraumatic, normocephalic, normal inspection Eye exam: Present: normal appearance, PERRL, EOMI. Absent: scleral icterus, conjunctival injection, periorbital swelling ENT exam: Present: normal exam, mucous membranes moist Neck exam: Present: normal inspection. Absent: tenderness, meningismus, lymphadenopathy Respiratory exam: Present: normal lung sounds bilaterally. Absent: respiratory distress, wheezes, rales, rhonchi, stridor Cardiovascular Exam: Present: bradycardia, normal heart sounds. Absent: systolic murmur, diastolic murmur, rubs, gallop, clicks GI/Abdominal exam: Present: soft, normal bowel sounds. Absent: distended, tenderness, guarding, rebound, rigid Extremities exam: Present: normal inspection, full ROM, normal capillary refill. Absent: tenderness, pedal edema, joint swelling, calf tenderness Back exam: Present: normal inspection Neurological exam: Present: alert, oriented X3, CN II-XII intact Psychiatric exam: Present: normal affect, normal mood Skin exam: Present: warm, dry, intact, normal color. Absent: rash Course Vital Signs 05/12/21 05/13/21 23:30 01:21 Temperature 97.6 F Pulse Rate 44 L 45 L Respiratory 18 18 Rate Blood Pressure 172/79 141/55 O2 Sat by Pulse 99 100 Oximetry - Reevaluation(s) Reevaluation #1: 05/13/21 04:56 Medical record is reviewed Reevaluation #2: 05/13/21 04:56 Symptoms are unchanged here in the ER Reevaluation #3: 05/13/21 04:56 Patient informed of results and questions answered Medical Decision Making - Medical Decision Making 75 female of recent heart ablation coming in with shortness of breath and significant bradycardia. Patient's concerned about him fluid building up in her belly and swelling in her belly secondary to CHF she can't take a deep breath. Patient be admitted for cardiac evaluation and treatment - Lab Data Result diagrams: 05/13/21 01:08 05/13/21 01:08 Lab Results 05/13/21 05/13/21 05/13/21 Range/Units 01:08 01:08 01:08 WBC 7.1 (3.8-10.6) k/uL RBC 3.66 L (3.80-5.40) m/uL Hgb 12.6 (11.4-16.0) gm/dL Hct 37.4 (34.0-46.0) % MCV 102.4 H (80.0-100.0) fL MCH 34.5 (25.0-35.0) pg MCHC 33.7 (31.0-37.0) g/dL RDW 13.5 (11.5-15.5) % Plt Count 182 (150-450) k/uL MPV 8.1 Neutrophils % 71 % Lymphocytes % 17 % Monocytes % 5 % Eosinophils % 3 % Basophils % 1 % Neutrophils # 5.0 (1.3-7.7) k/uL Lymphocytes # 1.2 (1.0-4.8) k/uL Monocytes # 0.3 (0-1.0) k/uL Eosinophils # 0.2 (0-0.7) k/uL Basophils # 0.1 (0-0.2) k/uL Macrocytosis Slight PT 12.2 H (9.0-12.0) sec INR 1.2 H (<1.2) APTT 25.4 (22.0-30.0) sec Sodium 133 L (137-145) mmol/L Potassium 4.5 (3.5-5.1) mmol/L Chloride 103 (98-107) mmol/L Carbon Dioxide 23 (22-30) mmol/L Anion Gap 7 mmol/L BUN 24 H (7-17) mg/dL Creatinine 1.01 (0.52-1.04) mg/dL Est GFR (CKD-EPI)AfAm 62 (>60 ml/min/1.73 sqM) Est GFR (CKD-EPI)NonAf 54 (>60 ml/min/1.73 sqM) Glucose 100 H (74-99) mg/dL Plasma Lactic Acid Aurelio (0.7-2.0) mmol/L Calcium 9.2 (8.4-10.2) mg/dL Phosphorus 4.0 (2.5-4.5) mg/dL Magnesium 2.0 (1.6-2.3) mg/dL Total Bilirubin 0.7 (0.2-1.3) mg/dL AST 79 H (14-36) U/L ALT 116 H (4-34) U/L Alkaline Phosphatase 68 (38-126) U/L Troponin I (0.000-0.034) ng/mL NT-Pro-B Natriuret Pep pg/mL Total Protein 6.6 (6.3-8.2) g/dL Albumin 4.3 (3.5-5.0) g/dL TSH 9.970 H (0.465-4.680) mIU/L 05/13/21 05/13/21 05/13/21 Range/Units 01:08 01:08 01:08 WBC (3.8-10.6) k/uL RBC (3.80-5.40) m/uL Hgb (11.4-16.0) gm/dL Hct (34.0-46.0) % MCV (80.0-100.0) fL MCH (25.0-35.0) pg MCHC (31.0-37.0) g/dL RDW (11.5-15.5) % Plt Count (150-450) k/uL MPV Neutrophils % % Lymphocytes % % Monocytes % % Eosinophils % % Basophils % % Neutrophils # (1.3-7.7) k/uL Lymphocytes # (1.0-4.8) k/uL Monocytes # (0-1.0) k/uL Eosinophils # (0-0.7) k/uL Basophils # (0-0.2) k/uL Macrocytosis PT (9.0-12.0) sec INR (<1.2) APTT (22.0-30.0) sec Sodium (137-145) mmol/L Potassium (3.5-5.1) mmol/L Chloride (98-107) mmol/L Carbon Dioxide (22-30) mmol/L Anion Gap mmol/L BUN (7-17) mg/dL Creatinine (0.52-1.04) mg/dL Est GFR (CKD-EPI)AfAm (>60 ml/min/1.73 sqM) Est GFR (CKD-EPI)NonAf (>60 ml/min/1.73 sqM) Glucose (74-99) mg/dL Plasma Lactic Acid Aurelio 1.2 (0.7-2.0) mmol/L Calcium (8.4-10.2) mg/dL Phosphorus (2.5-4.5) mg/dL Magnesium (1.6-2.3) mg/dL Total Bilirubin (0.2-1.3) mg/dL AST (14-36) U/L ALT (4-34) U/L Alkaline Phosphatase (38-126) U/L Troponin I <0.012 (0.000-0.034) ng/mL NT-Pro-B Natriuret Pep 516 pg/mL Total Protein (6.3-8.2) g/dL Albumin (3.5-5.0) g/dL TSH (0.465-4.680) mIU/L - EKG Data -: EKG Interpreted by Me (EKG is sinus bradycardia 46 ME 155 QRS 96 QTc 435) - Radiology Data Radiology results: report reviewed (Chest x-rays negative for acute disease), image reviewed Disposition Clinical Impression: Congestive heart failure, Bradycardia, Weakness Disposition: ADMITTED IP TO THIS HOSP Condition: Fair Is patient prescribed a controlled substance at d/c from ED?: No Referrals: Soledad Antunez MD [Primary Care Provider] - 1-2 days
[2021-05-13 01:34] LABS: Basophils # (A) 0.1 k/uL (0-0.2); Basophils % (A) 1 %; Eosinophils # (A) 0.2 k/uL (0-0.7); Eosinophils % (A) 3 %; HCT 37.4 % (34.0-46.0); HGB 12.6 gm/dL (11.4-16.0); Lymphocytes # (A) 1.2 k/uL (1.0-4.8); Lymphocytes % (A) 17 %; MCH 34.5 pg (25.0-35.0); MCHC 33.7 g/dL (31.0-37.0); MCV 102.4 fL (80.0-100.0); Macrocytosis Slight; Mean Platelet Volume 8.1; Monocytes # (A) 0.3 k/uL (0-1.0); Monocytes % (A) 5 %; Neutrophils % (A) 71 %; Platelet Count 182 k/uL (150-450); RBC 3.66 m/uL (3.80-5.40); RDW 13.5 % (11.5-15.5); WBC 7.1 k/uL (3.8-10.6)
[2021-05-13] MEDS ORDERED: MORPHINE SULFATE 4 MG/ML SYRINGE IVP STA (01:34)
[2021-05-13 01:48] LABS: Albumin 4.3 g/dL (3.5-5.0); Calcium 9.2 mg/dL (8.4-10.2); Potassium 4.5 mmol/L (3.5-5.1); Total Bilirubin 0.7 mg/dL (0.2-1.3); Total Protein 6.6 g/dL (6.3-8.2)
[2021-05-13 01:49] LABS: INR 1.2 (<1.2); Partial Thromboplastin Time 25.4 sec (22.0-30.0); Prothrombin Time 12.2 sec (9.0-12.0)
--- NOTE | 2021-05-13 01:51 | XR ---
EXAMINATION TYPE: XR chest 1V portable DATE OF EXAM: 05/13/2021 COMPARISON: 05/11/2021 HISTORY: Short of breath TECHNIQUE: Single view FINDINGS: Heart is enlarged. There is no gross heart failure. There are no hilar masses. There are ch est leads. Costophrenic angles are clear. IMPRESSION: Cardiomegaly. No active cardiopulmonary disease. No change.
[2021-05-13] MEDS ORDERED: NALOXONE 0.4 MG/ML 1 ML VIAL IV PRN (07:19)
[2021-05-13] MEDS ORDERED: ALBUTEROL NEBULIZED 2.5 MG/3 ML INHALATION PRN (10:09)
--- NOTE | 2021-05-13 10:14 | P.HPIM ---
History of Present Illness H&P Date: 05/13/21 Lashon Sharma, is a 75 year old female who presented to [facility] emergency room with a chief complaint of shortness of breath She was evaluated in the emergency room vital examination on presentation revealed a temperature of 97.6 pulse 44 respiration 18 blood pressure 172/79 pulse ox 99% on room air Laboratory data revealed a white blood count of 7.1 hemoglobin 12.6 platelet cou nt 182 sodium 133 potassium 4.5 chloride 103 CO2 23 BUN 24 creatinine 1.01 AST 79 ALT 116 TSH 9.97 BNP 516 troponin less than 0.012 Testing in the emergency room revealed chest x-ray revealed cardiomegaly with no active cardiopulmonary disease, EKG revealed sinus bradycardia with a heart rate of 46 with occasional supraventricular premature complexes Patient was admitted to medical floor for further evaluation and treatment, cardiology consultation was requested. Past medical history is significant for history of atrial fibrillation, history of hypertension, history of hyperlipidemia, history of Sjogren syndrome, history of colitis with history of gastrointestinal bleeding, history of osteoarthritis, recent COVID-19 infection treated with monoclonal antibodies on 03/30/2021, recent admission to [facility] with nausea vomiting and hyponatremia. Past Medical History Past Medical History: Atrial Fibrillation, Cancer, GERD/Reflux, Hyperlipidemia, Hypertension, Osteoarthritis (OA), Pneumonia Additional Past Medical History / Comment(s): Shogren's syndrome/immunocompromised d/t medications/numerous pneumonias/occasional edema bilateral lower legs, rectal bleed possibly r/t diverticulitis/colitis, hx. chr onic anemia, arthritis in multiple joints, past R wrist fracture/R shoulder dislocation, basal cell skin cancer with removal, had covid beginning of March, still slight residual cough & was in hospital for low sodium in March History of Any Multi-Drug Resistant Organisms: C-DIFF Date of last positivie culture/infection: 07/06/2014 MDRO Source:: stool Past Surgical History: Appendectomy, Breast Surgery, Cholecystectomy, Tonsillectomy Additional Past Surgical History / Comment(s): Basal cell skin cancer removed from R shoulder, colonoscopy, oopherectomy-one ovary removed and one ovary 3/4 removed, R breast cysts aspirations. Past Anesthesia/Blood Transfusion Reactions: No Reported Reaction Past Psychological History: No Psychological Hx Reported Smoking Status: Never smoker Past Alcohol Use History: None Reported Past Drug Use History: None Reported - Past Family History Father Family Medical History: CVA/TIA Additional Family Medical History / Comment(s): Father at age 84 from CVA/TIA's Mother Family Medical History: Coronary Artery Disease (CAD), Diabetes Mellitus Additional Family Medical History / Comment(s): Mother at age 57yrs from complications of her DM. Medications and Allergies Home Medications Medication Instructions Recorded Confirmed Type Fluticasone Propionate [Flonase] 2 spray EA NOSTRIL DAILY 07/15/13 05/11/21 H istory Hydroxychloroquine Sulfate 300 mg PO DAILY 07/15/13 05/11/21 History [Plaquenil] Simvastatin [Zocor] 20 mg PO HS 07/15/13 05/11/21 History Omeprazole 20 mg PO DAILY 08/08/19 05/11/21 History Magnesium Oxide [Mag-Ox] 400 mg PO HS 10/04/19 05/11/21 History Albuterol Nebulized [Ventolin 2.5 mg INHALATION RT-Q4H PRN 04/02/21 05/11/21 History Nebulized] Ascorbic Acid [Vitamin C] 1,000 mg PO DAILY 04/02/21 05/11/21 History Cholecalciferol [Vitamin D3 (125 125 mcg PO DAILY 04/02/21 05/11/21 History Mcg = 5000 Iu)] L.acidoph,Paracasei, B.lactis 1 cap PO DAILY 04/02/21 05/11/21 History [Probiotic] Apixaban [Eliquis] 5 mg PO BID #60 tab 04/05/21 05/11/21 Rx Losartan [Cozaar] 50 mg PO BID 30 Days #60 tab 04/07/21 05/11/21 Rx Amiodarone HCl [Pacerone] 200 mg PO BID 05/09/21 05/11/21 History Multivitamins, Thera [Multivitamin 1 tab PO DAILY 05/09/21 05/11/21 History (formulary)] Celecoxib [CeleBREX] 200 mg PO DAILY 05/11/21 05/11/21 History Metoprolol Tartrate [Lopressor] 50 mg PO BID 05/11/21 05/11/21 History Allergies Allergy/AdvReac Type Severity Reaction Status Date / Time cephalexin monohydrate Allergy Rash/Hives Verified 05/12/21 23:33 [From Keflex] crisaborole [From Eucrisa] Allergy Anaphylaxis Verified 05/12/21 23:33 Penicillins Allergy Unknown Verified 05/12/21 23:33 Childhood latex AdvReac Itching Verified 05/12/21 23:33 methocarbamol AdvReac Swelling Verified 05/12/21 23:33 nabumetone [From Relafen] AdvReac Swelling Verified 05/12/21 23:33 Physical Exam Vitals: Vital Signs Temp Pulse Resp BP Pulse Ox 05/13/21 07:53 97.2 F L 48 L 12 139/70 98 05/13/21 06:34 47 L 16 151/71 97 05/13/21 01:21 45 L 18 141/55 100 05/12/21 23:30 97.6 F 44 L 18 172/79 99 Intake and Output 05/12/21 05/13/21 05/13/21 22:59 06:59 14:59 Other: Weight 68.946 kg In general patient is alert and oriented x 3 in no distress HEENT head normocephalic and atraumatic Neck is supple no JVD no goiter no lymphadenopathy no carotid bruit Chest examination is clear to auscultation no crackles no wheezing Cardiac exam reveals regular heart sounds S1 and S2 no gallops no murmurs Abdomen is soft nontender no organomegaly with normal bowel sounds Extremity exam reveals no edema no cyanosis or clubbing Neurological examination reveals no gross focal deficits Results CBC & Chem 7: 05/13/21 01:08 05/13/21 01:08 Labs: Abnormal Lab Results - Last 24 Hours (Table) 05/13/21 05/13/21 05/13/21 Range/Units 01:08 01:08 01:08 RBC 3.66 L (3.80-5.40) m/uL MCV 102.4 H (80.0-100.0) fL PT 12.2 H (9.0-12.0) sec INR 1.2 H (<1.2) Sodium 133 L (137-145) mmol/L BUN 24 H (7-17) mg/dL Glucose 100 H (74-99) mg/dL AST 79 H (14-36) U/L ALT 116 H (4-34) U/L TSH 9.970 H (0.465-4.680) mIU/L Assessment and Plan Plan: Worsening shortness of breath Bradycardia was heart rate of 45 on presentation New diagnosis of hypothyroidism with elevated TSH at 9.97 Underlying history of atrial fibrillation maintained on metoprolol, amiodarone, and Eliquis Underlying history of hypertension Underlying history of hyperlipidemia Underlying history of Sjogren syndrome Underlying history of osteoarthritis Recent COVID-19 infection treated with monoclonal antibody Recent admission was nausea vomiting and severe hyponatremia At this time patient will be admitted to telemetry floor Cardiology consultation was requested, echocardiogram ordered Home medications reviewed Will hold off metoprolol at this time We will add Synthroid 25 g by mouth daily For DVT prophylaxis patient is maintained on Eliquis For GI prophylaxis patient is maintained on omeprazole
--- NOTE | 2021-05-13 10:29 | P.HPADDEND ---
H&P Addendum H&P Addendum Date: 05/13/21 Right upper quadrant abdominal pain, at this time will check abdomen ultrasound Elevated AST and ALT at this time will hold Lipitor and monitor labs in a.m.
[2021-05-13] MEDS ORDERED: AMIODARONE 200 MG TAB PO SCH (10:30)
[2021-05-13] MEDS: LOSARTAN 50 MG TAB PO SCH ×2 (11:29→21:21)
[2021-05-13] MEDS: APIXABAN 5 MG TAB PO SCH ×2 (11:29→21:21)
[2021-05-13] MEDS: PANTOPRAZOLE 40 MG TABLET PO SCH (11:29)
[2021-05-13] MEDS: CHOLECALCIFEROL 125 MCG (5000 IU) TABLET PO SCH (11:29)
[2021-05-13] MEDS: FLUTICASONE 50MCG/SPRAY NASAL 16GM EA NOSTRIL SCH (11:30)
[2021-05-13] MEDS: MELOXICAM 7.5 MG TAB PO SCH (11:30)
[2021-05-13] MEDS: HYDROXYCHLOROQUINE SULFATE 200 MG TAB PO SCH (11:31)
[2021-05-13] MEDS: LEVOTHYROXINE 25 MCG TAB PO SCH (11:31)
[2021-05-13] MEDS: LACTOBACILLUS ACIDOPH & BULGAR 1 EACH PACKET PO SCH (11:46)
--- NOTE | 2021-05-13 12:13 | P.CRDCN ---
History of Present Illness History of present illness: HISTORY OF PRESENTING ILLNESS This is a pleasant 75-year-old female past medical history significant for atrial fibrillation s/p cardioversion, hypertension and dyslipidemia. She f ollows in the office with Dr. Wood. She had a cardioversion 05/10 that was successful. She has come to the ER twice in the last few days with shortness of breath and right upper quadrant pain. She states she feels bloated and full. Her pants and bra feel too tight. She does not have chest pain. She is scheduled to have an ultrasound of her abdomen this morning. EKG reveals sinus bradycardia heart rate 46. Chest xray is negative for an acute cardiopulmonary process. Laboratory data reviewed, WBC 7.1, hemoglobin 12.6, platelets 182, sodium 133, potassium 4.5, creatinine 1.01, magnesium 2, liver enzymes elevated, troponin negative 1, and T proBNP 516, TSH 9.97 and free T4 1 0.31. Current daily cardiac medications include Eliquis 5 mg twice a day,amiodarone 200 mg daily, losartan 50 mg twice a day, metoprolol 50 mg twice a day and simvastatin 20 mg at bedtime. REVIEW OF SYSTEMS At the time of my exam: CONSTITUTIONAL: Denies fever or chills. CARDIOVASCULAR: Denies chest pain, shortness of breath, orthopnea, PND or palpitations. RESPIRATORY: Denies cough. GASTROINTESTINAL: Complains of right upper quadrant pain. Denies diarrhea, constipation, nausea or vomiting. MUSCULOSKELETAL: Denies myalgias. NEUROLOGIC: Denies numbness, tingling, headache or weakness. ENDOCRINE: Denies fatigue, weight change, polydipsia or polyurina. GENITOURINARY: Denies burning, hematuria or urgency with micturation. HEMATOLOGIC: Denies history of anemia or bleeding. PHYSICAL EXAMINATION Blood pressure 155/69 heart rate 50 afebrile and maintaining oxygen saturation on room air. CONSTITUTIONAL: No apparent distress. HEENT: Head is normocephalic. Pupils are equal, round. Sclerae anicteric. Mucous membranes of the mouth are moist. No JVD. No carotid bruit. CHEST EXAMINATION: Lungs are clear to auscultation. No chest wall tenderness is noted on palpation or with deep breathing. HEART EXAMINATION: Regular rate and rhythm. S1, S2 heard. No murmurs, gallops or rub. ABDOMEN: Soft, nontender. EXTREMITIES: 2+ peripheral pulses, no lower extremity edema and no calf tenderness. NEUROLOGIC EXAMINATION: Patient is awake, alert and oriented x3. ASSESSMENT Shortness of breath and abdominal pain Paroxysmal atrial fibrillation s/p cardioversion 05/10 Hypertension PLAN Await ultrasound report findings. Clinically she is not in heart failure. Discontinue amiodarone. Decrease metoprolol to 12.5 mg TID to hold for heart rate less than 60. Stable from a cardiac perspective. Thank you kindly for this consultation. Nurse Practitioner note has been reviewed, I agree with a documented findings and plan of care. Patient was seen and examined. Past Medical History Past Medical History: Atrial Fibrillation, Cancer, GERD/Reflux, Hyperlipidemia, Hypertension, Osteoarthritis (OA), Pneumonia Additional Past Medical History / Comment(s): Shogren's syndrome/immunocompromised d/t medications/numerous pneumonias/occasional edema bilateral lower legs, rectal bleed possibly r/t diverticulitis/colitis, hx. chronic anemia, arthritis in multiple joints, past R wrist fracture/R shoulder dislocation, basal cell skin cancer with removal, had covid beginning of March, still slight residual cough & was in hospital for low sodium in March History of Any Multi-Drug Resistant Organisms: C-DIFF Date of last positivie culture/infection: 07/06/2014 MDRO Source:: stool Past Surgical History: Appendectomy, Breast Surgery, Cholecystectomy, Tonsillectomy Additional Past Surgical History / Comment(s): Basal cell skin cancer removed from R shoulder, colonoscopy, oopherectomy-one ovary removed and one ovary 3/4 removed, R breast cysts aspirations. Past Anesthesia/Blood Transfusion Reactions: No Reported Reaction Past Psychological History: No Psychological Hx Reported Smoking Status: Never smoker Past Alcohol Use History: None Reported Past Drug Use History: None Reported - Past Family History Father Family Medical History: CVA/TIA Additional Family Medical History / Comment(s): Father at age 84 from CVA/TIA's Mother Family Medical History: Coronary Artery Disease (CAD), Diabetes Mellitus Additional Family Medical History / Comment(s): Mother at age 57yrs from complications of her DM. Medications and Allergies Home Medications Medication Instructions Recorded Confirmed Type Fluticasone Propionate [Flonase] 2 spray EA NOSTRIL DAILY 07/15/13 05/13/21 History Hydroxychloroquine Sulfate 300 mg PO DAILY 07/15/13 05/13/21 History [Plaquenil] Simvastatin [Zocor] 20 mg PO HS 07/15/13 05/13/21 History Omeprazole 20 mg PO DAILY 08/08/19 05/13/21 History Magnesium Oxide [Mag-Ox] 400 mg PO HS 10/04/19 05/13/21 History Albuterol Nebulized [Ventolin 2.5 mg INHALATION RT-Q4H PRN 04/02/21 05/13/21 History Nebulized] Ascorbic Acid [Vitamin C] 1,000 mg PO DAILY 04/02/21 05/13/21 History Cholecalciferol [Vitamin D3 (125 125 mcg PO DAILY 04/02/21 05/13/21 History Mcg = 5000 Iu)] L.acidoph,Paracasei, B.lactis 1 cap PO DAILY 04/02/21 05/13/21 History [Probiotic] Apixaban [Eliquis] 5 mg PO BID #60 tab 04/05/21 05/13/21 Rx Losartan [Cozaar] 50 mg PO BID 30 Days #60 tab 04/07/21 05/13/21 Rx Amiodarone HCl [Pacerone] 200 mg PO BID 05/09/21 05/13/21 History Multivitamins, Thera [Multivitamin 1 tab PO DAILY 05/09/21 05/13/21 History (formulary)] Celecoxib [CeleBREX] 200 mg PO DAILY 05/11/21 05/13/21 History Metoprolol Tartrate [Lopressor] 50 mg PO BID 05/11/21 05/13/21 History Allergies Allergy/AdvReac Type Severity Reaction Status Date / Time cephalexin monohydrate Allergy Rash/Hives Verified 05/13/21 12:05 [From Keflex] crisaborole [From Eucrisa] Allergy Anaphylaxis Verified 05/13/21 12:05 Penicillins Allergy Unknown Verified 05/13/21 12:05 Childhood latex AdvReac Itching Verified 05/13/21 12:05 methocarbamol AdvReac Swelling Verified 05/13/21 12:05 nabumetone [From Relafen] AdvReac Swelling Verified 05/13/21 12:05 Physical Exam Vitals: Vital Signs Temp Pulse Pulse Resp BP BP Pulse Ox 05/13/21 09:26 97.7 F 50 L 15 155/69 98 05/13/21 07:53 97.2 F L 48 L 12 139/70 98 05/13/21 06:34 47 L 16 151/71 97 05/13/21 01:21 45 L 18 141/55 100 05/12/21 23:30 97.6 F 44 L 18 172/79 99 Intake and Output 05/12/21 05/13/21 05/13/21 22:59 06:59 14:59 Other: Weight 68.946 kg 68.946 kg Results 05/13/21 01:08 05/13/21 01:08 Cardiac Enzymes 05/13/21 05/13/21 Range/Units 01:08 01:08 AST 79 H (14-36) U/L Troponin I <0.012 (0.000-0.034) ng/mL Coagulation 05/13/21 Range/Units 01:08 PT 12.2 H (9.0-12.0) sec APTT 25.4 (22.0-30.0) sec CBC 05/13/21 Range/Units 01:08 WBC 7.1 (3.8-10.6) k/uL RBC 3.66 L (3.80-5.40) m/uL Hgb 12.6 (11.4-16.0) gm/dL Hct 37.4 (34.0-46.0) % Plt Count 182 (150-450) k/uL Comprehensive Metabolic Panel 05/13/21 Range/Units 01:08 Sodium 133 L (137-145) mmol/L Potassium 4.5 (3.5-5.1) mmol/L Chloride 103 (98-107) mmol/L Carbon Dioxide 23 (22-30) mmol/L BUN 24 H (7-17) mg/dL Creatinine 1.01 (0.52-1.04) mg/dL Glucose 100 H (74-99) mg/dL Calcium 9.2 (8.4-10.2) mg/dL AST 79 H (14-36) U/L ALT 116 H (4-34) U/L Alkaline Phosphatase 68 (38-126) U/L Total Protein 6.6 (6.3-8.2) g/dL Albumin 4.3 (3.5-5.0) g/dL Current Medications Generic Name Dose Route Start Last Admin Trade Name Freq PRN Reason Stop Dose Admin Albuterol Sulfate 2.5 mg 05/13/21 10:09 Albuterol Nebulized 2.5 Mg/3 Ml INHALATION RT-Q4H PRN Shortness Of Breath Amiodarone HCl 200 mg 05/13/21 10:30 Amiodarone 200 Mg Tab PO BID [facility] Apixaban 5 mg 05/13/21 10:30 Apixaban 5 Mg Tab PO BID [facility] Protocol Ascorbic Acid 1,000 mg 05/14/21 09:00 Ascorbic Acid 500 Mg Tab PO DAILY [facility] Cholecalciferol 125 mcg 05/13/21 10:30 Cholecalciferol 125 Mcg (5000 Iu) Tablet PO DAILY [facility] Fluticasone Propionate 2 spray 05/13/21 10:30 Fluticasone 50mcg/[place] Nasal 16gm EA NOSTRIL DAILY [facility] Hydroxychloroquine Sulfate 300 mg 05/13/21 10:30 Hydroxychloroquine Sulfate 200 Mg Tab PO DAILY [facility] Lactobacillus Acidoph/Bulgaricus 1 each 05/13/21 10:45 Lactobacillus Acidoph & Bulgar 1 Each Packet PO DAILY [facility] Levothyroxine Sodium 25 mcg 05/13/21 10:45 Levothyroxine 25 Mcg Tab PO DAILY@0630 [facility] Losartan Potassium 50 mg 05/13/21 10:30 Losartan 50 Mg Tab PO BID [facility] Magnesium Oxide 400 mg 05/13/21 21:00 Magnesium Oxide 400 Mg Tab PO HS [facility] Meloxicam 7.5 mg 05/13/21 10:30 Meloxicam 7.5 Mg Tab PO DAILY [facility] Multivitamins 1 each 05/14/21 09:00 Multivitamins, Thera 1 Each Tab PO DAILY [facility] Naloxone HCl 0.2 mg 05/13/21 07:19 Naloxone 0.4 Mg/Ml 1 Ml Vial IV Q2M PRN Opioid Reversal Pantoprazole Sodium 40 mg 05/13/21 10:30 Pantoprazole 40 Mg Tablet PO AC-BRKFST [facility] Intake and Output 05/12/21 05/13/21 05/13/21 22:59 06:59 14:59 Other: Weight 68.946 kg 68.946 kg Patient Weight 05/14/21 06:59 Weight 68.946 kg 05/13/21 01:08 05/13/21 01:08
[2021-05-13 12:23] LABS: Appearance,Urine Clear (Clear); Bilirubin,Urine Negative (Negative); Blood,Urine Negative (Negative); Color,Urine Light Yellow; Glucose,Urine (UA) Negative (Negative); Ketones,Urine Negative (Negative); Leukocyte Esterase,Urine Trace (Negative); Nitrite,Urine Negative (Negative); Protein,Urine Negative (Negative); RBC,Urine <1 /hpf (0-5); Specific Gravity,Urine 1.006 (1.001-1.035); Squamous Epithelial Cell,Urine <1 /hpf (0-4); Urobilinogen,Urine <2.0 mg/dL (<2.0); WBC,Urine 3 /hpf (0-5)
--- NOTE | 2021-05-13 14:12 | US ---
EXAMINATION TYPE: US abdomen complete DATE OF EXAM: 05/13/2021 COMPARISON: Prior exam CT abdomen pelvis 08/08/2019 CLINICAL HISTORY: RUQ abdominal pain. Bloating gallbladder removed. EXAM MEASUREMENTS: Liver Length: 14.9 cm Gallbladder Wall: Surgically absent cm CBD: .6 cm Spleen: 9.2 cm Right Kidney: 9.8 x 3.8 x 3.6 cm Left Kidney: 9.9 x 4.0 x 3.3 cm Pancreas: wnl in its visualized portions Liver: Increased attenuation Gallbladder: Surgically absent Evidence for sonographic Sanchez's sign: No CBD: wnl Spleen: wnl Right Kidney: Hypoechoic area mid pole 3.0 x 2.4 x 1.9 cm. Left Kidney: wnl Upper IVC: wnl in its visualized portions Abd Aorta: wnl as seen The liver is remarkable for coarse echotexture. The intrahepatic portion of the IVC and proximal abd ominal aorta are within normal limits. There is no evidence of cholelithiasis. Common bile duct is unremarkable. The visualized portions of the pancreas are homogenous. The spleen is unremarkable. Kidneys are symmetric and free of hydronephrosis, cortical medullary differentiation is maintained. IMPRESSION: Postcholecystectomy, correlate for possible hepatic steatosis. Cortical cyst right kidney .
[2021-05-13] MEDS: METOPROLOL TARTRATE 12.5 MG TAB PO SCH ×2 (15:18→21:23)
[2021-05-13] MEDS ORDERED: ATORVASTATIN 10 MG TAB PO SCH (21:00)
[2021-05-13] MEDS ORDERED: MAGNESIUM OXIDE 400 MG TAB PO SCH (21:00)
[2021-05-14] MEDS: LEVOTHYROXINE 25 MCG TAB PO SCH (05:43)
[2021-05-14 07:15] VITALS: BP 134/76; PULSE 50; RESP 18; TEMP 98.2
[2021-05-14] MEDS: LOSARTAN 50 MG TAB PO SCH (07:52)
[2021-05-14] MEDS: HYDROXYCHLOROQUINE SULFATE 200 MG TAB PO SCH (07:53)
[2021-05-14] MEDS: METOPROLOL TARTRATE 12.5 MG TAB PO SCH ×2 (07:53→07:58)
[2021-05-14] MEDS: PANTOPRAZOLE 40 MG TABLET PO SCH (07:54)
[2021-05-14] MEDS: CHOLECALCIFEROL 125 MCG (5000 IU) TABLET PO SCH (07:54)
[2021-05-14] MEDS: MELOXICAM 7.5 MG TAB PO SCH (07:54)
[2021-05-14] MEDS: APIXABAN 5 MG TAB PO SCH (07:55)
[2021-05-14] MEDS: FLUTICASONE 50MCG/SPRAY NASAL 16GM EA NOSTRIL SCH (07:55)
[2021-05-14] MEDS: LACTOBACILLUS ACIDOPH & BULGAR 1 EACH PACKET PO SCH (08:45)
[2021-05-14] MEDS ORDERED: ASCORBIC ACID 500 MG TAB PO SCH (09:00)
[2021-05-14] MEDS ORDERED: MULTIVITAMINS, THERA 1 EACH TAB PO SCH (09:00)
[2021-05-14 09:52] LABS: Basophils # (A) 0.05 X 10*3/uL (0.00-0.10); Basophils % (A) 1.2 %; Eosinophils # (A) 0.26 X 10*3/uL (0.04-0.35); Eosinophils % (A) 6.1 %; HCT 33.2 % (37.2-46.3); HGB 10.7 g/dL (12.0-15.0); Immature Grans, Automated 0.5 %; Lymphocytes # (A) 1.08 X 10*3/uL (0.90-5.00); Lymphocytes % (A) 25.2 %; MCH 32.4 pg (27.0-32.0); MCHC 32.2 g/dL (32.0-37.0); MCV 100.6 fL (80.0-97.0); Mean Platelet Volume 11.3 fL (9.5-12.2); Monocytes # (A) 0.38 X 10*3/uL (0.20-1.00); Monocytes % (A) 8.9 %; NRBC Per 100 WBC 0 /100 WBCS (0.0-0.0); Neutrophils % (A) 58.1 %; Platelet Count 153 X 10*3/uL (140-440); RDW 13.4 % (11.5-14.5); WBC 4.29 X 10*3/uL (4.50-10.00)
--- NOTE | 2021-05-14 09:59 | P.PN ---
Subjective HISTORY OF PRESENTING ILLNESS This is a pleasant 75-year-old female past medical history significant for atrial fibrillation s/p cardioversion, hypertension and dyslipidemia. She follows in the office with Dr. Wood. She had a cardioversion 05/10 that was successful. She has come to the ER twice in the last few days with shortness of breath and right upper quadrant pain. She states she feels bloated and full. Her pants and bra feel too tight. She does not have chest pain. She is scheduled to have an ultrasound of her abdomen this morning. EKG reveals sinus bradycardia heart rate 46. Chest xray is negative for an acute cardiopulmonary process. Laboratory data reviewed, liver enzymes elevated, troponin negative 1, and T proBNP 516, TSH 9.97 and free T4 1 0.31. Patient seen at bedside, distress. She denies any lightheadedness or dizziness. She denies any shortness of breath or chest pain. Telemetry reviewed patient in sinus mechanism, heart rate 4450s. She is currently maintained on metoprolol tartrate 12.5 mg TID, Eliquis 5 mg twice a day, losartan 50 mg twice a day PHYSICAL EXAMINATION Blood pressure 134/76, heart rate 50, afebrile, saturation 98% on room air CONSTITUTIONAL: No apparent distress. HEENT: Neck Supple. No JVD. CHEST EXAMINATION: Lungs are clear to auscultation. No chest wall tenderness is noted on palpation or with deep breathing. HEART EXAMINATION: Regular rate and rhythm. S1, S2 heard. No murmurs, gallops or rub. ABDOMEN: Soft, nontender. EXTREMITIES: 2+ peripheral pulses, no lower extremity edema and no calf tenderness. NEUROLOGIC EXAMINATION: Patient is awake, alert and oriented x3. ASSESSMENT Shortness of breath and abdominal pain Paroxysmal atrial fibrillation s/p cardioversion 05/10 Sinus bradycardia Hypertension PLAN Clinically she is not in heart failure. Discontinue amiodarone Decrease metoprolol to 12.5 mg BID Stable from a cardiac perspective for discharge later today if no lightheadedness and dizziness. Recommend continue metoprolol tartrate twice a day at home and discussed with the patient to hold if feeling symptomatic with lightheadedness or dizziness and/or if her HR is <50. Ok for patient to take medication if her HR is in the 50s and feeling well, it will take time for amiodarone to be removed from system. Follow up with Dr. Wood Nurse Practitioner note has been reviewed, I agree with a documented findings and plan of care. Patient was seen and examined. Objective - Vital Signs Vital signs: Vital Signs Temp 98.2 F 05/14/21 07:00 Pulse 50 L 05/14/21 07:00 Resp 18 05/14/21 07:00 BP 134/76 05/14/21 07:00 Pulse Ox 98 05/14/21 07:00 Intake & Output 05/13/21 05/14/21 05/14/21 18:59 06:59 18:59 Intake Total 354 Output Total 400 Balance -46 Weight 68.946 kg Intake: Oral 354 Output: Urine 400 Other: # Voids 1 1 - Labs CBC & Chem 7: 05/14/21 06:54 05/13/21 01:08 Labs: Abnormal Lab Results - Last 24 Hours (Table) 05/13/21 05/14/21 Range/Units 01:08 06:54 WBC 4.29 L (4.50-10.00) X 10*3/uL RBC 3.30 L (4.10-5.20) X 10*6/uL Hgb 10.7 L (12.0-15.0) g/dL Hct 33.2 L (37.2-46.3) % MCV 100.6 H (80.0-97.0) fL MCH 32.4 H (27.0-32.0) pg Ur Leukocyte Esterase Trace H (Negative)
[2021-05-14 10:32] LABS: African American GFR (CKD) 71.5 (60.0-200.0); Albumin 3.9 g/dL (3.8-4.9); Albumin/Globulin Ratio 2.44 (1.60-3.17); Anion Gap 9.2 mmol/L (10.00-18.00); Blood Urea Nitrogen 14.4 mg/dL (9.0-27.0); Calcium 9.3 mg/dL (8.7-10.3); Carbon Dioxide 23.8 mmol/L (20.0-27.5); Globulin 1.6 g/dL (1.6-3.3); Non-African American GFR(CKD) 61.7 (60.0-200.0); Potassium 4.3 mmol/L (3.5-5.5); Total Bilirubin 0.7 mg/dL (0.30-1.20); Total Protein 5.5 g/dL (6.2-8.2)
--- NOTE | 2021-05-14 13:36 | P.DS ---
Providers Date of admission: 05/13/21 07:19 Expected date of discharge: 05/14/21 Attending physician: Aurea Aggarwal Consults: 05/13/21 07:20 Consult Physician Routine Consulting Provider: Lisa Wood Consult Reason/Comments: dyspnea, fluid overload s/p ablation Do you want consulting provider notified?: Yes Primary care physician: [facility] Hospital Course: Diagnosis on discharge: Worsening shortness of breath Bradycardia was heart rate of 45 on presentation New diagnosis of hypothyroidism with elevated TSH at 9.97 Underlying history of atrial fibrillation maintained on metoprolol, amiodarone, and Eliquis Underlying history of hypertension Underlying history of hyperlipidemia Underlying history of Sjogren syndrome Underlying history of osteoarthritis Recent COVID-19 infection treated with monoclonal antibody Recent admission was nausea vomiting and severe hyponatremia Hospital course: Lashon Sharma, is a 75 year old female who presented to [facility] emergency room with a chief complaint of shortness of breath She was evaluated in the emergency room vital examination on presentation revealed a temperature of 97.6 pulse 44 respiration 18 blood pressure 172/79 pulse ox 99% on room air Laboratory data revealed a white blood count of 7.1 hemoglobin 12.6 platelet co unt 182 sodium 133 potassium 4.5 chloride 103 CO2 23 BUN 24 creatinine 1.01 AST 79 ALT 116 TSH 9.97 BNP 516 troponin less than 0.012 Testing in the emergency room revealed chest x-ray revealed cardiomegaly with no active cardiopulmonary disease, EKG revealed sinus bradycardia with a heart rate of 46 with occasional supraventricular premature complexes Patient was admitted to medical floor for further evaluation and treatment, cardiology consultation was requested. Past medical history is significant for history of atrial fibrillation, history of hypertension, history of hyperlipidemia, history of Sjogren syndrome, history of colitis with history of gastrointestinal bleeding, history of osteoarthritis, recent COVID-19 infection treated with monoclonal antibodies on 03/30/2021, recent admission to [facility] with nausea vomiting and hyponatremia. On 05/14/2021 patient was seen and examined on the medical floor she is alert and oriented 3 in no apparent distress there is no fever or chills no headache or dizziness no chest pain no shortness of breath no cough no nausea or vomiting no abdominal pain no diarrhea and no urinary symptoms, during this admission patient had a new diagnosis of hypothyroidism she was started on Synthroid 25 g daily, dose of metoprolol was decreased from 50 mg twice a day to 12.5 mg twice a day, and amiodarone was discontinued patient will be followed by cardiology in the next 2-3 days, follow-up with primary care physician Dr. Antunez within 1 week Patient Condition at Discharge: Fair Plan - Discharge Summary Discharge Rx Participant: No New Discharge Prescriptions: New Levothyroxine Sodium [Synthroid] 25 mcg PO DAILY@0630 tab Metoprolol Tartrate [Lopressor] 12.5 mg PO BID 30 Days #60 tab Continue Simvastatin [Zocor] 20 mg PO HS Fluticasone Propionate [Flonase] 2 spray EA NOSTRIL DAILY Hydroxychloroquine Sulfate [Plaquenil] 300 mg PO DAILY Omeprazole 20 mg PO DAILY Magnesium Oxide [Mag-Ox] 400 mg PO HS Cholecalciferol [Vitamin D3 (125 Mcg = 5000 Iu)] 125 mcg PO DAILY Ascorbic Acid [Vitamin C] 1,000 mg PO DAILY Albuterol Nebulized [Ventolin Nebulized] 2.5 mg INHALATION RT-Q4H PRN PRN Reason: Shortness Of Breath Apixaban [Eliquis] 5 mg PO BID #60 tab Losartan [Cozaar] 50 mg PO BID 30 Days #60 tab Multivitamins, Thera [Multivitamin (formulary)] 1 tab PO DAILY Celecoxib [CeleBREX] 200 mg PO DAILY L.acidoph,Paracasei, B.lactis [Probiotic] 1 cap PO DAILY Discontinued Amiodarone HCl [Pacerone] 200 mg PO BID Metoprolol Tartrate [Lopressor] 50 mg PO BID Discharge Medication List Fluticasone Propionate [Flonase] 2 spray EA NOSTRIL DAILY 07/15/13 [History] Hydroxychloroquine Sulfate [Plaquenil] 300 mg PO DAILY 07/15/13 [History] Simvastatin [Zocor] 20 mg PO HS 07/15/13 [History] Omeprazole 20 mg PO DAILY 08/08/19 [History] Magnesium Oxide [Mag-Ox] 400 mg PO HS 10/04/19 [History] Albuterol Nebulized [Ventolin Nebulized] 2.5 mg INHALATION RT-Q4H PRN 04/02/21 [History] Ascorbic Acid [Vitamin C] 1,000 mg PO DAILY 04/02/21 [History] Cholecalciferol [Vitamin D3 (125 Mcg = 5000 Iu)] 125 mcg PO DAILY 04/02/21 [History] L.acidoph,Paracasei, B.lactis [Probiotic] 1 cap PO DAILY 04/02/21 [History] Apixaban [Eliquis] 5 mg PO BID #60 tab 04/05/21 [Rx] Losartan [Cozaar] 50 mg PO BID 30 Days #60 tab 04/07/21 [Rx] Multivitamins, Thera [Multivitamin (formulary)] 1 tab PO DAILY 05/09/21 [History] Celecoxib [CeleBREX] 200 mg PO DAILY 05/11/21 [History] Levothyroxine Sodium [Synthroid] 25 mcg PO DAILY@0630 tab 05/14/21 [Rx] Metoprolol Tartrate [Lopressor] 12.5 mg PO BID 30 Days #60 tab 05/14/21 [Rx] Follow up Appointment(s)/Referral(s): Lisa Wood MD [STAFF PHYSICIAN] - 1 Week Soledad Antunez MD [Primary Care Provider] - 1-2 days Activity/Diet/Wound Care/Special Instructions: activity as tolerated heart healthy diet
[2021-05-14] MEDS ORDERED: METOPROLOL TARTRATE 12.5 MG TAB PO SCH (21:00)
== END 2021-05-14 14:53 | disposition home or self-care (01) ==
LOC: EC 22:46 → 6NMEDSUR 05-13 07:19
PROVIDERS: ADMIT Internal Medicine; ATTEND Internal Medicine
DX: R06.02 Shortness of breath (principal); R10.11 Right upper quadrant pain; I48.0 Paroxysmal atrial fibrillation; R00.1 Bradycardia, unspecified; I11.0 Hypertensive heart disease with heart failure; I50.9 Heart failure, unspecified; E03.9 Hypothyroidism, unspecified; E78.5 Hyperlipidemia, unspecified; M35.00 Sjogren syndrome, unspecified; M19.90 Unspecified osteoarthritis, unspecified site; Z86.16 Personal history of COVID-19; K21.9 Gastro-esophageal reflux disease without esophagitis; R74.8 Abnormal levels of other serum enzymes; R53.1 Weakness; D64.9 Anemia, unspecified; E66.9 Obesity, unspecified; R07.9 Chest pain, unspecified; Z87.19 Personal history of other diseases of the digestive system; Z85.828 Personal history of other malignant neoplasm of skin; Z87.01 Personal history of pneumonia (recurrent); Z79.899 Other long term (current) drug therapy; Z79.1 Long term (current) use of non-steroidal anti-inflammatories (NSAID); Z79.01 Long term (current) use of anticoagulants; Z88.0 Allergy status to penicillin; Z88.8 Allergy status to other drugs, medicaments and biological substances; Z88.1 Allergy status to other antibiotic agents; Z91.040 Latex allergy status; Z16.24 Resistance to multiple antibiotics; Z90.49 Acquired absence of other specified parts of digestive tract; Z82.3 Family history of stroke; Z83.3 Family history of diabetes mellitus; Z82.49 Family history of ischemic heart disease and other diseases of the circulatory system
CPT/HCPCS: 96361 ×3; 96360; 99285; 36415; 93005; 84439; 83880; 80053 ×2; 83605; 83735; 84100; 84443; 84484; 85025 ×2; 85610; 85730; 81001; 87045; 87046; 71045; 76700; G0378 ×2

== ENCOUNTER → 2021-05-28 | Outpatient (CLI) | payer MEDICARE, BC ==
[2021-05-28 12:19] LABS: Appearance,Urine Clear (Clear); Bacteria,Urine Rare /hpf; Bilirubin,Urine Negative (Negative); Blood,Urine Negative (Negative); Color,Urine Yellow; Glucose,Urine (UA) Negative (Negative); Ketones,Urine Negative (Negative); Leukocyte Esterase,Urine Small (Negative); Mucus,Urine Few /hpf; Nitrite,Urine Negative (Negative); Protein,Urine 1+ (Negative); Specific Gravity,Urine 1.019 (1.001-1.035); Squamous Epithelial Cell,Urine 1 /hpf (0-4); Urobilinogen,Urine <2.0 mg/dL (<2.0); WBC,Urine 3 /hpf (0-5)
[2021-05-28 19:08] LABS: HCT 40.7 % (37.2-46.3); HGB 13.6 g/dL (12.0-15.0); MCH 32.9 pg (27.0-32.0); MCHC 33.4 g/dL (32.0-37.0); MCV 98.3 fL (80.0-97.0); Mean Platelet Volume 10.9 fL (9.5-12.2); NRBC Per 100 WBC 0 /100 WBCS (0.0-0.0); Platelet Count 264 X 10*3/uL (140-440); RBC 4.14 X 10*6/uL (4.10-5.20); RDW 12.7 % (11.5-14.5); WBC 5.01 X 10*3/uL (4.50-10.00)
[2021-05-28 19:25] LABS: African American GFR (CKD) 96.9 (60.0-200.0); Anion Gap 15.4 mmol/L (10.00-18.00); BUN/Creat Ratio 23.29 Ratio (12.00-20.00); Blood Urea Nitrogen 16.3 mg/dL (9.0-27.0); Calcium 9.7 mg/dL (8.7-10.3); Carbon Dioxide 22.6 mmol/L (20.0-27.5); Magnesium 1.9 mg/dL (1.5-2.4); Non-African American GFR(CKD) 83.6 (60.0-200.0); Phosphorus 4.1 mg/dL (2.4-5.1); Potassium 4.1 mmol/L (3.5-5.5)
== END | disposition home or self-care (01) ==
LOC: LABWHC1 11:35
PROVIDERS: ATTEND Internal Medicine Interventional Cardiology
DX: E87.1 Hypo-osmolality and hyponatremia (principal)
CPT/HCPCS: 36415; 80048; 81001; 83735; 83930; 83935; 84100; 84300; 85027

== ENCOUNTER → 2021-06-07 | Outpatient (CLI) | payer MEDICARE, BC ==
[2021-06-07 20:16] LABS: African American GFR (CKD) 98.9 (60.0-200.0); Anion Gap 13.5 mmol/L (10.00-18.00); BUN/Creat Ratio 18.54 Ratio (12.00-20.00); Blood Urea Nitrogen 12.2 mg/dL (9.0-27.0); Calcium 9.8 mg/dL (8.7-10.3); Carbon Dioxide 24.5 mmol/L (20.0-27.5); Non-African American GFR(CKD) 85.3 (60.0-200.0)
== END | disposition home or self-care (01) ==
LOC: LABWHC1 11:52
PROVIDERS: ATTEND Internal Medicine Interventional Cardiology
DX: I10 Essential (primary) hypertension (principal)
CPT/HCPCS: 36415; 80048

== ENCOUNTER → 2021-09-07 | Outpatient (CLI) | payer MEDICARE, BC ==
--- NOTE | 2021-09-10 13:38 | MM ---
Reason for Exam: Screening (asymptomatic). Last screening mammogram was performed 12 month(s) ago. Patient History: Menarche at age 7. First Full-Term at age 17. Left ovary removed at age 21. Right ovary removed at age 26. Other cancer. Estrogen for 3 years from age 55 until age 58. Hormonal Contraceptives for 10 years from age 22 until age 32. Core Biopsy on the Right side. Cyst Aspiration on the Right side. Cyst Aspiration on the Left side. Cyst Aspiration on the Left side. 08/20/1999, Benign Stereotactic Core Biopsy on the right side. 05/03/1998, Benign Excisional Biopsy on the right side. Risk Values: Idania 5 year model risk: 2.0%. NCI Lifetime model risk: 3.7%. Prior Study Comparison: 05/11/2019 Bilateral Screening Mammogram, [facility]. 05/17/2019 Left Diagnostic Mammogram, [facility]. 09/06/2020 Bilateral Screening Mammogram, [facility]. Tissue Density: There are scattered fibroglandular densities. Findings: Analyzed By CAD. Benign vascular and small benign round or oil cyst calcifications, right greater than left. Microclip right breast from prior biopsy. No significant change from prior exams. Overall Assessment: Benign, BI-RAD 2 Management: Screening Mammogram of both breasts in 1 year. 1. Patient should continue monthly self breast exams. 2. A clinical breast exam by your physician is recommended on an annual basis. 3. This exam should not preclude additional follow-up of suspicious palpable abnormalities. Electronically signed and approved by: Lee Simpson M.D. Radiologist
== END | disposition home or self-care (01) ==
LOC: RADMAMWWP 09:49
PROVIDERS: ATTEND Family Medicine
DX: Z12.31 Encounter for screening mammogram for malignant neoplasm of breast (principal)
CPT/HCPCS: 77063; 77067

== ENCOUNTER 2022-07-17 07:22 | Day surgery (SDC) | payer MEDICARE, BC ==
[2022-07-15 10:53] VITALS: BMI 30.2
[2022-07-17] MEDS ORDERED: LACTATED RINGERS 1,000 ML IV ONE (07:45)
[2022-07-17 08:16] VITALS: TEMP 97.2
[2022-07-17] MEDS ORDERED: PROPOFOL 10 MG/ML 20 ML VIAL IV ONE (08:58)
[2022-07-17 10:33] VITALS: RESP 20
[2022-07-17 10:44] VITALS: BP 123/63; PULSE 65
--- NOTE | 2022-07-17 15:29 | CE ---
CARDIAC ELECTROPHYSIOLOGY REPORT DATE OF SERVICE: 07/17/2022. PROCEDURE PERFORMED: Electrical cardioversion. INDICATION: Persistent atrial fibrillation, symptomatic. CLINICAL INFORMATION: Ms. Sharma is a 77-year-old lady with a history of hypertension, hyperlipidemia, paroxysmal atrial fibrillation, and Sjogren syndrome. She came into the office complaining of palpitations and was found to be in atrial fibrillation. About a year ago in April 2021, she underwent electrical cardioversion for the similar paroxysmal symptomatic atrial fibrillation picture. Her atrial fibrillation actually seems more persistent. I started her on amiodarone. She was well anticoagulated with Eliquis 5 mg b.i.d. She was brought in for electrical cardioversion today. PROCEDURE NOTE: Under the influence of [id number] intravenous anesthetic agent with the attendance of the anesthesiologist, a single shock was delivered with anterior and posterior patches of 120 joules. The patient converted to sinus rhythm, remained neurologically intact and hemodynamically stable. This was a successful electrical cardioversion. She will be discharged later on today when she is awake, alert, and has had a meal. She will be discharged on amiodarone 200 mg 1 tablet daily, metoprolol tartrate 12.5 mg b.i.d., plus all her other medications as before, and I will see her in the office in 1 week. MMODL / IJN: [id number] /
== END 2022-07-17 10:59 ==
LOC: OR 07:22
PROVIDERS: ATTEND Internal Medicine Interventional Cardiology
DX: I48.19 Other persistent atrial fibrillation (principal); I10 Essential (primary) hypertension; E78.5 Hyperlipidemia, unspecified; M19.90 Unspecified osteoarthritis, unspecified site; K21.9 Gastro-esophageal reflux disease without esophagitis; Z98.890 Other specified postprocedural states; Z79.899 Other long term (current) drug therapy; Z88.0 Allergy status to penicillin
CPT/HCPCS: 92960; J2704

== ENCOUNTER → 2022-08-22 | Outpatient (CLI) | payer MEDICARE, BC | END | disposition home or self-care (01) | LOC: LABPAT 11:05 | PROVIDERS: ATTEND Orthopaedic Surgery | DX: Z53.9 Procedure and treatment not carried out, unspecified reason (principal) ==

== ENCOUNTER → 2022-08-28 | Outpatient (CLI) | payer MEDICARE, BC ==
[2022-08-28 10:52] LABS: Appearance,Urine Clear (Clear); Bilirubin,Urine Negative (Negative); Blood,Urine Negative (Negative); Color,Urine Light Yellow; Glucose,Urine (UA) Negative (Negative); Ketones,Urine Negative (Negative); Leukocyte Esterase,Urine Small (Negative); Mucus,Urine Rare /hpf; Nitrite,Urine Negative (Negative); PH, Urine 7.5 (5.0-8.0); Protein,Urine Negative (Negative); RBC,Urine 1 /hpf (0-5); Specific Gravity,Urine 1.009 (1.001-1.035); Urobilinogen,Urine <2.0 mg/dL (<2.0); WBC,Urine 3 /hpf (0-5)
[2022-08-28 10:59] LABS: INR 1.1 (<1.2); Partial Thromboplastin Time 26.6 sec (22.0-30.0); Prothrombin Time 11.4 sec (9.0-12.0)
[2022-08-28 15:03] LABS: Basophils # (A) 0.07 X 10*3/uL (0.00-0.10); Basophils % (A) 1.1 %; Eosinophils # (A) 0.21 X 10*3/uL (0.04-0.35); Eosinophils % (A) 3.4 %; HCT 38.7 % (37.2-46.3); Lymphocytes # (A) 0.93 X 10*3/uL (0.90-5.00); Lymphocytes % (A) 15.1 %; MCH 31.8 pg (27.0-32.0); MCHC 33.6 d/dL (32.0-37.0); MCV 94.6 FL (80.0-97.0); Mean Platelet Volume 10.1 FL (9.5-12.2); Monocytes # (A) 0.56 X 10*3/uL (0.20-1.00); Monocytes % (A) 9.1 %; NRBC Per 100 WBC 0 X 10*3/uL (0.00-0.01); Neutrophils # (A) 4.32 X 10*3/uL (1.80-7.70); Neutrophils % (A) 70.5 %; Platelet Count 269 X 10*3/uL (140-440); RBC 4.09 X 10*6/uL (4.10-5.20); RDW 11.9 % (11.5-14.5); WBC 6.14 X 10*3/uL (4.50-10.00)
== END | disposition home or self-care (01) ==
LOC: LABPAT 09:56
PROVIDERS: ATTEND Orthopaedic Surgery
DX: Z01.812 Encounter for preprocedural laboratory examination (principal); Z22.322 Carrier or suspected carrier of Methicillin resistant Staphylococcus aureus; M17.12 Unilateral primary osteoarthritis, left knee
CPT/HCPCS: 36415; 81001; 85025; 85610; 85730; 87070

== ENCOUNTER → 2022-09-04 | Outpatient (CLI) | payer MEDICARE, BC ==
[2022-09-05 02:46] LABS: BUN/Creat Ratio 15.88 Ratio (12.00-20.00); Blood Urea Nitrogen 12.7 mg/dL (9.0-27.0); Carbon Dioxide 26.3 mmol/L (21.6-31.8); Chloride 98 mmol/L (96-109); Glucose 105 mg/dL (70-110); Potassium 4.4 mmol/L (3.5-5.5); Sodium 136 mmol/L (135-145)
== END | disposition home or self-care (01) ==
LOC: LABPAT 15:08
PROVIDERS: ATTEND Orthopaedic Surgery
DX: Z01.812 Encounter for preprocedural laboratory examination (principal); M17.12 Unilateral primary osteoarthritis, left knee
CPT/HCPCS: 36415; 80048

== ENCOUNTER 2022-09-09 11:12 | Observation (INO) | payer MEDICARE, BC ==
[2022-09-04 12:21] VITALS: BMI 30.9
--- NOTE | 2022-09-08 18:38 | HP ---
HISTORY AND PHYSICAL DATE OF SURGERY: 09/09/2022. HISTORY OF PRESENT ILLNESS: Lashon Sharma is a 77-year-old patient seen with symptomatic left knee osteoarthritis. Options for treatment were discussed with her, she elected to proceed with left total knee arthroplasty. Consent was obtained. Medical clearance was provided by Dr. Antunez. Cardiac clearance by Dr. Abby Wood. PAST MEDICAL HISTORY: Hypertension, hyperlipidemia, hypothyroidism, gastroesophageal reflux disease. PAST SURGICAL HISTORY: Noncontributory. DAILY MEDICATIONS: 1. Amiodarone. 2. Hydrochlorothiazide. 3. Levothyroxine. 4. Losartan. 5. Metoprolol. 6. Omeprazole. 7. Simvastatin. 8. Tylenol. ALLERGIES: Keflex, latex, penicillin, Relafen. SOCIAL HISTORY: Denies tobacco use. PHYSICAL EVALUATION OF LEFT KNEE: Range of motion is -3/4 to 120 degrees. Mild effusion. Tenderness, medial joint line. Crepitus along the medial patellofemoral compartments with range of motion. There is pain with patellofemoral compression. Ligaments stable. Hip rotation without pain. Distal neurovascular exam intact. RADIOGRAPHS: Radiographs of left knee revealed severe osteoarthritic changes. IMPRESSION: 1. Left knee osteoarthritis. 2. Hypertension. 3. Hyperlipidemia. 4. Hypothyroidism. PLAN: Left total knee arthroplasty. MMODL / IJN: [id number] /
[~2022-09-09 11:12] MED LIST changes: +ACETAMINOPHEN TAB 500 MG TAB PO PRN; +DEXAMETHASONE SOD PHOSPHATE 4 MG/ML 1 ML VIAL IV ONE; -LACTATED RINGERS 1,000 ML IV SCH; +MELOXICAM 7.5 MG TAB PO PRN; +MIDAZOLAM 2 MG/2 ML VIAL IV PRN; +ONDANSETRON 4 MG/2 ML VIAL IVP ONE; -SODIUM CHLORIDE 0.9% 1,000 ML IV SCH; +TRANEXAMIC 1,000 MG/100ML-NACL 1,000 MG in SALINE 1 100ML.BAG IVPB PRN
[2022-09-09] MEDS: LACTATED RINGERS 1,000 ML IV SCH (12:25)
[2022-09-09] MEDS ORDERED: fentaNYL (PF) 50 MCG/ML 2 ML AMP IVP ONE (12:41)
[2022-09-09] MEDS ORDERED: MIDAZOLAM 2 MG/2 ML VIAL IVP ONE (12:41)
[2022-09-09] MEDS ORDERED: NEOSTIGMINE 1 MG/ML 10 ML VIAL ONE (13:02)
[2022-09-09] MEDS ORDERED: GLYCOPYRROLATE 0.2 MG/ML 2 ML VIAL ONE (13:02)
[2022-09-09] MEDS ORDERED: PROPOFOL 10 MG/ML 20 ML VIAL IV ONE (13:02)
[2022-09-09] MEDS ORDERED: ePHEDrine 50 MG/ML 1 ML VIAL ONE (13:02)
[2022-09-09] MEDS ORDERED: ROCURONIUM 10 MG/ML (5 ML VIAL) IV ONE (13:02)
[2022-09-09] MEDS ORDERED: LIDOCAINE 2% INJ 20 MG/ML (2 ML VIAL) ONE (13:02)
[2022-09-09] MEDS ORDERED: MIDAZOLAM 2 MG/2 ML VIAL ONE (13:02)
[2022-09-09] MEDS ORDERED: TRANEXAMIC 1,000 MG/100ML-NACL PREMIX BAG ONE (13:02)
[2022-09-09] MEDS ORDERED: fentaNYL (PF) 50 MCG/ML 2 ML AMP ONE (13:02)
[2022-09-09] MEDS ORDERED: SUCCINYLCHOLINE CHLORIDE 200 MG/10 ML VIAL IV ONE (13:02)
[2022-09-09] MEDS ORDERED: ROPIVACAINE 5 MG/ML 30 ML VIAL ONE (13:02)
[2022-09-09] MEDS ORDERED: SODIUM CHLORIDE 0.9% (PF) 10 ML VIAL ONE (13:02)
--- NOTE | 2022-09-09 14:48 | P.OP ---
Date of Procedure: 09/09/22 Preoperative Diagnosis: Left knee osteoarthritis Postoperative Diagnosis: Left knee osteoarthritis Procedure(s) Performed: Left total knee arthroplasty Implants: 1. Depuy attune size 3 left cruciate-retaining cemented femur 2. Depuy attune size 3 fixed bearing cemented tibial baseplate 3. Depuy attune size 3 fixed bearing cruciate retaining 10 mm polyethylene tibial insert 4. Depuy attune 32 mm all polyethylene cemented patella Anesthesia: GETA, regional (Adductor canal catheter) Surgeon: Heri Baez Corporate Sales Trainer #1: Jd Stewart Estimated Blood Loss (ml): 40 Pathology: none sent Condition: stable Disposition: PACU Indications for Procedure: 77-year-old patient who was seen with symptomatic left knee osteoarthritis. After treatment options were discussed, she elected to proceed with left total knee arthroplasty. Operative Findings: See description of procedure Description of Procedure: Patient was taken to the operative suite after having an adductor canal catheter placed by the department of anesthesia. Patient underwent a general anesthetic by the department of anesthesia. Patient was given preoperative IV intake antibiotics and TXA. A well-padded tourniquet was placed about the left lower extremity. The lower extremity was then prepped and draped in the normal sterile orthopedic fashion. The extremity was elevated, a tourniquet was in sufflated to 300. A standard anterior incision was made sharply through skin. Dissection was taken down through the subcutaneous soft tissues down to the extensor mechanism. A medial arthrotomy was performed, patella was everted and knee was flexed. There was advanced osteoarthritis noted. I introduced my distal intramedullary femoral drill. I then introduced the distal femoral cutting jig. Petar MCELROY secured the cutting jig with 2 pins. I held retractors in position while Petar MCELROY performed the distal femoral resection through the guide area we now removed her distal femoral cutting guide. We now placed our 4-in-1 femoral cutting block and positioned and it was secured with 2 pins by Petar MCELROY while I held the block in position. The distal femoral finishing was now completed. A proximal tibial cutting guide was positioned. I held the guide in the appropriate position with both hands well Petar MCELROY inserted stabilizing pins into the guide. Proximal tibial cut was made. We now placed a trial femoral component into position, along with an appropriate size tibial tray and insert. We now took the knee through range of motion and had full extension good flexion and good overall soft tissue balance noted. The patella was everted and stabilized with 2 towel clips held by Petar MCELROY while I performed a flush with patellar quad tendon utilizing a fresh sawblade. We templated the patella, appropriate drill holes were made. An appropriate trial patella was positioned, knee was taken through full range of motion with the patella tracking very nicely. The trial patella was removed. Drill holes were made through the femoral component. All trial components were removed after marking off the appropriate rotation of the tibia. Retractors were now positioned along the proximal tibia. An appropriate keel punch was made with the appropriate size tibial guide by myself on Petar MCELROY assisted by holding retractors. At this point appropriate size implants were chosen and opened. The joint was irrigated copiously with pulse lavage mechanical irrigation. The wound was irrigated with pulse lavage mechanical irrigation. We mixed antibiotic methylmethacrylate. We placed the knee into flexion. We placed multiple retractors assisted by Petar MCELROY to expose the proximal tibia. Once the methyl methacrylate was ready, the tibial component was cemented into place removing any excess methylmethacrylate form by both myself and Petar MCELROY. The femoral component was cemented into place removing the removing any excess methylmethacrylate performed by both myself and Petar MCELROY. We then inserted the appropriate size polyethylene tibial insert. We made sure that it was locked into position. We took the knee into full extension, and then back in a flexion making sure we had removed any excess methylmethacrylate. The patellar component was then cemented down and secured with clamp. Excess methylmethacrylate removed. We kept the knee in full extension, patellar clamp in position until methylmethacrylate had hardened. Once it had hardened the patellar clamp was removed. The knee was taken through full range of motion. The patella tracked nicely. There was good soft tissue balancing. The tourniquet was now released. Additional hemostasis was achieved via electrocautery. A second gram of TXA was given. The wound again was irrigated with pulse lavage mechanical irrigation. The extensor mechanism was repaired with Ethibond suture. We checked the repair with range of motion and it was stable. The subcutaneous soft tissues were repaired with Vicryl in layers. The skin was approximated with pernio/Dermabond. Sterile dressings were applied followed by loose web roll and Tyler bandage. The patient was transferred to a bed, and taken to recovery in stable and satisfactory condition. Petar MCELROY assisted with this complex procedure.
[2022-09-09] MEDS ORDERED: ONDANSETRON 4 MG/2 ML VIAL IVP PRN (14:49)
[2022-09-09] MEDS ORDERED: NALOXONE 0.4 MG/ML 1 ML VIAL IV PRN (14:49)
[2022-09-09] MEDS ORDERED: HYDROcodone/APAP 5-325MG 1 EACH TAB PO PRN (14:49)
[2022-09-09] MEDS ORDERED: HYDROmorphone 0.5 MG/0.5 ML SYRINGE IVP PRN ×3 (14:49)
[2022-09-09] MEDS ORDERED: ROPIVACAINE 1,100 MG, SODIUM CHLORIDE 0.9% 500 ML 330 ML, EMPTY PAIN BALL 1 EACH MISCELLANE PRN ×2 (15:23)
[2022-09-09] MEDS: HYDROmorphone 0.5 MG/0.5 ML SYRINGE IVP PRN ×3 (15:31→16:55)
--- NOTE | 2022-09-09 15:41 | XR ---
EXAMINATION TYPE: XR knee limited LT DATE OF EXAM: 09/09/2022 COMPARISON: None HISTORY: Postop replacement TECHNIQUE: 2 view left knee FINDINGS: Tibial and femoral components in place. No acute fractures are evident. Postsurgical soft t issue changes are present. IMPRESSION: 1. No acute fractures posteriorly placement.
[2022-09-09] MEDS: SODIUM CHLORIDE 0.9% 1,000 ML IV SCH (16:06)
--- NOTE | 2022-09-09 16:56 | P.ANPRN ---
Procedure Note - Anesthesia - Nerve Block Performed Left Adductor Canal Infusion Time Out Performed: Yes (4090) Date of Procedure: 09/09/22 Procedure Start Time: 12:41 Procedure Stop Time: 12:46 Location of Patient: PreOp Indication: Acute Post-Operative Pain, Requested by Surgeon Specifically requested for management of pain by DrBartolo: Heri Baez Sedation Type: Sedate with meaningful contact maintained Preparation: Sterile Prep, Sterile Dressing Position: Supine Catheter Depth at Skin (cm): 7 Catheter: Indwelling Needle Types: Pajunk Needle Gauge: 18 Ultrasound used to visualize needle placement: Yes Ultrasound used to observe medication spread: Yes Injectate: 0.5% Ropivacaine (see comment for volume) (15cc + 5cc nacl pf) Blood Aspirated: No Pain Paresthesia on Injection Noted: No Resistance on Injection: Normal Image Stored and Saved: Yes Events: Uneventful and Well Tolerated
--- NOTE | 2022-09-09 16:57 | P.ANPRN ---
Procedure Note - Anesthesia - Nerve Block Performed iPack Time Out Performed: Yes (1240) Date of Procedure: 09/09/22 Procedure Start Time: 12:47 Procedure Stop Time: 12:49 Location of Patient: PreOp Indication: Acute Post-Operative Pain, Requested by Surgeon Specifically requested for management of pain by DrBartolo: Heri Baez Sedation Type: Sedate with meaningful contact maintained Preparation: Sterile Prep Position: Supine Catheter: None Needle Types: Pajunk Needle Gauge: 21 Ultrasound used to visualize needle placement: Yes Ultrasound used to observe medication spread: Yes Injectate: 0.5% Ropivacaine (see comment for volume) (15cc + 5cc nacl pf) Blood Aspirated: No Pain Paresthesia on Injection Noted: No Resistance on Injection: Normal Image Stored and Saved: Yes Events: Uneventful and Well Tolerated
[2022-09-09] MEDS: SENNOSIDES-DOCUSATE SODIUM 1 EACH TAB PO SCH (21:25)
[2022-09-10] MEDS: HYDROcodone/APAP 5-325MG 1 EACH TAB PO PRN ×5 (03:48→23:27)
[2022-09-10] MEDS: LACTATED RINGERS 1,000 ML IV SCH (05:04)
--- NOTE | 2022-09-10 07:26 | P.PN ---
Progress Note - Text Progress Note Date: 09/10/22 (0051) Anesthesiology Postop day 1 status post total knee arthroplasty with adductor canal catheter. Patient doing well. VAS 5 out of 10. Gross strength intact in lower extremity. Afebrile. Denies alterations in sensorium. Catheter site intact. Heart regular rate Lungs nonlabored Abdomen nondistended Assessment: Postop day 1 status post total knee arthroplasty with adductor canal catheter Plan: 1.All questions answered. Maintain catheter 2 more days with patient removal at home. Instructions to be given at discharge. 2.This note was dictated using [employer] software. Please be advised there is a potential for misspellings or errors in geriatric physician.
[2022-09-10] MEDS ORDERED: LORATADINE-PSEUDOEPH 5-120 MG 1 EACH TAB.ER.12H PO PRN (07:36)
[2022-09-10] MEDS ORDERED: ACETAMINOPHEN TAB 500 MG TAB PO PRN (07:36)
[2022-09-10] MEDS: HYDROXYCHLOROQUINE SULFATE 300 MG PO SCH (08:10)
[2022-09-10] MEDS: APIXABAN 5 MG TAB PO SCH ×3 (08:17→19:45)
--- NOTE | 2022-09-10 08:20 | P.CONS ---
History of Present Illness - Reason for Consult Consult date: 09/10/22 - History of Present Illness Lashon Sharma, he is a 77-year-old female who was admitted to [facility] by Dr. Baez, and underwent left total knee arthroplasty on 09/09/2022. Consultation was requested for medical management while hospitalized. Patient has a known history of hypertension, hyperlipidemia, hypothyroidism, atrial fibrillation, gastroesophageal reflux disease, history of Sjogren syndrome history of diverticulosis with previous history of GI bleeding , history of chronic anemia and history of osteoarthritis. On review of systems patient is alert and oriented 3 in no apparent distress there is no fever or chills no headache or dizziness no chest pain no shortness of breath no cough no nausea or vomiting no abdominal pain no diarrhea no blood in the stools no burning with urination no frequency or urgency and no hematuria. Past Medical History Past Medical History: Atrial Fibrillation, Cancer, GERD/Reflux, GI Bleed, Hyperlipidemia, Hypertension, Osteoarthritis (OA), Pneumonia Additional Past Medical History / Comment(s): Recent allergic reaction with cough, prescribed an Inhaler, which has helped. Shogren's sy ndrome/immunocompromised d/t medications/numerous pneumonias/occasional edema bilateral lower legs, hx GI bleed possibly r/t diverticulitis/colitis, had c- diff and pt states she almost from it, hx. chronic anemia, arthritis in multiple joints, past R wrist fracture/R shoulder dislocation, hx basal cell skin cancer with removal, hx Covid March 2021, low sodium in the past. History of Any Multi-Drug Resistant Organisms: C-DIFF Year Discovered:: 07/06/2014 MDRO Source:: stool Past Surgical History: Appendectomy, Breast Surgery, Cholecystectomy, Tonsillectomy Additional Past Surgical History / Comment(s): Basal cell skin cancer removed from R shoulder, colonoscopy, one oophorectomy and then one ovary 3/4 removed, R breast cysts aspirations, cardioversion X2. Past Anesthesia/Blood Transfusion Reactions: No Reported Reaction Past Psychological History: No Psychological Hx Reported Additional Psychological History / Comment(s): Pt resides alone. She is independent. Smoking Status: Never smoker Past Alcohol Use History: None Reported Past Drug Use History: None Reported - Past Family History Father Family Medical History: CVA/TIA Additional Family Medical History / Comment(s): Father at age 84 from CVA/TIA's. Mother Family Medical History: Coronary Artery Disease (CAD), Diabetes Mellitus Additional Family Medical History / Comment(s): Mother at age 57yrs from complications of her DM. Medications and Allergies Home Medications Medication Instructions Recorded Confirmed Type Hydroxychloroquine Sulfate 300 mg PO DAILY 07/15/13 09/09/22 History [Plaquenil] Simvastatin [Zocor] 20 mg PO HS 07/15/13 09/09/22 History Omeprazole 20 mg PO QAM@0530 08/08/19 09/05/22 History Magnesium Oxide [Mag-Ox] 400 mg PO HS 10/04/19 09/09/22 History Ascorbic Acid [Vitamin C] 1,000 mg PO DAILY 04/02/21 09/05/22 History Cholecalciferol [Vitamin D3 (125 125 mcg PO DAILY 04/02/21 09/05/22 History Mcg = 5000 Iu)] Apixaban [Eliquis] 5 mg PO BID #60 tab 04/05/21 09/09/22 Rx Multivitamins, Thera [Multivitamin 1 tab PO DAILY 05/09/21 09/05/22 History (formulary)] Montelukast [Singulair] 10 mg PO DAILY 07/15/22 09/09/22 History hydroCHLOROthiazide 25 mg PO QAM 07/15/22 09/09/22 History Acetaminophen Tab [Tylenol Tab] 1,000 mg PO BID PRN 07/17/22 09/09/22 History Fexofenadine/Pseudoephedrine 1 tab PO DAILY PRN 09/05/22 09/09/22 History [Ioana-D 24 Hour Tablet] Levothyroxine Sodium [Synthroid] 25 mcg PO QAM@0530 09/05/22 09/05/22 History Losartan Potassium 100 mg PO QAM 09/05/22 09/05/22 History Metoprolol Tartrate [Lopressor] 12.5 mg PO BID 09/05/22 09/05/22 History Allergies Allergy/AdvReac Type Severity Reaction Status Date / Time cephalexin monohydrate Allergy Rash/Hives Verified 09/09/22 11:37 [From Keflex] crisaborole [From Eucrisa] Allergy Anaphylaxis Verified 09/09/22 11:37 latex Allergy Itching Verified 09/09/22 11:37 methocarbamol Allergy Swelling Verified 09/09/22 11:37 nabumetone [From Relafen] Allergy Swelling Verified 09/09/22 11:37 Penicillins Allergy Unknown Verified 09/09/22 11:37 Physical Exam Vitals: Vital Signs Temp Pulse Pulse Resp BP BP Pulse Ox 09/10/22 07:18 97.6 F 65 17 114/71 94 L 09/10/22 02:00 97.9 F 71 17 139/68 97 09/09/22 20:50 69 121/76 94 L 09/09/22 20:20 63 97/63 97 09/09/22 20:05 65 132/68 96 09/09/22 19:39 97.6 F 69 147/82 94 L 09/09/22 19:35 80 147/80 96 09/09/22 18:00 68 16 133/68 100 09/09/22 17:30 65 16 140/65 99 09/09/22 17:00 70 16 133/81 100 09/09/22 16:30 65 16 132/66 98 09/09/22 16:09 62 16 131/71 98 09/09/22 15:54 62 16 123/65 98 09/09/22 15:39 66 16 140/74 99 09/09/22 15:24 68 16 132/72 99 09/09/22 15:08 97 F L 74 16 148/61 98 09/09/22 13:03 63 18 135/64 99 09/09/22 11:55 98.2 F 71 16 152/71 96 Intake and Output 09/09/22 09/10/22 09/10/22 22:59 06:59 14:59 Intake Total 600 900 Balance 600 900 Intake: IV 600 Intake, IV Titration 900 Amount Sodium Chloride 0.9% 1, 800 000 ml @ 50 mls/hr IV . Q20H [facility] Rx#:[id number] ceFAZolin 2 gm In Sodium 100 Chloride 0.9% 50 ml @ 100 mls/hr IVPB Q8H [facility] Rx#: [id number] Other: Voiding Method Toilet # Voids 2 2 Weight 69.4 kg In general patient is alert and oriented x 3 in no distress HEENT head normocephalic and atraumatic Neck is supple no JVD no goiter no lymphadenopathy no carotid bruit Chest examination is clear to auscultation no crackles no wheezing Cardiac exam reveals regular heart sounds S1 and S2 no gallops no murmurs Abdomen is soft nontender no organomegaly with normal bowel sounds Extremity exam reveals no edema no cyanosis or clubbing Neurological examination reveals no gross focal deficits Assessment and Plan Plan: Status post left total knee arthroplasty postoperative day #1 Underlying history of hypertension Underlying history of hyperlipidemia Underlying history of hypothyroidism Underlying history of atrial fibrillation Underlying history of osteoarthritis Underlying history of Sjogren syndrome patient is immunocompromised Previous history of diverticulosis with bleeding History of chronic anemia At this time patient was seen and examined on the medical floor Home medications reviewed and reordered Labs reviewed Will follow during this admission for medical management For DVT prophylaxis will resume patient home dose of Eliquis
[2022-09-10] MEDS: ASCORBIC ACID 500 MG TAB PO SCH (08:26)
[2022-09-10] MEDS: METOPROLOL TARTRATE 12.5 MG TAB PO SCH ×2 (08:26→19:46)
[2022-09-10] MEDS: LACTOBACILLUS ACIDOPHILUS/PECT 1 EACH CAPSULE PO SCH (08:27)
[2022-09-10] MEDS: CHOLECALCIFEROL 125 MCG (5000 IU) TABLET PO SCH (08:27)
[2022-09-10] MEDS: MONTELUKAST 10 MG TAB PO SCH (08:27)
[2022-09-10] MEDS: LOSARTAN 50 MG TAB PO SCH (08:27)
[2022-09-10] MEDS: MULTIVITAMINS, THERA 1 EACH TAB PO SCH (08:27)
[2022-09-10] MEDS: hydroCHLOROthiazide 25 MG TAB PO SCH (08:27)
[2022-09-10] MEDS: LEVOTHYROXINE 25 MCG TAB PO SCH (08:27)
[2022-09-10 08:49] LABS: Basophils # (A) 0 X 10*3/uL (0.00-0.10); Basophils % (A) 0 %; Eosinophils # (A) 0 X 10*3/uL (0.04-0.35); Eosinophils % (A) 0 %; HCT 31.7 % (37.2-46.3); HGB 10.5 d/dL (12.0-15.0); Lymphocytes # (A) 0.43 X 10*3/uL (0.90-5.00); Lymphocytes % (A) 5.6 %; MCH 31.8 pg (27.0-32.0); MCHC 33.1 d/dL (32.0-37.0); MCV 96.1 FL (80.0-97.0); Mean Platelet Volume 10.7 FL (9.5-12.2); Monocytes # (A) 0.56 X 10*3/uL (0.20-1.00); Monocytes % (A) 7.2 %; NRBC Per 100 WBC 0 X 10*3/uL (0.00-0.01); Neutrophils # (A) 6.69 X 10*3/uL (1.80-7.70); Neutrophils % (A) 86.6 %; Platelet Count 217 X 10*3/uL (140-440); RDW 11.9 % (11.5-14.5); WBC 7.73 X 10*3/uL (4.50-10.00)
[2022-09-10] MEDS ORDERED: ENOXAPARIN 40 MG/0.4 ML SYRINGE SQ SCH (09:00)
[2022-09-10] MEDS: SODIUM CHLORIDE 0.9% 1,000 ML IV SCH (09:51)
--- NOTE | 2022-09-10 12:10 | P.PN ---
Subjective Progress Note Date: 09/10/22 Principal diagnosis: status post left total knee arthroplasty patient is evaluated today at bedside, she is resting comfortably in her hospital chair. Patient was unable to do much activity with physical therapy today due to an increase in pain. We have adjusted her oral medication since then. Currently denies headaches, lightheadedness, chest pain or shortness of breath. Objective - Vital Signs Vital signs: Vital Signs Temp 97.6 F 09/10/22 07:18 Pulse 65 09/10/22 07:18 Resp 18 09/10/22 09:38 BP 114/71 09/10/22 07:18 Pulse Ox 95 09/10/22 08:54 FiO2 Intake & Output 09/09/22 09/10/22 09/10/22 18:59 06:59 18:59 Intake Total 1350 900 Output Total 40 Balance 1310 900 Weight 69.4 kg Intake: IV 1350 Intake, IV Titration 900 Amount Sodium Chloride 0.9% 1, 800 000 ml @ 50 mls/hr IV . Q20H [facility] Rx#:[id number] ceFAZolin 2 gm In Sodium 100 Chloride 0.9% 50 ml @ 100 mls/hr IVPB Q8H [facility] Rx#: [id number] Output: Estimated Blood Loss 40 Other: Voiding Method Toilet Toilet # Voids 2 - Exam Left lower extremity: Incision is clean, dry, and intact. The from dressing is in good condition. There is minimal soft tissue swelling and ecchymosis surrounding the medial and lateral aspects of the incision. Calf is soft, no tenderness with palpation. Plantar flexion, dorsiflexion, EHL, FHL are intact. Sensory exam to light touch throughout the extremity is intact, dorsal pedis pulses 2+. - Labs CBC & Chem 7: 09/10/22 06:11 Labs: Abnormal Lab Results - Last 24 Hours (Table) 09/10/22 Range/Units 06:11 RBC 3.30 L (4.10-5.20) X 10*6/uL Hgb 10.5 L (12.0-15.0) d/dL Hct 31.7 L (37.2-46.3) % Lymphocytes # 0.43 L (0.90-5.00) X 10*3/uL Eosinophils # 0 L (0.04-0.35) X 10*3/uL Assessment and Plan Assessment: postoperative day #1 status post left total knee arthroplasty Plan: pain control, did adjust oral medications tibial to utilize one tablet every 4 hours. DVT prophylaxis, continue current medications wound care instructions were discussed, this including icing and elevating continue daily PT, attempt stairs on 09/11/2022 Medical recommendations Discharge planning: Due to pain control and inability to work with physical therapy, we'll like to keep patient in hospital for one additional night with hopeful discharge to home on 09/11/2022 Time with Patient: Less than 30
[2022-09-10] MEDS: SENNOSIDES-DOCUSATE SODIUM 1 EACH TAB PO SCH (19:46)
[2022-09-10] MEDS ORDERED: MAGNESIUM OXIDE 400 MG TAB PO SCH (21:00)
[2022-09-10] MEDS ORDERED: ATORVASTATIN 10 MG TAB PO SCH (21:00)
[2022-09-11] MEDS: LACTATED RINGERS 1,000 ML IV SCH (00:45)
[2022-09-11] MEDS: SODIUM CHLORIDE 0.9% 1,000 ML IV SCH (00:45)
[2022-09-11] MEDS ORDERED: LEVOTHYROXINE 25 MCG TAB PO SCH (05:30)
[2022-09-11] MEDS ORDERED: PANTOPRAZOLE 40 MG TABLET PO SCH (05:30)
[2022-09-11] MEDS: HYDROcodone/APAP 5-325MG 1 EACH TAB PO PRN ×3 (05:38→11:45)
[2022-09-11] MEDS: LEVOTHYROXINE 25 MCG TAB PO SCH (05:39)
[2022-09-11 07:45] VITALS: BP 112/68; PULSE 59; RESP 16; TEMP 98.4
[2022-09-11] MEDS: LOSARTAN 50 MG TAB PO SCH (07:51)
[2022-09-11] MEDS: MONTELUKAST 10 MG TAB PO SCH (07:51)
[2022-09-11] MEDS: MULTIVITAMINS, THERA 1 EACH TAB PO SCH (07:51)
[2022-09-11] MEDS: ASCORBIC ACID 500 MG TAB PO SCH (07:51)
[2022-09-11] MEDS: LACTOBACILLUS ACIDOPHILUS/PECT 1 EACH CAPSULE PO SCH (07:51)
[2022-09-11] MEDS: APIXABAN 5 MG TAB PO SCH (07:51)
[2022-09-11] MEDS: CHOLECALCIFEROL 125 MCG (5000 IU) TABLET PO SCH (07:51)
[2022-09-11] MEDS: hydroCHLOROthiazide 25 MG TAB PO SCH (07:51)
[2022-09-11] MEDS: METOPROLOL TARTRATE 12.5 MG TAB PO SCH (07:52)
[2022-09-11] MEDS: HYDROXYCHLOROQUINE SULFATE 300 MG PO SCH (07:57)
[2022-09-11 08:43] LABS: Basophils # (A) 0.03 X 10*3/uL (0.00-0.10); Basophils % (A) 0.5 %; Eosinophils # (A) 0.16 X 10*3/uL (0.04-0.35); Eosinophils % (A) 2.8 %; HCT 30.1 % (37.2-46.3); HGB 10.2 d/dL (12.0-15.0); Lymphocytes # (A) 0.79 X 10*3/uL (0.90-5.00); Lymphocytes % (A) 13.6 %; MCH 32.3 pg (27.0-32.0); MCHC 33.9 d/dL (32.0-37.0); MCV 95.3 FL (80.0-97.0); Mean Platelet Volume 10.6 FL (9.5-12.2); Monocytes # (A) 0.65 X 10*3/uL (0.20-1.00); Monocytes % (A) 11.2 %; NRBC Per 100 WBC 0 X 10*3/uL (0.00-0.01); Neutrophils # (A) 4.14 X 10*3/uL (1.80-7.70); Neutrophils % (A) 71.6 %; Platelet Count 207 X 10*3/uL (140-440); RBC 3.16 X 10*6/uL (4.10-5.20); RDW 12.1 % (11.5-14.5); WBC 5.79 X 10*3/uL (4.50-10.00)
[2022-09-11 08:50] LABS: ALT 19 U/L (8-44); AST 27 U/L (13-35); Albumin 3.6 d/dL (3.8-4.9); Albumin/Globulin Ratio 2.12 Ratio (1.60-3.17); Alkaline Phosphatase 46 U/L (41-126); Blood Urea Nitrogen 7.2 mg/dL (9.0-27.0); Calcium 8.9 mg/dL (8.7-10.3); Carbon Dioxide 23.2 mmol/L (21.6-31.8); Chloride 90 mmol/L (96-109); Globulin 1.7 d/dL (1.6-3.3); Glucose 84 mg/dL (70-110); Potassium 3.4 mmol/L (3.5-5.5); Sodium 128 mmol/L (135-145); Total Bilirubin 0.8 mg/dL (0.3-1.2); Total Protein 5.3 d/dL (6.2-8.2)
[2022-09-11] MEDS ORDERED: ONDANSETRON 4 MG TAB PO PRN (09:53)
[2022-09-11] MEDS ORDERED: Potassium Replacement Protocol 1 EACH MISC MISCELLANE PRN (10:16)
--- NOTE | 2022-09-11 10:17 | P.PN ---
Subjective Progress Note Date: 09/11/22 Lashon Sharma, he is a 77-year-old female who was admitted to [facility] by Dr. Baez, and underwent left total knee arthroplasty on 09/09/2022. Consultation was requested for medical management while hospitalized. Patient has a known history of hypertension, hyperlipidemia, hypothyroidism, atrial fibrillation, gastroesophageal reflux disease, history of Sjogren syndrome history of diverticulosis with previous history of GI bleeding , history of chronic anemia and history of osteoarthritis. On review of systems patient is alert and oriented 3 in no apparent distress there is no fever or chills no headache or dizziness no chest pain no shortness of breath no cough no nausea or vomiting no abdominal pain no diarrhea no blood in the stools no burning with urination no frequency or urgency and no hematuria. On 09/11/2022 patient is alert and oriented 3. Patient having some nausea Zofran ordered. Patient also his history of atrial fibrillation with 2 cardioversions in the past year. Patient reports she had an episode while coughing she felt her heart racing. At this time patient does sound regular will order EKG to confirm. Patient denies chest pain or shortness of breath. Patient denies nausea vomiting or diarrhea. Patient denies any urinary burning or frequency Objective - Vital Signs Vital signs: Vital Signs Temp 98.4 F 09/11/22 07:44 Pulse 59 L 09/11/22 07:44 Resp 16 09/11/22 07:44 BP 112/68 09/11/22 07:44 Pulse Ox 96 09/11/22 07:44 FiO2 Intake & Output 09/10/22 09/11/22 09/11/22 18:59 06:59 18:59 Intake Total 980 Balance 980 Intake: Oral 980 Other: Voiding Method Toilet Toilet # Voids 1 3 - Exam In general patient is alert and oriented x 3 in no distress HEENT head normocephalic and atraumatic Neck is supple no JVD no goiter no lymphadenopathy no carotid bruit Chest examination is clear to auscultation no crackles no wheezing Cardiac exam reveals regular heart sounds S1 and S2 no gallops no murmurs Abdomen is soft nontender no organomegaly with normal bowel sounds Extremity exam reveals no edema no cyanosis or clubbing Neurological examination reveals no gross focal deficits - Labs CBC & Chem 7: 09/11/22 04:36 09/11/22 04:36 Labs: Abnormal Lab Results - Last 24 Hours (Table) 09/11/22 09/11/22 Range/Units 04:36 04:36 RBC 3.16 L (4.10-5.20) X 10*6/uL Hgb 10.2 L (12.0-15.0) d/dL Hct 30.1 L (37.2-46.3) % MCH 32.3 H (27.0-32.0) pg Lymphocytes # 0.79 L (0.90-5.00) X 10*3/uL Sodium 128 L (135-145) mmol/L Potassium 3.4 L (3.5-5.5) mmol/L Chloride 90 L (96-109) mmol/L Anion Gap 14.80 H (4.00-12.00) mmol/L BUN 7.2 L (9.0-27.0) mg/dL Total Protein 5.3 L (6.2-8.2) d/dL Albumin 3.6 L (3.8-4.9) d/dL Assessment and Plan Plan: Status post left total knee arthroplasty postoperative day #1 Underlying history of hypertension Underlying history of hyperlipidemia Underlying history of hypothyroidism Underlying history of atrial fibrillation Underlying history of osteoarthritis Underlying history of Sjogren syndrome patient is immunocompromised Previous history of diverticulosis with bleeding History of chronic anemia At this time patient was seen and examined on the medical floor Home medications reviewed and reordered Labs reviewed Will follow during this admission for medical management For DVT prophylaxis will resume patient home dose of Eliquis EKG ordered Potassium replacement protocol
--- NOTE | 2022-09-11 10:48 | P.PN ---
Subjective Progress Note Date: 09/11/22 Principal diagnosis: status post left total knee arthroplasty patient is evaluated today at bedside, she is resting comfortably in her hospital chair. Patient does notice an improvement in her overall pain control since changing the medications. She has developed a little bit of nausea today. She was able to work with physical therapy and use stairs. Currently denies headaches, lightheadedness, chest pain or shortness of breath. Objective - Vital Signs Vital signs: Vital Signs Temp 98.4 F 09/11/22 07:44 Pulse 59 L 09/11/22 07:44 Resp 16 09/11/22 07:44 BP 112/68 09/11/22 07:44 Pulse Ox 96 09/11/22 10:29 FiO2 Intake & Output 09/10/22 09/11/22 09/11/22 18:59 06:59 18:59 Intake Total 980 Balance 980 Intake: Oral 980 Other: Voiding Method Toilet Toilet # Voids 1 3 - Exam Left lower extremity: Incision is clean, dry, and intact. The from dressing is in good condition. There is minimal soft tissue swelling and ecchymosis surrounding the medial and lateral aspects of the incision. Calf is soft, no tenderness with palpation. Plantar flexion, dorsiflexion, EHL, FHL are intact. Sensory exam to light touch throughout the extremity is intact, dorsal pedis pulses 2+. - Labs CBC & Chem 7: 09/11/22 04:36 09/11/22 04:36 Labs: Abnormal Lab Results - Last 24 Hours (Table) 09/11/22 09/11/22 Range/Units 04:36 04:36 RBC 3.16 L (4.10-5.20) X 10*6/uL Hgb 10.2 L (12.0-15.0) d/dL Hct 30.1 L (37.2-46.3) % MCH 32.3 H (27.0-32.0) pg Lymphocytes # 0.79 L (0.90-5.00) X 10*3/uL Sodium 128 L (135-145) mmol/L Potassium 3.4 L (3.5-5.5) mmol/L Chloride 90 L (96-109) mmol/L Anion Gap 14.80 H (4.00-12.00) mmol/L BUN 7.2 L (9.0-27.0) mg/dL Total Protein 5.3 L (6.2-8.2) d/dL Albumin 3.6 L (3.8-4.9) d/dL Assessment and Plan Assessment: Postoperative day #2 status post left total knee arthroplasty Plan: Pain control, plan for discharge home on [place] 5 mg/325 mg. Also will utilize Zofran oral tablets for home as needed for nausea DVT prophylaxis, continue current medications Wound care instructions were discussed, this including icing and elevating Home PT/OT after discharge Medical recommendations Discharge planning: Stable for discharge to home today Time with Patient: Less than 30
--- NOTE | 2022-09-11 10:54 | P.DS ---
Providers Date of admission: 09/09/2022 Expected date of discharge: 09/11/22 Attending physician: Heri Baez Consults: 09/09/22 14:49 Consult Physician Routine Consulting Provider: Aurea Aggarwal Consult Reason/Comments: Medical management Do you want consulting provider notified?: Yes Primary care physician: Soledad Antunez Hospital Course: Date of admission: 09/09/2022 Date of discharge: 2022 Admission diagnosis: Status post left total knee arthroplasty Discharge diagnosis: Same Attending physician: Dr. Baez Surgical procedures: Left total knee arthroplasty Brief history: Patient is a 77-year-old female with a history of with progressive primary left knee osteoarthritis. At this point patient has failed conservative treatment measures and has opted to proceed with a elective left total knee arthroplasty. Hospital course: Details of patient's surgery can be found in operative report. Patient tolerated the procedure well and was subsequently transported to orthopedic floor. Patient's orthopeidc and medical care was provided daily. Patient had daily laboratory tests performed for evaluation of overall blood counts. Patient had daily physical therapy to include strengthening range of motion as well as education with walker ambulation. Patient was treated with Eliquis for their postoperative DVT prophylaxis during their inpatient stay. Patient was noted to have a relatively uneventful postoperative course. Patient reported satisfactory pain control with oral pain medications by postoperative day 2. Patient showed satisfactory progress with physical therapy. Patient moved steadily through the program and had no difficulty meeting the goals by postoperative day 2. Given patient's otherwise satisfactory course and having met physical therapy goals, plan is to discharge patient home on postoperative day 2. Discharge condition/disposition: Patient will be discharged home in stable condition. Discharge medications: Instructions are given on resumption of patient's normal daily medications per primary care recommendation, in addition patient will be prescribed [place] 5 mg/325 mg, senna S, Zofran 8 mg. Discharge instructions: 1. Wound care and infection precautions, keep incision dry and covered while showering, no lotions, creams, moisturizers. No soaking, tubs, pools, hottubs. Do not scrub over the incision. 2. Weight-bear as tolerated with walker / cane until follow-up. 3. Ice and elevate when necessary. Do not exceed 20 minutes per hour with ice pack. 4. Utilize compression sleeve until seen at first follow up appointment. 5. Visiting nursing care. 6. Home physical therapy including home CPM. 7. Pain meds and anticoagulants per prescription. 8. Pain medication has potential to cause constipation. Increase oral fluid and fiber intake. Contact primary care provider if you have not had a bowel movement within 48 hours after discharge 9. No anti-inflammatory medication until discussed at first post operative visit, this including Motrin, Aleve, Mobic, Diclofenac. 10. Follow up in office at 2 weeks postop with Petar Stewart PA-C/Vinicio Atwood 11. Follow up with your primary care doctor 7-10 days after discharge. 12. Contact [facility] with any questions, . Procedures: Left total knee arthroplasty Patient Condition at Discharge: Good Plan - Discharge Summary Discharge Rx Participant: Yes New Discharge Prescriptions: New Sennosides/Docusate Sodium [Senna-S 8.6-50 mg Tablet] 1 each PO DAILY PRN #30 tablet PRN Reason: Constipation ondansetron HCL [Zofran] 8 mg PO Q12HR #30 tab HYDROcodone/APAP 5-325MG [[place] 5-325] 1 tab PO Q4HR PRN #42 tab PRN Reason: Pain Discontinued hydroCHLOROthiazide 25 mg PO QAM No Action Simvastatin [Zocor] 20 mg PO HS Hydroxychloroquine Sulfate [Plaquenil] 300 mg PO DAILY Omeprazole 20 mg PO QAM@0530 Magnesium Oxide [Mag-Ox] 400 mg PO HS Cholecalciferol [Vitamin D3 (125 Mcg = 5000 Iu)] 125 mcg PO DAILY Ascorbic Acid [Vitamin C] 1,000 mg PO DAILY Apixaban [Eliquis] 5 mg PO BID #60 tab Multivitamins, Thera [Multivitamin (formulary)] 1 tab PO DAILY Metoprolol Tartrate [Lopressor] 12.5 mg PO BID Losartan Potassium 100 mg PO QAM Levothyroxine Sodium [Synthroid] 25 mcg PO QAM@0530 Montelukast [Singulair] 10 mg PO DAILY Acetaminophen Tab [Tylenol Tab] 1,000 mg PO BID PRN PRN Reason: Pain Fexofenadine/Pseudoephedrine [Ioana-D 24 Hour Tablet] 1 tab PO DAILY PRN PRN Reason: Allergic Reaction Discharge Medication List Hydroxychloroquine Sulfate [Plaquenil] 300 mg PO DAILY 07/15/13 [History] Simvastatin [Zocor] 20 mg PO HS 07/15/13 [History] Omeprazole 20 mg PO QAM@0530 08/08/19 [History] Magnesium Oxide [Mag-Ox] 400 mg PO HS 10/04/19 [History] Ascorbic Acid [Vitamin C] 1,000 mg PO DAILY 04/02/21 [History] Cholecalciferol [Vitamin D3 (125 Mcg = 5000 Iu)] 125 mcg PO DAILY 04/02/21 [History] Apixaban [Eliquis] 5 mg PO BID #60 tab 04/05/21 [Rx] Multivitamins, Thera [Multivitamin (formulary)] 1 tab PO DAILY 05/09/21 [History] Montelukast [Singulair] 10 mg PO DAILY 07/15/22 [History] Acetaminophen Tab [Tylenol Tab] 1,000 mg PO BID PRN 07/17/22 [History] Fexofenadine/Pseudoephedrine [Ioana-D 24 Hour Tablet] 1 tab PO DAILY PRN 09/05/22 [History] Levothyroxine Sodium [Synthroid] 25 mcg PO QAM@0530 09/05/22 [History] Losartan Potassium 100 mg PO QAM 09/05/22 [History] Metoprolol Tartrate [Lopressor] 12.5 mg PO BID 09/05/22 [History] HYDROcodone/APAP 5-325MG [[place] 5-325] 1 tab PO Q4HR PRN #42 tab 09/11/22 [Rx] Sennosides/Docusate Sodium [Senna-S 8.6-50 mg Tablet] 1 each PO DAILY PRN #30 tablet 09/11/22 [Rx] ondansetron HCL [Zofran] 8 mg PO Q12HR #30 tab 09/11/22 [Rx] Follow up Appointment(s)/Referral(s): [facility] [NON-STAFF] - As Needed (*Please call [facility] once home to arrange delivery of the Continous Passive Motion (CPM) machine. ) [facility], [NON-STAFF] - 1-2 Days ([facility] will call you to schedule your in home nursing and physical therapy visits. ) Jd Stewart, PAC [PHYSICIAN P[employer]CH [employer]TER] - 09/27/22 1:30 pm Activity/Diet/Wound Care/Special Instructions: Orthopedic Discharge Instructions: 1. Wound care and infection precautions, keep incision dry and covered while showering, no lotions, creams, moisturizers. No soaking, pools, hot tubs. Do not scrub over incision. 2. Weight-bear as tolerated with walker / cane until follow-up. 3. Ice and elevate when necessary. Do not exceed 20 minutes per hour with ice pack. 4. Utilize compression sleeve until seen at first follow up appointment. 5. Pain meds and anticoagulants per prescription. 6. Pain medication has potential to cause constipation. Increase oral fluid and fiber intake. Contact primary care provider if you have not had a bowel movement within 48 hours after discharge. 7. No anti-inflammatory medication until discussed at first post operative visit, this including Motrin, Aleve, Mobic, Diclofenac. 8. Follow up in office at 2 weeks postop with Petar Stewart PA-C/Vinicio Lucas PA-C 9. Follow up with your primary care doctor 7-10 days after discharge. 10. Contact [facility] with any questions, . Wound care instructions: 1. Okay to remove surgical dressing as 09/16/2022 2. After removal of dressing, SHOWER directly over incision Discharge Disposition: HOME WITH HOME HEALTH SERVICES
[2022-09-11] MEDS: POTASSIUM CHLORIDE ER 20 MEQ TAB.ER PO SCH ×2 (11:36→11:41)
== END 2022-09-11 14:31 | disposition home health service (06) ==
LOC: OR 11:12 → 4SSUR 15:01 → OR 09-10 12:10
PROVIDERS: ADMIT Orthopaedic Surgery; ATTEND Orthopaedic Surgery
DX: M17.12 Unilateral primary osteoarthritis, left knee (principal); G89.18 Other acute postprocedural pain; I10 Essential (primary) hypertension; E78.5 Hyperlipidemia, unspecified; E03.9 Hypothyroidism, unspecified; K21.9 Gastro-esophageal reflux disease without esophagitis; Z79.899 Other long term (current) drug therapy; Z79.890 Hormone replacement therapy; Z88.8 Allergy status to other drugs, medicaments and biological substances; Z88.0 Allergy status to penicillin; Z91.040 Latex allergy status
CPT/HCPCS: 94760 ×2; 93005; 97116; 97161; 97535; 97165; 64999; 64448; 80053; 85025 ×2; 73560; 27447; G0378 ×2; C1776; C1713 ×2; C1751; J2250; J1100; J0690 ×2; J2405; J3010; J2795; J1170

== ENCOUNTER → 2023-01-21 | Outpatient (CLI) | payer MEDICARE, BC ==
--- NOTE | 2023-01-22 23:27 | MM ---
Reason for Exam: Screening (asymptomatic). Last mammogram was performed 1 year(s) and 5 month(s) ago. Patient History: Menarche at age 7. First Full-Term at age 17. Left ovary removed at age 21. Right ovary removed at age 26. Other cancer. Estrogen for 3 years from age 55 until age 58. Hormonal Contraceptives for 10 years from age 22 until age 32. Core Biopsy on the Right side. Cyst Aspiration on the Right side. Cyst Aspiration on the Left side. Cyst Aspiration on the Left side. 08/20/1999, Benign Stereotactic Core Biopsy on the right side. 05/03/1998, Benign Excisional Biopsy on the right side. Risk Values: Idania 5 year model risk: 2.0%. NCI Lifetime model risk: 3.4%. Prior Study Comparison: 05/17/2019 Left Diagnostic Mammogram, [facility]. 09/06/2020 Bilateral Screening Mammogram, [facility]. 09/07/2021 Bilateral MG 3D screening mammo w/cad, [facility]. Tissue Density: There are scattered fibroglandular densities. Findings: Analyzed By CAD. There are benign vascular, oral cyst, and secretory calcifications on both sides. There are 2 microclips in the right breast. Additionally, an area of centrally located focal asymmetry on the right is more defined. This may represent superimposition shadow but further evaluation is recommended. Overall Assessment: Incomplete: need additional imaging evaluation, BI-RAD 0 Management: Special View Mammogram of the right breast. Diagnostic Breast Ultrasound of the right breast. Additional views including spot 3-D and 3-D lateral. Targeted right breast ultrasound if any persisting abnormality. [facility] will attempt to contact patient to return for supplemental views and ultrasound if indicated. Electronically signed and approved by: Lee Simpson M.D. Radiologist
== END | disposition home or self-care (01) ==
LOC: RADMAMWWP 11:07
PROVIDERS: ATTEND Family Medicine
DX: Z12.31 Encounter for screening mammogram for malignant neoplasm of breast (principal)
CPT/HCPCS: 77063; 77067

== ENCOUNTER → 2023-01-30 | Outpatient (CLI) | payer MEDICARE, BC ==
--- NOTE | 2023-01-30 10:45 | MM ---
Reason for Exam: Additional evaluation requested from abnormal screening. Last screening mammogram was performed less than 1 month ago. Patient History: Menarche at age 7. First Full-Term at age 17. Left ovary removed at age 21. Right ovary removed at age 26. Other cancer. Estrogen for 3 years from age 55 until age 58. Hormonal Contraceptives for 10 years from age 22 until age 32. Core Biopsy on the Right side. Cyst Aspiration on the Right side. Cyst Aspiration on the Left side. Cyst Aspiration on the Left side. 08/20/1999, Benign Stereotactic Core Biopsy on the right side. 05/03/1998, Benign Excisional Biopsy on the right side. Risk Values: Idania 5 year model risk: 2.0%. NCI Lifetime model risk: 3.4%. Tissue Density: Right: There are scattered fibroglandular densities. Findings: Analyzed By CAD. Under compression the density within the right breast appears to disperse normally. There is persistence of asymmetric density more anterior portion of the right breast on craniocaudal projection. Multiple benign-appearing calcifications remain present. Overall Assessment: Probably benign, BI-RAD 3 Management: Diagnostic Mammogram of the right breast in 6 months. A negative mammogram report should not preclude additional follow up of suspicious palpable abnormalities. Patient should continue monthly self breast exam. A clinical breast exam by your physician is recommended on an annual basis and results should be correlated with mammographic findings. Electronically signed and approved by: Mc Bedolla D.O. Radiologis
== END | disposition home or self-care (01) ==
LOC: RADMAMWWP 09:59
PROVIDERS: ATTEND Family Medicine
DX: R92.321 Mammographic fibroglandular density, right breast (principal)
CPT/HCPCS: 77065; G0279; 77061

== ENCOUNTER → 2023-07-31 | Outpatient (CLI) | payer MEDICARE, BC ==
--- NOTE | 2023-07-31 11:26 | MM ---
Reason for Exam: Follow-up at short interval from prior study. Last screening mammogram was performed 6 month(s) ago. Patient History: Menarche at age 7. First Full-Term at age 17. Left ovary removed at age 21. Right ovary removed at age 26. Other cancer. Estrogen for 3 years from age 55 until age 58. Hormonal Contraceptives for 10 years from age 22 until age 32. Core Biopsy on the Right side. Cyst Aspiration on the Right side. Cyst Aspiration on the Left side. Cyst Aspiration on the Left side. 08/20/1999, Benign Stereotactic Core Biopsy on the right side. 05/03/1998, Benign Excisional Biopsy on the right side. Risk Values: Idania 5 year model risk: 2.0%. NCI Lifetime model risk: 3.0%. Prior Study Comparison: 09/07/2021 Bilateral MG 3D screening mammo w/cad, [facility]. 01/21/2023 Bilateral MG 3D screening mammo w/cad, [facility]. 01/30/2023 Right MG 3D work up w/cad RT, [facility]. Tissue Density: Right: There are scattered areas of fibroglandular density. Findings: Analyzed By CAD. Redemonstrated benign vascular and round calcifications. Microclip breast biopsy. Areas of asymmetric density are unchanged or less pronounced. No significant change from prior exams. Overall Assessment: Benign, BI-RAD 2 Management: Screening Mammogram of both breasts in 6 months. Back on schedule. Results were given to the patient verbally at the time of exam. Patient should continue monthly self-breast exams. A clinical breast exam by your physician is recommended on an annual basis. This exam should not preclude additional follow-up of suspicious palpable abnormalities. Note on Idania scores and lifetime risk: 1. A Idania score greater than 3% is considered moderate risk. If this is the case, consider specialist referral to assess eligibility for a risk reducing agent. 2. If overall lifetime risk for the development of breast cancer is 20% or higher, the patient may qualify for future screening with alternating mammogram and breast MRI. Electronically signed and approved by: Lee Simpson M.D. Radiologist
== END | disposition home or self-care (01) ==
LOC: RADMAMWWP 10:46
PROVIDERS: ATTEND Family Medicine
DX: R92.321 Mammographic fibroglandular density, right breast (principal)
CPT/HCPCS: 77065; G0279; 77061

== ENCOUNTER 2023-08-09 12:21 | Emergency (ER) | payer MEDICARE, BC ==
--- NOTE | 2023-08-09 13:39 | ED ---
URI HPI - General Source: patient, family, RN notes reviewed Mode of arrival: ambulatory Limitations: no limitations <Kathy Swift - Last Filed: 08/09/23 17:16> <Ugo Mayfield - Last Filed: 08/09/23 18:51> - General Chief Complaint: Upper Respiratory Infection Stated Complaint: Cough, DINORA Time Seen by Provider: 08/09/23 13:37 - History of Present Illness Initial Comments: 78-year-old female presented to the ER with a chief complaint of cough. Patient reports this started on , 08-07-2023. She reports she was seen at urgent care and prescribed methylprednisone, Z-Colby, Tessalon Perles and albuterol inhaler. She states this is a deep cough and when she experiences a coughing fit she does report mild shortness of breath. She denies any chest pain, dizziness or lightheadedness. She does state that she coughed so hard that she vomits. Patient does report recent left lower extremity edema. She states throughout the day her left lower extremity will become edematous but resolves at night. She does report a left knee injury and is following up with orthopedics currently. She denies any calf tenderness or swelling. Denies any recent travel. No history of DVTs. Patient does take Eliquis daily for atrial fibrillation. She denies any fevers, abdominal pain, urinary complaints. (Kathy Swift) - Related Data Home Medications Medication Instructions Recorded Confirmed Hydroxychloroquine Sulfate 300 mg PO DAILY 07/15/13 08/09/23 [Plaquenil] Simvastatin [Zocor] 20 mg PO HS 07/15/13 08/09/23 Omeprazole 20 mg PO DAILY 08/08/19 08/09/23 Magnesium Oxide [Mag-Ox] 400 mg PO HS 10/04/19 08/09/23 Ascorbic Acid [Vitamin C] 1,000 mg PO DAILY 04/02/21 08/09/23 Cholecalciferol [Vitamin D3 (125 125 mcg PO DAILY 04/02/21 08/09/23 Mcg = 5000 Iu)] Multivitamins, Thera [Multivitamin 1 tab PO DAILY 05/09/21 08/09/23 (formulary)] Montelukast [Singulair] 10 mg PO DAILY 07/15/22 08/09/23 Acetaminophen Tab [Tylenol Tab] 1,000 mg PO Q6H PRN 07/17/22 08/09/23 Levothyroxine Sodium [Synthroid] 25 mcg PO DAILY 09/05/22 08/09/23 Losartan Potassium 100 mg PO DAILY 09/05/22 08/09/23 Metoprolol Tartrate [Lopressor] 12.5 mg PO BID 09/05/22 08/09/23 Albuterol Inhaler [Ventolin Hfa 1 - 2 puff INHALATION RT-Q6H PRN 08/09/23 08/09/23 Inhaler] Amiodarone [Cordarone] 200 mg PO DAILY 08/09/23 08/09/23 Azithromycin [Zithromax Z Pack] See Taper PO DIRECTED 08/09/23 08/09/23 Fluticasone Nasal [place] [Flonase 1 spray EA NOSTRIL DAILY PRN 08/09/23 08/09/23 Nasal [place]] L.acidoph,Paracasei, B.lactis 1 cap PO DAILY 08/09/23 08/09/23 [Probiotic] methylPREDNISolone Dose Pack See Taper PO DIRECTED 08/09/23 08/09/23 [Medrol Dose Pack] Previous Rx's Medication Instructions Recorded Apixaban [Eliquis] 5 mg PO BID #60 tab 04/05/21 Allergies Allergy/AdvReac Type Severity Reaction Status Date / Time cephalexin monohydrate Allergy Rash/Hives Verified 08/09/23 16:58 [From Keflex] crisaborole [From Eucrisa] Allergy Anaphylaxis Verified 08/09/23 16:58 latex Allergy Itching Verified 08/09/23 16:58 methocarbamol Allergy Swelling Verified 08/09/23 16:58 nabumetone [From Relafen] Allergy Swelling Verified 08/09/23 16:58 Penicillins Allergy Patient Verified 08/09/23 16:58 states it gives her C-diff Review of Systems ROS Other: All systems not noted in ROS Statement are negative. <Kathy Swift - Last Filed: 08/09/23 17:16> ROS Other: All systems not noted in ROS Statement are negative. <Ugo Mayfield - Last Filed: 08/09/23 18:51> ROS Statement: Those systems with pertinent positive or pertinent negative responses have been documented in the HPI. Past Medical History Past Medical History: Atrial Fibrillation, Cancer, GERD/Reflux, GI Bleed, Hyperlipidemia, Hypertension, Osteoarthritis (OA), Pneumonia Additional Past Medical History / Comment(s): Recent allergic reaction with cough, prescribed an Inhaler, which has helped. Shogren's syndrome/immunocompromised d/t medications/numerous pneumonias/occasional edema bilateral lower legs, hx GI bleed possibly r/t diverticulitis/colitis, had c- diff and pt states she almost from it, hx. chronic anemia, arthritis in multiple joints, past R wrist fracture/R shoulder dislocation, hx basal cell skin cancer with removal, hx Covid March 2021, low sodium in the past. History of Any Multi-Drug Resistant Organisms: C-DIFF Date of last positivie culture/infection: 07/06/2014 MDRO Source:: stool Past Surgical History: Appendectomy, Breast Surgery, Cholecystectomy, Tonsillectomy Additional Past Surgical History / Comment(s): Basal cell skin cancer removed from R shoulder, colonoscopy, one oophorectomy and then one ovary 3/4 removed, R breast cysts aspirations, cardioversion X2. Past Anesthesia/Blood Transfusion Reactions: No Reported Reaction Past Psychological History: No Psychological Hx Reported Smoking Status: Never smoker Past Alcohol Use History: None Reported Past Drug Use History: None Reported - Past Family History Father Family Medical History: CVA/TIA Additional Family Medical History / Comment(s): Father at age 84 from CVA/TIA's. Mother Family Medical History: Coronary Artery Disease (CAD), Diabetes Mellitus Additional Family Medical History / Comment(s): Mother at age 57yrs from complications of her DM. <Kathy Swift - Last Filed: 08/09/23 17:16> General Exam Limitations: no limitations General appearance: alert, in no apparent distress ENT exam: Present: normal exam, normal oropharynx, mucous membranes moist, TM's normal bilaterally Neck exam: Present: normal inspection. Absent: tenderness, meningismus, lymphadenopathy Respiratory exam: Present: rhonchi (Lower lung field) Cardiovascular Exam: Present: regular rate, normal rhythm, normal heart sounds. Absent: systolic murmur, diastolic murmur, rubs, gallop, clicks Neurological exam: Present: alert, oriented X3, CN II-XII intact Skin exam: Present: warm, dry, intact, normal color. Absent: rash <Kathy Swift - Last Filed: 08/09/23 17:16> Course Vital Signs 08/09/23 08/09/23 08/09/23 12:54 13:24 15:54 Temperature 97.9 F 97.7 F Pulse Rate 92 53 L Respiratory 18 16 16 Rate Blood Pressure 151/72 147/83 O2 Sat by Pulse 100 96 Oximetry 08/09/23 18:41 Temperature 97.5 F L Pulse Rate 57 L Respiratory 15 Rate Blood Pressure 170/74 O2 Sat by Pulse 96 Oximetry Medical Decision Making <Kathy Swift - Last Filed: 08/09/23 17:16> <Ugo Mayfield - Last Filed: 08/09/23 18:51> - Medical Decision Making Was pt. sent in by a medical professional or institution (, PA, AUTO RESEARCH ENGINEER, urgent care, hospital, or [facility]...) When possible be specific @ -No Did you speak to anyone other than the patient for history (EMS, parent, family, police, friend...)? What history was obtained from this source @ -No Did you review nursing and triage notes (agree or disagree)? Why? @ -I reviewed and agree with nursing and triage notes Were old charts reviewed (outside hosp., previous admission, EMS record, old EKG, old radiological studies, urgent care reports/EKG's, ch[facility] records)? Report findings @ -No old charts were reviewed Differential Diagnosis (chest pain, altered mental status, abdominal pain women, abdominal pain men, vaginal bleeding, weakness, fever, dyspnea, syncope, headache, dizziness, GI bleed, back pain, seizure, CVA, palpatations, mental health, musculoskeletal)? @ -COVID, RSV, influenza, viral sinusitis, pneumonia this list is not meant to be all-inclusive EKG interpreted by me (3pts min.). @ -None X-rays interpreted by me (1pt min.). @ -None done CT interpreted by me (1pt min.). @ -None done U/S interpreted by me (1pt. min.). @ -None done What testing was considered but not performed or refused? (CT, X-rays, U/S, labs)? Why? @ -None What meds were considered but not given or refused? Why? @ -Patient refused nebulized DuoNeb. Did you discuss the management of the patient with other professionals (professionals i.e. , PA, AUTO RESEARCH ENGINEER, lab, RT, psych nurse, social media designer, assistant production manager, teacher, certification officer, rn case manager hospice)? Give summary @ -No Was smoking cessation discussed for >3mins.? @ -No Was critical care preformed (if so, how long)? @ -No Were there social determinants of health that impacted care today? How? (Homelessness, low income, unemployed, alcoholism, drug addiction, transportation, low edu. Level, literacy, decrease access to med. care, senior living, rehab)? @ -No Was there de-escalation of care discussed even if they declined (Discuss DNR or withdrawal of care, Hospice)? DNR status @ -No What co-morbidities impacted this encounter? (DM, HTN, Smoking, COPD, CAD, Cancer, CVA, ARF, Chemo, Hep., AIDS, mental health diagnosis, sleep apnea, morbid obesity)? @ -None Was patient admitted / discharged? Hospital course, mention meds given and route, prescriptions, significant lab abnormalities, going to OR and other pertinent info. @ -78-year-old female presented to the ER with a chief complaint of cough. History and physical exam completed. Vitals stable. Patient no signs acute distress and nontoxic-appearing. Mild rhonchi to lower lung cramer. Patient also reports that she has been having frequent swelling of left lower extremity. She denies any history of DVT. Patient does take Eliquis daily for atrial fibrillation. COVID, RSV, influenza negative. Ultrasound and chest x-ray obtained. Patient signed out to Douglas Mayfield PA-C pending imaging results and disposition. (Kathy Swift) Discharge 78-year-old female signed out to me presenting to the ED with complaints of cough and epigastric pain with coughing. No chest pain shortness of breath. No fever or chills. Was seen at the urgent care 3 days ago and was provided a shot of steroids, discharged home with Medrol Dosepak, Tessalon Perles, azithromycin. Reports today, actually feeling improved compared to yesterday. Patient signed out to me pending imaging studies. Chest x-ray revealed no evidence of acute infiltrate or other acute process. Ultrasound revealed no evidence of DVT. EKG revealed a sinus bradycardia at [address] or T wave changes. Vital signs stable afebrile. Discharged home in stable condition. Advise continuing medications as prescribed. Advise close follow-up with her PCP. Discussed return precautions with patient who verbalized agreement. (Ugo Mayfield) - Lab Data Lab Results 08/09/23 Range/Units 14:05 Influenza Type A (PCR) Not Detected (Not Detectd) Influenza Type B (PCR) Not Detected (Not Detectd) RSV (PCR) Not Detected (Not Detectd) SARS-CoV-2 (PCR) Not Detected (Not Detectd) Disposition <Kathy Swift - Last Filed: 08/09/23 17:16> Is patient prescribed a controlled substance at d/c from ED?: No Time of Disposition: 18:51 <Ugo Mayfield - Last Filed: 08/09/23 18:51> Clinical Impression: Viral URI Disposition: HOME SELF-CARE Condition: Good Instructions (If sedation given, give patient instructions): Upper Respiratory Infection (ED) Additional Instructions: Please return to the Emergency Department if symptoms worsen or any other concerns. Please follow-up with your primary care provider. Use medications as prescribed from urgent care. Referrals: Soledad Antunez MD [Primary Care Provider] - 1-2 days
--- NOTE | 2023-08-09 17:28 | US ---
EXAMINATION TYPE: US venous doppler duplex LE LT DATE OF EXAM: 08/09/2023 3:37 PM COMPARISON: NONE CLINICAL INDICATION: Female, 78 years old with history of swelling; pain and edema SIDE PERFORMED: Left TECHNIQUE: The lower extremity deep venous system is examined utilizing real time linear array sonog breann with graded compression, doppler sonography and color-flow sonography. VESSELS IMAGED: Common Femoral Vein Deep Femoral Vein Greater Saphenous Vein * Femoral Vein Popliteal Vein Small Saphenous Vein * Proximal Calf Veins (* superficial vessels) Grayscale, color doppler, spectral doppler imaging performed of the deep veins of the lower extremiti es. There is normal flow, compressibility, vascular waveforms. Left Leg: Negative for DVT IMPRESSION: Negative for left lower extremity DVT.
--- NOTE | 2023-08-09 17:33 | XR ---
EXAMINATION TYPE: XR chest 2V DATE OF EXAM: 08/09/2023 3:59 PM CLINICAL INDICATION:Female, 78 years old with history of cough; H COMPARISON: 05/13/2022 TECHNIQUE: XR chest 2V. Frontal and lateral views of the chest.. FINDINGS: Lines/Tubes/Devices: No indwelling lines are seen. Heart/mediastinum: Heart size upper normal. Mediastinum appears normal. Pulmonary vascularity: Not increased, Lungs/Pleura: Lungs appear hyperinflated with interstitial coarsening, findings suggestive of COPD/em physema. There is no evidence of pleural effusion, focal consolidation, or pneumothorax. Similar hazi ness at the left lung base compared to prior likely related to soft tissue overlap. If any concern fo r chest wall lesion CT would be advised. Musculoskeletal: No acute osseous abnormality demonstrated in the limits of the exam. Degenerative c hanges shoulders and spine. Other findings: None. IMPRESSION: No acute cardiopulmonary abnormality.
[2023-08-09 19:01] VITALS: TEMP 97.5
[2023-08-09 19:48] VITALS: BP 165/80; PULSE 54; RESP 18
== END 2023-08-09 19:06 | disposition home or self-care (01) ==
LOC: EC 12:21
DX: J06.9 Acute upper respiratory infection, unspecified (principal); R00.1 Bradycardia, unspecified; Z88.0 Allergy status to penicillin; Z91.040 Latex allergy status; Z88.8 Allergy status to other drugs, medicaments and biological substances
CPT/HCPCS: 71046; 87636; 93005; 99285

== ENCOUNTER → 2024-02-02 | Outpatient (CLI) | payer MEDICARE, BC ==
--- NOTE | 2024-02-04 10:06 | MM ---
Reason for Exam: Screening (asymptomatic). Last screening mammogram was performed 12 month(s) ago. Patient History: Menarche at age 7. First Full-Term at age 17. Left ovary removed at age 21. Right ovary removed at age 26. Other cancer. Estrogen for 3 years from age 55 until age 58. Hormonal Contraceptives for 10 years from age 22 until age 32. Core Biopsy on the Right side. Cyst Aspiration on the Right side. Cyst Aspiration on the Left side. Cyst Aspiration on the Left side. 08/20/1999, Benign Stereotactic Core Biopsy on the right side. 05/03/1998, Benign Excisional Biopsy on the right side. Risk Values: Idania 5 year model risk: 2.0%. NCI Lifetime model risk: 3.0%. Prior Study Comparison: 01/21/2023 Bilateral MG 3D screening mammo w/cad, [facility]. 01/30/2023 Right MG 3D work up w/cad RT, [facility]. 07/31/2023 Right MG 3D diag mammo w/cad RT, [facility]. Tissue Density: The breasts are heterogeneously dense, which may obscure small masses. Findings: Analyzed By CAD. There is no suspicious group of microcalcifications or new suspicious mass in either breast. Overall Assessment: Benign, BI-RAD 2 Management: Screening Mammogram of both breasts in 1 year. . Patient should continue monthly self-breast exams. A clinical breast exam by your physician is recommended on an annual basis. This exam should not preclude additional follow-up of suspicious palpable abnormalities. Note on Idania scores and lifetime risk: 1. A Idania score greater than 3% is considered moderate risk. If this is the case, consider specialist referral to assess eligibility for a risk reducing agent. 2. If overall lifetime risk for the development of breast cancer is 20% or higher, the patient may qualify for future screening with alternating mammogram and breast MRI. [facility], , 02/04/2024 10:03 AM. Electronically signed and approved by: Negrito Arellano M.D. Radiologis
== END | disposition home or self-care (01) ==
LOC: RADMAMWWP 13:33
PROVIDERS: ATTEND Family Medicine
DX: Z12.31 Encounter for screening mammogram for malignant neoplasm of breast (principal); C56.1 Malignant neoplasm of right ovary; R92.333 Mammographic heterogeneous density, bilateral breasts; Z90.722 Acquired absence of ovaries, bilateral
CPT/HCPCS: 77063; 77067

== ENCOUNTER 2024-08-12 13:17 | Inpatient (IN) | payer MEDICARE, BC ==
--- NOTE | 2024-08-12 13:30 | ED ---
General Adult HPI - General Source: patient, RN notes reviewed <Lanette Smith - Last Filed: 08/19/24 19:53> <Yaakov Edmond - Last Filed: 09/08/24 04:48> - General Stated complaint: fall on thinners Time Seen by Provider: 08/12/24 13:25 - History of Present Illness Initial comments: Quick [id number] female presents emergency room with complaints of a fall down 3 steps in her garage. Patient states that she may have hit the left side of her head. She is endorsing neck pain, left shoulder and hip pain. States that she has been having a difficult time ambulating since the fall. Denies loss of consciousness. Is on Eliquis. (Lanette Smith) - Related Data Home Medications Medication Instructions Recorded Confirmed Hydroxychloroquine Sulfate 200 mg PO DAILY 07/15/13 08/12/24 [Plaquenil] Simvastatin [Zocor] 20 mg PO HS 07/15/13 08/12/24 Omeprazole 20 mg PO DAILY 08/08/19 08/12/24 Magnesium Oxide [Mag-Ox] 800 mg PO HS 10/04/19 08/12/24 Ascorbic Acid [Vitamin C] 1,000 mg PO DAILY 04/02/21 08/12/24 Cholecalciferol [Vitamin D3 (125 125 mcg PO DAILY 04/02/21 08/12/24 Mcg = 5000 Iu)] Multivitamins, Thera [Multivitamin 1 tab PO DAILY 05/09/21 08/12/24 (formulary)] Montelukast [Singulair] 10 mg PO DAILY 07/15/22 08/12/24 Acetaminophen Tab [Tylenol] 1,000 mg PO Q6H PRN 07/17/22 08/12/24 Levothyroxine Sodium [Synthroid] 25 mcg PO DAILY 09/05/22 08/12/24 Losartan Potassium 100 mg PO DAILY 09/05/22 08/12/24 Metoprolol Tartrate [Lopressor] 12.5 mg PO DAILY 09/05/22 08/12/24 Albuterol Inhaler [Ventolin Hfa 2 puff INHALATION RT-QID PRN 08/09/23 08/12/24 Inhaler] Amiodarone [Cordarone] 200 mg PO MOWEFR 08/09/23 08/12/24 Fluticasone Nasal Falkner [Flonase 1 spray EA NOSTRIL BID PRN 08/09/23 08/12/24 Nasal Falkner] L.acidoph,Paracasei, B.lactis 1 cap PO DAILY 08/09/23 08/12/24 [Probiotic] amLODIPine [Norvasc] 5 mg PO DAILY 08/12/24 08/12/24 Previous Rx's Medication Instructions Recorded Apixaban [Eliquis] 5 mg PO BID #60 tab 04/05/21 Cyclobenzaprine [Flexeril] 5 mg PO BID PRN #0 tab 08/16/24 Docusate [Colace] 100 mg PO BID PRN cap 08/16/24 HYDROcodone/APAP 5-325MG [[place] 1 tab PO Q6HR PRN #28 tab 08/16/24 5-325] Allergies Allergy/AdvReac Type Severity Reaction Status Date / Time cephalexin monohydrate Allergy Rash/Hives Verified 08/12/24 20:43 [From Keflex] crisaborole [From Eucrisa] Allergy Anaphylaxis Verified 08/12/24 20:43 latex Allergy Itching Verified 08/12/24 20:43 methocarbamol Allergy Swelling Verified 08/12/24 20:43 nabumetone [From Relafen] Allergy Swelling Verified 08/12/24 20:43 Penicillins Allergy Patient Verified 08/12/24 20:43 states it gives her C-diff Review of Systems ROS Other: All systems not noted in ROS Statement are negative. <Lanette Smith - Last Filed: 08/19/24 19:53> ROS Other: All systems not noted in ROS Statement are negative. <Yaakov Edmond - Last Filed: 09/08/24 04:48> ROS Statement: Those systems with pertinent positive or pertinent negative responses have been documented in the HPI. Past Medical History Past Medical History: Atrial Fibrillation, Cancer, GERD/Reflux, GI Bleed, Hyperlipidemia, Hypertension, Osteoarthritis (OA), Pneumonia Additional Past Medical History / Comment(s): Recent allergic reaction with cough, prescribed an Inhaler, which has helped. Shogren's syndrome/immunocompromised d/t medications/numerous pneumonias/occasional edema bilateral lower legs, hx GI bleed possibly r/t diverticulitis/colitis, had c- diff and pt states she almost from it, hx. chronic anemia, arthritis in multiple joints, past R wrist fracture/R shoulder dislocation, hx basal cell skin cancer with removal, hx Covid March 2021, low sodium in the past. History of Any Multi-Drug Resistant Organisms: C-DIFF Date of last positivie culture/infection: 07/06/2014 MDRO Source:: stool Past Surgical History: Appendectomy, Breast Surgery, Cholecystectomy, Tonsillectomy Additional Past Surgical History / Comment(s): Basal cell skin cancer removed from R shoulder, colonoscopy, one oophorectomy and then one ovary 3/4 removed, R breast cysts aspirations, cardioversion X2. Past Anesthesia/Blood Transfusion Reactions: No Reported Reaction Past Psychological History: No Psychological Hx Reported Smoking Status: Never smoker Past Alcohol Use History: None Reported Past Drug Use History: None Reported - Past Family History Father Family Medical History: CVA/TIA Additional Family Medical History / Comment(s): Father at age 84 from CVA/TIA's. Mother Family Medical History: Coronary Artery Disease (CAD), Diabetes Mellitus Additional Family Medical History / Comment(s): Mother at age 57yrs from complications of her DM. <Lanette Smith - Last Filed: 08/19/24 19:53> General Exam <Lanette Smith - Last Filed: 08/19/24 19:53> Limitations: no limitations General appearance: alert, in no apparent distress Head exam: Present: atraumatic, normocephalic Eye exam: Present: normal appearance. Absent: scleral icterus, conjunctival injection ENT exam: Present: normal oropharynx Neck exam: Present: normal inspection, full ROM. Absent: tenderness Respiratory exam: Present: normal lung sounds bilaterally. Absent: respiratory distress, wheezes, rales, rhonchi, stridor Cardiovascular Exam: Present: normal rhythm, bradycardia, normal heart sounds. Absent: systolic murmur, diastolic murmur, rubs, gallop GI/Abdominal exam: Present: soft. Absent: distended, tenderness, guarding, rebound, rigid, mass Extremities exam: Present: tenderness, normal capillary refill, other (Patient has pain with range of motion at left hip and at left shoulder no obvious deformity on exam). Absent: full ROM, calf tenderness Back exam: Present: normal inspection. Absent: CVA tenderness (R), CVA tenderness (L), vertebral tenderness Neurological exam: Present: alert, CN II-XII intact. Absent: motor sensory deficit Skin exam: Present: warm, dry, intact, normal color. Absent: rash <Yaakov Edmond - Last Filed: 09/08/24 04:48> - General Exam Comments Initial Comments: Visual Physical Exam Vital signs reviewed General: Well-appearing, nontoxic, no acute distress. Head: Normocephalic, atraumatic Eyes: PERRLA, EOMI ENT: Airway patent Chest: Nonlabored breathing Skin: No visual rash, normal skin tone Neuro: Alert and oriented 3 Musculoskeletal: No gross abnormalities (Sarah,Lanette) Course Vital Signs 08/12/24 08/12/24 08/12/24 13:25 20:30 21:06 Temperature 97.9 F Pulse Rate 58 L 56 L 56 L Respiratory 22 18 18 Rate Blood Pressure 155/80 123/72 123/72 O2 Sat by Pulse 99 98 98 Oximetry Medical Decision Making - Lab Data Result diagrams: 08/16/24 05:22 08/16/24 05:22 <Lanette Smith - Last Filed: 08/19/24 19:53> - Lab Data Result diagrams: 08/16/24 05:22 08/16/24 05:22 <Yaakov Edmond - Last Filed: 09/08/24 04:48> - Medical Decision Making I completed the quick note portion of this chart signed Lanette Smith PA-C (Lanette Smith) The patient had left shoulder x-ray that I interpreted as negative for acute fracture or dislocation. The patient had pelvis and left hip x-ray that I interpreted as showing left pubic bone fracture. The patient had lumbar spine x-ray that I interpreted as negative for fracture. The patient had CT scan of the brain and C-spine that I interpreted as negative for acute bony injury. Negative for acute intracranial hemorrhage mass effect or midline shift. The patient had CT scan of the pelvis that I interpreted as showing pubic bone fracture. Was pt. sent in by a medical professional or institution ([facility], QC TECH, urgent care, hospital, or senior care...) When possible be specific @ -[No] Did you speak to anyone other than the patient for history (EMS, parent, family, police, friend...)? What history was obtained from this source @ -[No] Did you review nursing and triage notes (agree or disagree)? Why? @ -[I reviewed and agree with nursing and triage notes] Were old charts reviewed (outside hosp., previous admission, EMS record, old EKG, old radiological studies, urgent care reports/EKG's, senior care records)? Report findings @ -[No old charts were reviewed] Differential Diagnosis (chest pain, altered mental status, abdominal pain women, abdominal pain men, vaginal bleeding, weakness, fever, dyspnea, syncope, headache, dizziness, GI bleed, back pain, seizure, CVA, palpatations, mental health, musculoskeletal)? @ -[Differential Musculoskeletal Muscular strain, contusion, ligament sprain, fracture, arthritis, septic arthritis, bursitis, cellulitis, muscle spasm, nerve compression, DVT, arterial occlusion, herpes zoster, electrolyte abnormality, tumor.... This is not meant to be in all inclusive list EKG interpreted by me (3pts min.). @ -[I interpreted as above] X-rays interpreted by me (1pt min.). @ -[I interpreted as above CT interpreted by me (1pt min.). @ -[I interpreted as above U/S interpreted by me (1pt. min.). @ -[None done] What testing was considered but not performed or refused? (CT, X-rays, U/S, labs)? Why? @ -[None] What meds were considered but not given or refused? Why? @ -[None] Did you discuss the management of the patient with other professionals (professionals i.e. , PA, QC TECH, lab, RT, psych nurse, social media coordinator, medical payment poster, teacher, parachute officer, assistant case manager)? Give summary @ -[Case discussed with admitting physician and treatment recommendations incorporated Was smoking cessation discussed for >3mins.? @ -[No] Was critical care preformed (if so, how long)? @ -[No] Were there social determinants of health that impacted care today? How? (Homelessness, low income, unemployed, alcoholism, drug addiction, transportation, low edu. Level, literacy, decrease access to med. care, shelter, rehab)? @ -[No] Was there de-escalation of care discussed even if they declined (Discuss DNR or withdrawal of care, Hospice)? DNR status @ -[No] What co-morbidities impacted this encounter? (DM, HTN, Smoking, COPD, CAD, Cancer, CVA, ARF, Chemo, Hep., AIDS, mental health diagnosis, sleep apnea, morbid obesity)? @ -[None] Was patient admitted / discharged? Hospital course, mention meds given and route, prescriptions, significant lab abnormalities, going to OR and other pertinent info. @ -[Patient is an 79-year-old woman here after fall and found to have pubic bone fracture. The patient also per radiology with evidence of shoulder injury, to rotator cuff. The patient not able to ambulate with a walker due to the shoulder injury and she is not able to wait on the leg with the pubic bone fracture. The patient therefore admitted to have placement at a rehab facility. Undiagnosed new problem with uncertain prognosis? @ -[No] Drug Therapy requiring intensive monitoring for toxicity (Heparin, Nitro, Insulin, Cardizem)? @ -[No] Were any procedures done? @ -[No] Diagnosis/symptom? @ -[Acute fall injury Left pubic bone fracture Left rotator cuff injury Acute, or Chronic, or Acute on Chronic? @ -[Acute Uncomplicated (without systemic symptoms) or Complicated (systemic symptoms)? @ -[Uncomplicated Side effects of treatment? @ -[No] Exacerbation, Progression, or Severe Exacerbation? @ -[No] Poses a threat to life or bodily function? How? (Chest pain, USA, ND, pneumonia, PE, COPD, DKA, ARF, appy, cholecystitis, CVA, Diverticulitis, Homicidal, Suicidal, threat to staff... and all critical care pts) @ -[No] All treatments are based on ideal body weight as in ED triage (Yaakov Edmond) Disposition Decision to Admit Reason: Admit from EC <Lanette Smith - Last Filed: 08/19/24 19:53> <Yaakov Edmond - Last Filed: 09/08/24 04:48> Clinical Impression: Fall Disposition: ADMITTED IP TO THIS HOSP Condition: Poor
--- NOTE | 2024-08-12 14:04 | CT ---
EXAMINATION TYPE: CT brain josé miguel abdul con DATE OF EXAM: 08/12/2024 COMPARISON: 12/26/2017 CLINICAL INDICATION: Female, 79 years old with history of fall, on thinners; PHH, FALL ON THINNERS TECHNIQUE: CT scan of the head and cervical spine are performed without contrast. CT DLP: [address] CTDI: mGy Automated exposure control for dose reduction was used. Findings: Head CT: Ventricles, basal cisterns and sulci over convexities within normal limits for the patient's age and there is no mass, mass effect or shift of midline structures. No abnormal density is seen throughout the brain parenchyma and there is no acute intra or extra-axia l hemorrhage. Posterior fossa including the brainstem, fourth ventricle and cerebellar pontine angles are grossly n ormal. The intraorbital contents appear normal and symmetric. There is mild inflammatory change in the left maxillary sinus. Remaining paranasal sinuses and mastoid air cells are well aerated. CT cervical spine: Craniovertebral junction relationships and prevertebral soft tissues are normal. There is cervical vertebral segments are normal in height. There is a 1 to 2 mm anterolisthesis of C3 on C4. There is moderate to marked disc space narrowing and spondylosis indicating moderate to marked degene rative disease at C4-5, C5-6 and C6-7 levels. There is mild arthritis of the facet joints and advanced osteophytosis of the uncovertebral joints in the lower cervical spine. The bony cervical canal is widely patent and there is mild bony neural for aminal encroachment at C4-5, C5-6 and C6-7 bilaterally. The paraspinal soft tissues unremarkable. IMPRESSION: 1. Head CT: No acute bleed or mass effect. 2. CT cervical spine: No acute trauma. Degenerative disc disease and osteoarthritic change in the low er cervical spine from C4 through C7 as described above. [facility], , 08/12/2024 2:02 PM
--- NOTE | 2024-08-12 15:22 | XR ---
EXAMINATION TYPE: XR shoulder complete 3 views LT, XR Hip 2 views LT and AP Pelvis DATE OF EXAM: 08/12/2024 3:12 PM COMPARISON: None CLINICAL INDICATION: Female, 79 years old with history of fall, pain; PHH, pain FINDINGS: Left shoulder: Some soft tissue swelling overlying the shoulder. AC joint appears congruent and intact. There is rou nded contour of the greater tuberosity with narrowing of the subacromial space. Osteopenia. No acute fracture, subluxation, dislocation is seen. Pelvis and left hip: Osteopenia limiting assessment. There appears to be irregularity at the level of the left pubic body. Limited due to the degree of osteopenia. SI joints appear symmetric and intact. Hips appear intact a s well without displaced fracture. IMPRESSION: 1. Left shoulder: Some soft tissue swelling overlying the shoulder. Findings suggest underlying full- thickness rotator cuff tear. No acute osseous abnormality seen. 2. Pelvis and left hip: Suspect a comminuted left pubic body fracture. The degree of osteopenia and o verlapping bowel gas limits assessment. No displaced hip fractures seen. [facility], , 08/12/2024 3:19 PM
[2024-08-12] MEDS: MORPHINE SULFATE 4 MG/ML SYRINGE IM STA (16:31)
--- NOTE | 2024-08-12 17:10 | XR ---
EXAMINATION TYPE: XR lumbar spine 2 or 3V DATE OF EXAM: 08/12/2024 CLINICAL HISTORY: pain, fall TECHNIQUE: Three views of the lumbar spine are submitted. COMPARISON: CT abdomen and pelvis 08/08/2019 FINDINGS: There are 5 lumbar type vertebral bodies identified. No acute fracture or dislocation. Grade 1 az listhesis of L4 on L5. Vertebral body heights are within normal limits. Multilevel disc space narro wing with endplate sclerosis and osteophyte formation. Multilevel facet arthropathy. The overlying so ft tissue appears unremarkable. Cholecystectomy clips in the right upper quadrant. Pelvic phleboliths . IMPRESSION: 1. No acute fracture or dislocation is seen in the lumbar spine. 2. Moderate multilevel degenerative disease and facet arthropathy. 3. Similar grade 1 anterior spondylolisthesis of L4 on L5. [facility], , 08/12/2024 5:07 PM
[2024-08-12] MEDS: fentaNYL (PF) 50 MCG/ML 2 ML AMP IVP STA (18:11)
--- NOTE | 2024-08-12 18:56 | CT ---
EXAMINATION TYPE: CT pelvis wo con CT DLP: 292.2 mGycm, Automated exposure control for dose reduction was used. DATE OF EXAM: 08/12/2024 6:38 PM COMPARISON: CT abdomen pelvis 08/08/2019, 06/10/2016, left hip and pelvic radiograph 08/12/2024 CLINICAL INDICATION:Female, 79 years old with history of evaluate suspected fracture; Left hip pain p ost fall TECHNIQUE: Standard CT of the pelvis without IV or oral contrast. Lack of IV or oral contrast limit s evaluation of solid and hollow organ viscera. Coronal and sagittal reformats were performed. 3-D re formats of the osseous structures are created and a separate workstation. FINDINGS: BLADDER: Incompletely distended but grossly unremarkable. REPRODUCTIVE: Unremarkable. BOWEL: Scattered colonic diverticula without evidence for acute diverticulitis. No focal bowel wall t hickening or surrounding inflammatory changes. No evidence of bowel obstruction. PERITONEUM: No evidence of pneumoperitoneum or free fluid. VASCULATURE: Vascular sclerosis. Pelvic phleboliths. MUSCULOSKELETAL: Acute mildly displaced fracture of the left inferior pubic ramus. Comminuted mildly displaced fracture of the left superior pubic ramus extending towards the pubic symphysis. No signifi cant widening of the pubic symphysis. Both femurs appear intact. There is asymmetric thickening of th e left obturator muscles and the left adductor thigh muscles. Small amount of hyperdense fluid identi fied within the extraperitoneal space near the left obturator internus muscle and pubic symphysis (se fernando 201, image 50 and 42). Grade 1 anterolisthesis of L4 on L5. Degenerative disc disease L4-L5 and L5-S1. Multilevel facet arth ropathy lower lumbar spine. Degenerative changes of bilateral SI joints which are intact. LYMPH NODES: No gross evidence for lymphadenopathy. SOFT TISSUE/ABDOMINAL WALL: Unremarkable IMPRESSION: Acute comminuted mildly displaced fracture of the left superior pubic ramus. Additional acute mildly displaced fracture of the left inferior pubic ramus. There is associated asymmetrical thickening of t he left obturator muscles and left adductor thigh muscle suggesting possible intramuscular hematomas. Small amount of extraperitoneal hemorrhage identified within the pelvis. [facility], , 08/12/2024 6:53 PM
[2024-08-12] MEDS ORDERED: NALOXONE 0.4 MG/ML 1 ML VIAL IV PRN (19:46)
[2024-08-12] MEDS ORDERED: fentaNYL (PF) 50 MCG/ML 2 ML AMP IVP PRN (19:52)
[2024-08-12] MEDS: SODIUM CHLORIDE 0.9% 1,000 ML IV SCH (20:24)
[2024-08-12] MEDS: ONDANSETRON 4 MG/2 ML VIAL IVP PRN (20:24)
[2024-08-12] MEDS: METOPROLOL TARTRATE 12.5 MG TAB PO SCH (22:18)
[2024-08-12] MEDS: APIXABAN 5 MG TAB PO SCH (22:18)
[2024-08-12] MEDS: MAGNESIUM OXIDE 400 MG TAB PO SCH (22:19)
[2024-08-12] MEDS: ATORVASTATIN 10 MG TAB PO SCH (22:19)
[2024-08-12] MEDS: FAMOTIDINE 20 MG TAB PO SCH (22:19)
[2024-08-13] MEDS: MAGNESIUM OXIDE 400 MG TAB PO STA (00:37)
[2024-08-13] MEDS: HYDROmorphone 0.5 MG/0.5 ML SYRINGE IVP PRN (03:34)
[2024-08-13] MEDS: LEVOTHYROXINE 25 MCG TAB PO SCH (05:49)
[2024-08-13] MEDS: PANTOPRAZOLE 40 MG TABLET PO SCH (05:56)
[2024-08-13] MEDS: CHOLECALCIFEROL 125 MCG (5000 IU) TABLET PO SCH (08:04)
[2024-08-13] MEDS: LOSARTAN 50 MG TAB PO SCH (08:05)
[2024-08-13] MEDS: AMIODARONE 200 MG TAB PO SCH (08:05)
[2024-08-13] MEDS: MONTELUKAST 10 MG TAB PO SCH (08:05)
[2024-08-13 08:21] LABS: ALT 24 U/L (8-44); AST 21 U/L (13-35); Albumin/Globulin Ratio 2.35 Ratio (1.60-3.17); Alkaline Phosphatase 55 U/L (41-126); BUN/Creat Ratio 26.67 Ratio (12.00-20.00); Carbon Dioxide 24.6 mmol/L (21.6-31.8); Chloride 93 mmol/L (96-109); Globulin 1.7 g/dL (1.6-3.3); Glucose 98 mg/dL (70-110); Magnesium 1.9 mg/dL (1.5-2.4); Potassium 3.9 mmol/L (3.5-5.5); Sodium 128 mmol/L (135-145); Total Bilirubin 0.7 mg/dL (0.3-1.2); Total Protein 5.7 g/dL (6.2-8.2)
--- NOTE | 2024-08-13 09:30 | P.HPOR ---
History of Present Illness H&P Date: 08/13/24 Chief Complaint: Left leg pain Patient is an 79-year-old female who presented to the emergency department yesterday status post fall at home. Patient admitted to orthopedics due to left superior and inferior pubic rami fractures. Patient was seen at bedside this morning sitting up in chair on 4 S. patient states yesterday she was at home about to go to an appointment to see a addictions recovery specialist when she went to close regards to her when she was about to walk down steps into the garage she slipped and landed on the concrete for on her left side. She says she began having some left shoulder pain as well as pain in the left groin/hip. Patient cannot recall hitting her head. Patient denies losing consciousness. Patient states she is normally on Eliquis at home. She does have previous left total knee arthroplasty performed by Dr. Baez. At bedside she states she is mostly having some left groin and left shoulder pain. She states in regards to the left shoulder she has had issues raising it for about a year and cannot recall any specific instance when this started. In regards to the left groin patient does have increased pain when she moves it and the pain subsides when she is resting. Patient states at home she normally ambulates independently without the use of a walker or cane. She states she does live at home alone. CT scan of the pelvis does demonstrate left-sided superior and inferior pubic rami fractures. Negative for any hip fracture. Patient denies any other issues at this time. Past Medical History Past Medical History: Atrial Fibrillation, Cancer, GERD/Reflux, GI Bleed, Hyperlipidemia, Hypertension, Osteoarthritis (OA), Pneumonia Additional Past Medical History / Comment(s): Recent allergic reaction with cough, prescribed an Inhaler, which has helped. Shogren's syndrome/immunocompromised d/t medications/numerous pneumonias/occasional edema bilateral lower legs, hx GI bleed possibly r/t diverticulitis/colitis, had c- diff and pt states she almost from it, hx. chronic anemia, arthritis in multiple joints, past R wrist fracture/R shoulder dislocation, hx basal cell skin cancer with removal, hx Covid March 2021, low sodium in the past. History of Any Multi-Drug Resistant Organisms: C-DIFF Date of last positivie culture/infection: 07/06/2014 MDRO Source:: stool Past Surgical History: Appendectomy, Breast Surgery, Cholecystectomy, Tonsillectomy Additional Past Surgical History / Comment(s): Basal cell skin cancer removed from R shoulder, colonoscopy, one oophorectomy and then one ovary 3/4 removed, R breast cysts aspirations, cardioversion X2. Past Anesthesia/Blood Transfusion Reactions: No Reported Reaction Past Psychological History: No Psychological Hx Reported Additional Psychological History / Comment(s): Pt resides alone. She is i ndependent. Smoking Status: Never smoker Past Alcohol Use History: None Reported Past Drug Use History: None Reported - Past Family History Father Family Medical History: CVA/TIA Additional Family Medical History / Comment(s): Father at age 84 from CVA/TIA's. Mother Family Medical History: Coronary Artery Disease (CAD), Diabetes Mellitus Additional Family Medical History / Comment(s): Mother at age 57yrs from complications of her DM. Medications and Allergies Home Medications Medication Instructions Recorded Confirmed Type Hydroxychloroquine Sulfate 200 mg PO DAILY 07/15/13 08/12/24 History [Plaquenil] Simvastatin [Zocor] 20 mg PO HS 07/15/13 08/12/24 History Omeprazole 20 mg PO DAILY 08/08/19 08/12/24 History Magnesium Oxide [Mag-Ox] 800 mg PO HS 10/04/19 08/12/24 History Ascorbic Acid [Vitamin C] 1,000 mg PO DAILY 04/02/21 08/12/24 History Cholecalciferol [Vitamin D3 (125 125 mcg PO DAILY 04/02/21 08/12/24 History Mcg = 5000 Iu)] Apixaban [Eliquis] 5 mg PO BID #60 tab 04/05/21 08/12/24 Rx Multivitamins, Thera [Multivitamin 1 tab PO DAILY 05/09/21 08/12/24 History (formulary)] Montelukast [Singulair] 10 mg PO DAILY 07/15/22 08/12/24 History Acetaminophen Tab [Tylenol Tab] 1,000 mg PO Q6H PRN 07/17/22 08/12/24 History Levothyroxine Sodium [Synthroid] 25 mcg PO DAILY 09/05/22 08/12/24 History Losartan Potassium 100 mg PO DAILY 09/05/22 08/12/24 History Metoprolol Tartrate [Lopressor] 12.5 mg PO DAILY 09/05/22 08/12/24 History Albuterol Inhaler [Ventolin Hfa 2 puff INHALATION RT-QID PRN 08/09/23 08/12/24 History Inhaler] Amiodarone [Cordarone] 200 mg PO MOWEFR 08/09/23 08/12/24 History Fluticasone Nasal [place] [Flonase 1 spray EA NOSTRIL BID PRN 08/09/23 08/12/24 History Nasal [place]] L.acidoph,Paracasei, B.lactis 1 cap PO DAILY 08/09/23 08/12/24 History [Probiotic] Azithromycin [Zithromax] 250 mg PO ONCE PRN 08/12/24 08/12/24 History amLODIPine [Norvasc] 5 mg PO DAILY 08/12/24 08/12/24 History Allergies Allergy/AdvReac Type Severity Reaction Status Date / Time cephalexin monohydrate Allergy Rash/Hives Verified 08/12/24 20:43 [From Keflex] crisaborole [From Eucrisa] Allergy Anaphylaxis Verified 08/12/24 20:43 latex Allergy Itching Verified 08/12/24 20:43 methocarbamol Allergy Swelling Verified 08/12/24 20:43 nabumetone [From Relafen] Allergy Swelling Verified 08/12/24 20:43 Penicillins Allergy Patient Verified 08/12/24 20:43 states it gives her C-diff Physical Examination Inspection: Negative for any open fractures, significant erythema or open wounds. Sensation: Equal, symmetric, bilaterally intact throughout the upper and lower extremities on exam Palpation: There is moderate tenderness of patient diffusely throughout the left hip. There is moderate tenderness to patient over the left shoulder diffusely. Nontender over the left clavicle Range of motion: Patient does have limited range of motion of the left hip secondary to injury and pain. Patient does have good range of motion in the left knee and left ankle on exam. Patient does have limited range of motion in the left shoulder secondary to longstanding rotator cuff tear. Does have good range of motion in the left elbow and left wrist flexion and extension. Motor: 4/5 in all major motor groups in right upper and right lower extremities. 3/5 in left shoulder and left hip on exam. Neurovascular: Radial pulse intact, 2+ bilaterally. Cap refill under 3 seconds in digits of upper extremities. Special test: Negative Homans bilaterally. Negative clonus bilaterally. negative Diane bilaterally. Positive drop can test the left upper extremity Results - Labs Labs: Abnormal Lab Results - Last 24 Hours (Table) 08/13/24 Range/Units 05:12 Sodium 128 L (135-145) mmol/L Chloride 93 L (96-109) mmol/L BUN/Creatinine Ratio 26.67 H (12.00-20.00) Ratio Total Protein 5.7 L (6.2-8.2) g/dL Result Diagrams: 08/13/24 05:12 - Diagnostic results Hip CT: report reviewed, image reviewed (CT scan of the pelvis does reveal left- sided superior and inferior pubic rami fractures which are stable in nature. Negative for any hip fractures.) Assessment and Plan Assessment: 1. Superior and inferior pubic rami fracture, left side -status post ffs; left shoulder rotator cuff tear, chronic Plan: 1. Superior and inferior pubic rami fracture, left side; left shoulder rotator cuff tear, chronic -I discussed the findings of the imaging and exam with my attending, Dr. Beaulieu. At this time we are not recommending any emergent/urgent orthopedic surgical intervention. We are recommending conservative measures with the use of pain medication and sling to the left upper extremity for comfort. Patient may weight-bear as tolerated with the aid of a walker and assistance. Patient does live alone at home. Patient would likely benefit from rehab upon discharge from the hospital. Case management working on rehab place ment. Appreciate medical recommendations. Patient is stable from orthopedic standpoint for discharge. Orthopedics will be available as needed to see the patient during her stay in hospital. 2. Appreciate medical management 3. Pain management -Tylenol 4. DVT prophylaxis -Eliquis 5. GI prophylaxis -Colace Pepcid Protonix 6. PT/OT -weightbearing as tolerated with assistance of walker; encouraged to perform gentle range of motion exercises of the left upper extremity; sling to left upper extremity for comfort 7. Encourage incentive spirometer use 8. Discharge planning -plan for discharge to rehab Time with Patient: Less than 30
--- NOTE | 2024-08-13 11:21 | P.CONS ---
History of Present Illness - Reason for Consult Consult date: 08/13/24 medical management - History of Present Illness Lashon Sharma is a 79 year old female patient who presents ER after sustaining a fall down 3 steps. Patient reports she feels like her knee gave out which sometimes happens denies any loss of consciousness or chest pain prior to incident. Testing in the emergency room revealed head CT showing no acute bleed or mass effect no acute trauma to cervical spine degenerative disc disease and osteoarthritic change in the lower cervical spine from C4-C7. Hip x-ray completed showing suspected commuted left pubic bone body fracture the degree of osteopenia and overlapping bowel gas limits assessment left shoulder x-ray completed showing underlying full-thickness rotator cuff tear. Lumbar x-ray showing no acute fracture or dislocation pelvis CT completed showing fractures o f left superior pubic ramus asymmetrical thickening of the left muscles and left adductor thigh muscle suggesting possible intramuscular hematomas small amount of extraperitoneal hemorrhage identified in the pelvis. Patient has a past medical history of atrial fibrillation which she is maintained on Eliquis., GERD, GI bleed, hyperlipidemia, hypertension, osteoarthritis. This time patient is sitting comfortably in chair. Patient does report she needs 2-3 people to move at this time understand she will likely need to go to rehab patient was evaluated by orthopedic services no surgical intervention planned at this time. Will order repeat labs and urinary analysis. Patient denies chest pain or shortness of breath. Patient denies nausea vomiting or diarrhea. Patient denies any urinary burning or frequency Review of Systems Please refer to HPI otherwise unremarkable Past Medical History Past Medical History: Atrial Fibrillation, Cancer, GERD/Reflux, GI Bleed, Hyperlipidemia, Hypertension, Osteoarthritis (OA), Pneumonia Additional Past Medical History / Comment(s): Recent allergic reaction with cough, prescribed an Inhaler, which has helped. Shogren's syndrome/immunocompromised d/t medications/numerous pneumonias/occasional edema bilateral lower legs, hx GI bleed possibly r/t diverticulitis/colitis, had c- diff and pt states she almost from it, hx. chronic anemia, arthritis in mu ltiple joints, past R wrist fracture/R shoulder dislocation, hx basal cell skin cancer with removal, hx Covid March 2021, low sodium in the past. History of Any Multi-Drug Resistant Organisms: C-DIFF Year Discovered:: 07/06/2014 MDRO Source:: stool Past Surgical History: Appendectomy, Breast Surgery, Cholecystectomy, Tonsillectomy Additional Past Surgical History / Comment(s): Basal cell skin cancer removed from R shoulder, colonoscopy, one oophorectomy and then one ovary 3/4 removed, R breast cysts aspirations, cardioversion X2. Past Anesthesia/Blood Transfusion Reactions: No Reported Reaction Past Psychological History: No Psychological Hx Reported Additional Psychological History / Comment(s): Pt resides alone. She is independent. Smoking Status: Never smoker Past Alcohol Use History: None Reported Past Drug Use History: None Reported - Past Family History Father Family Medical History: CVA/TIA Additional Family Medical History / Comment(s): Father at age 84 from CVA/TIA's. Mother Family Medical History: Coronary Artery Disease (CAD), Diabetes Mellitus Additional Family Medical History / Comment(s): Mother at age 57yrs from complications of her DM. Medications and Allergies Home Medications Medication Instructions Recorded Confirmed Type Hydroxychloroquine Sulfate 200 mg PO DAILY 07/15/13 08/12/24 History [Plaquenil] Simvastatin [Zocor] 20 mg PO HS 07/15/13 08/12/24 History Omeprazole 20 mg PO DAILY 08/08/19 08/12/24 History Magnesium Oxide [Mag-Ox] 800 mg PO HS 10/04/19 08/12/24 History Ascorbic Acid [Vitamin C] 1,000 mg PO DAILY 04/02/21 08/12/24 History Cholecalciferol [Vitamin D3 (125 125 mcg PO DAILY 04/02/21 08/12/24 History Mcg = 5000 Iu)] Apixaban [Eliquis] 5 mg PO BID #60 tab 04/05/21 08/12/24 Rx Multivitamins, Thera [Multivitamin 1 tab PO DAILY 05/09/21 08/12/24 History (formulary)] Montelukast [Singulair] 10 mg PO DAILY 07/15/22 08/12/24 History Acetaminophen Tab [Tylenol Tab] 1,000 mg PO Q6H PRN 07/17/22 08/12/24 History Levothyroxine Sodium [Synthroid] 25 mcg PO DAILY 09/05/22 08/12/24 History Losartan Potassium 100 mg PO DAILY 09/05/22 08/12/24 History Metoprolol Tartrate [Lopressor] 12.5 mg PO DAILY 09/05/22 08/12/24 History Albuterol Inhaler [Ventolin Hfa 2 puff INHALATION RT-QID PRN 08/09/23 08/12/24 History Inhaler] Amiodarone [Cordarone] 200 mg PO MOWEFR 08/09/23 08/12/24 History Fluticasone Nasal [place] [Flonase 1 spray EA NOSTRIL BID PRN 08/09/23 08/12/24 History Nasal [place]] L.acidoph,Paracasei, B.lactis 1 cap PO DAILY 08/09/23 08/12/24 History [Probiotic] Azithromycin [Zithromax] 250 mg PO ONCE PRN 08/12/24 08/12/24 History amLODIPine [Norvasc] 5 mg PO DAILY 08/12/24 08/12/24 History Allergies Allergy/AdvReac Type Severity Reaction Status Date / Time cephalexin monohydrate Allergy Rash/Hives Verified 08/12/24 20:43 [From Keflex] crisaborole [From Eucrisa] Allergy Anaphylaxis Verified 08/12/24 20:43 latex Allergy Itching Verified 08/12/24 20:43 methocarbamol Allergy Swelling Verified 08/12/24 20:43 nabumetone [From Relafen] Allergy Swelling Verified 08/12/24 20:43 Penicillins Allergy Patient Verified 08/12/24 20:43 states it gives her C-diff Physical Exam Vitals: Vital Signs Temp Pulse Pulse Resp BP BP Pulse Ox 08/13/24 06:55 97.9 F 59 L 18 118/68 96 08/13/24 00:31 98.0 F 50 L 17 108/58 93 L 08/12/24 21:08 97.7 F 60 16 133/62 96 08/12/24 21:06 56 L 18 123/72 98 08/12/24 20:30 56 L 18 123/72 98 08/12/24 13:25 97.9 F 58 L 22 155/80 99 Intake and Output 08/12/24 08/13/24 08/13/24 22:59 06:59 14:59 Intake Total 1080 Balance 1080 Intake: Oral 1080 Other: Voiding Method External Catheter # Voids 1 1 Weight 60.328 kg Head normocephalic Neck supple Lungs clear to auscultation bilaterally no wheezing or crackles Heart regular rate and rhythm S1-S2, no rub or gallop Abdomen is soft nontender nondistended positive bowel sounds no hepatosplenomegaly Extremities no edema Neuro alert and orientated to 3 Results CBC & Chem 7: 08/13/24 05:12 Labs: Abnormal Lab Results - Last 24 Hours (Table) 08/13/24 Range/Units 05:12 Sodium 128 L (135-145) mmol/L Chloride 93 L (96-109) mmol/L BUN/Creatinine Ratio 26.67 H (12.00-20.00) Ratio Total Protein 5.7 L (6.2-8.2) g/dL Assessment and Plan Assessment: Status post fall with superior and inferior pubic rami fracture and left shou lder rotator cuff tear History of atrial fibrillation maintained on Eliquis History of GERD History of essential hypertension History of hyperlipidemia History of pneumonia Thank you for this consultation we will continue to follow patient closely throughout stay Repeat labs ordered Patient resumed back on Eliquis per orthopedic services for DVT prophylaxis Social work services consulted for subacute rehab PT OT services following
[2024-08-13 13:41] LABS: Appearance,Urine Clear (Clear); Bilirubin,Urine Negative (Negative); Blood,Urine Negative (Negative); Color,Urine Colorless; Glucose,Urine (UA) Negative (Negative); Ketones,Urine Negative (Negative); Leukocyte Esterase,Urine Negative (Negative); Nitrite,Urine Negative (Negative); PH, Urine 6.5 (5.0-8.0); Protein,Urine Negative (Negative); Specific Gravity,Urine 1.012 (1.001-1.035); Urobilinogen,Urine <2.0 mg/dL (<2.0)
--- NOTE | 2024-08-13 17:33 | XR ---
EXAMINATION TYPE: XR chest 1V DATE OF EXAM: 08/13/2024 5:29 PM COMPARISON: Chest radiographs from 08/09/2023. CLINICAL INDICATION: Female, 79 years old with history of left chest pain; [facility] TECHNIQUE: XR chest 1V Frontal view of the chest. FINDINGS: Lungs/Pleura: There is flattening of the diaphragm with increased lucency of the lungs. No evidence o f pneumothorax, pleural effusion or focal consolidation. Pulmonary vascularity: Unremarkable. Heart/mediastinum: Cardiomediastinal silhouette is unremarkable. Musculoskeletal: No acute osseous pathology. IMPRESSION: 1. No acute cardiopulmonary disease process. 2. COPD changes. [facility], , 08/13/2024 5:31 PM
[2024-08-13 20:11] LABS: HCT 33.9 % (37.2-46.3); HGB 11.7 g/dL (12.0-15.0); MCH 33.7 pg (27.0-32.0); MCHC 34.5 g/dL (32.0-37.0); MCV 97.7 fL (80.0-97.0); Mean Platelet Volume 9.7 fL (9.5-12.2); Platelet Count 224 10*3/uL (140-440); RBC 3.47 10*6/uL (4.10-5.20); RDW 12.1 % (11.5-14.5); WBC 9.89 10*3/uL (4.50-10.00)
[2024-08-13] MEDS: MAGNESIUM OXIDE 400 MG TAB PO SCH (20:42)
[2024-08-13] MEDS: ACETAMINOPHEN TAB 325 MG TAB PO PRN (20:43)
[2024-08-14] MEDS: METOPROLOL TARTRATE 12.5 MG TAB PO SCH (08:52)
[2024-08-14 09:39] LABS: HCT 32.9 % (37.2-46.3); HGB 11.1 g/dL (12.0-15.0); MCH 32.6 pg (27.0-32.0); MCHC 33.7 g/dL (32.0-37.0); MCV 96.8 FL (80.0-97.0); Mean Platelet Volume 10.5 FL (9.5-12.2); NRBC Per 100 WBC 0 X 10*3/uL (0.00-0.01); Platelet Count 229 X 10*3/uL (140-440); RDW 12.1 % (11.5-14.5); WBC 7.43 X 10*3/uL (4.50-10.00)
[2024-08-14 09:40] LABS: Basophils # (A) 0.02 X 10*3/uL (0.00-0.10); Basophils % (A) 0.3 %; Eosinophils # (A) 0.07 X 10*3/uL (0.04-0.35); Eosinophils % (A) 0.9 %; Lymphocytes # (A) 0.63 X 10*3/uL (0.90-5.00); Lymphocytes % (A) 8.5 %; Monocytes # (A) 0.71 X 10*3/uL (0.20-1.00); Monocytes % (A) 9.6 %; Neutrophils # (A) 5.97 X 10*3/uL (1.80-7.70); Neutrophils % (A) 80.3 %
[2024-08-14 10:03] LABS: ALT 22 U/L (8-44); AST 18 U/L (13-35); Albumin/Globulin Ratio 2.11 Ratio (1.60-3.17); Alkaline Phosphatase 58 U/L (41-126); BUN/Creat Ratio 27.33 Ratio (12.00-20.00); Blood Urea Nitrogen 16.4 mg/dL (9.0-27.0); Calcium 8.9 mg/dL (8.7-10.3); Carbon Dioxide 22.7 mmol/L (21.6-31.8); Chloride 95 mmol/L (96-109); Globulin 1.9 g/dL (1.6-3.3); Glucose 96 mg/dL (70-110); Potassium 4.3 mmol/L (3.5-5.5); Sodium 129 mmol/L (135-145); Total Bilirubin 0.8 mg/dL (0.3-1.2); Total Protein 5.9 g/dL (6.2-8.2)
--- NOTE | 2024-08-14 10:12 | P.PN ---
Subjective Progress Note Date: 08/14/24 Lashon Sharma is a 79 year old female patient who presents ER after sustaining a fall down 3 steps. Patient reports she feels like her knee gave out which sometimes happens denies any loss of consciousness or chest pain prior to incident. Testing in the emergency room revealed head CT showing no acute bleed or mass effect no acute trauma to cervical spine degenerative disc disease and osteoarthritic change in the lower cervical spine from C4-C7. Hip x-ray completed showing suspected commuted left pubic bone body fracture the degree of osteopenia and overlapping bowel gas limits assessment left shoulder x-ray completed showing underlying full-thickness rotator cuff tear. Lumbar x-ray showing no acute fracture or dislocation pelvis CT completed showing fractures of left superior pubic ramus asymmetrical thickening of the left muscles and left adductor thigh muscle suggesting possible intramuscular hematomas small amount of extraperitoneal hemorrhage identified in the pelvis. Patient has a past medical history of atrial fibrillation which she is maintained on Eliquis., GERD, GI bleed, hyperlipidemia, hypertension, osteoarthritis. This time patient is sitting comfortably in chair. Patient does report she needs 2-3 people to move at this time understand she will likely need to go to rehab patient was evaluated by orthopedic services no surgical intervention planned at this time. Will order repeat labs and urinary analysis. Patient denies chest pain or shortness of breath. Patient denies nausea vomiting or diarrhea. Patient denies any urinary burning or frequency On 08/14/2024 patient was seen and examined on the medical floor she is alert and oriented x 3 in no apparent distress she is still complaining of severe pain in her pelvic area and her shoulder, otherwise she denies any complaints, patient gave today and updated list of her medications, which included different doses for metoprolol and amiodarone, and addition of Flonase, medication were adjusted per patient most recent list. Otherwise she denies any complaints there is no fever or chills no headache or dizziness no chest pain no shortness of breath no cough no nausea or vomiting no abdominal pain no diarrhea and no urinary symptoms. Patient still has mild hyponatremia, will continue to monitor. Sodium today is up to 129. She is requesting podiatry consult. Possible transfer to rehab on Friday. Objective - Vital Signs Vital signs: Vital Signs Temp 97.7 F 08/14/24 06:43 Pulse 60 08/14/24 08:47 Resp 16 08/14/24 06:43 BP 124/69 08/14/24 06:43 Pulse Ox 97 08/14/24 06:43 FiO2 Intake & Output 08/13/24 08/14/24 08/14/24 18:59 06:59 18:59 Other: Voiding Method External Catheter # Voids 1 3 - Exam In general patient is alert and oriented x 3 in no apparent distress Head normocephalic and atraumatic Neck supple no JVD no goiter Lungs clear to auscultation bilaterally no wheezing or crackles Heart regular rate and rhythm S1-S2, no rub or gallop Abdomen is soft nontender nondistended positive bowel sounds no hepatosplenomegaly Extremities no edema Neuro alert and orientated to 3, no gross focal deficit - Labs CBC & Chem 7: 08/14/24 04:33 08/14/24 04:33 Labs: Abnormal Lab Results - Last 24 Hours (Table) 08/13/24 08/14/24 08/14/24 Range/Units 19:57 04:33 04:33 RBC 3.47 L 3.40 L (4.10-5.20) 10*6/uL Hgb 11.7 L 11.1 L (12.0-15.0) g/dL Hct 33.9 L 32.9 L (37.2-46.3) % MCV 97.7 H (80.0-97.0) fL MCH 33.7 H 32.6 H (27.0-32.0) pg Lymphocytes # 0.63 L (0.90-5.00) X 10*3/uL Sodium 129 L (135-145) mmol/L Chloride 95 L (96-109) mmol/L BUN/Creatinine Ratio 27.33 H (12.00-20.00) Ratio Total Protein 5.9 L (6.2-8.2) g/dL Assessment and Plan Plan: Status post fall with superior and inferior pubic rami fracture and left shoulder rotator cuff tear History of atrial fibrillation maintained on Eliquis History of GERD History of essential hypertension History of hyperlipidemia History of pneumonia Thank you for this consultation we will continue to follow patient closely throughout stay Repeat labs ordered Patient resumed back on Eliquis per orthopedic services for DVT prophylaxis Social work services consulted for subacute rehab PT OT services following
[2024-08-14] MEDS ORDERED: CYCLOBENZAPRINE 5 MG TAB PO PRN (11:26)
--- NOTE | 2024-08-14 11:26 | P.PN ---
Subjective Progress Note Date: 08/14/24 Principal diagnosis: Left shoulder pain, left-sided superior and inferior pubic rami fractures, status post fall from standing Patient was evaluated at bedside, she was up resting in her hospital chair. Patient notes discomfort in the left sided pelvic region with weightbearing. She is rather comfortable when she is sitting. Therapy was able to get her to the chair with the assistance of the walker. She still complains of left shoulder pain mainly with lateral movement and trying to raise it above her head. Apparently she has been dealing with this shoulder problem for about a year or so, she has not been evaluated by our orthopedic practice at this time. She denies headaches, headedness, chest pain or shortness of breath Objective - Vital Signs Vital signs: Vital Signs Temp 97.7 F 08/14/24 06:43 Pulse 60 08/14/24 08:47 Resp 16 08/14/24 06:43 BP 124/69 08/14/24 06:43 Pulse Ox 97 08/14/24 06:43 FiO2 Intake & Output 08/13/24 08/14/24 08/14/24 18:59 06:59 18:59 Other: Voiding Method External Catheter # Voids 1 3 - Exam General orthopedic exam: No open lesions or sores surrounding the left shoulder, there is no effusion present. She does have decent range of motion, forward elevation she goes to about 140, abduction is about 110 degrees before pain is reproduced. She notes pain on the anterior aspect of the shoulder along with the posterior lateral side. Negative drop arm test. Positive crossarm abduction test. range of motion is intact throughout the elbow, wrist and hand. Sensory exam to light touch is intact throughout the extremity. Radial and ulnar pulse are 2+ No tenderness with palpation surrounding the proximal femur. Logroll maneuver reproduces minimal discomfort, straight leg raise reproduces minimal discomfort. range of motion is intact at the knee, foot and ankle. Compartments of the upper and lower leg are soft and compressible. Calf is soft, no tenderness with palpation. Plantarflexion, dorsiflexion, EHL, FHL are intact. Dorsalis pedis pulses 2+, sensory exam to light touch is intact throughout the extremity - Labs CBC & Chem 7: 08/14/24 04:33 08/14/24 04:33 Labs: Abnormal Lab Results - Last 24 Hours (Table) 08/13/24 08/14/2408/14/25 Range/Units 19:57 04:33 04:33 RBC 3.47 L 3.40 L (4.10-5.20) 10*6/uL Hgb 11.7 L 11.1 L (12.0-15.0) g/dL Hct 33.9 L 32.9 L (37.2-46.3) % MCV 97.7 H (80.0-97.0) fL MCH 33.7 H 32.6 H (27.0-32.0) pg Lymphocytes # 0.63 L (0.90-5.00) X 10*3/uL Sodium 129 L (135-145) mmol/L Chloride 95 L (96-109) mmol/L BUN/Creatinine Ratio 27.33 H (12.00-20.00) Ratio Total Protein 5.9 L (6.2-8.2) g/dL Assessment and Plan Assessment: Left-sided superior and inferior pubic rami fractures Left shoulder pain Left shoulder impingement Left shoulder possible rotator cuff tear Other medical comorbidities Plan: With regards to the pelvic fractures, continue conservative measures, will adju st oral medications to try to prevent IV pain medication. Also make sure oral stool softeners are on board. She can ice the area as needed Weight-bear as tolerated with walker PT/OT recommendations appreciated GI and DVT prophylaxis per primary medical service With regards to the left shoulder, considering a cortisone injection pending outpatient symptoms are over the next 24-48 hours. Will discuss this in further detail with her Discharge planning: Case management is looking into subacute rehab for discharge on 08/15/2024 Time with Patient: Less than 30
[2024-08-14] MEDS: HYDROcodone/APAP 5-325MG 1 EACH TAB PO PRN (11:32)
[2024-08-14] MEDS: FLUTICASONE NASAL 50MCG/SPRAY 16GM BTL EA NOSTRIL SCH (12:40)
[2024-08-14] MEDS: DOCUSATE 100 MG CAP PO PRN (21:01)
[2024-08-15 09:54] LABS: ALT 18 U/L (8-44); AST 15 U/L (13-35); Albumin 3.7 g/dL (3.8-4.9); Albumin/Globulin Ratio 2.18 Ratio (1.60-3.17); Alkaline Phosphatase 52 U/L (41-126); BUN/Creat Ratio 24.71 Ratio (12.00-20.00); Blood Urea Nitrogen 17.3 mg/dL (9.0-27.0); Carbon Dioxide 25.5 mmol/L (21.6-31.8); Chloride 98 mmol/L (96-109); Globulin 1.7 g/dL (1.6-3.3); Glucose 99 mg/dL (70-110); Potassium 5.1 mmol/L (3.5-5.5); Sodium 131 mmol/L (135-145); Total Bilirubin 0.7 mg/dL (0.3-1.2); Total Protein 5.4 g/dL (6.2-8.2)
--- NOTE | 2024-08-15 10:12 | P.PN ---
Subjective Progress Note Date: 08/15/24 Principal diagnosis: Left shoulder pain, left-sided superior and inferior pubic rami fractures, status post fall from standing Patient was evaluated at bedside, she was up resting in her hospital chair. Patient continues to need quite a bit of assistance with ambulation due to the left-sided pelvic pain. She continues to have shoulder discomfort along the posterior lateral aspect. She denies headaches, headedness, chest pain or shortness of breath Objective - Vital Signs Vital signs: Vital Signs Temp 97.8 F 08/15/24 07:39 Pulse 61 08/15/24 07:39 Resp 18 08/15/24 07:39 BP 111/54 08/15/24 07:39 Pulse Ox 97 08/15/24 07:39 FiO2 Intake & Output 08/14/24 08/15/24 08/15/24 18:59 06:59 18:59 Other: Voiding Method Bedside Commode # Voids 2 3 - Exam General orthopedic exam: No open lesions or sores surrounding the left shoulder, there is no effusion present. She does have decent range of motion, forward elevation she goes to about 140, abduction is about 110 degrees before pain is reproduced. She notes pain on the anterior aspect of the shoulder along with the posterior lateral side. Negative drop arm test. Positive crossarm abduction test. range of motion is intact throughout the elbow, wrist and hand. Sensory exam to light touch is intact throughout the extremity. Radial and ulnar pulse are 2+ No tenderness with palpation surrounding the proximal femur. Logroll maneuver reproduces minimal discomfort, straight leg raise reproduces minimal discomfort. range of motion is intact at the knee, foot and ankle. Compartments of the upper and lower leg are soft and compressible. Calf is soft, no tenderness with palpation. Plantarflexion, dorsiflexion, EHL, FHL are intact. Dorsalis pedis pulses 2+, sensory exam to light touch is intact throughout the extremity - Labs CBC & Chem 7: 08/14/24 04:33 08/15/24 04:28 Labs: Abnormal Lab Results - Last 24 Hours (Table) 08/15/24 Range/Units 04:28 Sodium 131 L (135-145) mmol/L BUN/Creatinine Ratio 24.71 H (12.00-20.00) Ratio Total Protein 5.4 L (6.2-8.2) g/dL Albumin 3.7 L (3.8-4.9) g/dL Assessment and Plan Assessment: Left-sided superior and inferior pubic rami fractures Left shoulder pain Left shoulder impingement Left shoulder possible rotator cuff tear Other medical comorbidities Plan: Continue conservative measures, this to include muscle relaxers and pain medication as needed. Icing of the left pelvic region Weight-bear as tolerated with walker PT/OT recommendations appreciated GI and DVT prophylaxis per primary medical service We again discussed the possibility of a cortisone shot for the left shoulder, she would like to proceed with this. We will plan for 08/16/2024. Discharge planning: Case management is looking into subacute rehab for discharge on 08/15/2024
[2024-08-15 10:28] LABS: Basophils # (A) 0.04 X 10*3/uL (0.00-0.10); Basophils % (A) 0.6 %; Eosinophils # (A) 0.07 X 10*3/uL (0.04-0.35); Eosinophils % (A) 1.1 %; HCT 33.2 % (37.2-46.3); HGB 10.8 g/dL (12.0-15.0); Lymphocytes # (A) 0.74 X 10*3/uL (0.90-5.00); Lymphocytes % (A) 11.2 %; MCH 32.4 pg (27.0-32.0); MCHC 32.5 g/dL (32.0-37.0); MCV 99.7 FL (80.0-97.0); Mean Platelet Volume 10.5 FL (9.5-12.2); Monocytes # (A) 0.75 X 10*3/uL (0.20-1.00); Monocytes % (A) 11.3 %; NRBC Per 100 WBC 0 X 10*3/uL (0.00-0.01); Neutrophils # (A) 4.99 X 10*3/uL (1.80-7.70); Neutrophils % (A) 75.3 %; Platelet Count 234 X 10*3/uL (140-440); RBC 3.33 X 10*6/uL (4.10-5.20); RDW 12.5 % (11.5-14.5); WBC 6.62 X 10*3/uL (4.50-10.00)
--- NOTE | 2024-08-15 10:32 | P.PN ---
Subjective Progress Note Date: 08/15/24 Lashon Sharma is a 79 year old female patient who presents ER after sustaining a fall down 3 steps. Patient reports she feels like her knee gave out which sometimes happens denies any loss of consciousness or chest pain prior to incident. Testing in the emergency room revealed head CT showing no acute bleed or mass effect no acute trauma to cervical spine degenerative disc disease and osteoarthritic change in the lower cervical spine from C4-C7. Hip x-ray completed showing suspected commuted left pubic bone body fracture the degree of osteopenia and overlapping bowel gas limits assessment left shoulder x-ray completed showing underlying full-thickness rotator cuff tear. Lumbar x-ray showing no acute fracture or dislocation pelvis CT completed showing fractures of left superior pubic ramus asymmetrical thickening of the left muscles and left adductor thigh muscle suggesting possible intramuscular hematomas small amount of extraperitoneal hemorrhage identified in the pelvis. Patient has a past medical history of atrial fibrillation which she is maintained on Eliquis., GERD, GI bleed, hyperlipidemia, hypertension, osteoarthritis. This time patient is sitting comfortably in chair. Patient does report she needs 2-3 people to move at this time understand she will likely need to go to rehab patient was evaluated by orthopedic services no surgical intervention planned at this time. Will order repeat labs and urinary analysis. Patient denies chest pain or shortness of breath. Patient denies nausea vomiting or diarrhea. Patient denies any urinary burning or frequency On 08/14/2024 patient was seen and examined on the medical floor she is alert and oriented x 3 in no apparent distress she is still complaining of severe pain in her pelvic area and her shoulder, otherwise she denies any complaints, patient gave today and updated list of her medications, which included different doses for metoprolol and amiodarone, and addition of Flonase, medication were adjusted per patient most recent list. Otherwise she denies any complaints there is no fever or chills no headache or dizziness no chest pain no shortness of breath no cough no nausea or vomiting no abdominal pain no diarrhea and no urinary symptoms. Patient still has mild hyponatremia, will continue to monitor. Sodium today is up to 129. She is requesting podiatry consult. Possible transfer to rehab on Friday. On 08/15/2024 patient is alert and oriented x 3. Chest x-ray completed showing no acute cardiopulmonary disease. Incentive spirometer ordered for bedside. Podiatry services consulted discharge planning to ECF facility. Patient denies chest pain or shortness of breath. Patient denies nausea vomiting or diarrhea. Patient denies any urinary burning or frequency. Current vital signs 77.8, hea rt 61, respiratory rate 18, blood pressure 111/54 with a pulse ox of 97% on room air Objective - Vital Signs Vital signs: Vital Signs Temp 97.8 F 08/15/24 07:39 Pulse 61 08/15/24 08:50 Resp 18 08/15/24 07:39 BP 111/54 08/15/24 07:39 Pulse Ox 97 08/15/24 07:39 FiO2 Intake & Output 08/14/24 08/15/24 08/15/24 18:59 06:59 18:59 Other: Voiding Method Bedside Commode # Voids 2 3 - Exam In general patient is alert and oriented x 3 in no apparent distress Head normocephalic and atraumatic Neck supple no JVD no goiter Lungs clear to auscultation bilaterally no wheezing or crackles Heart regular rate and rhythm S1-S2, no rub or gallop Abdomen is soft nontender nondistended positive bowel sounds no hepatosplenomegaly Extremities no edema Neuro alert and orientated to 3, no gross focal deficit - Labs CBC & Chem 7: 08/15/24 04:28 08/15/24 04:28 Labs: Abnormal Lab Results - Last 24 Hours (Table) 08/15/24 08/15/24 Range/Units 04:28 04:28 RBC 3.33 L (4.10-5.20) X 10*6/uL Hgb 10.8 L (12.0-15.0) g/dL Hct 33.2 L (37.2-46.3) % MCV 99.7 H (80.0-97.0) FL MCH 32.4 H (27.0-32.0) pg Lymphocytes # 0.74 L (0.90-5.00) X 10*3/uL Sodium 131 L (135-145) mmol/L BUN/Creatinine Ratio 24.71 H (12.00-20.00) Ratio Total Protein 5.4 L (6.2-8.2) g/dL Albumin 3.7 L (3.8-4.9) g/dL Assessment and Plan Plan: Status post fall with superior and inferior pubic rami fracture and left shoulder rotator cuff tear History of atrial fibrillation maintained on Eliquis History of GERD History of essential hypertension History of hyperlipidemia History of pneumonia Thank you for this consultation we will continue to follow patient closely throughout stay Repeat labs ordered Patient resumed back on Eliquis per orthopedic services for DVT prophylaxis Social work services consulted for subacute rehab PT OT services following
--- NOTE | 2024-08-15 12:48 | P.PN ---
Subjective Progress Note Date: 08/15/24 Principal diagnosis: Painful hyperkeratotic lesion right foot Painful hammertoes Peripheral vascular disease Lashon Sharma is a 79 year old female patient who presents ER after sustaining a fall down 3 steps. Patient reports she feels like her knee gave out which sometimes happens denies any loss of consciousness or chest pain prior to incident. Testing in the emergency room revealed head CT showing no acute bleed or mass effect no acute trauma to cervical spine degenerative disc disease and osteoarthritic change in the lower cervical spine from C4-C7. Hip x-ray complet ed showing suspected commuted left pubic bone body fracture the degree of osteopenia and overlapping bowel gas limits assessment left shoulder x-ray completed showing underlying full-thickness rotator cuff tear. Lumbar x-ray showing no acute fracture or dislocation pelvis CT completed showing fractures of left superior pubic ramus asymmetrical thickening of the left muscles and left adductor thigh muscle suggesting possible intramuscular hematomas small amount of extraperitoneal hemorrhage identified in the pelvis. Patient has a past medical history of atrial fibrillation which she is maintained on Eliquis., GERD, GI bleed, hyperlipidemia, hypertension, osteoarthritis. This time patient is sitting comfortably in chair. Patient does report she needs 2-3 people to move at this time understand she will likely need to go to rehab patient was evaluated by orthopedic services no surgical intervention planned at this time. Patient is being consulted by podiatric service for treatment of a painful hammertoe. Patient voices been sore for several months. Patient dates she is wearing orthopedic shoes with accommodative modifications for limb length discrepancy which resulted in the pain of the hammertoe. Objective - Vital Signs Vital signs: Vital Signs Temp 97.8 F 08/15/24 07:39 Pulse 61 08/15/24 08:50 Resp 18 08/15/24 07:39 BP 111/54 08/15/24 07:39 Pulse Ox 97 08/15/24 07:39 FiO2 Intake & Output 08/14/24 08/15/24 08/15/24 18:59 06:59 18:59 Other: Voiding Method Bedside Commode # Voids 2 3 - Cardiovascular Details: Patient has diminished pedal pulses bilateral with no digital hair x 10 extremities are cool to cool bilateral there is decreased skin texture and elasticity - Integumentary Integumentary Comment(s): Patient has a painful hyperkeratotic lesion located on the dorsal surface of the second digit of the right foot there is pain with palpation no clinical sign of infection no ulceration noted - Neurologic Neurologic Comment(s): All epicritic and pallesthetic sensations intact and symetrical bilateral - Musculoskeletal Musculoskeletal Comment(s): Motion of the ankle joint subtalar joint midtarsal joint normal symmetric bilateral without pain or crepitus there is a limb length discrepancy with the right being significantly longer than the left lower extremity. There is hammering of digits 2 through 4 bilateral semirigid at the proximal and phalangeal joint. All inverters everters plantarflex dorsiflexors grossly intact symmetric bilateral - Labs CBC & Chem 7: 08/15/24 04:28 08/15/24 04:28 Labs: Abnormal Lab Results - Last 24 Hours (Table) 08/15/24 08/15/24 Range/Units 04:28 04:28 RBC 3.33 L (4.10-5.20) X 10*6/uL Hgb 10.8 L (12.0-15.0) g/dL Hct 33.2 L (37.2-46.3) % MCV 99.7 H (80.0-97.0) FL MCH 32.4 H (27.0-32.0) pg Lymphocytes # 0.74 L (0.90-5.00) X 10*3/uL Sodium 131 L (135-145) mmol/L BUN/Creatinine Ratio 24.71 H (12.00-20.00) Ratio Total Protein 5.4 L (6.2-8.2) g/dL Albumin 3.7 L (3.8-4.9) g/dL Assessment and Plan Assessment: Hammertoe painful Painful hyperkeratosis callus Peripheral vascular disease Plan: Exam discussed patient findings and treatment. Review of patient's history and physical. Due to patient's systemic conditions patient would benefit from debridement of this lesion. Using a sterile 15 blade the lesion was debrided. We discussed the patient etiology prognosis risk expectations of treatment. Patient would benefit from periodic care if needed. Q for this consult
[2024-08-15] MEDS: HYDROcodone/APAP 5-325MG 1 EACH TAB PO PRN (17:18)
[2024-08-16] MEDS: AMIODARONE 200 MG TAB PO SCH (08:17)
[2024-08-16] MEDS: HYDROXYCHLOROQUINE SULFATE 200 MG TAB PO SCH (08:17)
[2024-08-16 10:14] LABS: Basophils # (A) 0.05 X 10*3/uL (0.00-0.10); Basophils % (A) 0.7 %; Eosinophils # (A) 0.21 X 10*3/uL (0.04-0.35); Eosinophils % (A) 3.1 %; HCT 33.6 % (37.2-46.3); HGB 11.2 g/dL (12.0-15.0); Lymphocytes # (A) 0.89 X 10*3/uL (0.90-5.00); MCH 33.2 pg (27.0-32.0); MCHC 33.3 g/dL (32.0-37.0); MCV 99.7 FL (80.0-97.0); Mean Platelet Volume 10.3 FL (9.5-12.2); Monocytes # (A) 0.71 X 10*3/uL (0.20-1.00); Monocytes % (A) 10.4 %; NRBC Per 100 WBC 0 X 10*3/uL (0.00-0.01); Neutrophils # (A) 4.95 X 10*3/uL (1.80-7.70); Neutrophils % (A) 72.2 %; Platelet Count 238 X 10*3/uL (140-440); RBC 3.37 X 10*6/uL (4.10-5.20); RDW 12.5 % (11.5-14.5); WBC 6.85 X 10*3/uL (4.50-10.00)
[2024-08-16 10:30] LABS: ALT 17 U/L (8-44); AST 15 U/L (13-35); Albumin 3.7 g/dL (3.8-4.9); Albumin/Globulin Ratio 2.18 Ratio (1.60-3.17); Alkaline Phosphatase 56 U/L (41-126); BUN/Creat Ratio 28.43 Ratio (12.00-20.00); Blood Urea Nitrogen 19.9 mg/dL (9.0-27.0); Carbon Dioxide 23.1 mmol/L (21.6-31.8); Chloride 98 mmol/L (96-109); Globulin 1.7 g/dL (1.6-3.3); Glucose 92 mg/dL (70-110); Potassium 5.2 mmol/L (3.5-5.5); Sodium 131 mmol/L (135-145); Total Bilirubin 0.6 mg/dL (0.3-1.2); Total Protein 5.4 g/dL (6.2-8.2)
--- NOTE | 2024-08-16 12:39 | P.DS ---
Providers Date of admission: 08/12/24 19:50 Expected date of discharge: 08/16/24 Attending physician: Cornell Beaulieu Consults: 08/12/24 19:53 Consult Physician Stat Consulting Provider: Aurea Aggarwal Consult Reason/Comments: Medical management Do you want consulting provider notified?: Yes 08/15/24 10:30 Consult Physician Routine Consulting Provider: Krishna Stewart Consult Reason/Comments: calus on toe Do you want consulting provider notified?: Yes Primary care physician: Soledad Antunez Hospital Course: Date of admission: 08/12/2024 Date of discharge: 08/16/2024 Admission diagnosis: Left-sided superior and inferior pubic rami fractures, left shoulder impingement Discharge diagnosis: Same Attending physician: Dr. Ruff Surgical procedures: None Brief history: Patient is a 79-year-old female who was brought to [facility] ER after falling on 08/12/2024 while at home. Images demonstrated a displaced left superior and inferior pubic rami fracture, patient had very difficult time with ambulation she was admitted to the hospital under orthopedic care for further management and likely rehab placement. Hospital course: Details of patient's surgery can be found in operative report. Patient's orthopeidc and medical care was provided daily. Patient had daily laboratory tests performed for evaluation of overall blood counts. Patient had daily physical therapy to include strengthening range of motion as well as education with walker ambulation. Patient showed satisfactory progress with physical therapy. Discharge condition/disposition: Patient will be discharged subacute rehab in stable condition. Discharge medications: Instructions are given on resumption of patient's normal daily medications per primary care recommendation, in addition patient will be prescribed [place] 5 mg/325. Discharge instructions: 2. Weight-bear as tolerated with walker / cane until follow-up. 3. Ice and elevate when necessary. Do not exceed 20 minutes per hour with ice pack. 4. Utilize compression sleeve until seen at first follow up appointment. 5. Visiting nursing care. 7. Pain meds and anticoagulants per prescription. 8. Pain medication has potential to cause constipation. Increase oral fluid and fiber intake. Contact primary care provider if you have not had a bowel movement within 48 hours after discharge 9. No anti-inflammatory medication until discussed at first post operative visit, this including Motrin, Aleve, Mobic, Diclofenac 10. Follow up in office at 2 weeks postop with Petar Stewart PA-C/Vinicio Atwood 11. Follow up with your primary care doctor 7-10 days after discharge. 12. Contact [facility] with any questions, . Procedures: none Patient Condition at Discharge: Poor Plan - Discharge Summary Discharge Rx Participant: Yes New Discharge Prescriptions: New HYDROcodone/APAP 5-325MG [Clarkia 5-325] 1 tab PO Q6HR PRN #28 tab PRN Reason: Pain No Action Simvastatin [Zocor] 20 mg PO HS Hydroxychloroquine Sulfate [Plaquenil] 200 mg PO DAILY Omeprazole 20 mg PO DAILY Magnesium Oxide [Mag-Ox] 800 mg PO HS Cholecalciferol [Vitamin D3 (125 Mcg = 5000 Iu)] 125 mcg PO DAILY Ascorbic Acid [Vitamin C] 1,000 mg PO DAILY Apixaban [Eliquis] 5 mg PO BID #60 tab Multivitamins, Thera [Multivitamin (formulary)] 1 tab PO DAILY Metoprolol Tartrate [Lopressor] 12.5 mg PO DAILY Losartan Potassium 100 mg PO DAILY Levothyroxine Sodium [Synthroid] 25 mcg PO DAILY Fluticasone Nasal [place] [Flonase Nasal [place]] 1 spray EA NOSTRIL BID PRN PRN Reason: Allergy Symptoms Amiodarone [Cordarone] 200 mg PO MOWEFR L.acidoph,Paracasei, B.lactis [Probiotic] 1 cap PO DAILY Montelukast [Singulair] 10 mg PO DAILY Acetaminophen Tab [Tylenol Tab] 1,000 mg PO Q6H PRN PRN Reason: Pain Albuterol Inhaler [Ventolin Hfa Inhaler] 2 puff INHALATION RT-QID PRN PRN Reason: Shortness Of Breath Azithromycin [Zithromax] 250 mg PO ONCE PRN PRN Reason: PRIOR TO [facility] APPT amLODIPine [Norvasc] 5 mg PO DAILY Discharge Medication List Hydroxychloroquine Sulfate [Plaquenil] 200 mg PO DAILY 07/15/13 [History] Simvastatin [Zocor] 20 mg PO HS 07/15/13 [History] Omeprazole 20 mg PO DAILY 08/08/19 [History] Magnesium Oxide [Mag-Ox] 800 mg PO HS 10/04/19 [History] Ascorbic Acid [Vitamin C] 1,000 mg PO DAILY 04/02/21 [History] Cholecalciferol [Vitamin D3 (125 Mcg = 5000 Iu)] 125 mcg PO DAILY 04/02/21 [History] Apixaban [Eliquis] 5 mg PO BID #60 tab 04/05/21 [Rx] Multivitamins, Thera [Multivitamin (formulary)] 1 tab PO DAILY 05/09/21 [History] Montelukast [Singulair] 10 mg PO DAILY 07/15/22 [History] Acetaminophen Tab [Tylenol Tab] 1,000 mg PO Q6H PRN 07/17/22 [History] Levothyroxine Sodium [Synthroid] 25 mcg PO DAILY 09/05/22 [History] Losartan Potassium 100 mg PO DAILY 09/05/22 [History] Metoprolol Tartrate [Lopressor] 12.5 mg PO DAILY 09/05/22 [History] Albuterol Inhaler [Ventolin Hfa Inhaler] 2 puff INHALATION RT-QID PRN 08/09/23 [History] Amiodarone [Cordarone] 200 mg PO MOWEFR 08/09/23 [History] Fluticasone Nasal [place] [Flonase Nasal [place]] 1 spray EA NOSTRIL BID PRN 08/09/23 [History] L.acidoph,Paracasei, B.lactis [Probiotic] 1 cap PO DAILY 08/09/23 [History] Azithromycin [Zithromax] 250 mg PO ONCE PRN 08/12/24 [History] amLODIPine [Norvasc] 5 mg PO DAILY 08/12/24 [History] HYDROcodone/APAP 5-325MG [[place] 5-325] 1 tab PO Q6HR PRN #28 tab 08/16/24 [Rx] Follow up Appointment(s)/Referral(s): Soledad Antunez MD [Primary Care Provider] - 1-2 days Jd Stewart PAC [PHYSICIAN [employer]] - 3 Weeks Activity/Diet/Wound Care/Special Instructions: Orthopedic discharge instructions: 1. Resume home medications 2. Pain medication as needed 3. Weight-bear as tolerated with walker 4. Plan for [facility]-up with [facility] 3 weeks for recheck Discharge Disposition: TRANSFER TO SNF/ECF
--- NOTE | 2024-08-16 12:41 | P.PN ---
Subjective Progress Note Date: 08/16/24 Principal diagnosis: Left shoulder pain, left-sided superior and inferior pubic rami fractures, status post fall from standing Patient was evaluated at bedside, she was up resting in her hospital chair. Patient continues to need quite a bit of assistance with ambulation due to the left-sided pelvic pain. She continues to have shoulder discomfort along the posterior lateral aspect. She denies headaches, headedness, chest pain or shortness of breath Objective - Vital Signs Vital signs: Vital Signs Temp 98.9 F 08/16/24 07:09 Pulse 51 L 08/16/24 07:09 Resp 16 08/16/24 07:09 BP 155/75 08/16/24 07:09 Pulse Ox 98 08/16/24 07:09 FiO2 Intake & Output 08/15/24 08/16/24 08/16/24 18:59 06:59 18:59 Intake Total 240 Balance 240 Intake: Oral 240 Other: Voiding Method Bedside Commode # Voids 3 3 1 - Exam General orthopedic exam: No open lesions or sores surrounding the left shoulder, there is no effusion present. She does have decent range of motion, forward elevation she goes to about 140, abduction is about 110 degrees before pain is reproduced. She notes pain on the anterior aspect of the shoulder along with the posterior lateral side. Negative drop arm test. Positive crossarm abduction test. range of motion is intact throughout the elbow, wrist and hand. Sensory exam to light touch is intact throughout the extremity. Radial and ulnar pulse are 2+ No tenderness with palpation surrounding the proximal femur. Logroll maneuver reproduces minimal discomfort, straight leg raise reproduces minimal discomfort. range of motion is intact at the knee, foot and ankle. Compartments of the upper and lower leg are soft and compressible. Calf is soft, no tenderness with palpation. Plantarflexion, dorsiflexion, EHL, FHL are intact. Dorsalis pedis pulses 2+, sensory exam to light touch is intact throughout the extremity - Labs CBC & Chem 7: 08/16/24 05:22 08/16/24 05:22 Labs: Abnormal Lab Results - Last 24 Hours (Table) 08/16/24 08/16/24 Range/Units 05:22 05:22 RBC 3.37 L (4.10-5.20) X 10*6/uL Hgb 11.2 L (12.0-15.0) g/dL Hct 33.6 L (37.2-46.3) % MCV 99.7 H (80.0-97.0) FL MCH 33.2 H (27.0-32.0) pg Lymphocytes # 0.89 L (0.90-5.00) X 10*3/uL Sodium 131 L (135-145) mmol/L BUN/Creatinine Ratio 28.43 H (12.00-20.00) Ratio Total Protein 5.4 L (6.2-8.2) g/dL Albumin 3.7 L (3.8-4.9) g/dL Assessment and Plan Assessment: Left-sided superior and inferior pubic rami fractures Left shoulder pain Left shoulder impingement Left shoulder possible rotator cuff tear Other medical comorbidities Plan: Continue conservative measures, this to include muscle relaxers and pain medication as needed. Icing of the left pelvic region Weight-bear as tolerated with walker PT/OT recommendations appreciated GI and DVT prophylaxis per primary medical service Patient would like to proceed with the left shoulder and cortisone injection, consent form was obtained prior. Please see procedure note for further detail Discharge planning: Patient stable for discharge to subacute rehab and follow-up in 3 weeks Time with Patient: Less than 30
--- NOTE | 2024-08-16 12:44 | P.PCN ---
Date of Procedure: 08/16/24 Preoperative Diagnosis: Left shoulder pain, left shoulder impingement Postoperative Diagnosis: Same Procedure(s) Performed: Left shoulder cortisone injection Anesthesia: local Surgeon: Jd Stewart Pathology: none sent Condition: stable Disposition: no change Indications for Procedure: Left shoulder pain Description of Procedure: Risk and benefits of the injection were discussed with the patient at bedside, this to include infection, blood loss, neurovascular injury and adequate resolution of symptoms. Patient was in good understanding and wanted to proceed. Consent form was obtained prior to the procedure., Patient was in the sitting position, the left upper extremity was draped at her side. I prepped the skin with 1 iodine swab and 3 alcohol swabs. A 22-gauge spinal needle was placed into the subacromial space via the posterior approach. 7 cc of 1% lidocaine, 2 cc of quarter percent plain Marcaine and 1 cc / 40 mg of Depo-Medrol was injected to the shoulder. Patient tolerated the procedure well, bandage was then placed.
--- NOTE | 2024-08-16 14:39 | P.PN ---
Subjective Progress Note Date: 08/16/24 Lashon Sharma is a 79 year old female patient who presents ER after sustaining a fall down 3 steps. Patient reports she feels like her knee gave out which sometimes happens denies any loss of consciousness or chest pain prior to incident. Testing in the emergency room revealed head CT showing no acute bleed or mass effect no acute trauma to cervical spine degenerative disc disease and osteoarthritic change in the lower cervical spine from C4-C7. Hip x-ray completed showing suspected commuted left pubic bone body fracture the degree of osteopenia and overlapping bowel gas limits assessment left shoulder x-ray completed showing underlying full-thickness rotator cuff tear. Lumbar x-ray showing no acute fracture or dislocation pelvis CT completed showing fractures of left superior pubic ramus asymmetrical thickening of the left muscles and left adductor thigh muscle suggesting possible intramuscular hematomas small amount of extraperitoneal hemorrhage identified in the pelvis. Patient has a past medical history of atrial fibrillation which she is maintained on Eliquis., GERD, GI bleed, hyperlipidemia, hypertension, osteoarthritis. This time patient is sitting comfortably in chair. Patient does report she needs 2-3 people to move at this time understand she will likely need to go to rehab patient was evaluated by orthopedic services no surgical intervention planned at this time. Will order repeat labs and urinary analysis. Patient denies chest pain or shortness of breath. Patient denies nausea vomiting or diarrhea. Patient denies any urinary burning or frequency On 08/14/2024 patient was seen and examined on the medical floor she is alert and oriented x 3 in no apparent distress she is still complaining of severe pain in her pelvic area and her shoulder, otherwise she denies any complaints, patient gave today and updated list of her medications, which included different doses for metoprolol and amiodarone, and addition of Flonase, medication were adjusted per patient most recent list. Otherwise she denies any complaints there is no fever or chills no headache or dizziness no chest pain no shortness of breath no cough no nausea or vomiting no abdominal pain no diarrhea and no urinary symptoms. Patient still has mild hyponatremia, will continue to monitor. Sodium today is up to 129. She is requesting podiatry consult. Possible transfer to rehab on Friday. On 08/15/2024 patient is alert and oriented x 3. Chest x-ray completed showing no acute cardiopulmonary disease. Incentive spirometer ordered for bedside. Podiatry services consulted discharge planning to [facility] facility. Patient denies chest pain or shortness of breath. Patient denies nausea vomiting or diarrhea. Patient denies any urinary burning or frequency. Current vital signs 77.8, hea rt 61, respiratory rate 18, blood pressure 111/54 with a pulse ox of 97% on room air. On 08/16/2024 patient was seen and examined on the medical floor she is alert and oriented x 3 in no apparent distress, she is complaining of pain in the pelvic area otherwise she denies any complaints, there is no fever or chills no headache or dizziness no chest pain no shortness of breath no cough no nausea or vomiting no abdominal pain no diarrhea and no urinary symptoms. Patient is stating that she takes amiodarone and Plaquenil at home. She stated that she cleared that with her payroll human resources assistant Dr. Wood in the past, she was restarted on Plaquenil, repeat EKG does not reveal any evidence of QT prolongation. Patient can be discharged to [facility] on the [facility] today. Objective - Vital Signs Vital signs: Vital Signs Temp 98.9 F 08/16/24 07:09 Pulse 51 L 08/16/24 07:09 Resp 16 08/16/24 07:09 BP 155/75 08/16/24 07:09 Pulse Ox 98 08/16/24 07:09 FiO2 Intake & Output 08/15/24 08/16/24 08/16/24 18:59 06:59 18:59 Intake Total 240 Balance 240 Intake: Oral 240 Other: Voiding Method Bedside Commode # Voids 3 3 1 - Exam In general patient is alert and oriented x 3 in no apparent distress Head normocephalic and atraumatic Neck supple no JVD no goiter Lungs clear to auscultation bilaterally no wheezing or crackles Heart regular rate and rhythm S1-S2, no rub or gallop Abdomen is soft nontender nondistended positive bowel sounds no hepatosplenomegaly Extremities no edema Neuro alert and orientated to 3, no gross focal deficit - Labs CBC & Chem 7: 08/16/24 05:22 08/16/24 05:22 Labs: Abnormal Lab Results - Last 24 Hours (Table) 08/16/24 08/16/24 Range/Units 05:22 05:22 RBC 3.37 L (4.10-5.20) X 10*6/uL Hgb 11.2 L (12.0-15.0) g/dL Hct 33.6 L (37.2-46.3) % MCV 99.7 H (80.0-97.0) FL MCH 33.2 H (27.0-32.0) pg Lymphocytes # 0.89 L (0.90-5.00) X 10*3/uL Sodium 131 L (135-145) mmol/L BUN/Creatinine Ratio 28.43 H (12.00-20.00) Ratio Total Protein 5.4 L (6.2-8.2) g/dL Albumin 3.7 L (3.8-4.9) g/dL Assessment and Plan Plan: Status post fall with superior and inferior pubic rami fracture and left shoulder rotator cuff tear History of atrial fibrillation maintained on Eliquis History of GERD History of essential hypertension History of hyperlipidemia History of pneumonia Thank you for this consultation we will continue to follow patient closely throughout stay Repeat labs ordered Patient resumed back on Eliquis per orthopedic services for DVT prophylaxis Social work services consulted for subacute rehab PT OT services following
[2024-08-16 14:44] VITALS: BP 132/66; PULSE 52; RESP 17; TEMP 97.8
--- NOTE | 2024-08-17 22:57 | CDI ---
Documentation Clarification Form Date: 08/17/2024 10:48:37 PM From: Ruma Salomon Phone: Admit Date: 08/12/2024 07:50:00 PM Patient Name: Lashon Sharma Visit Number: [id number] Discharge Date: 08/16/2024 03:48:00 PM ATTENTION: The Clinical Documentation Specialists (CDI) and [facility] Coding Staff appreciate your assistance in clarifying documentation. Please respond to the clarification below the line at the bottom and electronically sign. The CDI & [facility] Coding staff will review the response and follow-up if needed. Please note: Queries are made part of the Legal Health Record. If you have any questions, please contact the author of this message via ITS. Doctor/Provider: Krishna Stewart A debridement via sterile 15 blade is documented on 08/15 Progress Note. Some required elements have not been documented. Additional clarification regarding the procedure is requested. History/Risk Factors: 79yo F, hammertoes, PVD, LT superior andinferior pubic rami fractures,LT shoulder impingement, LTrotator cuff tear, fall down 3 steps Clinical Indicators: hyperkeratosiscallus Treatment: fall down 3 steps Please clarify the Excisional debridement (the removal of necrotic, devitalized tissue or slough by means of cutting away of tissue) Nature of the tissue removed _necrotic Appearance of the wound __not infected Depth of debridement __0.2 cm [ ] Other; please specify Five elements required for accurate and compliant documentation of a debridement: -Technique used (e.g., excisional, excised, cutting, brushing, jet lavage etc.) -Instrument(s) used (e.g., scalpel, curette, etc.) -Nature of the tissue removed (e.g., necrotic, devitalized tissues, non-viable tissue, etc.) -Appearance and size of the wound (e.g., down to fresh bleeding tissue, 7cm x 10cm, etc.) -Depth of the debridement* (e.g., skin, subcutaneous tissue, fascia, muscle, bone, etc.) (Template Last Revised: November 2023) Excisional scalpel necrotic down to good granular bed 0.2 cm subcutaneous MTDD
== END 2024-08-16 15:48 | DRG 464 ==
LOC: EC 13:17 → 4SSUR 19:50
PROVIDERS: ADMIT Orthopaedic Surgery; ATTEND Orthopaedic Surgery
PROC: 0JBQ0ZZ Excision of Right Foot Subcutaneous Tissue and Fascia, Open Approach (ICD-10-PCS; 2024-08-15)
PROC: 3E0U33Z Introduction of Anti-inflammatory into Joints, Percutaneous Approach (ICD-10-PCS; principal; 2024-08-16)
DX: M75.102 Unspecified rotator cuff tear or rupture of left shoulder, not specified as traumatic (principal); D84.821 Immunodeficiency due to drugs; S32.592A Other specified fracture of left pubis, initial encounter for closed fracture; I73.9 Peripheral vascular disease, unspecified; E87.1 Hypo-osmolality and hyponatremia; I48.91 Unspecified atrial fibrillation; M25.812 Other specified joint disorders, left shoulder; L85.1 Acquired keratosis [keratoderma] palmaris et plantaris; M21.70 Unequal limb length (acquired), unspecified site; L84 Corns and callosities; M20.40 Other hammer toe(s) (acquired), unspecified foot; W10.8XXA Fall (on) (from) other stairs and steps, initial encounter; Z79.01 Long term (current) use of anticoagulants; Z79.890 Hormone replacement therapy; Z79.899 Other long term (current) drug therapy; Z85.828 Personal history of other malignant neoplasm of skin; Y92.015 Private garage of single-family (private) house as the place of occurrence of the external cause; Z96.652 Presence of left artificial knee joint
CPT/HCPCS: 70450; 71045; 72100; 72125; 72192; 73502; 80053; 81003; 83735; 84484; 85025; 85027; 96361; 96372; 96374; 99285